=== PATIENT | female | born 1960 | race Hispanic/Latino ===

== ENCOUNTER 2016-11-28 17:52 | Emergency (ER) | payer OTHER ==
[2016-11-28 18:06] VITALS: BMI 25.2
[2016-11-28 18:33] VITALS: TEMP 98.2
[2016-11-28 18:34] LABS: ALB/GLOB RATIO 1.3 (1.1-1.8); ALKALINE PHOSPHATASE 85 U/L (38-126); ALT/SGPT 63 U/L (7-56); AST/SGOT 50 U/L (14-36); BILIRUBIN,TOTAL 0.7 mg/dL (0.2-1.3); BLOOD UREA NITROGEN 20 mg/dL (7-21); CALCIUM 9.5 mg/dL (8.4-10.5); CARBON DIOXIDE 29 mmol/L (21-33); CHLORIDE 105 mmol/L (98-107); GFR AFRICAN-AMERICAN > 60; GLUCOSE,RANDOM 121 mg/dL (70-110); POTASSIUM 3.7 mmol/L (3.6-5.0); SODIUM 146 mmol/L (132-148); TOTAL PROTEIN 8.3 g/dL (5.8-8.3)
[2016-11-28 18:46] LABS: BASO # 0.01 K/mm3 (0.0-2.0); BASO % 0.2 % (0.0-3.0); EOS # 0.1 (0.0-0.7); EOS % 1.4 % (1.5-5.0); GRAN # 3.53 (1.4-6.5); GRAN % 61.8 % (50.0-68.0); HEMATOCRIT 40.1 % (36.0-48.0); LYMPH # 1.6 (1.2-3.4); LYMPH % 27.5 % (22.0-35.0); MEAN CELL VOLUME 93.9 fl (80.0-105.0); MEAN CORPUSCULAR HEMOGLOBIN 32.8 pg (25.0-35.0); MEAN CORPUSCULAR HGB CONC 34.9 g/dl (31.0-37.0); MEAN PLATELET VOLUME 10.6 fl (7.0-11.0); MONO # 0.5 (0.1-0.6); MONO % 9.1 % (1.0-6.0); WHITE BLOOD COUNT 5.7 10^3/ul (4.5-11.0)
[2016-11-28 18:47] LABS: PH,URINE 5.5 (4.7-8.0); URINE APPEARANCE CLEAR (CLEAR); URINE BILIRUBIN SMALL (NEGATIVE); URINE BLOOD NEGATIVE (NEGATIVE); URINE COLOR YELLOW (YELLOW); URINE GLUCOSE (UA) NEGATIVE (NEGATIVE); URINE KETONE TRACE mg/dL (NEGATIVE); URINE LEUKOCYTE ESTERASE NEGATIVE Leu/uL (NEGATIVE); URINE PROTEIN TRACE mg/dL (<30 mg/dL); URINE UROBILINOGEN 0.2 E.U./dL (<1 E.U./dL)
[2016-11-28 18:54] LABS: URINE RBC NEGATIVE /hpf (0-2); URINE WBC 0 - 2 /hpf (0-6)
--- NOTE | 2016-11-28 19:12 | ED PDOC ---
Arrival/HPI - General Historian: Patient - General Chief Complaint: Psychiatric Evaluation Time Seen by Provider: 11/28/16 17:55 - History of Present Illness Narrative History of Present Illness (Text): 11/28/16 19:09 56yo female with PMHx of HIV biba for psychiatric evaluation. PEr the EMS, patient was knocking on her neighbors doors. Patient however, denies knocking on her neighbor's door. She admits to seeing a psychiatrist once in the past. She denies hallucination, SI/HI ideation, drug use, any somatic complaint. (Esthela ,Luis A) Past Medical History - Provider Review Nursing Documentation Reviewed: Yes - Infectious Disease Hx of Infectious Diseases: None - Tetanus Immunization Tetanus Immunization: Unknown - Past Medical History Past Medical History: Unable to Obtain - Pulmonary Hx Chronic Obstructive Pulmonary Disease (COPD): Yes - Musculoskeletal/Rheumatological Other/Comment: left shoulder burcitis - Gastrointestinal Hx Gastrointestinal Disorders: No - Genitourinary/Gynecological Other/Comment: left breast ca - Psychiatric Hx Anxiety: Yes Hx Substance Use: No - Past Surgical History Past Surgical History: Unable to Obtain - Surgical History Hx Cholecystectomy: Yes Other/Comment: left breast lumpectomy - Anesthesia Hx Anesthesia: Yes Hx Anesthesia Reactions: No Hx Malignant Hyperthermia: No - Suicidal Assessment Suicide Risk Precautions: None Family/Social History - Physician Review Nursing Documentation Reviewed: Yes Family/Social History: Unknown Family HX Smoking Status: Former Smoker Hx Alcohol Use: No Hx Substance Use: No Hx Substance Use Treatment: No Allergies/Home Meds Allergies/Adverse Reactions: Allergies No Known Allergies Allergy (Verified 11/28/16 18:06) Home Medications: Home Meds Medication Instructions Recorded Confirmed Albuterol HFA [Ventolin HFA 90 0.09 mg IH PRN PRN 11/04/15 11/28/16 mcg/actuation (8 g)] Alprazolam [Xanax] 0.5 mg PO PRN PRN 11/04/15 11/28/16 Budesonide/Formoterol Fumarate 1 aer IH BID 11/04/15 11/28/16 [Symbicort] Elviteg/Belinda/Emtric/Tenofo Dis 1 tab PO DAILY 11/04/15 11/28/16 [Stribild] Review of Systems - Physician Review All systems were reviewed & negative as marked: Yes - Review of Systems Constitutional: Normal Eyes: Normal ENT: Normal Respiratory: Normal Cardiovascular: Normal Gastrointestinal: Normal Genitourinary Female: Normal Musculoskeletal: Normal Skin: Normal Neurological: Normal Endocrine: Normal Hemo/Lymphatic: Normal Psychiatric: Other (Evaluation) Physical Exam Vital Signs Reviewed: Yes Temperature: Afebrile Blood Pressure: Normal Pulse: Regular Respiratory Rate: Normal Appearance: Positive for: Well-Appearing, Non-Toxic, Comfortable Pain Distress: None Mental Status: Positive for: Alert and Oriented X 3 - Systems Exam Head: Present: Atraumatic, Normocephalic Pupils: Present: PERRL Extroacular Muscles: Present: EOMI Conjunctiva: Present: Normal Mouth: Present: Moist Mucous Membranes Neck: Present: Normal Range of Motion Respiratory/Chest: Present: Clear to Auscultation, Good Air Exchange. No: Respiratory Distress, Accessory Muscle Use Cardiovascular: Present: Regular Rate and Rhythm, Normal S1, S2. No: Murmurs Abdomen: Present: Normal Bowel Sounds. No: Tenderness, Distention, Peritoneal Signs Back: Present: Normal Inspection Upper Extremity: Present: Normal Inspection. No: Cyanosis, Edema Lower Extremity: Present: Normal Inspection. No: Edema Neurological: Present: GCS=15, CN II-XII Intact, Speech Normal Skin: Present: Warm, Dry, Normal Color. No: Rashes Psychiatric: Present: Alert, Oriented x 3, Normal Insight, Normal Concentration Vital Signs Temp Pulse Resp BP Pulse Ox 11/29/16 06:00 83 18 126/83 98 11/29/16 04:00 77 18 120/80 97 11/29/16 02:00 82 18 125/77 99 11/29/16 00:00 78 18 126/78 98 11/28/16 22:00 89 18 129/81 97 11/28/16 20:00 87 18 125/80 98 11/28/16 18:32 98.2 F 90 22 118/79 97 Medical Decision Making ED Course and Treatment: 11/29/16 02:00 Case signed out to me, pending PES evaluation. 11/29/16 03:13 Patient is cleared for discharge. (Bi Vilchis) - Lab Interpretations Lab Results: 11/28/16 18:12 11/28/16 18:12 Lab Results 11/28/16 18:25: Urine Opiates Screen Positive H, Urine Methadone Screen Negative , Ur Barbiturates Screen Negative, Ur Phencyclidine Scrn Negative, Ur Amphetamines Screen Negative, U Benzodiazepines Scrn Negative, U Oth Cocaine Metabols Negative, U Cannabinoids Screen Positive H 11/28/16 18:25: Urine Color Yellow, Urine Appearance Clear, Urine pH 5.5, Ur Specific [place] >= 1.030, Urine Protein Trace H, Urine Glucose (UA) Negative, Urine Ketones Trace H, Urine Blood Negative, Urine Nitrate Negative, Urine Bilirubin Small H, Urine Urobilinogen 0.2, Ur Leukocyte Esterase Negative, Urine RBC Negative, Urine WBC 0 - 2, Ur Epithelial Cells 1 - 3, Urine Other Mucus 11/28/16 18:12: Alcohol, Quantitative < 10 11/28/16 18:12: Salicylates < 1 L, Acetaminophen < 10.0 L 11/28/16 18:12: Sodium 146, Potassium 3.7, Chloride 105, Carbon Dioxide 29, Anion Gap 16, BUN 20, Creatinine 0.8, Est GFR ( Amer) > 60, Est GFR (Non- Af Amer) > 60, Random Glucose 121 H, Calcium 9.5, Total Bilirubin 0.7, AST 50 H , ALT 63 H, Alkaline Phosphatase 85, Total Protein 8.3, Albumin 4.7, Globulin 3.5, Albumin/Globulin Ratio 1.3 11/28/16 18:12: WBC 5.7, RBC 4.27, Hgb 14.0, Hct 40.1, MCV 93.9, MCH 32.8, MCHC 34.9, RDW 15.0 H, Plt Count 208, MPV 10.6, Gran % 61.8, Lymph % (Auto) 27.5, [place] % (Auto) 9.1 H, Eos % (Auto) 1.4 L, Baso % (Auto) 0.2, Gran # 3.53, Lymph # 1.6, [place] # 0.5, Eos # 0.1, Baso # 0.01 Disposition/Present on Arrival - Present on Arrival Any Indicators Present on Arrival: No History of DVT/PE: No History of Uncontrolled Diabetes: No Urinary Catheter: No History of Decub. Ulcer: No History Surgical Site Infection Following: None - Disposition Have Diagnosis and Disposition been Completed?: Yes Disposition Time: 05:00 Patient Plan: Discharge - Disposition Diagnosis: Psychiatric care Disposition: HOME/ ROUTINE Condition: STABLE Discharge Instructions (ExitCare): Schizophrenia (ED) Additional Instructions: please followup as directed by PES worker and [facility]. return to er with worsening symtoms or concerns. Referrals: [facility] [Outside] - Follow up with primary [facility] [Outside] - Follow up with primary Chris Lucas MD [Primary Care Provider] - Follow up with primary Forms: [employer] ([place]ayan)
[2016-11-28 22:22] VITALS: RESP 18
[2016-11-29 06:19] VITALS: BP 126/83; PULSE 83; O2SAT 98
--- NOTE | 2016-11-29 21:07 | CARD ---
APPROVED REPORT EKG Measurement Heart [id number] <Conclusion> Normal sinus rhythm Possible Left atrial enlargement T wave abnormality, consider anterior ischemia Abnormal ECG
== END 2016-11-29 06:19 | disposition home or self-care (01) ==
LOC: ED 17:52
DX: Z00.8 Encounter for other general examination (principal)

== ENCOUNTER 2017-05-15 21:31 | Emergency (ER) | payer OTHER ==
[2017-05-15 21:56] VITALS: BMI 22.1
--- NOTE | 2017-05-15 22:02 | ED PDOC ---
Arrival/HPI - General Chief Complaint: Lower Extremity Problem/Injury Time Seen by Provider: 05/15/17 21:35 Historian: Patient - History of Present Illness Narrative History of Present Illness (Text): 05/15/17 22:02 Rina Mathews is a 56 year old female, whose past medical history includes HIV, who presents to the Emergency department complaining of intermittent bilateral lower extremity swelling for the past month. Patient also reports she developed a rash to bilateral lower extremities since yesterday. Patient denies any shortness of breath or chest patient. Patient states she was advised by her PMD to go to the Emergency room. Patient mid-history now refusing further evaluation, states she is at the wrong hospital and wants to leave. 05/15/17 23:59 Symptom Onset: Gradual Symptom Course: Unchanged Activities at Onset: Light Context: Home Past Medical History - Provider Review Nursing Documentation Reviewed: Yes - Infectious Disease Hx of Infectious Diseases: None - Tetanus Immunization Tetanus Immunization: Unknown - Reproductive Menopause: Yes - Past Medical History Past Medical History: Unable to Obtain - Cardiac Hx Cardiac Disorders: No - Pulmonary Hx Respiratory Disorders: Yes Hx Chronic Obstructive Pulmonary Disease (COPD): Yes - Neurological Hx Neurological Disorder: No - HEENT Hx HEENT Disorder: No - Renal Hx Renal Disorder: No - Endocrine/Metabolic Hx Endocrine Disorders: No - Hematological/Oncological Hx Blood Disorders: Yes - Integumentary Hx Dermatological Disorder: No - Musculoskeletal/Rheumatological Hx Musculoskeletal Disorders: Yes Other/Comment: left shoulder burcitis - Gastrointestinal Hx Gastrointestinal Disorders: No - Genitourinary/Gynecological Hx Genitourinary Disorders: Yes Other/Comment: left breast ca - Psychiatric Hx Psychophysiologic Disorder: Yes Hx Anxiety: Yes Hx Substance Use: No - Past Surgical History Past Surgical History: Unable to Obtain - Surgical History Hx Cholecystectomy: Yes Other/Comment: left breast lumpectomy - Anesthesia Hx Anesthesia: Yes Hx Anesthesia Reactions: No Hx Malignant Hyperthermia: No - Suicidal Assessment Feels Threatened In Home Enviroment: No Family/Social History - Physician Review Nursing Documentation Reviewed: Yes Family/Social History: Unknown Family HX Smoking Status: Former Smoker Hx Alcohol Use: No Hx Substance Use: No Hx Substance Use Treatment: No Allergies/Home Meds Allergies/Adverse Reactions: Allergies No Known Allergies Allergy (Verified 05/15/17 21:53) Home Medications: Home Meds Medication Instructions Recorded Confirmed Albuterol HFA [Ventolin HFA 90 0.09 mg IH PRN PRN 11/04/15 05/15/17 mcg/actuation (8 g)] Alprazolam [Xanax] 0.5 mg PO PRN PRN 11/04/15 05/15/17 Budesonide/Formoterol Fumarate 1 aer IH BID 11/04/15 05/15/17 [Symbicort] Elviteg/Belinda/Emtric/Tenofo Dis 1 tab PO DAILY 11/04/15 05/15/17 [Stribild] Review of Systems - Physician Review All systems were reviewed & negative as marked: Yes - Review of Systems Constitutional: Normal. absent: Fevers Eyes: Normal ENT: Normal Respiratory: Normal. absent: SOB, Cough Cardiovascular: Normal. absent: Chest Pain Gastrointestinal: Normal. absent: Abdominal Pain, Diarrhea, Nausea, Vomiting Genitourinary Female: Normal. absent: Dysuria, Frequency, Hematuria, Urine Output Changes Musculoskeletal: Other (+bilateral lower extremity swelling) Skin: Rash Neurological: Normal Endocrine: Normal Hemo/Lymphatic: Normal Psychiatric: Normal Physical Exam - Physical Exam Physical Exam Limitations: Other (Pt refused further evaluation) Medical Decision Making ED Course and Treatment: 05/15/17 22:02 Impression: 56 year old female complaining of bilateral lower extremity swelling with rash. Plan: -- Reassess and disposition Prior Visits: Notes and results from previous visits were reviewed. On 11/28/2016, pt was seen in the Emergency department for psychiatric evaluation. Pt was d/c home. Progress Notes: Patient mid-history during history now refusing further evaluation, states she is at the wrong hospital and wants to leave. Pt refusing any further evaluation/ examination. Pt will sign out against medical advice. i advsied we cannot call ambulance to tranfer to another institution. pt states she will ama, and seen ambulating out of er in nad. refuses exam, signs ama. The patient is choosing to leave against medical advice. I have personally explained to the patient that choosing to do so may result in permanent bodily harm or . I have discussed at great length that without further evaluation and monitoring there may be unforeseen circumstances and/or deterioration causing permanent bodily harm or as a result of their choice. The patient is alert, oriented, and shows the mental capacity to make clear decisions regarding the patients health care at this time. The patient continues to wish to leave against medical advice. In light of the patients decision to leave against medical advice,patient is aware of the importance to following up as instructed. The patient has been advised that they should return to the emergency room immediately if they change their mind at any time, or if their condition begins to change or worsen in any way.. 05/16/17 00:00 Disposition/Present on Arrival - Present on Arrival Any Indicators Present on Arrival: No History of DVT/PE: No History of Uncontrolled Diabetes: No Urinary Catheter: No History of Decub. Ulcer: No History Surgical Site Infection Following: None - Disposition Have Diagnosis and Disposition been Completed?: Yes Diagnosis: Leg pain, Rash, Left against medical advice Disposition: AGAINST MEDICAL ADVICE Disposition Time: 11:00 Condition: UNKNOWN Discharge Instructions (ExitCare): Skin Rash Referrals: Chris Lucas MD [Primary Care Provider] - Follow up with primary Forms: [employer] ([place] Citizen)
== END 2017-05-15 22:20 | disposition left against medical advice (07) ==
LOC: ED 21:31
DX: R21 Rash and other nonspecific skin eruption (principal); M79.605 Pain in left leg; M79.604 Pain in right leg; Z87.891 Personal history of nicotine dependence

== ENCOUNTER 2017-05-22 | Emergency (ER) | payer OTHER ==
[2017-05-22 00:15] VITALS: BMI 17.2
[2017-05-22 00:19] VITALS: TEMP 97.7; O2SAT 95
--- NOTE | 2017-05-22 00:41 | ED PDOC ---
Arrival/HPI - General Chief Complaint: Shortness Of Breath Time Seen by Provider: 05/22/17 00:04 Historian: Patient - History of Present Illness Narrative History of Present Illness (Text): 05/22/17 00:40 Rina Mathews is a 56 year old female, whose past medical history includes HIV, who presents to the Emergency department complaining of shortness of breath. Patient states allegedly her apartment has had a noxious odor for the past few months and she developed some shortness of breath tonight. Patient also notes red "spots" on her arms and leg. Patient states she has been evaluated by her ENT and autotransfusionist for similar complaints previously. Patient also complaining of a mild burning sensation to bilateral feet. Patient denies any fever, chills, chest pain, nausea, vomiting, diarrhea, urinary symptoms, back pain, neck pain, headache, dizziness, or any other complaints. Symptom Onset: Gradual Symptom Course: Unchanged Activities at Onset: Light Context: Home Past Medical History - Provider Review Nursing Documentation Reviewed: Yes - Infectious Disease Hx of Infectious Diseases: None - Tetanus Immunization Tetanus Immunization: Unknown - Reproductive Menopause: Yes - Past Medical History Past Medical History: Unable to Obtain - Cardiac Hx Cardiac Disorders: No - Pulmonary Hx Respiratory Disorders: Yes Hx Chronic Obstructive Pulmonary Disease (COPD): Yes - Neurological Hx Neurological Disorder: No - HEENT Hx HEENT Disorder: No - Renal Hx Renal Disorder: No - Endocrine/Metabolic Hx Endocrine Disorders: No - Hematological/Oncological Hx Blood Disorders: Yes - Integumentary Hx Dermatological Disorder: No - Musculoskeletal/Rheumatological Hx Musculoskeletal Disorders: Yes Other/Comment: left shoulder burcitis - Gastrointestinal Hx Gastrointestinal Disorders: No - Genitourinary/Gynecological Hx Genitourinary Disorders: Yes Other/Comment: left breast ca - Psychiatric Hx Psychophysiologic Disorder: Yes Hx Anxiety: Yes Hx Substance Use: No - Past Surgical History Past Surgical History: Unable to Obtain - Surgical History Hx Cholecystectomy: Yes Other/Comment: left breast lumpectomy - Anesthesia Hx Anesthesia: Yes Hx Anesthesia Reactions: No Hx Malignant Hyperthermia: No - Suicidal Assessment Feels Threatened In Home Enviroment: No Family/Social History - Physician Review Nursing Documentation Reviewed: Yes Family/Social History: Unknown Family HX Smoking Status: Former Smoker Hx Alcohol Use: No Hx Substance Use: No Hx Substance Use Treatment: No Allergies/Home Meds Allergies/Adverse Reactions: Allergies No Known Allergies Allergy (Verified 04/11/18 00:22) Home Medications: Home Meds Medication Instructions Recorded Confirmed Albuterol HFA [Ventolin HFA 90 0.09 mg IH PRN PRN 11/04/15 05/22/17 mcg/actuation (8 g)] Alprazolam [Xanax] 0.5 mg PO PRN PRN 11/04/15 05/22/17 Budesonide/Formoterol Fumarate 1 aer IH BID 11/04/15 05/15/17 [Symbicort] Elviteg/Belinda/Emtric/Tenofo Dis 1 tab PO DAILY 11/04/15 05/15/17 [Stribild] Abacavir/Dolutegravir/Lamivudi 1 tab PO DAILY 05/22/17 05/22/17 [Triumeq 600 mg-50 mg-300 mg] Review of Systems - Physician Review All systems were reviewed & negative as marked: Yes - Review of Systems Constitutional: Normal. absent: Fevers Eyes: Normal ENT: Normal Respiratory: SOB. absent: Cough Cardiovascular: Normal. absent: Chest Pain Gastrointestinal: Normal. absent: Abdominal Pain Genitourinary Female: Normal. absent: Dysuria, Frequency, Hematuria, Urine Output Changes Musculoskeletal: Normal. absent: Back Pain, Neck Pain Skin: Rash Neurological: Normal. absent: Headache, Dizziness Endocrine: Normal Hemo/Lymphatic: Normal Psychiatric: Normal Physical Exam Vital Signs Reviewed: Yes Vital Signs Temp Pulse Resp BP Pulse Ox 05/22/17 00:18 97.7 F 70 18 111/61 95 05/22/17 00:15 67 18 111/61 93 L Temperature: Afebrile Blood Pressure: Normal Pulse: Regular Respiratory Rate: Normal Appearance: Positive for: Well-Appearing, Non-Toxic, Comfortable Pain Distress: None Mental Status: Positive for: Alert and Oriented X 3 - Systems Exam Head: Present: Atraumatic, Normocephalic Pupils: Present: PERRL Extroacular Muscles: Present: EOMI Conjunctiva: Present: Normal Mouth: Present: Moist Mucous Membranes Neck: Present: Normal Range of Motion Respiratory/Chest: Present: Clear to Auscultation, Good Air Exchange. No: Respiratory Distress, Accessory Muscle Use Cardiovascular: Present: Regular Rate and Rhythm, Normal S1, S2. No: Murmurs Abdomen: No: Tenderness, Distention, Peritoneal Signs Back: Present: Normal Inspection Upper Extremity: Present: Normal Inspection. No: Cyanosis, Edema Lower Extremity: Present: Normal Inspection. No: Edema Neurological: Present: GCS=15, CN II-XII Intact, Speech Normal Skin: Present: Warm, Dry, Normal Color. No: Rashes Psychiatric: Present: Alert, Oriented x 3, Normal Insight, Normal Concentration Medical Decision Making ED Course and Treatment: 05/22/17 00:40 Impression: 56 year old female complaining of shortness of breath and red "spots" on her arms and legs. Plan: -- EKG -- Chest X-ray -- Labs, ABG -- Urinalysis -- Reassess and disposition Prior Visits: Notes and results from previous visits were reviewed. On 05/15/2017, pt was seen in the Emergency department for bilateral lower leg swelling and rash. Pt refused further evaluation and AMA. Progress Notes: Reviewed EKG, NSR at [address]-segment elevations or depressions, no T-wave inversions, normal intervals 05/22/17 02:03 Chest X-ray reviewed, shows no acute processes. 05/22/17 02:10 On re-evaluation, patient feels better and is in no acute distress. I have discussed the results and plan with the patient, who expresses understanding. Patient in agreement with plan to be discharged home. Patient is stable for discharge. Patient was instructed to follow up with physician or return if symptoms worsen or new concerning symptoms arise. - Lab Interpretations Lab Results: 05/22/17 01:08 05/22/17 01:08 Lab Results 05/22/17 01:08: Sodium 141, Potassium 4.5, Chloride 103, Carbon Dioxide 28, Anion Gap 15, BUN 21, Creatinine 0.9, Est GFR ( Amer) > 60, Est GFR (Non- Af Amer) > 60, Random Glucose 100, Calcium 9.8, Total Bilirubin 0.3, AST 26, ALT 28, Alkaline Phosphatase 84, Total Protein 7.6, Albumin 4.2, Globulin 3.4, Albumin/Globulin Ratio 1.3 05/22/17 01:08: PT 11.1, INR 0.97, APTT 30.9 05/22/17 01:08: WBC 6.2, RBC 4.09, Hgb 13.1, Hct 38.2, MCV 93.4, MCH 32.0, MCHC 34.3, RDW 13.0, Plt Count 161, MPV 10.7, Gran % 48.0 L, Lymph % (Auto) 35.0, [place] % (Auto) 10.9 H, Eos % (Auto) 5.6 H, Baso % (Auto) 0.5, Gran # 2.99, Lymph # (Auto) 2.2, [place] # (Auto) 0.7 H, Eos # (Auto) 0.4, Baso # (Auto) 0.03 I have reviewed the lab results: Yes - RAD Interpretation Radiology Orders: 05/22/17 00:45 CHEST PORTABLE [RAD] Stat Buoy Tender: ED Physician - EKG Interpretation Interpreted by ED Physician: Yes Type: 12 lead EKG - Scribe Statement The provider has reviewed the documentation as recorded by the Scribe Sade Singletary Provider Scribe Attestation: All medical record entries made by the Scribe were at my direction and personally dictated by me. I have reviewed the chart and agree that the record accurately reflects my personal performance of the history, physical exam, medical decision making, and the department course for this patient. I have also personally directed, reviewed, and agree with the discharge instructions and disposition. Disposition/Present on Arrival - Present on Arrival History of DVT/PE: No History of Uncontrolled Diabetes: No Urinary Catheter: No History of Decub. Ulcer: No History Surgical Site Infection Following: None - Disposition Diagnosis: Inhalation of noxious fumes, Dermatitis Disposition: HOME/ ROUTINE Patient Problems: Current Active Problems Problem Status Onset Dermatitis Acute Inhalation of noxious fumes Acute Condition: GOOD Discharge Instructions (ExitCare): Eczema (Atopic Dermatitis) Referrals: Ryan Harmon MD [Staff Provider] - Follow up with primary Chris Lucas MD [Primary Care Provider] - Follow up with primary Forms: [employer] (Arabic)
[2017-05-22 01:39] LABS: ALB/GLOB RATIO 1.3 (1.1-1.8); ALBUMIN 4.2 g/dL (3.0-4.8); ALT/SGPT 28 U/L (7-56); AST/SGOT 26 U/L (14-36); BLOOD UREA NITROGEN 21 mg/dL (7-21); CALCIUM 9.8 mg/dL (8.4-10.5); GFR AFRICAN-AMERICAN > 60; GFR NON-AFRICAN AMERICAN > 60
[2017-05-22 01:44] LABS: INR 0.97 (0.93-1.08); PROTHROMBIN TIME 11.1 SECONDS (9.4-12.5)
[2017-05-22 01:45] LABS: PARTIAL THROMBOPLASTIN TIME 30.9 Seconds (25.1-36.5)
[2017-05-22 01:50] LABS: BASO # 0.03 K/mm3 (0.0-2.0); BASO % 0.5 % (0.0-3.0); EOS # 0.4 (0.0-0.7); EOS % 5.6 % (1.5-5.0); GRAN # 2.99 (1.4-6.5); HEMOGLOBIN 13.1 g/dL (12.0-16.0); LYMPH # 2.2 (1.2-3.4); MEAN CELL VOLUME 93.4 fl (80.0-105.0); MEAN CORPUSCULAR HGB CONC 34.3 g/dl (31.0-37.0); MEAN PLATELET VOLUME 10.7 fl (7.0-11.0); MONO # 0.7 (0.1-0.6); MONO % 10.9 % (1.0-6.0); RBC 4.09 10^6/uL (3.5-6.1); WHITE BLOOD COUNT 6.2 10^3/ul (4.5-11.0)
[2017-05-22 02:53] VITALS: BP 137/81; PULSE 97; RESP 20
--- NOTE | 2017-05-22 09:29 | RAD ---
HISTORY: Shortness of breath. COMPARISON: No prior. FINDINGS: LUNGS: No active pulmonary disease. PLEURA: No significant pleural effusion identified, no pneumothorax apparent. CARDIOVASCULAR: Normal. OSSEOUS STRUCTURES: No significant abnormalities. VISUALIZED UPPER ABDOMEN: Normal. OTHER FINDINGS: None. IMPRESSION: No active disease.
--- NOTE | 2017-05-22 11:19 | CARD ---
APPROVED REPORT EKG Measurement Heart [id number] <Conclusion> Normal sinus rhythm Normal ECG
== END 2017-05-22 05:35 | disposition home or self-care (01) ==
LOC: ED
DX: L30.9 Dermatitis, unspecified (principal); T59.891A Toxic effect of other specified gases, fumes and vapors, accidental (unintentional), initial encounter; Y92.009 Unspecified place in unspecified non-institutional (private) residence as the place of occurrence of the external cause

== ENCOUNTER 2017-06-20 11:38 | Emergency (ER) | payer OTHER ==
[2017-06-20 11:51] VITALS: BMI 17.7
--- NOTE | 2017-06-20 13:06 | ED PDOC ---
Arrival/HPI - General Chief Complaint: Abnormal Skin Integrity Time Seen by Provider: 06/20/17 11:55 Historian: Patient - History of Present Illness Narrative History of Present Illness (Text): 06/20/17 56 year old female, whose PMH includes left breast cancer and COPD, who presents to the emergency department complaining of burning on bilateral hands s /p getting out the shower. Patient also reports having chronic problems and issues with her apartment, requesting us to call the police. Patient denies SI, HI, hallucination, or other complaints. Symptom Onset: Sudden Symptom Course: Unchanged Context: Home Past Medical History - Provider Review Nursing Documentation Reviewed: Yes - Infectious Disease Hx of Infectious Diseases: None - Tetanus Immunization Tetanus Immunization: Unknown - Reproductive Menopause: No - Past Medical History Past Medical History: Unable to Obtain - Cardiac Hx Cardiac Disorders: No - Pulmonary Hx Respiratory Disorders: Yes Hx Chronic Obstructive Pulmonary Disease (COPD): Yes - Neurological Hx Neurological Disorder: No - HEENT Hx HEENT Disorder: No - Renal Hx Renal Disorder: No - Endocrine/Metabolic Hx Endocrine Disorders: No - Hematological/Oncological Hx Blood Disorders: Yes - Integumentary Hx Dermatological Disorder: No - Musculoskeletal/Rheumatological Hx Musculoskeletal Disorders: Yes Other/Comment: left shoulder burcitis - Gastrointestinal Hx Gastrointestinal Disorders: No - Genitourinary/Gynecological Hx Genitourinary Disorders: Yes Other/Comment: left breast ca - Psychiatric Hx Psychophysiologic Disorder: Yes Hx Anxiety: Yes Hx Substance Use: No - Past Surgical History Past Surgical History: Unable to Obtain - Surgical History Hx Cholecystectomy: Yes Other/Comment: left breast lumpectomy - Anesthesia Hx Anesthesia: Yes Hx Anesthesia Reactions: No Hx Malignant Hyperthermia: No - Suicidal Assessment Feels Threatened In Home Enviroment: No Family/Social History - Physician Review Nursing Documentation Reviewed: Yes Family/Social History: Unknown Family HX Smoking Status: Former Smoker Hx Alcohol Use: No Hx Substance Use: No Hx Substance Use Treatment: No Allergies/Home Meds Allergies/Adverse Reactions: Allergies No Known Allergies Allergy (Verified 05/22/17 00:22) Home Medications: Home Meds Medication Instructions Recorded Confirmed Albuterol HFA [Ventolin HFA 90 0.09 mg IH PRN PRN 11/04/15 05/22/17 mcg/actuation (8 g)] Alprazolam [Xanax] 0.5 mg PO PRN PRN 11/04/15 05/22/17 Budesonide/Formoterol Fumarate 1 aer IH BID 11/04/15 05/15/17 [Symbicort] Elviteg/Belinda/Emtric/Tenofo Dis 1 tab PO DAILY 11/04/15 05/15/17 [Stribild] Abacavir/Dolutegravir/Lamivudi 1 tab PO DAILY 05/22/17 05/22/17 [Triumeq 600 mg-50 mg-300 mg] Physical Exam Vital Signs Reviewed: Yes Vital Signs Temp Pulse Resp BP Pulse Ox 06/20/17 14:14 98.5 F 92 H 18 140/69 100 06/20/17 11:56 97.7 F 79 22 105/69 97 Temperature: Afebrile Blood Pressure: Normal Pulse: Regular Respiratory Rate: Normal Appearance: Positive for: Well-Appearing, Non-Toxic, Comfortable Pain Distress: None Mental Status: Positive for: Alert and Oriented X 3 - Systems Exam Head: Present: Atraumatic, Normocephalic Pupils: Present: PERRL Extroacular Muscles: Present: EOMI Conjunctiva: Present: Normal Neurological: Present: GCS=15, CN II-XII Intact, Speech Normal Skin: Present: Warm, Dry, Normal Color. No: Rashes Psychiatric: Present: Alert, Oriented x 3, Normal Insight, Normal Concentration Medical Decision Making ED Course and Treatment: 06/20/17 Plan: -- day care worker -- Reassess and disposition Progress Notes: 06/20/17 14:31 day care worker was requested. I explained to the patient that a vp digital marketing social media and crm would be better in assisting her in issues with her apartment. Patient stated she has an appointment and requested to be d/c. She did not want to wait to speak with the vp digital marketing social media and crm. - Scribe Statement The provider has reviewed the documentation as recorded by the Scribe Christelle Whipple Provider Scribe Attestation: All medical record entries made by the Scribe were at my direction and personally dictated by me. I have reviewed the chart and agree that the record accurately reflects my personal performance of the history, physical exam, medical decision making, and the department course for this patient. I have also personally directed, reviewed, and agree with the discharge instructions and disposition. Disposition/Present on Arrival - Present on Arrival Any Indicators Present on Arrival: No History of DVT/PE: No History of Uncontrolled Diabetes: No Urinary Catheter: No History of Decub. Ulcer: No History Surgical Site Infection Following: None - Disposition Have Diagnosis and Disposition been Completed?: Yes Diagnosis: Well adult health check Disposition Time: 13:40 Condition: GOOD Additional Instructions: Thank you for letting us take care of you today. The emergency medical care you received today was directed at your acute symptoms. If you were prescribed any medication, please fill it and take as directed. It may take several days for your symptoms to resolve. Return to the Emergency Department if your symptoms worsen, do not improve, or if you have any other problems. Please contact your doctor or call one of the physicians/clinics you have been referred to that are listed on the Patient Visit Information form that is included in your discharge packet. Bring any paperwork you were given at discharge with you along with any medications you are taking to your follow up visit. Our treatment cannot replace ongoing medical care by a primary care provider (PCP) outside of the emergency department. Thank you for allowing the [facility] team to be part of your care today. Follow up with your primary care doctor for re-evaluation and further management. Forms: [employer] (Yoruba)
[2017-06-20 14:16] VITALS: BP 140/69; PULSE 92; RESP 18; TEMP 98.5; O2SAT 100
== END 2017-06-20 13:30 | disposition home or self-care (01) ==
LOC: ED 11:38
DX: Z00.00 Encounter for general adult medical examination without abnormal findings (principal); J44.9 Chronic obstructive pulmonary disease, unspecified; Z85.3 Personal history of malignant neoplasm of breast; Z87.891 Personal history of nicotine dependence

== ENCOUNTER 2017-07-02 22:52 | Emergency (ER) | payer OTHER ==
[2017-07-02 22:58] VITALS: BMI 18.3
[2017-07-02 23:17] VITALS: RESP 18; TEMP 97.7
--- NOTE | 2017-07-03 00:28 | ED PDOC ---
Arrival/HPI - General Chief Complaint: Headache Time Seen by Provider: 07/02/17 23:21 - History of Present Illness Narrative History of Present Illness (Text): 07/03/17 00:16 Patient is a 56 year old female with a past medical history of HIV, COPD, left breast cancer, and hepatitis C (treated), who presents to the ED complaining of headache for 2 months duration, abnormal spots on her arm, white hands, and burning and erythema on the bottom of her feet. Patient describes the headache as generalized and intermittent. Patient says she thinks this is all from a noxious substance coming from her apartment. Patient says she has called the fire department twice about this smell but by the time they arrive the smell is gone but once they leave the smell comes back. Patient believes that there is someone upstairs spreading "formaldehyde" and "molecules" into her home. She says that when she walked into her apartment and smelled the noxious odor, a blister immediately popped up on her arm. She saw a tire technician for this and they told her it was sun damage and asked her not to come back to their office. She also believes she is being watched by her ex boyfriend and his girlfriend. Patient denies suicidal and homicidal ideation. Patient says that in the past her neighbors and family forced her to come here to be evaluated for a blister on her arm but when she got here she says "they put me in the PES room and made me stay until a psychiatrist evaluated me at 2:00 in the morning". Patient says they told her at that time that she had schizophrenia and since then she has been afraid to see a psychiatrist in fear that they will involuntarily admit her to a psychiatric unit. I explained to her that it may be of benefit to her to see a psychiatrist or therapist and emphasized that they would not involuntarily admit her unless they believed she was at risk of harming herself or others. Patient understood this and was agreeable. (Lis Hamlin) Past Medical History - Infectious Disease Hx of Infectious Diseases: None - Tetanus Immunization Tetanus Immunization: Unknown - Past Medical History Past Medical History: Unable to Obtain - Cardiac Hx Cardiac Disorders: No - Pulmonary Hx Respiratory Disorders: Yes Hx Chronic Obstructive Pulmonary Disease (COPD): Yes - Neurological Hx Neurological Disorder: No - HEENT Hx HEENT Disorder: No - Renal Hx Renal Disorder: No - Endocrine/Metabolic Hx Endocrine Disorders: No - Hematological/Oncological Hx Blood Disorders: Yes - Integumentary Hx Dermatological Disorder: No - Musculoskeletal/Rheumatological Hx Musculoskeletal Disorders: Yes Other/Comment: left shoulder burcitis - Gastrointestinal Hx Gastrointestinal Disorders: No - Genitourinary/Gynecological Hx Genitourinary Disorders: Yes Other/Comment: left breast ca - Psychiatric Hx Psychophysiologic Disorder: Yes Hx Anxiety: Yes Hx Substance Use: No - Past Surgical History Past Surgical History: Unable to Obtain - Surgical History Hx Cholecystectomy: Yes Other/Comment: left breast lumpectomy - Anesthesia Hx Anesthesia: Yes Hx Anesthesia Reactions: No Hx Malignant Hyperthermia: No - Suicidal Assessment Feels Threatened In Home Enviroment: No Family/Social History Family/Social History: Unknown Family HX Smoking Status: Former Smoker Hx Alcohol Use: No Hx Substance Use: No Hx Substance Use Treatment: No Allergies/Home Meds Allergies/Adverse Reactions: Allergies No Known Allergies Allergy (Verified 07/02/17 22:58) Home Medications: Home Meds Medication Instructions Recorded Confirmed Albuterol HFA [Ventolin HFA 90 0.09 mg IH PRN PRN 11/04/15 07/03/17 mcg/actuation (8 g)] Budesonide/Formoterol Fumarate 1 aer IH BID 11/04/15 07/03/17 [Symbicort] Elviteg/Belinda/Emtric/Tenofo Dis 1 tab PO DAILY 11/04/15 07/03/17 [Stribild] Abacavir/Dolutegravir/Lamivudi 1 tab PO DAILY 05/22/17 07/03/17 [Triumeq 600 mg-50 mg-300 mg] Review of Systems - Physician Review All systems were reviewed & negative as marked: Yes - Review of Systems Constitutional: Weight Change (loss) Eyes: Normal ENT: Normal Respiratory: SOB, Cough. absent: Sputum, Wheezing Cardiovascular: Chest Pain. absent: Palpitations, Edema, Calf Pain Gastrointestinal: Abdominal Pain, Nausea. absent: Constipation, Diarrhea, Vomiting Genitourinary Female: Normal Skin: Skin Lesions (right arm) Neurological: Headache, Dizziness Psychiatric: Anxiety, Other (paranoia ). absent: Suicidal Ideation Physical Exam Temperature: Afebrile Blood Pressure: Normal Pulse: Regular Respiratory Rate: Normal Appearance: Positive for: Well-Appearing, Non-Toxic, Comfortable Pain Distress: None Mental Status: Positive for: Alert and Oriented X 3 - Systems Exam Head: Present: Atraumatic, Normocephalic Pupils: Present: PERRL Extroacular Muscles: Present: EOMI Conjunctiva: Present: Normal Mouth: Present: Moist Mucous Membranes Neck: Present: Normal Range of Motion Respiratory/Chest: Present: Clear to Auscultation, Good Air Exchange. No: Respiratory Distress, Accessory Muscle Use Cardiovascular: Present: Regular Rate and Rhythm, Normal S1, S2. No: Murmurs Abdomen: Present: Normal Bowel Sounds. No: Tenderness, Distention, Peritoneal Signs Back: Present: Normal Inspection Upper Extremity: Present: Normal Inspection, Other (small brown macule of right forearm resembling a sunspot). No: Cyanosis, Edema, Swelling, Erythema Lower Extremity: Present: Normal Inspection, Other (angiomata seen on bilateral lower extremities). No: Edema, CALF TENDERNESS Neurological: Present: GCS=15, Speech Normal Skin: Present: Warm, Dry. No: Rashes Psychiatric: Present: Alert, Oriented x 3, Anxious, Delusional. No: Suicidal Ideation, Homicidal Ideation, Hallucinations Vital Signs Temp Pulse Resp BP Pulse Ox 07/03/17 05:00 85 18 115/72 100 07/03/17 01:23 97.7 F 83 18 110/60 100 07/02/17 23:14 97.7 F 91 H 18 102/64 96 Medical Decision Making ED Course and Treatment: 07/03/17 00:37 Will give tylenol for headache and lotion for dry skin. Discussed plan with patient to follow up in the [facility] which she is agreeable to. (Lis Hamiln) Seen and examined with resident. 56 year old F p/w request to sleep and headache due to noxious smell in apartment. On exam, no focal deficit neurologically. (Romain Alvarado) - Medication Orders Current Medication Orders: Discontinued Medications Acetaminophen (Tylenol 325mg Tab) 650 mg PO STAT STA Stop: 07/03/17 00:16 Last Admin: 07/03/17 00:45 Dose: 650 mg MAR Pain/Vitals Document 07/03/17 00:45 LA (Rec: 07/03/17 00:45 SHERLYN PRYOR-PC) Pain Reassessment Is This A Pain ReAssessment? No Sleep Is patient sleeping during reassessment? No Presence of Pain Presence of Pain Yes Pain Scale Used Pain Scale Used Numeric Location Pain Location Body Manager Custom Intensity 5 Scale Used Numeric Re-Assess: GREG Pain/Vitals Document 07/03/17 01:45 LA (Rec: 07/03/17 01:45 SHERLYN [id number]) Pain Reassessment Is This A Pain ReAssessment? Yes Sleep Is patient sleeping during reassessment? Yes Calamine (Calamine Lotion) 2 ml TOP DAILY PRN PRN Reason: Dry skin - PA / ITALIAN TUTOR / Resident Statement MD/DO has reviewed & agrees with the documentation as recorded. MD/DO has examined the patient and agrees with the treatment plan. Disposition/Present on Arrival - Present on Arrival Any Indicators Present on Arrival: No History of DVT/PE: No History of Uncontrolled Diabetes: No Urinary Catheter: No History of Decub. Ulcer: No History Surgical Site Infection Following: None - Disposition Have Diagnosis and Disposition been Completed?: Yes Disposition Time: 00:47 - Disposition Diagnosis: Schizophrenia, Headache, Inhalation of noxious substance Disposition: HOME/ ROUTINE Condition: STABLE Discharge Instructions (ExitCare): Headache, Adult Additional Instructions: Please follow up in the [facility] for further coordination of your care. Ref[place] [facility] [place] [facility] [place] - Follow up with primary Forms: [employer] (Tajik)
[2017-07-03] MEDS ORDERED: Calamine-Zinc Oxide Lotion (120 ml) TOP PRN (00:29)
[2017-07-03 01:24] VITALS: O2SAT 100
[2017-07-03 05:26] VITALS: BP 115/72; PULSE 85
== END 2017-07-03 05:00 | disposition home or self-care (01) ==
LOC: ED 22:52
DX: T59.891A Toxic effect of other specified gases, fumes and vapors, accidental (unintentional), initial encounter (principal); Y92.039 Unspecified place in apartment as the place of occurrence of the external cause; R51 Headache; F20.9 Schizophrenia, unspecified

== ENCOUNTER 2017-08-25 06:18 | Observation (INO) | payer OTHER ==
[2017-08-25 06:20] VITALS: BMI 18.3
--- NOTE | 2017-08-25 07:50 | ED PDOC ---
Arrival/HPI - History of Present Illness Time/Duration: < week Symptom Course: Intermittent Activities at Onset: Light Context: Home <Celina Toledo - Last Filed: 08/25/17 10:58> <Mikayla aHrtmann - Last Filed: 08/26/17 07:41> - General Chief Complaint: ENT Problem Time Seen by Provider: 08/25/17 07:07 - History of Present Illness Narrative History of Present Illness (Text): 08/25/17 07:43 This is a 57 year old female with PMH of left breast cancer, COPD not on oxygen , HIV and Hep C presents to the ER for coughing up blood and mucous as well as burning in her throat. Symptoms have been occurring for 3 days intermittently and patient denies previous history of similar episodes. She admits to associated symptoms of SOB and nausea, and denies CP, fevers, chills, vomiting, diarrhea, hematemesis, hematochezia, abdominal pain, sick contacts at home and recent travel. She went to the [facility] on [address] yesterday and received 50mg prednisone and 3 breathing treatments with some improvement in symptoms. She has a 40 year smoking history and quit about 15 years ago. PMD: Dr. Templeton (Celina Toledo) Past Medical History - Provider Review Nursing Documentation Reviewed: Yes - Infectious Disease Hx of Infectious Diseases: None - Tetanus Immunization Tetanus Immunization: Unknown - Reproductive Menopause: Yes - Past Medical History Past Medical History: Unable to Obtain - Cardiac Hx Cardiac Disorders: No - Pulmonary Hx Respiratory Disorders: Yes Hx Chronic Obstructive Pulmonary Disease (COPD): Yes - Neurological Hx Neurological Disorder: No - HEENT Hx HEENT Disorder: No - Renal Hx Renal Disorder: No - Endocrine/Metabolic Hx Endocrine Disorders: No - Hematological/Oncological Hx Blood Disorders: Yes - Integumentary Hx Dermatological Disorder: No - Musculoskeletal/Rheumatological Hx Musculoskeletal Disorders: Yes Other/Comment: left shoulder burcitis - Gastrointestinal Hx Gastrointestinal Disorders: No - Genitourinary/Gynecological Hx Genitourinary Disorders: Yes Other/Comment: left breast ca - Psychiatric Hx Psychophysiologic Disorder: Yes Hx Anxiety: Yes Hx Substance Use: No - Past Surgical History Past Surgical History: Unable to Obtain - Surgical History Hx Cholecystectomy: Yes Other/Comment: left breast lumpectomy - Anesthesia Hx Anesthesia: Yes Hx Anesthesia Reactions: No Hx Malignant Hyperthermia: No - Suicidal Assessment Feels Threatened In Home Enviroment: No <Celina Toledo - Last Filed: 08/25/17 10:58> Family/Social History - Physician Review Nursing Documentation Reviewed: Yes Family/Social History: Unknown Family HX Smoking Status: Former Smoker Hx Alcohol Use: No Hx Substance Use: No Hx Substance Use Treatment: No <Celina Toledo - Last Filed: 08/25/17 10:58> Allergies/Home Meds <Celina Toledo - Last Filed: 08/25/17 10:58> <Mikayla Hartmann - Last Filed: 08/26/17 07:41> Allergies/Adverse Reactions: Allergies No Known Allergies Allergy (Verified 08/25/17 06:34) Home Medications: Home Meds Medication Instructions Recorded Confirmed Albuterol HFA [Ventolin HFA 90 0.09 mg IH PRN PRN 11/04/15 08/25/17 mcg/actuation (8 g)] Abacavir/Dolutegravir/Lamivudi 1 tab PO DAILY 05/22/17 08/25/17 [Triumeq 600 mg-50 mg-300 mg] Review of Systems - Physician Review All systems were reviewed & negative as marked: Yes - Review of Systems Constitutional: Normal. absent: Fevers Eyes: Normal. absent: Vision Changes ENT: Normal. absent: Hearing Changes Respiratory: SOB, Cough, Sputum. absent: Wheezing Cardiovascular: Normal. absent: Chest Pain, Palpitations Gastrointestinal: Nausea. absent: Abdominal Pain, Stool Changes, Vomiting, Hematochezia, Hematemesis Genitourinary Female: Normal Musculoskeletal: Normal Neurological: Normal Endocrine: Normal Hemo/Lymphatic: Normal <Celina Toledo - Last Filed: 08/25/17 10:58> Physical Exam Vital Signs Reviewed: Yes Temperature: Afebrile Blood Pressure: Normal Pulse: Regular Respiratory Rate: Normal Appearance: Positive for: Well-Appearing, Non-Toxic, Comfortable Pain Distress: None Mental Status: Positive for: Alert and Oriented X 3 - Systems Exam Head: Present: Atraumatic, Normocephalic Pupils: Present: PERRL Extroacular Muscles: Present: EOMI Conjunctiva: Present: Normal Mouth: Present: Moist Mucous Membranes Neck: Present: Normal Range of Motion Respiratory/Chest: No: Respiratory Distress, Accessory Muscle Use, Wheezes, Tachypneic Cardiovascular: Present: Regular Rate and Rhythm, Normal S1, S2. No: Murmurs Abdomen: No: Tenderness, Distention, Peritoneal Signs Back: Present: Normal Inspection Upper Extremity: Present: Normal Inspection. No: Cyanosis, Edema Lower Extremity: Present: Normal Inspection. No: Edema Neurological: Present: Speech Normal, Motor Func Grossly Intact, Normal Sensory Function Skin: Present: Warm, Dry Psychiatric: Present: Alert, Normal Insight, Normal Concentration <Celina Toledo - Last Filed: 08/25/17 10:58> Vital Signs Temp Pulse Resp BP Pulse Ox 08/25/17 12:45 79 19 131/79 96 08/25/17 09:56 65 19 93/64 L 94 L 08/25/17 08:21 95 H 19 111/61 96 08/25/17 06:29 97.6 F 80 17 103/60 93 L Medical Decision Making <Celina Toledo - Last Filed: 08/25/17 10:58> <Mikayla Hartmann - Last Filed: 08/26/17 07:41> ED Course and Treatment: 08/25/17 07:52 Impression: This is a 57 year old female with PMH of left breast cancer, COPD not on oxygen, HIV and Hep C presents to the ER for coughing up blood and mucous as well as burning in her throat. Differential not limited to: COPD exacerbation vs PE vs Lung cancer vs bronchitis Plan: -CBC, CMP -D-dimer, PT, PTT -EKG, CXray -Progress: 08/25/17 09:23 Vitals stable, pulse ox is 92%, afebrile, patient resting comfortably. EKG: Rate of 63, FL of 148ms, QRS of 82ms. Normal sinus rhythm. 08/25/17 10:22 CXRAY = no active disease 08/25/17 10:[address]: Lungs have hyperaerated appearance consistent with COPD. There is no evidence of a lung mass or nodule. There is some minimal scarring in the lingula segment of the left lobe. (Celina Toledo) Patient seen and evaluated with medical microbiologist. Patient complains of throat irritation for several days and has noticed that when she cough she sees "specks " of blood. Denies hematemesis. Denies leg pain or swelling. Denies fevers. No vmiting. ON exam, she has diffuse wheezing. IV steroids given after patient informed with RN witness of treatment plan and what medication is being given and patient expressed understanding of given medication, indications, as well as risks/benefits. Nebulizers ordered, patient initially refused. I clearly discussed blood tests, differential diagnosis, treatment plan and cxr and ct results with patient and have given her opportunity to ask questions. She is alert and oriented with no focal neuro deficits. She expresses concern that for the past several months she "has been exposed to something in my apartment". She states she has contacted police about this and her PMD has done testing. At this time patient does not exhibit signs of ACUTE toxicity, although will admit for serial exams, pulmonary evaluation and treatment. Risks of past smoking history reviewed. Limitations of cxr reviewed with patient. (Mikayla Hartmann) - Lab Interpretations Lab Results: 08/25/17 08:20 08/25/17 08:20 Lab Results 08/25/17 08:20: Sodium 145, Potassium 4.1, Chloride 106, Carbon Dioxide 25, Anion Gap 18, BUN 25 H, Creatinine 0.7, Est GFR ( Amer) > 60, Est GFR ( Non-Af Amer) > 60, Random Glucose 123 H, Calcium 9.5, Total Bilirubin 0.5, AST 26, ALT 13, Alkaline Phosphatase 67, Lactate Dehydrogenase 211 L, Total Creatine Kinase 100, Troponin I < 0.01, Total Protein 8.0, Albumin 4.6, Globulin 3.4, Albumin/Globulin Ratio 1.4 08/25/17 08:20: PT 11.8, INR 1.03, APTT 30.9, D-Dimer, Quantitative < 200 08/25/17 08:20: WBC 4.5 D, RBC 4.36, Hgb 14.1, Hct 39.4, MCV 90.4 D, MCH 32.3 , MCHC 35.8, RDW 13.6, Plt Count 173, MPV 10.7, Gran % 80.5 H, Lymph % (Auto) 16.6 L, Chambers % (Auto) 2.7, Eos % (Auto) 0.2 L, Baso % (Auto) 0.0, Gran # 3.64, Lymph # (Auto) 0.8 L, Chambers # (Auto) 0.1, Eos # (Auto) 0.0, Baso # (Auto) 0.00 - RAD Interpretation Radiology Orders: 08/25/17 07:37 CHEST TWO VIEWS (PA/LAT) [RAD] Stat 08/25/17 10:10 CHEST W/O CONTRAST [CT] Stat - Medication Orders Current Medication Orders: Acetaminophen (Tylenol 325mg Tab) 650 mg PO Q6H PRN PRN Reason: Headache Albuterol/Ipratropium (Duoneb 3 Mg/0.5 Mg (3 Ml) Ud) 3 ml IH [id number] [facility] Last Admin: 08/26/17 01:41 Dose: Not Given Non-Admin Reason: Patient Refused Azithromycin (Zithromax) 250 mg PO DAILY [facility] PRN Reason: Protocol Last Admin: 08/25/17 14:08 Dose: Not Given Non-Admin Reason: Patient Refused Dronabinol (Marinol) 2.5 mg PO BID [facility] Last Admin: 08/25/17 19:36 Dose: 2.5 mg Enoxaparin Sodium (Lovenox) 40 mg SC DAILY [facility] PRN Reason: Protocol Non-Formulary Medication (Abacavir/Dolutegravir/Lamivudi [Triumeq Tablet]) 1 tab PO DAILY [facility] Prednisone (Prednisone Tab) 40 mg PO DAILY [facility] Discontinued Medications Albuterol/Ipratropium (Duoneb 3 Mg/0.5 Mg (3 Ml) Ud) 3 ml IH Q15M MILENA Stop: 08/25/17 11:01 Last Admin: 08/25/17 11:07 Dose: Not Given Non-Admin Reason: Patient Refused Dronabinol (Marinol) 2.5 mg PO BID [facility] Methylprednisolone (Solu-Medrol) 125 mg IVP STAT STA Stop: 08/25/17 10:20 Last Admin: 08/25/17 11:07 Dose: 125 mg IVP Administration Document 08/25/17 11:07 MR (Rec: 08/25/17 11:07 MR [id number]) Charges for Administration # of IVP Administrations 1 - PA / CUSTOMER ENGAGEMENT MANAGER / Resident Statement / has reviewed & agrees with the documentation as recorded. / has examined the patient and agrees with the treatment plan. <Celina Toledo - Last Filed: 08/25/17 10:58> Disposition/Present on Arrival - Present on Arrival History of DVT/PE: No History of Uncontrolled Diabetes: No Urinary Catheter: No History of Decub. Ulcer: No History Surgical Site Infection Following: None <Celina Toledo - Last Filed: 08/25/17 10:58> - Present on Arrival Any Indicators Present on Arrival: No - Disposition Have Diagnosis and Disposition been Completed?: Yes Disposition Time: 10:30 Patient Plan: Admission <Mikayla Hartmann - Last Filed: 08/26/17 07:41> - Disposition Diagnosis: COPD exacerbation Disposition: HOSPITALIZED Condition: FAIR
[2017-08-25 08:34] LABS: ALB/GLOB RATIO 1.4 (1.1-1.8); ALBUMIN 4.6 g/dL (3.0-4.8); ALT/SGPT 13 U/L (7-56); AST/SGOT 26 U/L (14-36); BLOOD UREA NITROGEN 25 mg/dL (7-21); CALCIUM 9.5 mg/dL (8.4-10.5); GFR AFRICAN-AMERICAN > 60; GFR NON-AFRICAN AMERICAN > 60
[2017-08-25 08:45] LABS: TROPONIN I < 0.01 ng/mL
[2017-08-25 08:50] LABS: EOS % 0.2 % (1.5-5.0); GRAN # 3.64 (1.4-6.5); GRAN % 80.5 % (50.0-68.0); HEMOGLOBIN 14.1 g/dL (12.0-16.0); LYMPH # 0.8 (1.2-3.4); LYMPH % 16.6 % (22.0-35.0); MEAN CELL VOLUME 90.4 fl (80.0-105.0); MEAN CORPUSCULAR HEMOGLOBIN 32.3 pg (25.0-35.0); MEAN CORPUSCULAR HGB CONC 35.8 g/dl (31.0-37.0); MEAN PLATELET VOLUME 10.7 fl (7.0-11.0); MONO # 0.1 (0.1-0.6); MONO % 2.7 % (1.0-6.0); RBC 4.36 10^6/uL (3.5-6.1); RED CELL DISTRIBUTION WIDTH 13.6 % (11.5-14.5); WHITE BLOOD COUNT 4.5 10^3/ul (4.5-11.0)
[2017-08-25 09:02] LABS: INR 1.03 (0.93-1.08); PARTIAL THROMBOPLASTIN TIME 30.9 Seconds (25.1-36.5); PROTHROMBIN TIME 11.8 SECONDS (9.4-12.5)
--- NOTE | 2017-08-25 09:07 | RAD ---
Date of service: 08/25/2017 HISTORY: SOB COMPARISON: 05/22/2017 TECHNIQUE: Chest PA and lateral FINDINGS: LUNGS: No active pulmonary disease. PLEURA: No significant pleural effusion identified. No pneumothorax apparent. CARDIOVASCULAR: Normal. OSSEOUS STRUCTURES: No significant abnormalities. VISUALIZED UPPER ABDOMEN: Normal. OTHER FINDINGS: None. IMPRESSION: No active disease.
[2017-08-25 09:54] LABS: D DIMER < 200 ng/mL (0-243)
--- NOTE | 2017-08-25 10:44 | CT ---
Date of service: 08/25/2017 PROCEDURE: CT Chest without contrast HISTORY: hemoptysis, evaluate for mass COMPARISON: None. TECHNIQUE: Contiguous axial images were obtained through the chest without intravenous contrast enhancement. Sagittal and coronal reconstructions were performed. Radiation dose (DLP): 150 mGy-cm. This CT exam was performed using one or more of the following dose reduction techniques: Automated exposure control, adjustment of the mA and/or kV according to patient size, and/or use of iterative reconstruction technique. FINDINGS: LUNGS: The lungs have a hyperaerated appearance consistent with COPD. There is no evidence of a lung mass or nodule. There is some minimal peripheral scarring in the lingular segment of the left lobe. MEDIASTINUM: Unremarkable thoracic aorta. No aneurysm. Normal sized heart. Main pulmonary artery unremarkable. No vascular congestion. No lymphadenopathy. PLEURA: No pleural fluid. No pneumothorax. BONES: No fracture. No destructive lesion. UPPER ABDOMEN: Grossly unremarkable. OTHER FINDINGS: None. IMPRESSION: The lungs have a hyperaerated appearance consistent with COPD. There is no evidence of a lung mass or nodule. There is some minimal peripheral scarring in the lingular segment of the left lobe.
[2017-08-25] MEDS: Albuterol-Ipratrop 3 mg / 0.5 (3 ml) UD IH SCH ×3 (11:07→19:57)
--- NOTE | 2017-08-25 13:23 | CP.PCM.HP ---
<Dane Enriquez - Last Filed: 08/25/17 13:57> History of Present Illness - History of Present Illness History of Present Illness: PGY-2 H&P medicine note for Dr Giles Mrs Mathews is a 57 year old female with a PMHx of HIV (on antiretroviral therapy), Hep C, Left breast cancer (s/p chemo/radiation and left breast lumpectomy) and COPD who presents to our ED today for 3 days of what she described as "specks" of blood in her mucous. She stated she's had increased bouts of coughing and noticed "very minor" blood in her otherwise white mucous. There were a total of 5 episodes, the last instance of this hemoptysis was this morning. She attributes the hemoptysis to an odor emanating from her neighbor's apartment which she believes is formaldehyde. She also attributes shortness of breath and skin changes (dryness and red plaques) in the past 6 months due to this inhalation. She's exacerbated by the fact that nobody believes her that her symptoms are due to this odor - she's written to the [employer] board and plans to contact the [facility]. She admits to shortness of breath on ambulation which she says is a chronic issue for her. She denies fevers, chest pain, bowel habit changes, abdominal pain, yellow mucous production, palpitations. 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 absent: Dyspnea - Gastrointestinal Gastrointestinal: absent: Abdominal Pain, Constipation, Diarrhea, Vomiting - Genitourinary Genitourinary: absent: Dysuria - Musculoskeletal Musculoskeletal: Back Pain - Integumentary Integumentary: Change in Pigmentation. absent: Bleeding Lesions - Neurological Neurological: absent: Confusion - Psychiatric Psychiatric: Paranoia Past Patient History - Infectious Disease Hx of Infectious Diseases: None - Tetanus Immunizations Tetanus Immunization: Unknown - Past Social History Smoking Status: Former Smoker - CARDIAC Hx Cardiac Disorders: No - PULMONARY Hx Respiratory Disorders: Yes Hx Chronic Obstructive Pulmonary Disease (COPD): Yes - NEUROLOGICAL Hx Neurological Disorder: No - HEENT Hx HEENT Problems: No - RENAL Hx Chronic Kidney Disease: No - ENDOCRINE/METABOLIC Hx Endocrine Disorders: No - HEMATOLOGICAL/ONCOLOGICAL Hx Blood Disorders: Yes - INTEGUMENTARY Hx Dermatological Problems: No - MUSCULOSKELETAL/RHEUMATOLOGICAL Hx Musculoskeletal Disorders: Yes Other/Comment: left shoulder burcitis - GASTROINTESTINAL Hx Gastrointestinal Disorders: No - GENITOURINARY/GYNECOLOGICAL Hx Genitourinary Disorders: Yes Other/Comment: left breast ca - PSYCHIATRIC Hx Psychophysiologic Disorder: Yes Hx Anxiety: Yes Hx Substance Use: No - SURGICAL HISTORY Hx Cholecystectomy: Yes Other/Comment: left breast lumpectomy - ANESTHESIA Hx Anesthesia: Yes Hx Anesthesia Reactions: No Hx Malignant Hyperthermia: No Meds Allergies/Adverse Reactions: Allergies Allergy/AdvReac Type Severity Reaction Status Date / Time No Known Allergies Allergy Verified 08/25/17 06:34 Physical Exam - Constitutional Appears: Well, No Acute Distress, Older Than Stated Age - Head Exam Head Exam: ATRAUMATIC, NORMAL INSPECTION - Eye Exam Eye Exam: EOMI Pupil Exam: PERRL - ENT Exam ENT Exam: Mucous Membranes Moist, Normal Exam, Normal Oropharynx - Neck Exam Neck exam: Positive for: Full Rom, Normal Inspection. Negative for: Lymphadenopathy, Tenderness - Respiratory Exam Respiratory Exam: Wheezes. absent: Rales, Rhonchi, Respiratory Distress - Cardiovascular Exam Cardiovascular Exam: REGULAR RHYTHM, +S1, +S2. absent: Bradycardia, Tachycardia , JVD, Systolic Murmur - GI/Abdominal Exam GI & Abdominal Exam: Normal Bowel Sounds, Soft. absent: Distended, Firm, Guarding, Tenderness - Extremities Exam Extremities exam: Positive for: normal capillary refill, normal inspection, pedal pulses present. Negative for: calf tenderness - Neurological Exam Neurological exam: Alert, CN II-XII Intact, Oriented x3 - Psychiatric Exam Psychiatric exam: Normal Affect, Normal Mood - Skin Skin Exam: Dry, Intact, Normal Color, Warm Results - Vital Signs Recent Vital Signs: Last Vital Signs Temp 97.6 F 08/25/17 06:29 Pulse 79 08/25/17 12:58 Resp 19 08/25/17 12:58 BP 131/79 08/25/17 12:58 Pulse Ox 96 08/25/17 12:58 - Labs Result Diagrams: 08/25/17 08:20 08/25/17 08:20 Assessment & Plan - Assessment and Plan (Free Text) Assessment: Mrs Mathews is a 57 year old female with a PMHx of HIV (on antiretroviral therapy), Hep C, Left breast cancer diagnosed in 2006 (s/p chemo/radiation and left breast lumpectomy) and COPD who presented to our ED today for 3 days questionable hemoptysis and shortness of breath: COPD EXACERBATION 40 pack year smoking hx, has never seen a instructor 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 CT Chest w/o contrast 08/25/17: * The lungs have a hyperaerated appearance consistent with COPD. There is no evidence of a lung mass or nodule. There is some minimal peripheral scarring in the lingular segment of the left lobe. Meds: Received solumedrol 125mg IVP in ED Start prednisone 40mg PO QD tomorrow 08/26 - give for 5 days Duoneb 3ml IH Q6H Azithromycin 250mg po qd to treat empirically HEMOPTYSIS Resolved, likely not true hemoptysis, d-dimer negative H/H stable (as compared to her outpatient bloodwork she had with her from earlier this month) Monitor PARANOID PERSONALITY DISORDER -Believes are various symptoms (skin dryness/nevi, dyspnea) due to foul odor ( which she believes is formaldehyde) emanating from neighbor's apartment - has contacted housing board and plans to write the mayor; believes she tested positive for morphine on a recent blood test due to a metabolite found in formaldehyde; during interview in ED patient believed the patient in the room next to her's was eavesdropping on our conversation; stated people in her apartment building had told her the medical staffing coordinator were looking for her because she had made a bomb threat, which she denied -Psych consult, Dr Mittal HIV Absolute CD4 count from earlier this month was 535 Follow-up with infectious disease Dr Lucas HX OF HEP C Follows-up with ID Dr Lucas outpatient HX OF BREAST CANCER Diagnosed in 2006, s/p chemo/radiation and left breast lumpectomy Was supposed to take a 5 year course of tamoxifen but she refused D-dimer negative PROPHYLAXIS Lovenox 40mg sc qd scd's heart healthy diet GI prophylaxis not indicated Tylenol 650mg po q6h prn for headache Decision To Admit - Pt Status Changed To: Hospital Disposition Of: Observation - . Bed Request Type: Med/Surg <Tomi Giles - Last Filed: 08/26/17 14:45> Results - Vital Signs Recent Vital Signs: Last Vital Signs Temp 97.5 F L 08/26/17 08:35 Pulse 75 08/26/17 08:35 Resp 17 08/26/17 08:35 BP 94/63 L 08/26/17 08:35 Pulse Ox 95 08/26/17 08:35 - Labs Result Diagrams: 08/26/17 06:00 08/26/17 06:00 Labs: Laboratory Results - last 24 hr 08/26/17 08/26/17 06:00 06:00 WBC 9.3 D RBC 3.83 Hgb 12.2 Hct 34.7 L MCV 90.6 MCH 31.9 MCHC 35.2 RDW 13.8 Plt Count 158 MPV 10.4 Gran % 73.7 H Lymph % (Auto) 19.5 L Lipscomb % (Auto) 6.5 H Eos % (Auto) 0.2 L Baso % (Auto) 0.1 Gran # 6.85 H Lymph # (Auto) 1.8 Lipscomb # (Auto) 0.6 Eos # (Auto) 0.0 Baso # (Auto) 0.01 Sodium 144 Potassium 3.9 Chloride 106 Carbon Dioxide 26 Anion Gap 16 BUN 23 H Creatinine 0.8 Est GFR ( Amer) > 60 Est GFR (Non-Af Amer) > 60 Random Glucose 94 Calcium 9.3 Attending/Attestation - Attestation I have personally seen and examined this patient.: Yes I have fully participated in the care of the patient.: Yes I have reviewed all pertinent clinical information: Yes Notes (Text): 08/26/17 14:41 Medical record note made by the resident after discussion with my direction and input after the patient was personally seen and examined by me. I have reviewed the chart and agree that the record accurately reflects by personal performance of the history, physical exam, data review, and medical decision-making, in the course for the patient. I have also personally directed the plan of care. 57 year old female with a PMHx of HIV (on antiretroviral therapy), Hep C, Left breast cancer (s/p chemo/radiation and left breast lumpectomy) and COPD who presents to our ED today for 3 days of what she described as "specks" of blood in her mucous, CT scan of chest is negative for any consolidation or lung mass.Patient was wheezing at the time of arrival in ER, but currently feeling better, on room air.She will need 5 days course of oral prednisone and antibiotics for COPD exacerbation, will continue Neb. Patient is thinking that her apartment is infested, she is not suicidal or homicidal.She is refusing Psychiatry and psychiatric social worker consult, was discussed in detail with her.We will request Psychiatry consult, in case she changed her decision. Management plan was discussed in detail with patient. Education was provided
--- NOTE | 2017-08-25 17:02 | CARD ---
APPROVED REPORT Date of service: 08/25/2017 EKG Measurement Heart [id number] <Conclusion> Normal sinus rhythm Normal ECG
[2017-08-26] MEDS: Albuterol-Ipratrop 3 mg / 0.5 (3 ml) UD IH SCH ×3 (01:41→08:37)
[2017-08-26 06:40] LABS: BASO # 0.01 K/mm3 (0.0-2.0); BASO % 0.1 % (0.0-3.0); EOS % 0.2 % (1.5-5.0); GRAN # 6.85 (1.4-6.5); GRAN % 73.7 % (50.0-68.0); HEMOGLOBIN 12.2 g/dL (12.0-16.0); LYMPH # 1.8 (1.2-3.4); LYMPH % 19.5 % (22.0-35.0); MEAN CELL VOLUME 90.6 fl (80.0-105.0); MEAN CORPUSCULAR HEMOGLOBIN 31.9 pg (25.0-35.0); MEAN CORPUSCULAR HGB CONC 35.2 g/dl (31.0-37.0); MEAN PLATELET VOLUME 10.4 fl (7.0-11.0); MONO # 0.6 (0.1-0.6); MONO % 6.5 % (1.0-6.0); RBC 3.83 10^6/uL (3.5-6.1); RED CELL DISTRIBUTION WIDTH 13.8 % (11.5-14.5); WHITE BLOOD COUNT 9.3 10^3/ul (4.5-11.0)
[2017-08-26 07:03] LABS: BLOOD UREA NITROGEN 23 mg/dL (7-21); CALCIUM 9.3 mg/dL (8.4-10.5); GFR AFRICAN-AMERICAN > 60; GFR NON-AFRICAN AMERICAN > 60
[2017-08-26 08:35] VITALS: BP 94/63; PULSE 75; RESP 17; TEMP 97.5; O2SAT 95
[2017-08-26] MEDS ORDERED: Abacavir/Dolutegravir/Lamivudi [Triumeq Tablet] PO SCH (10:00)
[2017-08-26] MEDS ORDERED: Enoxaparin 40 mg Syringe SC SCH (10:00)
--- NOTE | 2017-08-26 13:23 | CP.PCM.DIS ---
<Cliff Carpio - Last Filed: 08/26/17 14:06> Provider - Provider Date of Admission: 08/25/17 11:37 Attending physician: Margot Funes MD Primary care physician: Chris Lucas MD Time Spent in preparation of Discharge (in minutes): 35 Diagnosis - Discharge Diagnosis (1) COPD exacerbation Status: Resolved Hospital Course - Lab Results Lab Results: Most Recent Lab Values WBC 9.3 10^3/ul (4.5-11.0) D 08/26/17 06:00 RBC 3.83 10^6/uL (3.5-6.1) 08/26/17 06:00 Hgb 12.2 g/dL (12.0-16.0) 08/26/17 06:00 Hct 34.7 % (36.0-48.0) L 08/26/17 06:00 MCV 90.6 fl (80.0-105.0) 08/26/17 06:00 MCH 31.9 pg (25.0-35.0) 08/26/17 06:00 MCHC 35.2 g/dl (31.0-37.0) 08/26/17 06:00 RDW 13.8 % (11.5-14.5) 08/26/17 06:00 Plt Count 158 10^3/uL (120.0-450.0) 08/26/17 06:00 MPV 10.4 fl (7.0-11.0) 08/26/17 06:00 Gran % 73.7 % (50.0-68.0) H 08/26/17 06:00 Lymph % (Auto) 19.5 % (22.0-35.0) L 08/26/17 06:00 Humphreys % (Auto) 6.5 % (1.0-6.0) H 08/26/17 06:00 Eos % (Auto) 0.2 % (1.5-5.0) L 08/26/17 06:00 Baso % (Auto) 0.1 % (0.0-3.0) 08/26/17 06:00 Gran # 6.85 (1.4-6.5) H 08/26/17 06:00 Lymph # (Auto) 1.8 (1.2-3.4) 08/26/17 06:00 Humphreys # (Auto) 0.6 (0.1-0.6) 08/26/17 06:00 Eos # (Auto) 0.0 (0.0-0.7) 08/26/17 06:00 Baso # (Auto) 0.01 K/mm3 (0.0-2.0) 08/26/17 06:00 PT 11.8 SECONDS (9.4-12.5) 08/25/17 08:20 INR 1.03 (0.93-1.08) 08/25/17 08:20 APTT 30.9 Seconds (25.1-36.5) 08/25/17 08:20 D-Dimer, Quantitative < 200 ng/mL (0-243) 08/25/17 08:20 Sodium 144 mmol/L (132-148) 08/26/17 06:00 Potassium 3.9 mmol/L (3.6-5.0) 08/26/17 06:00 Chloride 106 mmol/L (98-107) 08/26/17 06:00 Carbon Dioxide 26 mmol/L (21-33) 08/26/17 06:00 Anion Gap 16 (10-20) 08/26/17 06:00 BUN 23 mg/dL (7-21) H 08/26/17 06:00 Creatinine 0.8 mg/dl (0.7-1.2) 08/26/17 06:00 Est GFR ( Amer) > 60 08/26/17 06:00 Est GFR (Non-Af Amer) > 60 08/26/17 06:00 Random Glucose 94 mg/dL (70-110) 08/26/17 06:00 Calcium 9.3 mg/dL (8.4-10.5) 08/26/17 06:00 Total Bilirubin 0.5 mg/dL (0.2-1.3) 08/25/17 08:20 AST 26 U/L (14-36) 08/25/17 08:20 ALT 13 U/L (7-56) 08/25/17 08:20 Alkaline Phosphatase 67 U/L (38-126) 08/25/17 08:20 Lactate Dehydrogenase 211 U/L (333-699) L 08/25/17 08:20 Total Creatine Kinase 100 U/L (35-230) 08/25/17 08:20 Troponin I < 0.01 ng/mL 08/25/17 08:20 Total Protein 8.0 g/dL (5.8-8.3) 08/25/17 08:20 Albumin 4.6 g/dL (3.0-4.8) 08/25/17 08:20 Globulin 3.4 gm/dL 08/25/17 08:20 Albumin/Globulin Ratio 1.4 (1.1-1.8) 08/25/17 08:20 - Hospital Course Hospital Course: Cliff Carpio, PGY-1 Discharge Summary Note for Hospitalist Service 57 year old female with a PMHx of HIV (on antiretroviral therapy), Hep. C, Left breast cancer diagnosed in 2006 (s/p chemo/radiation and left breast lumpectomy ) and COPD who presented to our ED today for 3 days of questionable hemoptysis and shortness of breath. EKG was NSR, CXR was negative for active disease, and chest CT showed hyperaerated lungs consistent with COPD without evidence of a lung mass or nodule. Patient has extensive psychiatric history but denied speaking to case briefer, social work, and a psychiatrist regarding her continuity of care. Patient eloped against medical advice early this afternoon before signing any documentation. Case discussed with Dr. Chan Carpio, PGY-1 - Date & Time of H&P Date of H&P: 08/26/17 Time of H&P: 14:00 Discharge Exam - Head Exam Head Exam: ATRAUMATIC, NORMAL INSPECTION - Eye Exam Eye Exam: EOMI, Normal appearance, PERRL Pupil Exam: NORMAL ACCOMODATION - ENT Exam ENT Exam: Mucous Membranes Moist - Neck Exam Neck exam: Full Rom - Respiratory Exam Respiratory Exam: NORMAL BREATHING PATTERN. absent: Chest Wall Tenderness, Decreased Breath Sounds, Rales, Stridor - Cardiovascular Exam Cardiovascular Exam: RRR, +S1, +S2. absent: Clicks, JVD - GI/Abdominal Exam GI & Abdominal Exam: Normal Bowel Sounds, Unremarkable. absent: Rebound - Neurological Exam Neurological exam: Alert, Oriented x3 - Psychiatric Exam Psychiatric exam: Anxious Discharge Plan - Follow Up Plan Condition: FAIR Disposition: AGAINST MEDICAL ADVICE Referrals: Chris Lucas MD [Primary Care Provider] - Follow up with primary <Tomi Giles - Last Filed: 08/26/17 14:45> Provider - Provider Date of Admission: 08/25/17 11:37 Attending physician: Margot Funes MD Primary care physician: Chris Lucas MD Hospital Course - Lab Results Lab Results: Most Recent Lab Values WBC 9.3 10^3/ul (4.5-11.0) D 08/26/17 06:00 RBC 3.83 10^6/uL (3.5-6.1) 08/26/17 06:00 Hgb 12.2 g/dL (12.0-16.0) 08/26/17 06:00 Hct 34.7 % (36.0-48.0) L 08/26/17 06:00 MCV 90.6 fl (80.0-105.0) 08/26/17 06:00 MCH 31.9 pg (25.0-35.0) 08/26/17 06:00 MCHC 35.2 g/dl (31.0-37.0) 08/26/17 06:00 RDW 13.8 % (11.5-14.5) 08/26/17 06:00 Plt Count 158 10^3/uL (120.0-450.0) 08/26/17 06:00 MPV 10.4 fl (7.0-11.0) 08/26/17 06:00 Gran % 73.7 % (50.0-68.0) H 08/26/17 06:00 Lymph % (Auto) 19.5 % (22.0-35.0) L 08/26/17 06:00 Humphreys % (Auto) 6.5 % (1.0-6.0) H 08/26/17 06:00 Eos % (Auto) 0.2 % (1.5-5.0) L 08/26/17 06:00 Baso % (Auto) 0.1 % (0.0-3.0) 08/26/17 06:00 Gran # 6.85 (1.4-6.5) H 08/26/17 06:00 Lymph # (Auto) 1.8 (1.2-3.4) 08/26/17 06:00 Humphreys # (Auto) 0.6 (0.1-0.6) 08/26/17 06:00 Eos # (Auto) 0.0 (0.0-0.7) 08/26/17 06:00 Baso # (Auto) 0.01 K/mm3 (0.0-2.0) 08/26/17 06:00 PT 11.8 SECONDS (9.4-12.5) 08/25/17 08:20 INR 1.03 (0.93-1.08) 08/25/17 08:20 APTT 30.9 Seconds (25.1-36.5) 08/25/17 08:20 D-Dimer, Quantitative < 200 ng/mL (0-243) 08/25/17 08:20 Sodium 144 mmol/L (132-148) 08/26/17 06:00 Potassium 3.9 mmol/L (3.6-5.0) 08/26/17 06:00 Chloride 106 mmol/L (98-107) 08/26/17 06:00 Carbon Dioxide 26 mmol/L (21-33) 08/26/17 06:00 Anion Gap 16 (10-20) 08/26/17 06:00 BUN 23 mg/dL (7-21) H 08/26/17 06:00 Creatinine 0.8 mg/dl (0.7-1.2) 08/26/17 06:00 Est GFR ( Amer) > 60 08/26/17 06:00 Est GFR (Non-Af Amer) > 60 08/26/17 06:00 Random Glucose 94 mg/dL (70-110) 08/26/17 06:00 Calcium 9.3 mg/dL (8.4-10.5) 08/26/17 06:00 Total Bilirubin 0.5 mg/dL (0.2-1.3) 08/25/17 08:20 AST 26 U/L (14-36) 08/25/17 08:20 ALT 13 U/L (7-56) 08/25/17 08:20 Alkaline Phosphatase 67 U/L (38-126) 08/25/17 08:20 Lactate Dehydrogenase 211 U/L (333-699) L 08/25/17 08:20 Total Creatine Kinase 100 U/L (35-230) 08/25/17 08:20 Troponin I < 0.01 ng/mL 08/25/17 08:20 Total Protein 8.0 g/dL (5.8-8.3) 08/25/17 08:20 Albumin 4.6 g/dL (3.0-4.8) 08/25/17 08:20 Globulin 3.4 gm/dL 08/25/17 08:20 Albumin/Globulin Ratio 1.4 (1.1-1.8) 08/25/17 08:20 Attending/Attestation - Attestation I have personally seen and examined this patient.: Yes I have fully participated in the care of the patient.: Yes I have reviewed all pertinent clinical information, including history, physical exam and plan: Yes
--- NOTE | 2017-08-27 11:51 | CP.PCM.PCO ---
Physician Communication Note - Physician Communication Note Physician Communication Note: pt was d/c yesterday
== END 2017-08-26 12:44 | disposition left against medical advice (07) ==
LOC: ED 06:18 → INTOOBSV 11:37 → ERH 11:37 → 3RSO 13:04
PROVIDERS: ADMIT Internal Medicine; ATTEND Internal Medicine
DX: J44.1 Chronic obstructive pulmonary disease with (acute) exacerbation (principal); Z85.3 Personal history of malignant neoplasm of breast; Z92.21 Personal history of antineoplastic chemotherapy; Z92.3 Personal history of irradiation; Z87.891 Personal history of nicotine dependence; Z90.49 Acquired absence of other specified parts of digestive tract
CPT/HCPCS: 36415; 71046; 71250; 80048; 80053; 82550; 83615; 84484; 85025; 85378; 85610; 85730; 93005; 94640; 94760; 96374; 99285; G0378; J1650; J2930; Q0167

== ENCOUNTER 2017-09-13 23:26 | Emergency (ER) | payer OTHER ==
[2017-09-13 23:33] VITALS: BMI 16.9
[2017-09-13 23:46] VITALS: TEMP 97.9
--- NOTE | 2017-09-13 23:56 | ED PDOC ---
Arrival/HPI - General Chief Complaint: Lower Extremity Problem/Injury Time Seen by Provider: 09/13/17 23:38 Historian: Patient - History of Present Illness Narrative History of Present Illness (Text): 09/14/17 23:50 A 57 year old female, whose past medical history includes HIV, COPD, eft breast cancer, hepatitis C (treated) and schizophrenia, presents to the emergency department complaining of bilateral leg pain since last year. Patient reports current pain and mosquito bites in both legs. Patient denies any fever, chills, chest pain, shortness of breath, nausea, vomiting, back pain, neck pain, headache, dizziness, or any other complaints No PMD Time/Duration: Other (one year) Symptom Onset: Gradual Symptom Course: Unchanged Context: Home Past Medical History - Provider Review Nursing Documentation Reviewed: Yes - Infectious Disease Hx of Infectious Diseases: None - Tetanus Immunization Tetanus Immunization: Unknown - Past Medical History Past Medical History: Unable to Obtain - Cardiac Hx Cardiac Disorders: No - Pulmonary Hx Respiratory Disorders: Yes Hx Chronic Obstructive Pulmonary Disease (COPD): Yes Hx Emphysema: Yes - Neurological Hx Neurological Disorder: No - HEENT Hx HEENT Disorder: No - Renal Hx Renal Disorder: No - Endocrine/Metabolic Hx Endocrine Disorders: No - Hematological/Oncological Hx Blood Disorders: Yes Hx Cancer: Yes Hx Hepatitis C: Yes - Integumentary Hx Dermatological Disorder: No - Musculoskeletal/Rheumatological Hx Musculoskeletal Disorders: No Hx Falls: No - Gastrointestinal Hx Gastrointestinal Disorders: No - Genitourinary/Gynecological Hx Genitourinary Disorders: No - Psychiatric Hx Psychophysiologic Disorder: Yes Hx Anxiety: Yes Hx Schizophrenia: Yes Hx Substance Use: Yes - Past Surgical History Past Surgical History: Unable to Obtain - Surgical History Other/Comment: lumpectomy lt - Anesthesia Hx Anesthesia: Yes Hx Anesthesia Reactions: No Hx Malignant Hyperthermia: No - Suicidal Assessment Feels Threatened In Home Enviroment: No Family/Social History - Physician Review Nursing Documentation Reviewed: Yes Family/Social History: Unknown Family HX Smoking Status: Heavy Smoker > 10 Cigarettes Daily Hx Alcohol Use: No Hx Substance Use: Yes Hx Substance Use Treatment: No Allergies/Home Meds Allergies/Adverse Reactions: Allergies No Known Allergies Allergy (Verified 09/13/17 23:33) Home Medications: Home Meds Medication Instructions Recorded Confirmed Albuterol HFA [Ventolin HFA 90 0.09 mg IH PRN PRN 11/04/15 09/13/17 mcg/actuation (8 g)] Abacavir/Dolutegravir/Lamivudi 1 tab PO DAILY 05/22/17 09/13/17 [Triumeq 600 mg-50 mg-300 mg] Review of Systems - Physician Review All systems were reviewed & negative as marked: Yes - Review of Systems Constitutional: absent: Fevers, Night Sweats Respiratory: absent: SOB Gastrointestinal: absent: Nausea, Vomiting Musculoskeletal: Other (pain on both legs). absent: Back Pain, Neck Pain Neurological: absent: Headache, Dizziness Physical Exam Vital Signs Reviewed: Yes Vital Signs Temp Pulse Resp BP Pulse Ox 09/13/17 23:43 97.9 F 83 16 89/60 L 96 Temperature: Afebrile Blood Pressure: Hypotensive Pulse: Regular Respiratory Rate: Normal Appearance: Positive for: Well-Appearing, Non-Toxic, Comfortable Pain Distress: None Mental Status: Positive for: Alert and Oriented X 3 - Systems Exam Head: Present: Atraumatic, Normocephalic Pupils: Present: PERRL Extroacular Muscles: Present: EOMI Conjunctiva: Present: Normal Mouth: Present: Moist Mucous Membranes Neck: Present: Normal Range of Motion Respiratory/Chest: Present: Clear to Auscultation, Good Air Exchange. No: Respiratory Distress, Accessory Muscle Use Cardiovascular: Present: Regular Rate and Rhythm, Normal S1, S2. No: Murmurs Abdomen: No: Tenderness, Distention, Peritoneal Signs Back: Present: Normal Inspection Upper Extremity: Present: Normal Inspection. No: Cyanosis, Edema Lower Extremity: Present: Edema (Mild Lower leg bilateral edema ), NORMAL PULSES , Swelling (mild swelling on both legs). No: Normal Inspection, CALF TENDERNESS Neurological: Present: GCS=15, CN II-XII Intact, Speech Normal Skin: Present: Warm, Dry, Normal Color. No: Rashes Psychiatric: Present: Alert, Oriented x 3, Normal Insight, Normal Concentration Medical Decision Making ED Course and Treatment: chronic leg swelling - r/o dvt. noted recent normal kidney functions. lungs cta. sleeping innad. 09/14/17 00:03 Impression: A 57 year old female presenting to the Emergency department with bilateral lower leg edema. Plan: -- Benadryl -- Ultrasound of lower extremity -- Reassess and disposition Prior Visits: Notes and results from previous visits were reviewed. Patient was last seen in the emergency department on 07/03/17 complaining of a headache and was discharged when her condition stabled. Progress Notes: 09/14/17 02:06 dvt study neg. advise outpt fu. - RAD Interpretation Radiology Orders: 09/13/17 23:50 DUPLEX LOWER EXTRM VEIN BILAT [US] Stat - Medication Orders Current Medication Orders: Discontinued Medications Diphenhydramine HCl (Benadryl) 50 mg PO STAT STA Stop: 09/13/17 23:52 Last Admin: 09/14/17 00:03 Dose: 50 mg - Scribe Statement The provider has reviewed the documentation as recorded by the Lucina Lofton All medical record entries made by the Sundaribe were at my direction and personally dictated by me. I have reviewed the chart and agree that the record accurately reflects my personal performance of the history, physical exam, medical decision making, and the department course for this patient. I have also personally directed, reviewed, and agree with the discharge instructions and disposition. Disposition/Present on Arrival - Present on Arrival Any Indicators Present on Arrival: No History of DVT/PE: No History of Uncontrolled Diabetes: No Urinary Catheter: No History of Decub. Ulcer: No History Surgical Site Infection Following: None - Disposition Have Diagnosis and Disposition been Completed?: Yes Diagnosis: Leg pain, Insect bite Disposition: HOME/ ROUTINE Disposition Time: 23:00 Patient Problems: Current Active Problems Problem Status Onset Insect bite Acute Leg pain Acute Condition: STABLE Discharge Instructions (ExitCare): Cortés Splints, Insect Bites and Stings, Dependent Edema (DC) Additional Instructions: follow up with your doctor/clinic. return to er with worsening symptoms or concern. Prescriptions: DiphenhydrAMINE [Benadryl] 25 mg PO Q4 PRN #20 cap PRN Reason: Itching / Pruritus Referrals: Clinical Engineer Service [Outside] - Follow up with primary [facility] [Outside] - Follow up with primary Forms: [employer] (Polish)
[2017-09-14 02:27] VITALS: BP 95/62; PULSE 75; RESP 18; O2SAT 100
--- NOTE | 2017-09-16 10:05 | US ---
HISTORY: Leg pain and swelling. Evaluate for DVT PHYSICIAN(S): Bernard Burrows MD. TECHNIQUE: Duplex sonography and color-flow Doppler with graded compression were used to evaluate the deep venous systems of both lower extremities. FINDINGS: The visualized deep venous systems of both lower extremities are sonographically normal and compressible. Normal wave forms and augmentation are seen. There is no sonographic evidence for deep venous thrombosis in the visualized segments of both lower extremities. IMPRESSION: No sonographic evidence for deep venous thrombosis in the visualized segments of both lower extremities.
== END 2017-09-14 01:15 | disposition home or self-care (01) ==
LOC: ED 23:26
DX: M79.605 Pain in left leg (principal); M79.604 Pain in right leg; S80.862A Insect bite (nonvenomous), left lower leg, initial encounter; S80.861A Insect bite (nonvenomous), right lower leg, initial encounter; W57.XXXA Bitten or stung by nonvenomous insect and other nonvenomous arthropods, initial encounter; F20.9 Schizophrenia, unspecified; F17.210 Nicotine dependence, cigarettes, uncomplicated; J44.9 Chronic obstructive pulmonary disease, unspecified; Z21 Asymptomatic human immunodeficiency virus [HIV] infection status

== ENCOUNTER 2017-09-15 02:50 | Emergency (ER) | payer OTHER ==
[2017-09-15 02:51] VITALS: BMI 16.9
[2017-09-15] MEDS ORDERED: Albuterol-Ipratrop 3 mg / 0.5 (3 ml) UD IH STA (03:08)
--- NOTE | 2017-09-15 03:23 | ED PDOC ---
Arrival/HPI - General Chief Complaint: Lower Extremity Problem/Injury Time Seen by Provider: 09/15/17 02:54 Historian: Patient - History of Present Illness Narrative History of Present Illness (Text): 09/15/17 03:10 57 year old female, whose past medical history includes HIV, COPD, left breast cancer, hepatitis C (treated) and schizophrenia, presents to the emergency department requesting breathing treatment. Patient reports chronic foot pain which she seen numerous technical testing engineer for, but presents only for the breathing treatment. Patient does not want any steroids or labs done. Patient denies any fever, chills, chest pain, nausea, vomiting, diarrhea, urinary symptoms, back pain, neck pain, headache, dizziness, or any other complaints. Symptom Onset: Gradual Symptom Course: Unchanged Activities at Onset: Light Context: Home Past Medical History - Provider Review Nursing Documentation Reviewed: Yes - Infectious Disease Hx of Infectious Diseases: None - Tetanus Immunization Tetanus Immunization: Unknown - Past Medical History Past Medical History: Unable to Obtain - Cardiac Hx Cardiac Disorders: No - Pulmonary Hx Respiratory Disorders: Yes Hx Chronic Obstructive Pulmonary Disease (COPD): Yes Hx Emphysema: Yes - Neurological Hx Neurological Disorder: No - HEENT Hx HEENT Disorder: No - Renal Hx Renal Disorder: No - Endocrine/Metabolic Hx Endocrine Disorders: No - Hematological/Oncological Hx Blood Disorders: Yes Hx Cancer: Yes Hx Hepatitis C: Yes - Integumentary Hx Dermatological Disorder: No - Musculoskeletal/Rheumatological Hx Musculoskeletal Disorders: No Hx Falls: No - Gastrointestinal Hx Gastrointestinal Disorders: No - Genitourinary/Gynecological Hx Genitourinary Disorders: No - Psychiatric Hx Psychophysiologic Disorder: Yes Hx Anxiety: Yes Hx Schizophrenia: Yes Hx Substance Use: Yes - Past Surgical History Past Surgical History: Unable to Obtain - Surgical History Other/Comment: lumpectomy lt - Anesthesia Hx Anesthesia: Yes Hx Anesthesia Reactions: No Hx Malignant Hyperthermia: No - Suicidal Assessment Feels Threatened In Home Enviroment: No Family/Social History - Physician Review Nursing Documentation Reviewed: Yes Family/Social History: No Known Family HX Smoking Status: Heavy Smoker > 10 Cigarettes Daily Hx Alcohol Use: No Hx Substance Use: Yes Hx Substance Use Treatment: No Allergies/Home Meds Allergies/Adverse Reactions: Allergies No Known Allergies Allergy (Verified 09/13/17 23:33) Home Medications: Home Meds Medication Instructions Recorded Confirmed Albuterol HFA [Ventolin HFA 90 0.09 mg IH PRN PRN 11/04/15 09/13/17 mcg/actuation (8 g)] Abacavir/Dolutegravir/Lamivudi 1 tab PO DAILY 05/22/17 09/13/17 [Triumeq 600 mg-50 mg-300 mg] Review of Systems - Physician Review All systems were reviewed & negative as marked: Yes - Review of Systems Constitutional: absent: Fevers, Other (Chills) Respiratory: SOB Cardiovascular: absent: Chest Pain Gastrointestinal: absent: Diarrhea, Nausea, Vomiting Genitourinary Female: absent: Dysuria, Frequency, Hematuria Musculoskeletal: absent: Back Pain, Neck Pain Neurological: absent: Headache, Dizziness Physical Exam Vital Signs Reviewed: Yes Vital Signs Temp Pulse Resp BP Pulse Ox 09/15/17 02:51 98.5 F 77 18 125/87 97 Appearance: Positive for: Well-Appearing, Non-Toxic, Comfortable Pain Distress: None Mental Status: Positive for: Alert and Oriented X 3 - Systems Exam Head: Present: Atraumatic, Normocephalic Pupils: Present: PERRL Extroacular Muscles: Present: EOMI Conjunctiva: Present: Normal Mouth: Present: Moist Mucous Membranes Neck: Present: Normal Range of Motion Respiratory/Chest: Present: Decreased Breath Sounds (minimal diminished breath sounds bilaterally ). No: Respiratory Distress, Accessory Muscle Use Cardiovascular: Present: Regular Rate and Rhythm, Normal S1, S2. No: Murmurs Abdomen: No: Tenderness, Distention, Peritoneal Signs Back: Present: Normal Inspection Upper Extremity: Present: Normal Inspection. No: Cyanosis, Edema Lower Extremity: Present: Normal Inspection. No: Edema Neurological: Present: GCS=15, CN II-XII Intact, Speech Normal Skin: Present: Warm, Dry, Normal Color. No: Rashes Psychiatric: Present: Alert, Oriented x 3, Normal Insight, Normal Concentration Medical Decision Making ED Course and Treatment: 09/15/17 03:10 Impression: 57 year old female presents requesting breathing treatments and does not want any steroids or lab work done. Plan: -- Douneb -- Reassess and disposition Prior Visits: Notes and results from previous visits were reviewed. Patient was last seen in the emergency department on 09/14/17 presents complaining of bilateral leg pain since last year. Patient was discharged. Progress Notes: 09/15/17 03:26 On re-evaluation, patient feels better and is in no acute distress. I have discussed the results and plan with the patient, who expresses understanding. Patient in agreement with plan to be discharged home. Patient is stable for discharge. Patient was instructed to follow up with physician or return if symptoms worsen or new concerning symptoms arise. 09/15/17 06:16 observed sleeping in nad, later awake speakign in full sentences in nad. - Medication Orders Current Medication Orders: Discontinued Medications Albuterol/Ipratropium (Duoneb 3 Mg/0.5 Mg (3 Ml) Ud) 3 ml IH STAT STA Stop: 09/15/17 03:09 - Scribe Statement The provider has reviewed the documentation as recorded by the Sundaribbreanne Phillips Provider Scribe Attestation: All medical record entries made by the Scribe were at my direction and personally dictated by me. I have reviewed the chart and agree that the record accurately reflects my personal performance of the history, physical exam, medical decision making, and the department course for this patient. I have also personally directed, reviewed, and agree with the discharge instructions and disposition. Disposition/Present on Arrival - Present on Arrival Any Indicators Present on Arrival: No History of DVT/PE: No History of Uncontrolled Diabetes: No Urinary Catheter: No History of Decub. Ulcer: No History Surgical Site Infection Following: None - Disposition Have Diagnosis and Disposition been Completed?: Yes Diagnosis: Encounter for medical assessment Disposition: HOME/ ROUTINE Disposition Time: 02:00 Condition: STABLE Discharge Instructions (ExitCare): Exacerbation of COPD Additional Instructions: you are declining steriods/futher assessment/imaging. return to er with worsening symptoms or concerns. Referrals: Social Media Campaign Manager Service [Outside] - Follow up with primary [facility] [Outside] - Follow up with primary Forms: [employer] (Azeri)
[2017-09-15 04:55] VITALS: RESP 18; TEMP 98.5
[2017-09-15 06:16] VITALS: BP 128/78; PULSE 72; O2SAT 99
== END 2017-09-15 05:44 | disposition home or self-care (01) ==
LOC: ED 02:50
DX: Z00.00 Encounter for general adult medical examination without abnormal findings (principal); F17.210 Nicotine dependence, cigarettes, uncomplicated; Z85.3 Personal history of malignant neoplasm of breast; F20.9 Schizophrenia, unspecified; Z21 Asymptomatic human immunodeficiency virus [HIV] infection status

== ENCOUNTER 2017-09-20 01:05 | Emergency (ER) | payer OTHER ==
[2017-09-20 01:24] VITALS: RESP 16; TEMP 97.7; BMI 17.2
--- NOTE | 2017-09-20 01:58 | ED PDOC ---
Arrival/HPI - General Chief Complaint: Weakness/Neurological Deficit Time Seen by Provider: 09/20/17 01:31 Historian: Patient - History of Present Illness Narrative History of Present Illness (Text): 09/20/17 02:03 57 year old female, with a past medical history that includes HIV, COPD, left breast cancer, hepatitis C (treated) and schizophrenia, presents to the emergency department with generalized weakness. Patient states she has been having issues with her neighbors for the past year, and has felt a foul odor filling her apartment at times. Patient states that her nebulizer and inhaler use for her COPD has increased much more than her usual use. Patient states she was out of her apartment until 23:00, and came home to an even stronger odor. Patient states she then began to feel weak and came to the emergency department for evaluation. Patient states she has had blood-work done recently that showed her last T-cell count is 590, and her viral load is undetectable. Patient denies any fevers, chills, headache, dizziness, chest pain, shortness of breath, cough, abdominal pain, nausea, vomiting, diarrhea, back pain, neck pain, or any other complaint. Time/Duration: 1-3 hours Symptom Onset: Gradual Symptom Course: Unchanged Context: Home Past Medical History - Provider Review Nursing Documentation Reviewed: Yes - Infectious Disease Hx of Infectious Diseases: None - Tetanus Immunization Tetanus Immunization: Unknown - Reproductive Menopause: Yes - Past Medical History Past Medical History: Unable to Obtain - Cardiac Hx Cardiac Disorders: No - Pulmonary Hx Respiratory Disorders: Yes Hx Chronic Obstructive Pulmonary Disease (COPD): Yes Hx Emphysema: Yes - Neurological Hx Neurological Disorder: No - HEENT Hx HEENT Disorder: No - Renal Hx Renal Disorder: No - Endocrine/Metabolic Hx Endocrine Disorders: No - Hematological/Oncological Hx Blood Disorders: Yes Hx Cancer: Yes Hx Hepatitis C: Yes - Integumentary Hx Dermatological Disorder: No - Musculoskeletal/Rheumatological Hx Musculoskeletal Disorders: No Hx Falls: No - Gastrointestinal Hx Gastrointestinal Disorders: No - Genitourinary/Gynecological Hx Genitourinary Disorders: No - Psychiatric Hx Psychophysiologic Disorder: Yes Hx Anxiety: Yes Hx Schizophrenia: Yes Hx Substance Use: Yes - Past Surgical History Past Surgical History: Unable to Obtain - Surgical History Other/Comment: lumpectomy lt - Anesthesia Hx Anesthesia: Yes Hx Anesthesia Reactions: No Hx Malignant Hyperthermia: No - Suicidal Assessment Feels Threatened In Home Enviroment: No Family/Social History - Physician Review Nursing Documentation Reviewed: Yes Family/Social History: No Known Family HX Smoking Status: Heavy Smoker > 10 Cigarettes Daily Hx Alcohol Use: No Hx Substance Use: Yes Hx Substance Use Treatment: No Allergies/Home Meds Allergies/Adverse Reactions: Allergies No Known Allergies Allergy (Verified 09/13/17 23:33) Home Medications: Home Meds Medication Instructions Recorded Confirmed Albuterol HFA [Ventolin HFA 90 0.09 mg IH PRN PRN 11/04/15 09/13/17 mcg/actuation (8 g)] Abacavir/Dolutegravir/Lamivudi 1 tab PO DAILY 05/22/17 09/13/17 [Triumeq 600 mg-50 mg-300 mg] Review of Systems - Physician Review All systems were reviewed & negative as marked: Yes - Review of Systems Constitutional: Fatigue (generalized weakness). absent: Fevers, Night Sweats Eyes: Normal ENT: Normal Respiratory: Normal. absent: SOB, Cough Cardiovascular: Normal. absent: Chest Pain Gastrointestinal: Normal. absent: Abdominal Pain, Diarrhea, Nausea, Vomiting Genitourinary Female: Normal Musculoskeletal: Normal. absent: Back Pain, Neck Pain Skin: Normal Neurological: Normal. absent: Headache, Dizziness Endocrine: Normal Hemo/Lymphatic: Normal Psychiatric: Normal Physical Exam Vital Signs Reviewed: Yes Vital Signs Temp Pulse Resp BP Pulse Ox 09/20/17 01:20 97.7 F 70 16 115/75 98 Temperature: Afebrile Blood Pressure: Normal Pulse: Regular Respiratory Rate: Normal Appearance: Positive for: Well-Appearing, Non-Toxic, Comfortable Pain Distress: None Mental Status: Positive for: Alert and Oriented X 3 - Systems Exam Head: Present: Atraumatic, Normocephalic Pupils: Present: PERRL Extroacular Muscles: Present: EOMI Conjunctiva: Present: Normal Mouth: Present: Moist Mucous Membranes Neck: Present: Normal Range of Motion Respiratory/Chest: Present: Clear to Auscultation, Good Air Exchange. No: Respiratory Distress, Accessory Muscle Use Cardiovascular: Present: Regular Rate and Rhythm, Normal S1, S2. No: Murmurs Abdomen: No: Tenderness, Distention, Peritoneal Signs Back: Present: Normal Inspection Upper Extremity: Present: Normal Inspection. No: Cyanosis, Edema Lower Extremity: Present: Normal Inspection. No: Edema Neurological: Present: GCS=15, CN II-XII Intact, Speech Normal Skin: Present: Warm, Dry, Normal Color. No: Rashes Psychiatric: Present: Alert, Oriented x 3, Normal Insight, Normal Concentration Medical Decision Making ED Course and Treatment: 09/20/17 01:55 Impression: 57 year old female presents to the emergency department with generalized weakness s/p smelling foul odor in her apartment. Plan: -- Labs -- EKG -- Chest X-ray -- Urinalysis -- Reassess and disposition Prior Visits: Notes and results from previous visits were reviewed. Progress Notes: 09/20/17 02:22 Chest X-ray reviewed, shows: Scaring and atelectasis in the right base - Lab Interpretations Lab Results: 09/20/17 02:06 09/20/17 02:06 Lab Results 09/20/17 03:40: Urine Opiates Screen Negative, Urine Methadone Screen Negative, Ur Barbiturates Screen Negative, Ur Phencyclidine Scrn Negative, Ur Amphetamines Screen Negative, U Benzodiazepines Scrn Negative, U Oth Cocaine Metabols Negative, U Cannabinoids Screen Negative 09/20/17 03:28: Urine Color Yellow, Urine Appearance Clear, Urine pH 6.0, Ur Specific [place] 1.025, Urine Protein Negative, Urine Glucose (UA) Negative, Urine Ketones Negative, Urine Blood Negative, Urine Nitrate Negative, Urine Bilirubin Negative, Urine Urobilinogen 0.2, Ur Leukocyte Esterase Negative 09/20/17 02:06: Alcohol, Quantitative < 10 09/20/17 02:06: Sodium 143, Potassium 4.0, Chloride 104, Carbon Dioxide 29, Anion Gap 14, BUN 21, Creatinine 0.9, Est GFR ( Amer) > 60, Est GFR (Non- Af Amer) > 60, Random Glucose 119 H, Calcium 9.4, Phosphorus 3.5, Magnesium 2.4 H, Total Bilirubin 0.5, Direct Bilirubin 0.3, AST 29, ALT 18, Alkaline Phosphatase 72, Lactate Dehydrogenase 255 L, Total Creatine Kinase 87, Troponin I < 0.01, Total Protein 7.8, Albumin 4.4, Globulin 3.4, Albumin/Globulin Ratio 1.3 09/20/17 02:06: PT 11.2, INR 0.98 09/20/17 02:06: WBC 5.0 D, RBC 4.00, Hgb 13.0, Hct 37.1, MCV 92.8, MCH 32.5, MCHC 35.0, RDW 14.0, Plt Count 156, MPV 10.1, Gran % 47.1 L, Lymph % (Auto) 39.5 H, [place] % (Auto) 7.4 H, Eos % (Auto) 5.6 H, Baso % (Auto) 0.4, Gran # 2.36 , Lymph # (Auto) 2.0, [place] # (Auto) 0.4, Eos # (Auto) 0.3, Baso # (Auto) 0.02 09/20/17 02:06: pO2 32, ABG Carboxyhemoglobin 2.5 H, POC ABG HHb (Measured) 33.9 H, ABG Methemoglobin 1.0, VBG pH 7.33, VBG pCO2 57.0, VBG HCO3 30.1 H, VBG O2 Sat (Calc) 64.9, VBG Base Excess 2.8 H, VBG Hgb O2 Saturation 62.6 L, Hemoglobin 13.5 - RAD Interpretation Radiology Orders: 09/20/17 01:33 CHEST PORTABLE [RAD] Stat - Scribe Statement The provider has reviewed the documentation as recorded by the Scribe Bernard Talavera All medical record entries made by the Scribe were at my direction and personally dictated by me. I have reviewed the chart and agree that the record accurately reflects my personal performance of the history, physical exam, medical decision making, and the department course for this patient. I have also personally directed, reviewed, and agree with the discharge instructions and disposition. Disposition/Present on Arrival - Present on Arrival Any Indicators Present on Arrival: No History of DVT/PE: No History of Uncontrolled Diabetes: No Urinary Catheter: No History of Decub. Ulcer: No History Surgical Site Infection Following: None - Disposition Have Diagnosis and Disposition been Completed?: Yes Diagnosis: Malaise and fatigue Disposition: HOME/ ROUTINE Disposition Time: 04:28 Patient Plan: Discharge Condition: GOOD Discharge Instructions (ExitCare): Fatigue (DC) Additional Instructions: Rina- Good luck with getting another apartment. All of your testing here does not reveal the cause of your symptoms. Please follow up with your doctors and return to us if you get worse or have any new symptoms. Gómez- Dr. Faizan Botello Forms: [employer] (Citizen Of [place])
[2017-09-20 02:19] LABS: VENOUS BLOOD GAS BASE EXCESS 2.8 mmol/L (0.0-2.0); VENOUS BLOOD GAS PO2 32 mm/Hg (30-55); VENOUS BLOOD PH 7.33 (7.32-7.43)
[2017-09-20 02:21] LABS: BASO # 0.02 K/mm3 (0.0-2.0); BASO % 0.4 % (0.0-3.0); EOS # 0.3 (0.0-0.7); EOS % 5.6 % (1.5-5.0); GRAN # 2.36 (1.4-6.5); GRAN % 47.1 % (50.0-68.0); LYMPH % 39.5 % (22.0-35.0); MEAN CELL VOLUME 92.8 fl (80.0-105.0); MEAN CORPUSCULAR HEMOGLOBIN 32.5 pg (25.0-35.0); MEAN PLATELET VOLUME 10.1 fl (7.0-11.0); MONO # 0.4 (0.1-0.6); MONO % 7.4 % (1.0-6.0)
[2017-09-20 02:22] LABS: INR 0.98; PROTHROMBIN TIME 11.2 SECONDS (9.4-12.5)
[2017-09-20 02:32] LABS: ALB/GLOB RATIO 1.3 (1.1-1.8); ALBUMIN 4.4 g/dL (3.0-4.8); ALT/SGPT 18 U/L (7-56); AST/SGOT 29 U/L (14-36); BILIRUBIN,DIRECT 0.3 mg/dL (0.0-0.4); BLOOD UREA NITROGEN 21 mg/dL (7-21); CALCIUM 9.4 mg/dL (8.4-10.5); GFR AFRICAN-AMERICAN > 60; GFR NON-AFRICAN AMERICAN > 60
[2017-09-20 02:44] LABS: TROPONIN I < 0.01 ng/mL
[2017-09-20 04:02] LABS: URINE BILIRUBIN NEGATIVE (NEGATIVE); URINE BLOOD NEGATIVE (NEGATIVE); URINE GLUCOSE (UA) NEGATIVE (NEGATIVE); URINE LEUKOCYTE ESTERASE NEGATIVE Leu/uL (NEGATIVE); URINE PROTEIN NEGATIVE mg/dL (<30 mg/dL); URINE UROBILINOGEN 0.2 E.U./dL (<1 E.U./dL)
[2017-09-20 04:03] LABS: URINE APPEARANCE CLEAR (CLEAR); URINE COLOR YELLOW (YELLOW)
[2017-09-20 04:20] LABS: BARBITURATES, UR NEGATIVE (NEGATIVE); BENZODIAZEPINES, UR NEGATIVE (NEGATIVE); OPIATES, UR NEGATIVE (NEGATIVE); PHENCYCLIDINE, UR NEGATIVE (NEGATIVE)
[2017-09-20 06:14] VITALS: BP 110/71; PULSE 83; O2SAT 95
[2017-09-20] MEDS ORDERED: Phenylephrine 10 mg/ml Inj ONE (06:30)
[2017-09-20] MEDS ORDERED: Lidocaine PF 2% (5 ml) Inj (For Cardiac Arrhy) ONE ×2 (06:30→08:32)
[2017-09-20] MEDS ORDERED: Nitroglycerin 50mg in D5W 50 MG/250 ML BOTTLE IV ONE (06:31)
[2017-09-20] MEDS ORDERED: Iodixanol 320 MG/ML 200 ML BOTTLE IV ONE (06:31)
[2017-09-20] MEDS ORDERED: Iohexol 350mgl/ml 50 ML ONE (06:31)
[2017-09-20] MEDS ORDERED: Iodixanol 320 MG/ML 100 ML BOTTLE IV ONE (06:31)
[2017-09-20] MEDS ORDERED: Eptifibatide 20 mg/10mL Inj IVP ONE (08:34)
--- NOTE | 2017-09-20 09:15 | RAD ---
Date of service: 09/20/2017 HISTORY: Generalized Weakness COMPARISON: 08/25/2017 FINDINGS: LUNGS: No active pulmonary disease. PLEURA: No significant pleural effusion identified, no pneumothorax apparent. CARDIOVASCULAR: Normal. OSSEOUS STRUCTURES: No significant abnormalities. VISUALIZED UPPER ABDOMEN: Normal. OTHER FINDINGS: None. IMPRESSION: No active disease.
== END 2017-09-20 06:10 | disposition home or self-care (01) ==
LOC: ED 01:05
DX: R53.83 Other fatigue (principal); J44.9 Chronic obstructive pulmonary disease, unspecified; B19.20 Unspecified viral hepatitis C without hepatic coma; Z85.3 Personal history of malignant neoplasm of breast; F17.210 Nicotine dependence, cigarettes, uncomplicated
CPT/HCPCS: 71045; 80053; 80320; 80324; 80345; 80346; 80349; 80353; 80358; 80361; 81003; 82248; 82550; 82803; 83615; 83735; 83992; 84100; 84484; 85025; 85610; 99285; J1644; Q9966; Q9967

== ENCOUNTER 2017-10-06 01:53 | Emergency (ER) | payer OTHER ==
[2017-10-06 01:53] VITALS: BMI 17.2
--- NOTE | 2017-10-06 02:53 | ED PDOC ---
Arrival/HPI - General Chief Complaint: Lower Extremity Problem/Injury Time Seen by Provider: 10/06/17 01:57 Historian: Patient - History of Present Illness Narrative History of Present Illness (Text): 10/06/17 02:52 Rina Mathews is a 57 year female, whose past medical history includes HIV, COPD, left breast cancer, hepatitis C, and schizophrenia, who presents to the ED complaining of chronic discomfort to plantar aspect of feet tonight. Patient also with a history of dried skin to her feet for which she has been evaluated for by her technical system analyst. Patient denies any fever, chills, decreased range of motion, weakness/numbness/tingling in the extremities, trauma/injury, or any other complaints. Symptom Onset: Gradual Symptom Course: Unchanged Activities at Onset: Light Context: Home Past Medical History - Provider Review Nursing Documentation Reviewed: Yes - Infectious Disease Hx of Infectious Diseases: None - Tetanus Immunization Tetanus Immunization: Unknown - Reproductive Menopause: Yes - Past Medical History Past Medical History: Unable to Obtain - Cardiac Hx Cardiac Disorders: No - Pulmonary Hx Respiratory Disorders: Yes Hx Chronic Obstructive Pulmonary Disease (COPD): Yes Hx Emphysema: Yes - Neurological Hx Neurological Disorder: No - HEENT Hx HEENT Disorder: No - Renal Hx Renal Disorder: No - Endocrine/Metabolic Hx Endocrine Disorders: No - Hematological/Oncological Hx Blood Disorders: Yes Hx Cancer: Yes Hx Hepatitis C: Yes - Integumentary Hx Dermatological Disorder: No - Musculoskeletal/Rheumatological Hx Musculoskeletal Disorders: No Hx Falls: No - Gastrointestinal Hx Gastrointestinal Disorders: No - Genitourinary/Gynecological Hx Genitourinary Disorders: No - Psychiatric Hx Psychophysiologic Disorder: Yes Hx Anxiety: Yes Hx Schizophrenia: Yes Hx Substance Use: Yes - Past Surgical History Past Surgical History: Unable to Obtain - Surgical History Other/Comment: lumpectomy lt - Anesthesia Hx Anesthesia: Yes Hx Anesthesia Reactions: No Hx Malignant Hyperthermia: No - Suicidal Assessment Feels Threatened In Home Enviroment: No Family/Social History - Physician Review Nursing Documentation Reviewed: Yes Family/Social History: Unknown Family HX Smoking Status: Heavy Smoker > 10 Cigarettes Daily Hx Alcohol Use: No Hx Substance Use: Yes Hx Substance Use Treatment: No Allergies/Home Meds Allergies/Adverse Reactions: Allergies No Known Allergies Allergy (Verified 09/13/17 23:33) Home Medications: Home Meds Medication Instructions Recorded Confirmed Albuterol HFA [Ventolin HFA 90 0.09 mg IH PRN PRN 11/04/15 10/06/17 mcg/actuation (8 g)] Abacavir/Dolutegravir/Lamivudi 1 tab PO DAILY 05/22/17 10/06/17 [Triumeq 600 mg-50 mg-300 mg] Review of Systems - Physician Review All systems were reviewed & negative as marked: Yes - Review of Systems Constitutional: Normal. absent: Fevers Eyes: Normal ENT: Normal Respiratory: Normal. absent: SOB, Cough Cardiovascular: Normal. absent: Chest Pain Gastrointestinal: Normal. absent: Abdominal Pain, Diarrhea, Nausea, Vomiting Genitourinary Female: Normal. absent: Dysuria, Frequency, Hematuria, Urine Output Changes Musculoskeletal: Other (+chronic foot pain). absent: Back Pain, Neck Pain Skin: Other (+dry skin to feet) Neurological: Normal. absent: Headache, Dizziness Endocrine: Normal Hemo/Lymphatic: Normal Psychiatric: Normal Physical Exam Vital Signs Reviewed: Yes Vital Signs Pulse Resp BP Pulse Ox 10/06/17 02:10 86 18 104/86 97 Temperature: Afebrile Blood Pressure: Normal Pulse: Regular Respiratory Rate: Normal Appearance: Positive for: Well-Appearing, Non-Toxic, Comfortable Pain Distress: None Mental Status: Positive for: Alert and Oriented X 3 - Systems Exam Head: Present: Atraumatic, Normocephalic Pupils: Present: PERRL Extroacular Muscles: Present: EOMI Conjunctiva: Present: Normal Mouth: Present: Moist Mucous Membranes Neck: Present: Normal Range of Motion Respiratory/Chest: Present: Clear to Auscultation, Good Air Exchange. No: Respiratory Distress, Accessory Muscle Use Cardiovascular: Present: Regular Rate and Rhythm, Normal S1, S2. No: Murmurs Abdomen: No: Tenderness, Distention, Peritoneal Signs Back: Present: Normal Inspection Upper Extremity: Present: Normal Inspection. No: Cyanosis, Edema Lower Extremity: Present: Normal Inspection, NORMAL PULSES, Normal ROM, Neurovascularly Intact, Capillary Refill < 2 s, Other (Dried skin to plantar aspect of bilateral feet). No: Edema, Cyanosis, Tenderness, Swelling, Erythema , Deformity, Temperature Abnormalties Neurological: Present: GCS=15, CN II-XII Intact, Speech Normal Skin: Present: Warm, Dry, Normal Color. No: Rashes Psychiatric: Present: Alert, Oriented x 3, Normal Insight, Normal Concentration Medical Decision Making ED Course and Treatment: 10/06/17 02:53 Impression: 57 year old female c/o discomfort to plantar aspect of feet. Differential Diagnosis included but are not limited to: plantar fasciitis Plan: -- Naproxen -- Reassess and disposition Prior Visits: Notes and results from previous visits were reviewed. Patient has been seen in the ED on multiple occasions for similar complaint and discharged home. US Duplex Lower Extremities negative for DVT on 09/13/2017. Progress Notes: - Medication Orders Current Medication Orders: Discontinued Medications Naproxen (Anaprox Ds) 550 mg PO ONCE ONE Stop: 10/06/17 03:00 Last Admin: 10/06/17 03:12 Dose: 550 mg - Scribe Statement The provider has reviewed the documentation as recorded by the Scribbreanne Singletary All medical record entries made by the Scribe were at my direction and personally dictated by me. I have reviewed the chart and agree that the record accurately reflects my personal performance of the history, physical exam, medical decision making, and the department course for this patient. I have also personally directed, reviewed, and agree with the discharge instructions and disposition. Disposition/Present on Arrival - Present on Arrival Any Indicators Present on Arrival: No History of DVT/PE: No History of Uncontrolled Diabetes: No Urinary Catheter: No History of Decub. Ulcer: No History Surgical Site Infection Following: None - Disposition Have Diagnosis and Disposition been Completed?: Yes Diagnosis: Plantar fasciitis, Xerosis of skin Disposition: HOME/ ROUTINE Disposition Time: 03:14 Patient Plan: Discharge Condition: GOOD Discharge Instructions (ExitCare): Heel Pain (Caused by Plantar Fasciitis) (DC) Additional Instructions: Continue skin lotions prescribed by your technical system analyst/new meds as prescribed/ wear shoes with proper arch support/follow up with your doctor/tire fabric inspector this week Prescriptions: Naproxen [Naprosyn Tab] 375 mg PO BID PRN #16 tab PRN Reason: Pain, Moderate (4-7) Referrals: Chris Lucas MD [Primary Care Provider] - Follow up with primary Kadeem Frazier DPM [Staff Provider] - Follow up with primary Forms: [employer] ([place]rian)
[2017-10-06] MEDS ORDERED: Naproxen 550 mg Tab PO ONE (02:59)
[2017-10-06 03:34] VITALS: BP 116/72; PULSE 70; RESP 19; O2SAT 100
== END 2017-10-06 03:31 | disposition home or self-care (01) ==
LOC: ED 01:53
DX: M72.2 Plantar fascial fibromatosis (principal); L85.3 Xerosis cutis; F20.9 Schizophrenia, unspecified; F17.210 Nicotine dependence, cigarettes, uncomplicated; Z85.3 Personal history of malignant neoplasm of breast

== ENCOUNTER 2017-10-06 06:33 | Emergency (ER) | payer OTHER ==
[2017-10-06 06:33] VITALS: BMI 17.2
[2017-10-06 06:46] VITALS: BP 106/78; PULSE 78; RESP 17; TEMP 98.4; O2SAT 96
== END 2017-10-06 06:35 | disposition left against medical advice (07) ==
LOC: ED 06:33
DX: Z02.89 Encounter for other administrative examinations (principal); N39.0 Urinary tract infection, site not specified

== ENCOUNTER 2017-11-03 02:13 | Emergency (ER) | payer OTHER ==
[2017-11-03 02:14] VITALS: BMI 16.9
[2017-11-03 03:00] VITALS: BP 111/64; PULSE 75; RESP 18; TEMP 98; O2SAT 96
--- NOTE | 2017-11-03 03:00 | ED PDOC ---
Arrival/HPI - General Chief Complaint: Medical Clearance Time Seen by Provider: 11/03/17 02:15 Historian: Patient - History of Present Illness Narrative History of Present Illness (Text): 11/03/17 03:00 57 year old female, whose past medical history includes schizophrenia, left breast cancer, HIV, Hepatitis C, and COPD, presents to the emergency department complaining of dryness to her nose. Patient states that there was a funny smell in the [address] of her apartment complex. Patient states she has been dealing with different odors for a while now. Patient states she complained to the housing board which her house was investigated by the police and fire department. Patient has been seen in the ER on different occasions in the past for this. She also states she was told that she may be possibly evicted. Patient denies any fever, chills, chest pain, shortness of breath, nausea, vomiting, diarrhea, urinary symptoms, back pain, neck pain, headache, dizziness , or any other complaints. Symptom Onset: Gradual Symptom Course: Unchanged Activities at Onset: Light Context: Home Past Medical History - Provider Review Nursing Documentation Reviewed: Yes - Infectious Disease Hx of Infectious Diseases: None - Tetanus Immunization Tetanus Immunization: Unknown - Reproductive Menopause: Yes - Past Medical History Past Medical History: Unable to Obtain - Cardiac Hx Cardiac Disorders: No - Pulmonary Hx Respiratory Disorders: Yes Hx Chronic Obstructive Pulmonary Disease (COPD): Yes Hx Emphysema: Yes - Neurological Hx Neurological Disorder: No - HEENT Hx HEENT Disorder: No - Renal Hx Renal Disorder: No - Endocrine/Metabolic Hx Endocrine Disorders: No - Hematological/Oncological Hx Blood Disorders: Yes Hx Cancer: Yes Hx Hepatitis C: Yes Other/Comment: HIV - Integumentary Hx Dermatological Disorder: No - Musculoskeletal/Rheumatological Hx Musculoskeletal Disorders: No Hx Falls: No - Gastrointestinal Hx Gastrointestinal Disorders: No - Genitourinary/Gynecological Hx Genitourinary Disorders: No - Psychiatric Hx Psychophysiologic Disorder: Yes Hx Anxiety: Yes Hx Schizophrenia: Yes Hx Substance Use: Yes - Past Surgical History Past Surgical History: Unable to Obtain - Surgical History Other/Comment: lumpectomy lt - Anesthesia Hx Anesthesia: Yes Hx Anesthesia Reactions: No Hx Malignant Hyperthermia: No - Suicidal Assessment Feels Threatened In Home Enviroment: No Family/Social History - Physician Review Nursing Documentation Reviewed: Yes Family/Social History: No Known Family HX Smoking Status: Heavy Smoker > 10 Cigarettes Daily Hx Alcohol Use: No Hx Substance Use: Yes Substance used: marijuana Hx Substance Use Treatment: No Allergies/Home Meds Allergies/Adverse Reactions: Allergies No Known Allergies Allergy (Verified 11/03/17 02:50) Home Medications: Home Meds Medication Instructions Recorded Confirmed predniSONE [predniSONE Tab] 3 tab PO DAILY 10/18/17 11/03/17 Review of Systems - Physician Review All systems were reviewed & negative as marked: Yes - Review of Systems Constitutional: absent: Fevers, Other (Chills) ENT: Other (nose dryness) Respiratory: absent: SOB Cardiovascular: absent: Chest Pain Gastrointestinal: absent: Diarrhea, Nausea, Vomiting Genitourinary Female: absent: Dysuria, Frequency, Hematuria Musculoskeletal: absent: Back Pain, Neck Pain Neurological: absent: Headache, Dizziness Physical Exam Vital Signs Reviewed: Yes Vital Signs Temp Pulse Resp BP Pulse Ox 11/03/17 02:30 98 F 75 18 111/64 96 Temperature: Afebrile Blood Pressure: Normal Pulse: Regular Respiratory Rate: Normal Appearance: Positive for: Well-Appearing, Non-Toxic, Comfortable Pain Distress: None Mental Status: Positive for: Alert and Oriented X 3 - Systems Exam Head: Present: Atraumatic, Normocephalic Pupils: Present: PERRL Extroacular Muscles: Present: EOMI Conjunctiva: Present: Normal Mouth: Present: Moist Mucous Membranes Nose (Internal): Present: Normal Inspection Neck: Present: Normal Range of Motion Respiratory/Chest: Present: Clear to Auscultation, Good Air Exchange. No: Respiratory Distress, Accessory Muscle Use Cardiovascular: Present: Regular Rate and Rhythm, Normal S1, S2. No: Murmurs Abdomen: No: Tenderness, Distention, Peritoneal Signs Back: Present: Normal Inspection Upper Extremity: Present: Normal Inspection. No: Cyanosis, Edema Lower Extremity: Present: Normal Inspection. No: Edema Neurological: Present: GCS=15, CN II-XII Intact, Speech Normal Skin: Present: Warm, Dry, Normal Color. No: Rashes Psychiatric: Present: Alert, Oriented x 3, Normal Insight, Normal Concentration Medical Decision Making ED Course and Treatment: 11/03/17 03:00 Impression: 57 year old female presents complaining of dryness to her nose. Plan: -- Reassess and disposition Prior Visits: Notes and results from previous visits were reviewed. Patient was last seen in the emergency department on 10/18/17 presents complaining of burning on bilateral feet and shortness of breath. Patient was discharged. Progress Notes: 11/03/17 04:22 On re-evaluation, patient feels better and is in no acute distress. I have discussed the results and plan with the patient, who expresses understanding. Patient in agreement with plan to be discharged home. Patient is stable for discharge. Patient was instructed to follow up with physician or return if symptoms worsen or new concerning symptoms arise. - Scribe Statement The provider has reviewed the documentation as recorded by the Lucina Phillips Provider Scribe Attestation: All medical record entries made by the Lucina were at my direction and personally dictated by me. I have reviewed the chart and agree that the record accurately reflects my personal performance of the history, physical exam, medical decision making, and the department course for this patient. I have also personally directed, reviewed, and agree with the discharge instructions and disposition.\ Disposition/Present on Arrival - Present on Arrival Any Indicators Present on Arrival: No History of DVT/PE: No History of Uncontrolled Diabetes: No Urinary Catheter: No History of Decub. Ulcer: No History Surgical Site Infection Following: None - Disposition Have Diagnosis and Disposition been Completed?: Yes Diagnosis: COPD (chronic obstructive pulmonary disease), Dry nose Disposition: HOME/ ROUTINE Disposition Time: 03:22 Patient Plan: Discharge Condition: GOOD Additional Instructions: Use room humidifier/follow up with your doctor this week Prescriptions: Sodium Chloride [Saline Nasal [place]] 3 sprays NS TID PRN #1 bottle PRN Reason: nasal dryness Forms: [employer] (Citizen Of [place])
== END 2017-11-03 04:30 | disposition home or self-care (01) ==
LOC: ED 02:13
DX: J44.9 Chronic obstructive pulmonary disease, unspecified (principal); J34.89 Other specified disorders of nose and nasal sinuses; F20.9 Schizophrenia, unspecified; F17.210 Nicotine dependence, cigarettes, uncomplicated; Z85.3 Personal history of malignant neoplasm of breast

== ENCOUNTER 2017-12-03 23:29 | Emergency (ER) | payer OTHER ==
[2017-12-03 23:29] VITALS: BMI 16.9
[2017-12-04 00:23] LABS: BASO # 0.01 K/mm3 (0.0-2.0); BASO % 0.2 % (0.0-3.0); EOS # 0.3 (0.0-0.7); EOS % 6.8 % (1.5-5.0); GRAN # 2.41 (1.4-6.5); GRAN % 48.5 % (50.0-68.0); LYMPH # 1.8 (1.2-3.4); LYMPH % 35.1 % (22.0-35.0); MEAN CELL VOLUME 92.7 fl (80.0-105.0); MEAN CORPUSCULAR HEMOGLOBIN 31.7 pg (25.0-35.0); MEAN CORPUSCULAR HGB CONC 34.2 g/dl (31.0-37.0); MEAN PLATELET VOLUME 10.3 fl (7.0-11.0); MONO # 0.5 (0.1-0.6); MONO % 9.4 % (1.0-6.0); RBC 4.1 10^6/uL (3.5-6.1); RED CELL DISTRIBUTION WIDTH 13.2 % (11.5-14.5)
[2017-12-04 00:37] LABS: ACETAMINOPHEN < 10.0 ug/ml (10.0-20.0); SALICYLATE < 1 mg/dL (2.0-20.0)
[2017-12-04 00:39] LABS: ALB/GLOB RATIO 1.2 (1.1-1.8); ALBUMIN 4.1 g/dL (3.0-4.8); ALT/SGPT 12 U/L (7-56); AST/SGOT 24 U/L (14-36); BLOOD UREA NITROGEN 24 mg/dL (7-21); CALCIUM 8.9 mg/dL (8.4-10.5); GFR NON-AFRICAN AMERICAN > 60
--- NOTE | 2017-12-04 01:15 | ED PDOC ---
Arrival/HPI - General Historian: Patient - History of Present Illness Narrative History of Present Illness (Text): 12/04/17 01:10 57 year old female, whose past medical history includes left breast cancer, HIV, Hep C, and COPD, presents to the emergency department for evaluation, status post smelling formaldehyde in her apartment. Patient states she has been having issues with her landlord who wants her to move out of the apartment. Patient informs landlord has filed for eviction and it was granted, giving her until December 11 to move. Patient states the smell was so bad that she couldn't sleep in the apartment, and slept outside in the [place]. Patient informs she then got up to take the bus to the emergency department for evaluation, when she flagged down a [employer] officer called an ambulance. Patient states she is not crazy. Patient denies any fevers, chills, headache, dizziness, chest pain, shortness of breath, cough, abdominal pain, nausea, vomiting, diarrhea, back pain, neck pain, urinary/bowel changes, suicidal/ homicidal ideation, or any other complaint. Time/Duration: Prior to Arrival <Polina Bliss - Last Filed: 12/04/17 01:28> <Hernandez Kwon - Last Filed: 12/04/17 03:00> - General Chief Complaint: Psychiatric Evaluation Time Seen by Provider: 12/03/17 23:31 Past Medical History - Provider Review Nursing Documentation Reviewed: Yes - Travel History Have you recently traveled outside [place] w/in the past 3 mons?: No - Infectious Disease Hx of Infectious Diseases: None - Tetanus Immunization Tetanus Immunization: Unknown - Reproductive Menopause: Yes - Past Medical History Past Medical History: Unable to Obtain - Cardiac Hx Cardiac Disorders: No - Pulmonary Hx Respiratory Disorders: Yes Hx Chronic Obstructive Pulmonary Disease (COPD): Yes Hx Emphysema: Yes - Neurological Hx Neurological Disorder: No - HEENT Hx HEENT Disorder: No - Renal Hx Renal Disorder: No - Endocrine/Metabolic Hx Endocrine Disorders: No - Hematological/Oncological Hx Blood Disorders: Yes Hx Bruising: Yes (right forearm) Hx Cancer: Yes Hx Hepatitis C: Yes Other/Comment: HIV - Integumentary Hx Dermatological Disorder: No - Musculoskeletal/Rheumatological Hx Musculoskeletal Disorders: No Hx Falls: No - Gastrointestinal Hx Gastrointestinal Disorders: No - Genitourinary/Gynecological Hx Genitourinary Disorders: No - Psychiatric Hx Psychophysiologic Disorder: Yes Hx Anxiety: Yes Hx Schizophrenia: Yes Hx Substance Use: Yes - Past Surgical History Past Surgical History: Unable to Obtain - Surgical History Other/Comment: lumpectomy lt - Anesthesia Hx Anesthesia: Yes Hx Anesthesia Reactions: No Hx Malignant Hyperthermia: No - Suicidal Assessment Feels Threatened In Home Enviroment: No <Polina Bliss - Last Filed: 12/04/17 01:28> Family/Social History - Physician Review Nursing Documentation Reviewed: Yes Family/Social History: No Known Family HX Smoking Status: Heavy Smoker > 10 Cigarettes Daily Hx Alcohol Use: No Hx Substance Use: Yes Substance used: marijuana Hx Substance Use Treatment: No <Polina Bliss - Last Filed: 12/04/17 01:28> Allergies/Home Meds <Polina Bliss - Last Filed: 12/04/17 01:28> <Hernandez Kwon - Last Filed: 12/04/17 03:00> Allergies/Adverse Reactions: Allergies No Known Allergies Allergy (Verified 12/03/17 23:51) Review of Systems - Physician Review All systems were reviewed & negative as marked: Yes - Review of Systems Constitutional: absent: Fatigue, Fevers, Night Sweats ENT: absent: Sore Throat, Sinus Congestion Respiratory: absent: SOB, Cough Cardiovascular: absent: Chest Pain Gastrointestinal: absent: Abdominal Pain, Diarrhea, Nausea, Vomiting Genitourinary Female: absent: Urine Output Changes Musculoskeletal: absent: Back Pain, Neck Pain Skin: absent: Pruritis Neurological: absent: Headache, Dizziness Psychiatric: absent: Anxiety, Depression, Suicidal Ideation, Other (no homicidal ideation) <Polina Bliss - Last Filed: 12/04/17 01:28> Physical Exam Vital Signs Reviewed: Yes Vital Signs Temp Pulse Resp BP Pulse Ox 12/03/17 23:46 98.3 F 87 17 130/81 97 Temperature: Afebrile Blood Pressure: Normal Pulse: Regular Respiratory Rate: Normal Appearance: Positive for: Well-Appearing, Non-Toxic, Comfortable Pain Distress: None Mental Status: Positive for: Alert and Oriented X 3 - Systems Exam Head: Present: Atraumatic, Normocephalic Extroacular Muscles: Present: EOMI Conjunctiva: Present: Normal Mouth: Present: Moist Mucous Membranes Neck: Present: Normal Range of Motion Respiratory/Chest: Present: Clear to Auscultation, Good Air Exchange. No: Respiratory Distress, Accessory Muscle Use Cardiovascular: Present: Regular Rate and Rhythm, Normal S1, S2. No: Murmurs Upper Extremity: Present: Normal ROM Lower Extremity: Present: Normal ROM Neurological: Present: GCS=15, Speech Normal, Gait Normal Skin: Present: Warm, Dry, Normal Color Psychiatric: Present: Alert, Oriented x 3. No: Suicidal Ideation, Homicidal Ideation <Polina Bliss - Last Filed: 12/04/17 01:28> Vital Signs Temp Pulse Resp BP Pulse Ox 12/03/17 23:46 98.3 F 87 17 130/81 97 <Hernandez Kwon - Last Filed: 12/04/17 03:00> Medical Decision Making ED Course and Treatment: 12/04/17 01:17 Impression: 57 year old female presents for evaluation status post smelling formaldehyde. Plan: -- EKG -- Labs -- Urinalysis -- Reassess and disposition Prior Visits: Notes and results from previous visits were reviewed. Progress Notes: pt has refused head ct and chest xray pt states she is not crazy and doesnt need to be here for psych evaluation. pt has agreed to urine and blood tests. labs wnl ua; UDS; 12/04/17 01:30 pt is non toxic well appearing; no distress. stable vitals. denies SI or HI, denies anxiety or depression. case signed out to dr. kwon pending PES evaluation and disposition. - Lab Interpretations Lab Results: 12/04/17 00:12 12/04/17 00:12 Lab Results 12/04/17 00:12: Alcohol, Quantitative < 10 12/04/17 00:12: Salicylates < 1 L, Acetaminophen < 10.0 L 12/04/17 00:12: Sodium 142, Potassium 3.6, Chloride 108 H, Carbon Dioxide 27, Anion Gap 12, BUN 24 H, Creatinine 0.8, Est GFR ( Amer) > 60, Est GFR (Non-Af Amer) > 60, Random Glucose 116 H, Calcium 8.9, Total Bilirubin 0.4, AST 24, ALT 12, Alkaline Phosphatase 67, Total Protein 7.5, Albumin 4.1, Globulin 3.5, Albumin/Globulin Ratio 1.2 12/04/17 00:12: WBC 5.0, RBC 4.10, Hgb 13.0, Hct 38.0, MCV 92.7, MCH 31.7, MCHC 34.2, RDW 13.2, Plt Count 144, MPV 10.3, Gran % 48.5 L, Lymph % (Auto) 35.1 H, Garvin % (Auto) 9.4 H, Eos % (Auto) 6.8 H, Baso % (Auto) 0.2, Gran # 2.41, Lymph # (Auto) 1.8, Garvin # (Auto) 0.5, Eos # (Auto) 0.3, Baso # (Auto) 0.01 <Polina Bliss - Last Filed: 12/04/17 01:28> ED Course and Treatment: 12/04/17 02:53 Patient does not want to be interviewed by PES worker. PES social services designee spoke with the psychiatrist, who said patient can be discharged. - Lab Interpretations Lab Results: 12/04/17 00:12 12/04/17 00:12 Lab Results 12/04/17 01:30: Urine Opiates Screen Negative, Urine Methadone Screen Negative, Ur Barbiturates Screen Negative, Ur Phencyclidine Scrn Negative, Ur Amphetamines Screen Negative, U Benzodiazepines Scrn Negative, U Oth Cocaine Metabols Ne gative, U Cannabinoids Screen Negative 12/04/17 01:30: Urine Color Yellow, Urine Appearance Clear, Urine pH 6.0, Ur Specific [place] >= 1.030, Urine Protein Trace H, Urine Glucose (UA) Negative, Urine Ketones Negative, Urine Blood Negative, Urine Nitrate Negative, Urine Bilirubin Negative, Urine Urobilinogen 0.2, Ur Leukocyte Esterase Negative, Uri ne RBC 0 - 2, Urine WBC 1 - 3, Ur Epithelial Cells 4 - 5, Urine Bacteria Few 12/04/17 00:12: Alcohol, Quantitative < 10 12/04/17 00:12: Salicylates < 1 L, Acetaminophen < 10.0 L 12/04/17 00:12: Sodium 142, Potassium 3.6, Chloride 108 H, Carbon Dioxide 27, Anion Gap 12, BUN 24 H, Creatinine 0.8, Est GFR ( Amer) > 60, Est GFR (Non-Af Amer) > 60, Random Glucose 116 H, Calcium 8.9, Total Bilirubin 0.4, AST 24, ALT 12, Alkaline Phosphatase 67, Total Protein 7.5, Albumin 4.1, Globulin 3.5, Albumin/Globulin Ratio 1.2 12/04/17 00:12: WBC 5.0, RBC 4.10, Hgb 13.0, Hct 38.0, MCV 92.7, MCH 31.7, MCHC 34.2, RDW 13.2, Plt Count 144, MPV 10.3, Gran % 48.5 L, Lymph % (Auto) 35.1 H, Garvin % (Auto) 9.4 H, Eos % (Auto) 6.8 H, Baso % (Auto) 0.2, Gran # 2.41, Lymph # (Auto) 1.8, Garvin # (Auto) 0.5, Eos # (Auto) 0.3, Baso # (Auto) 0.01 <Hernandez Kwon - Last Filed: 12/04/17 03:00> - Scribe Statement The provider has reviewed the documentation as recorded by the Lucina Talavera Provider Scribe Attestation: All medical record entries made by the Sundaribbreanne were at my direction and personally dictated by me. I have reviewed the chart and agree that the record accurately reflects my personal performance of the history, physical exam, medical decision making, and the department course for this patient. I have also personally directed, reviewed, and agree with the discharge instructions and disposition. <Polina Bliss - Last Filed: 12/04/17 01:28> - PA / METAL FABRICATOR / Resident Statement MD/DO has reviewed & agrees with the documentation as recorded. <Hernandez Kwon - Last Filed: 12/04/17 03:00> Disposition/Present on Arrival - Present on Arrival History of DVT/PE: No History of Uncontrolled Diabetes: No Urinary Catheter: No History of Decub. Ulcer: No History Surgical Site Infection Following: None <Polina Bliss - Last Filed: 12/04/17 01:28> - Present on Arrival Any Indicators Present on Arrival: No - Disposition Have Diagnosis and Disposition been Completed?: Yes Disposition Time: 03:00 <Hernandez Kwon - Last Filed: 12/04/17 03:00> - Disposition Diagnosis: Inhalation of noxious fumes Disposition: HOME/ ROUTINE Condition: GOOD Referrals: Chris Lucas MD [Primary Care Provider] - Follow up with primary Forms: [employer] ([employer])
[2017-12-04 01:54] LABS: URINE BILIRUBIN NEGATIVE (NEGATIVE); URINE BLOOD NEGATIVE (NEGATIVE); URINE GLUCOSE (UA) NEGATIVE (NEGATIVE); URINE LEUKOCYTE ESTERASE NEGATIVE Leu/uL (NEGATIVE); URINE PROTEIN TRACE mg/dL (<30 mg/dL); URINE UROBILINOGEN 0.2 E.U./dL (<1 E.U./dL)
[2017-12-04 01:56] LABS: URINE APPEARANCE CLEAR (CLEAR); URINE COLOR YELLOW (YELLOW)
[2017-12-04 01:59] LABS: URINE BACTERIA FEW (NEG); URINE RBC 0 - 2 /hpf (0-2)
[2017-12-04 02:22] LABS: BARBITURATES, UR NEGATIVE (NEGATIVE); BENZODIAZEPINES, UR NEGATIVE (NEGATIVE); OPIATES, UR NEGATIVE (NEGATIVE); PHENCYCLIDINE, UR NEGATIVE (NEGATIVE)
[2017-12-04 10:33] VITALS: BP 127/74; PULSE 84; RESP 18; TEMP 98.3; O2SAT 99
== END 2017-12-04 02:55 | disposition home or self-care (01) ==
LOC: ED 23:29
DX: T59.91XA Toxic effect of unspecified gases, fumes and vapors, accidental (unintentional), initial encounter (principal); Y92.039 Unspecified place in apartment as the place of occurrence of the external cause; F17.210 Nicotine dependence, cigarettes, uncomplicated; F20.9 Schizophrenia, unspecified

== ENCOUNTER 2017-12-12 22:54 | Emergency (ER) | payer OTHER ==
[2017-12-12 23:10] VITALS: BMI 17.6
[2017-12-12 23:13] VITALS: BP 106/63; RESP 18; TEMP 98
--- NOTE | 2017-12-13 00:36 | ED PDOC ---
Arrival/HPI - General Chief Complaint: Lower Extremity Problem/Injury Time Seen by Provider: 12/12/17 23:54 Historian: Patient - History of Present Illness Narrative History of Present Illness (Text): 12/13/17 00:32 57 year female, whose past medical history includes HIV, COPD, left breast cancer, hepatitis C, and schizophrenia, presents to the emergency department complaining of chronic discomfort to plantar aspect of feet. Patient states it feels like burning spasm pain along with a burning sensation to the ankles. Patient informs of red discoloration to both shins, which she has had for many years. Patient states she cold her doctor today who told her to go to the hospital for observation and vascular study. Patient denies any trauma, injury, numbness, swelling, decreased ROM, fever, chest pain, shortness of breath, or any other complaints. HANY Lucas [phone] Time/Duration: Prior to Arrival Symptom Course: Unchanged Past Medical History - Provider Review Nursing Documentation Reviewed: Yes - Infectious Disease Hx of Infectious Diseases: None - Tetanus Immunization Tetanus Immunization: Unknown - Past Medical History Past Medical History: Unable to Obtain - Cardiac Hx Hypertension: No - Pulmonary Hx Chronic Obstructive Pulmonary Disease (COPD): Yes Hx Emphysema: Yes - Neurological Hx Seizures: No - HEENT Hx HEENT Disorder: No - Renal Hx Renal Disorder: No - Endocrine/Metabolic Hx Endocrine Disorders: No - Hematological/Oncological Hx Cancer: Yes - Integumentary Hx Dermatological Disorder: No - Musculoskeletal/Rheumatological Hx Musculoskeletal Disorders: No Hx Falls: No - Gastrointestinal Hx Gastrointestinal Disorders: No - Genitourinary/Gynecological Hx Sexually Transmitted Diseases: No - Psychiatric Hx Anxiety: Yes Hx Bipolar Disorder: No Hx Depression: No Hx Post Traumatic Stress Disorder: No Hx Schizophrenia: Yes Hx Substance Use: Yes - Past Surgical History Past Surgical History: Unable to Obtain - Surgical History Hx Cholecystectomy: Yes - Anesthesia Hx Anesthesia: Yes Hx Anesthesia Reactions: No Hx Malignant Hyperthermia: No - Suicidal Assessment Feels Threatened In Home Enviroment: No Family/Social History - Physician Review Nursing Documentation Reviewed: Yes Family/Social History: No Known Family HX Smoking Status: Heavy Smoker > 10 Cigarettes Daily Hx Alcohol Use: No Hx Substance Use: Yes Substance used: marijuana Hx Substance Use Treatment: No Allergies/Home Meds Allergies/Adverse Reactions: Allergies No Known Allergies Allergy (Verified 12/12/17 23:47) Review of Systems - Physician Review All systems were reviewed & negative as marked: Yes - Review of Systems Constitutional: absent: Fevers Respiratory: absent: SOB Cardiovascular: absent: Chest Pain Skin: Other (burning sensation; no swelling; no trauma; no injury; no numbness; no decreased ROM.) Physical Exam Vital Signs Reviewed: Yes Vital Signs Temp Pulse Resp BP Pulse Ox 12/12/17 23:13 98.0 F 88 18 106/63 98 Temperature: Afebrile Blood Pressure: Normal Pulse: Regular Respiratory Rate: Normal Appearance: Positive for: Well-Appearing, Non-Toxic, Comfortable Pain Distress: None Mental Status: Positive for: Alert and Oriented X 3 - Systems Exam Head: Present: Atraumatic, Normocephalic Pupils: Present: PERRL Extroacular Muscles: Present: EOMI Conjunctiva: Present: Normal Mouth: Present: Moist Mucous Membranes Neck: Present: Normal Range of Motion Respiratory/Chest: Present: Clear to Auscultation, Good Air Exchange. No: Respiratory Distress, Accessory Muscle Use Cardiovascular: Present: Regular Rate and Rhythm, Normal S1, S2. No: Murmurs Abdomen: No: Tenderness, Distention, Peritoneal Signs Back: Present: Normal Inspection Upper Extremity: Present: Normal Inspection. No: Cyanosis, Edema Lower Extremity: Present: NORMAL PULSES (1+ dorsal pedal pulse and posterior tibial pulse), Normal ROM, Neurovascularly Intact, Capillary Refill < 2 s, Other (+venous stasis dermatitis to both shins; dry cracked skin to both heels.). No: CALF TENDERNESS, Tenderness, Swelling, Deformity, Temperature Abnormalties Neurological: Present: GCS=15, CN II-XII Intact, Speech Normal, Motor Func Grossly Intact, Normal Sensory Function Skin: Present: Warm, Dry, Normal Color. No: Rashes Psychiatric: Present: Alert, Oriented x 3, Normal Insight, Normal Concentration Medical Decision Making ED Course and Treatment: 12/13/17 00:41 Impression: 57 year old female presents with burning sensation to legs. Plan: -- Reassess and disposition -- Naprosyn -- US doppler b/l LE Prior Visits: Notes and results from previous visits were reviewed. Patient was last seen in the emergency department on Progress Notes: Case d/w Dr. Lucas, who states that the patient had a h/o breast cancer and he was concerned of a DVT. US doppler b/l LE ordered. US doppler b/l LE : (-) DVT as per US tech. Advised to follow up with primary care physician in 1-2 days without fail. Advised to take medication as prescribed. Return to the emergency room at any time for any new or worsening symptoms. Patient states she fully agrees with and understands discharge instructions. States that she agrees with the plan and disposition. Verbalized and repeated discharge instructions and plan. I have given the patient opportunity to ask any additional questions. - PA / MANAGED CARE ANALYST / Resident Statement MD/DO has reviewed & agrees with the documentation as recorded. - Scribe Statement The provider has reviewed the documentation as recorded by the Lucina Talavera Provider Scribe Attestation: All medical record entries made by the Lucina were at my direction and personally dictated by me. I have reviewed the chart and agree that the record accurately reflects my personal performance of the history, physical exam, medical decision making, and the department course for this patient. I have also personally directed, reviewed, and agree with the discharge instructions and disposition. Disposition/Present on Arrival - Present on Arrival Any Indicators Present on Arrival: No History of DVT/PE: No History of Uncontrolled Diabetes: No Urinary Catheter: No History of Decub. Ulcer: No History Surgical Site Infection Following: None - Disposition Have Diagnosis and Disposition been Completed?: Yes Diagnosis: Bilateral ankle pain Disposition: HOME/ ROUTINE Disposition Time: 00:50 Patient Plan: Discharge Patient Problems: Current Active Problems Problem Status Onset Bilateral ankle pain Acute Condition: STABLE Discharge Instructions (ExitCare): Peripheral Neuropathy (DC) Additional Instructions: Thank you for letting us take care of you today. You were treated for b/l ankle pain, likely neuropathy. The emergency medical care you received today was directed at your acute symptoms. If you were prescribed any medication, please fill it and take as directed. It may take several days for your symptoms to resolve. Return to the Emergency Department if your symptoms worsen, do not improve, or if you have any other problems. Please contact your doctor in 2 days for re-evaluation and follow up / or call one of the physicians/clinics you have been referred to that are listed on the Patient Visit Information form that is included in your discharge packet. Bring any paperwork you were given at discharge with you along with any medications you are taking to your follow up visit. Our treatment cannot replace ongoing medical care by a primary care provider (PCP) outside of the emergency department. Thank you for allowing the [facility] team to be part of your care today. Prescriptions: Naproxen 500 mg PO BID PRN #20 tablet PRN Reason: Pain, Moderate (4-7) Referrals: Chris Lucas MD [Primary Care Provider] - Follow up with primary Jaxon Marie DPM [Staff Provider] - Follow up with primary Forms: [employer] (Swedish), WORK NOTE
[2017-12-13] MEDS ORDERED: Naproxen 550 mg Tab PO STA (00:54)
[2017-12-13 02:26] VITALS: PULSE 90; O2SAT 99
== END 2017-12-13 02:26 | disposition home or self-care (01) ==
LOC: ED 22:54
DX: M25.571 Pain in right ankle and joints of right foot (principal); M25.572 Pain in left ankle and joints of left foot; F17.210 Nicotine dependence, cigarettes, uncomplicated; F20.9 Schizophrenia, unspecified; Z85.3 Personal history of malignant neoplasm of breast; J44.9 Chronic obstructive pulmonary disease, unspecified; Z21 Asymptomatic human immunodeficiency virus [HIV] infection status

== ENCOUNTER 2017-12-26 15:46 | Inpatient (IN) | payer OTHER ==
[2017-12-26 15:57] VITALS: BMI 17.8
--- NOTE | 2017-12-26 16:06 | ED PDOC ---
Arrival/HPI - General Time Seen by Provider: 12/26/17 15:48 Historian: Patient - History of Present Illness Narrative History of Present Illness (Text): 12/26/17 15:58 57 year old female, with past medical history of HIV (on antiretroviral therapy), Hep C, Left breast cancer (s/p chemo/radiation and left breast lumpectomy), pulmonary nodules and COPD, presents to the ED complaining of worsening SOB since prior to arrival. Patient states [facility] when the symptoms emerged and were unimproved after albuterol use, prompting her to present to the Ed for medical evaluation. Patient informs similar symptoms 4 days ago and was treated with steroids and albuterol at [facility] for COPD exacerbation. Patient reports not refilling her prescriptions for steroids since the discharge and now worries similar symptoms may have been triggered from the cold. Patient currently informs associated productive cough with yellow sputum but denies any other somatic complaints. Patient denies fever, chills, nausea, vomiting, abdominal pain, chest pain, or any other complaints. Patient denies any history of intubation. Time/Duration: Prior to Arrival Symptom Onset: Gradual Symptom Course: Unchanged Activities at Onset: Light Past Medical History - Provider Review Nursing Documentation Reviewed: Yes - Infectious Disease Hx of Infectious Diseases: None - Tetanus Immunization Tetanus Immunization: Unknown - Past Medical History Past Medical History: Unable to Obtain - Cardiac Hx Hypertension: No - Pulmonary Hx Chronic Obstructive Pulmonary Disease (COPD): Yes Hx Emphysema: Yes - Neurological Hx Seizures: No - HEENT Hx HEENT Disorder: No - Renal Hx Renal Disorder: No - Endocrine/Metabolic Hx Endocrine Disorders: No - Hematological/Oncological Hx Cancer: Yes - Integumentary Hx Dermatological Disorder: No - Musculoskeletal/Rheumatological Hx Musculoskeletal Disorders: No Hx Falls: No - Gastrointestinal Hx Gastrointestinal Disorders: No - Genitourinary/Gynecological Hx Sexually Transmitted Diseases: No - Psychiatric Hx Anxiety: Yes Hx Bipolar Disorder: No Hx Depression: No Hx Paranoia: Yes Hx Post Traumatic Stress Disorder: No Hx Schizophrenia: Yes Hx Substance Use: Yes - Past Surgical History Past Surgical History: Unable to Obtain - Surgical History Hx Cholecystectomy: Yes - Anesthesia Hx Anesthesia: Yes Hx Anesthesia Reactions: No Hx Malignant Hyperthermia: No - Suicidal Assessment Feels Threatened In Home Enviroment: No Family/Social History - Physician Review Nursing Documentation Reviewed: Yes Family/Social History: Unknown Family HX Smoking Status: Heavy Smoker > 10 Cigarettes Daily Hx Alcohol Use: No Hx Substance Use: Yes Substance used: marijuana Hx Substance Use Treatment: No Allergies/Home Meds Allergies/Adverse Reactions: Allergies No Known Allergies Allergy (Verified 12/12/17 23:47) Review of Systems - Review of Systems Constitutional: absent: Fevers Respiratory: SOB, Cough, Sputum Cardiovascular: absent: Chest Pain, ENRIQUEZ Gastrointestinal: absent: Abdominal Pain, Diarrhea, Nausea, Vomiting Genitourinary Female: absent: Dysuria, Urine Output Changes Musculoskeletal: absent: Back Pain, Neck Pain Skin: absent: Rash Neurological: absent: Headache, Dizziness Endocrine: absent: Diaphoresis Psychiatric: absent: Anxiety Physical Exam Vital Signs Reviewed: Yes Blood Pressure: Normal Pulse: Regular Respiratory Rate: Normal Appearance: Positive for: Well-Appearing, Non-Toxic, Comfortable Pain Distress: None Mental Status: Positive for: Alert and Oriented X 3 - Systems Exam Head: Present: Atraumatic, Normocephalic Pupils: Present: PERRL Extroacular Muscles: Present: EOMI Conjunctiva: Present: Normal Mouth: Present: Moist Mucous Membranes Neck: Present: Normal Range of Motion Respiratory/Chest: Present: Good Air Exchange, Wheezes. No: Respiratory Distress, Accessory Muscle Use Cardiovascular: Present: Regular Rate and Rhythm, Normal S1, S2. No: Murmurs Abdomen: No: Tenderness, Distention, Peritoneal Signs Back: Present: Normal Inspection Upper Extremity: Present: Normal Inspection. No: Cyanosis, Edema Lower Extremity: Present: Normal Inspection. No: Edema Neurological: Present: GCS=15, CN II-XII Intact, Speech Normal Skin: Present: Warm, Dry, Normal Color. No: Rashes Psychiatric: Present: Alert, Oriented x 3, Normal Insight, Normal Concentration Medical Decision Making ED Course and Treatment: 12/26/17 15:57 Impression: 57 year old female presents to the ED complaining of SOB and productive cough. Plan: -- CXR -- Albuterol -- Solumedrol -- Peak Flow Progress Notes: Patient's initial peak flow was recorded at 100. 12/26/17 17:09 Cxray chest: No active disease. No significant interval change compared to the prior examination(s). 12/26/17 17:52 PF 100 to 150 after 3 duonebs. Still wheezing with O2 sat:94% RA. Patient reports no improvement of symptoms. Will place in observation under hospitalist. - RAD Interpretation Radiology Orders: 12/26/17 15:57 CHEST PORTABLE [RAD] Stat - Medication Orders Current Medication Orders: Albuterol/Ipratropium (Duoneb 3 Mg/0.5 Mg (3 Ml) Ud) 3 ml IH Q15M MILENA Stop: 12/26/17 16:31 Discontinued Medications Prednisone (Prednisone Tab) 60 mg PO STAT ONE Stop: 12/26/17 15:59 - Scribe Statement The provider has reviewed the documentation as recorded by the Scribe Shadi Ojeda. All medical record entries made by the Sundaribe were at my direction and personally dictated by me. I have reviewed the chart and agree that the record accurately reflects my personal performance of the history, physical exam, medical decision making, and the department course for this patient. I have also personally directed, reviewed, and agree with the discharge instructions and disposition. Disposition/Present on Arrival - Present on Arrival Any Indicators Present on Arrival: No History of DVT/PE: No History of Uncontrolled Diabetes: No Urinary Catheter: No History Surgical Site Infection Following: None - Disposition Have Diagnosis and Disposition been Completed?: Yes Diagnosis: COPD (chronic obstructive pulmonary disease) Disposition: HOSPITALIZED Disposition Time: 17:53 Patient Plan: Observation Patient Problems: Current Active Problems Problem Status Onset COPD (chronic obstructive pulmonary disease) Acute Condition: FAIR
[2017-12-26] MEDS: Albuterol-Ipratrop 3 mg / 0.5 (3 ml) UD IH SCH ×3 (16:12→16:42)
--- NOTE | 2017-12-26 17:08 | RAD ---
Date of service: 12/26/2017 HISTORY: cough COMPARISON: 10/18/2017 FINDINGS: LUNGS: No active pulmonary disease. PLEURA: No significant pleural effusion identified, no pneumothorax apparent. CARDIOVASCULAR: No atherosclerotic calcification present Normal. OSSEOUS STRUCTURES: No significant abnormalities. VISUALIZED UPPER ABDOMEN: Normal. OTHER FINDINGS: None. IMPRESSION: No active disease. No significant interval change compared to the prior examination(s).
[2017-12-26 18:27] LABS: BASO # 0.01 K/mm3 (0.0-2.0); BASO % 0.1 % (0.0-3.0); EOS # 0.2 (0.0-0.7); EOS % 2.5 % (1.5-5.0); GRAN # 6.23 (1.4-6.5); GRAN % 82.7 % (50.0-68.0); HEMOGLOBIN 13.7 g/dL (12.0-16.0); LYMPH # 0.8 (1.2-3.4); MEAN CELL VOLUME 92.3 fl (80.0-105.0); MEAN CORPUSCULAR HGB CONC 34.7 g/dl (31.0-37.0); MONO # 0.3 (0.1-0.6); MONO % 3.7 % (1.0-6.0); RBC 4.28 10^6/uL (3.5-6.1); RED CELL DISTRIBUTION WIDTH 13.4 % (11.5-14.5); WHITE BLOOD COUNT 7.5 10^3/uL (4.5-11.0)
[2017-12-26 18:37] LABS: BLOOD UREA NITROGEN 25 mg/dL (7-21); CALCIUM 8.8 mg/dL (8.4-10.5); GFR NON-AFRICAN AMERICAN > 60
[2017-12-26] MEDS ORDERED: Albuterol-Ipratrop 3 mg / 0.5 (3 ml) UD IH STA (18:42)
--- NOTE | 2017-12-26 19:47 | CP.PCM.HP ---
<Tj Aguirre - Last Filed: 12/27/17 06:33> History of Present Illness - History of Present Illness History of Present Illness: H&P for Hospitalist Dr. Vish Aguirre PGY2 Patient is a 57 F with a history of HIV on antiretroviral therapy, hepatitis C, left breast cancer diagnosed in 2006 s/p chemo/radiation and left breast lumpectomy, and COPD who presented with shortness of breath which patient states has been going on for the past few months. Patient states that these past few days however she has had more noticeable difficulty breathing. Patient states she woke up this morning feeling short of breath then went to [employer] to eat however when she finished eating she was unable to breath upon leaving so she called her PMD Dr. Lucas who advised her to go to the emergency department.Patient admits to right sided chest pain, neck pain, headache. Patient denies fevers, chills, abdominal pain, dysuria, dizziness, cough. 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 absent: Chest Pain, Palpitations - Respiratory Respiratory: Dyspnea. absent: Cough - Gastrointestinal Gastrointestinal: absent: Abdominal Pain, Diarrhea - Genitourinary Genitourinary: absent: Dysuria - Musculoskeletal Musculoskeletal: Neck Pain - Neurological Neurological: absent: Dizziness - Psychiatric Psychiatric: Anxiety Past Patient History - Infectious Disease Hx of Infectious Diseases: None - Tetanus Immunizations Tetanus Immunization: Unknown - Past Social History Smoking Status: Heavy Smoker > 10 Cigarettes Daily - CARDIAC Hx Hypertension: No - PULMONARY Hx Chronic Obstructive Pulmonary Disease (COPD): Yes Hx Emphysema: Yes - NEUROLOGICAL Hx Seizures: No - HEENT Hx HEENT Problems: No - RENAL Hx Chronic Kidney Disease: No - ENDOCRINE/METABOLIC Hx Endocrine Disorders: No - HEMATOLOGICAL/ONCOLOGICAL Hx Cancer: Yes - INTEGUMENTARY Hx Dermatological Problems: No - MUSCULOSKELETAL/RHEUMATOLOGICAL Hx Musculoskeletal Disorders: No Hx Falls: No - GASTROINTESTINAL Hx Gastrointestinal Disorders: No - GENITOURINARY/GYNECOLOGICAL Hx Sexually Transmitted Disorders: No - PSYCHIATRIC Hx Anxiety: Yes Hx Bipolar Disorder: No Hx Depression: No Hx Paranoia: Yes Hx Post Traumatic Stress Disorder: No Hx Schizophrenia: Yes Hx Substance Use: Yes - SURGICAL HISTORY Hx Cholecystectomy: Yes - ANESTHESIA Hx Anesthesia: Yes Hx Anesthesia Reactions: No Hx Malignant Hyperthermia: No Meds Allergies/Adverse Reactions: Allergies Allergy/AdvReac Type Severity Reaction Status Date / Time No Known Allergies Allergy Verified 12/26/17 21:25 Physical Exam - Constitutional Appears: Non-toxic - Head Exam Head Exam: ATRAUMATIC, NORMAL INSPECTION, NORMOCEPHALIC - Eye Exam Eye Exam: Normal appearance - ENT Exam ENT Exam: Mucous Membranes Dry - Neck Exam Neck exam: Positive for: Normal Inspection - Respiratory Exam Respiratory Exam: Decreased Breath Sounds (right sided), Clear to Auscultation Bilateral, NORMAL BREATHING PATTERN. absent: Rales, Rhonchi, Wheezes - Cardiovascular Exam Cardiovascular Exam: REGULAR RHYTHM, +S1, +S2 - GI/Abdominal Exam GI & Abdominal Exam: Normal Bowel Sounds. absent: Tenderness - Back Exam Back exam: NORMAL INSPECTION - Skin Skin Exam: Intact, Normal Color, Rash Results - Vital Signs Recent Vital Signs: Last Vital Signs Temp 98.2 F 12/26/17 16:12 Pulse 76 12/26/17 17:46 Resp 20 12/26/17 17:46 BP 104/65 12/26/17 17:46 Pulse Ox 98 12/26/17 17:46 - Labs Result Diagrams: 12/27/17 06:00 12/26/17 18:21 Labs: Laboratory Results - last 24 hr 12/26/17 12/26/17 18:21 18:21 WBC 7.5 RBC 4.28 Hgb 13.7 Hct 39.5 MCV 92.3 MCH 32.0 MCHC 34.7 RDW 13.4 Plt Count 169 MPV 11.0 Gran % 82.7 H Lymph % (Auto) 11.0 L Whitfield % (Auto) 3.7 Eos % (Auto) 2.5 Baso % (Auto) 0.1 Gran # 6.23 Lymph # (Auto) 0.8 L Whitfield # (Auto) 0.3 Eos # (Auto) 0.2 Baso # (Auto) 0.01 Sodium 141 Potassium 3.8 Chloride 106 Carbon Dioxide 26 Anion Gap 13 BUN 25 H Creatinine 0.7 Est GFR ( Amer) > 60 Est GFR (Non-Af Amer) > 60 Random Glucose 112 H Calcium 8.8 Assessment & Plan - Assessment and Plan (Free Text) Assessment: Patient is a 57 F with a history of HIV on antiretroviral therapy, hepatitis C, left breast ca diagnosed in 2006 s/p chemo/radiation and left breast lumpectomy, COPD who presented with shortness of breath which patient states has been going on for the past few months found to be in COPD exacerbation. Plan: Dyspnea secondary to COPD exacerbation -Duonebs ivan and PRN -Breo-ellipta -Incruse ellipta -Solumedrol 40 mg q12h -Azithromycin -Procal HIV -Continue with Triumeq 600mg/50mg/300mg 1 tab daily -Follows up regularly with Infectious disease GI/DVT prophylaxis: Protonix/Heparin <Miri Wahl R - Last Filed: 12/27/17 06:53> Results - Vital Signs Recent Vital Signs: Last Vital Signs Temp 98.6 F 12/26/17 20:57 Pulse 90 12/27/17 01:00 Resp 18 12/27/17 00:10 BP 96/61 L 12/27/17 01:00 Pulse Ox 96 12/27/17 01:00 - Labs Result Diagrams: 12/27/17 06:00 12/27/17 06:00 Labs: Laboratory Results - last 24 hr 12/26/17 12/26/17 12/26/17 18:21 18:21 18:21 WBC 7.5 RBC 4.28 Hgb 13.7 Hct 39.5 MCV 92.3 MCH 32.0 MCHC 34.7 RDW 13.4 Plt Count 169 MPV 11.0 Gran % 82.7 H Lymph % (Auto) 11.0 L Whitfield % (Auto) 3.7 Eos % (Auto) 2.5 Baso % (Auto) 0.1 Gran # 6.23 Lymph # (Auto) 0.8 L Whitfield # (Auto) 0.3 Eos # (Auto) 0.2 Baso # (Auto) 0.01 Sodium 141 Potassium 3.8 Chloride 106 Carbon Dioxide 26 Anion Gap 13 BUN 25 H Creatinine 0.7 Est GFR ( Amer) > 60 Est GFR (Non-Af Amer) > 60 Random Glucose 112 H Calcium 8.8 Magnesium 2.2 12/27/17 12/27/17 06:00 06:00 WBC 4.7 D RBC 3.79 Hgb 11.7 L D Hct 34.9 L MCV 92.1 MCH 30.9 MCHC 33.5 RDW 13.2 Plt Count 148 MPV 10.3 Gran % 89.8 H Lymph % (Auto) 9.8 L Whitfield % (Auto) 0.4 L Eos % (Auto) 0.0 L Baso % (Auto) 0.0 Gran # 4.22 Lymph # (Auto) 0.5 L Whitfield # (Auto) 0.0 L Eos # (Auto) 0.0 Baso # (Auto) 0.00 Sodium Potassium 4.2 Chloride Carbon Dioxide Anion Gap BUN Creatinine Est GFR ( Amer) Est GFR (Non-Af Amer) Random Glucose Calcium Magnesium Attending/Attestation - Attestation I have personally seen and examined this patient.: Yes I have fully participated in the care of the patient.: Yes I have reviewed all pertinent clinical information: Yes Notes (Text): Patient seen and examined by me with resident at 7PM on 12/26/17. Case including HPI, physical exam, and assessment and plan discussed with resident. Agree with above with following additions/corrections. Patient is a 57-year-old female past medical history significant for HIV on antiretroviral therapy, left breast cancer status post lumpectomy, history of tobacco use, and COPD presented to the emergency room with shortness of breath. Patient states that this is been going on for some time however it was worsened today. Patient states that she went to [employer] and felt like she was short of breath. Then she walked to the library and stopped and stopped at a usp. She states at that time she called her doctor Dr. Lucas and told them she felt short of breath. She states he advised her to come to the emergency room. Patient states that the shortness of breath is worsened with exertion and ambulation. She states that she is also having a productive cough with "all kinds of colored sputum." She states he tried her Ventolin inhaler without any relief. She states that she had some right-sided chest pain under her right arm that lasted a few seconds. She states that she also gets intermittent headaches but no headache currently. No fevers or chills. No dizziness or lightheadedness. No change in vision. No nausea, vomiting, or abdominal pain. No dysuria. Patient does have a history of loose bowel movements. Patient also complains of chronic rash on her bilateral lower extremities for which she sees a doctor outpatient. 12 point review of systems reviewed by me. Please see above HPI, all other systems negative. Family history: Mother of lung cancer. Father is alive and in the custodial with unknown medical condition. Physical exam: General: Awake and alert lying in bed in no acute distress HEENT: Normocephalic, atraumatic. Extraocular muscles intact, pupils equal and reactive, no scleral icterus. Oropharynx is pink and moist. Neck is supple. Hearing grossly intact. Ears and nose externally unremarkable. Cardiovascular: Normal rhythm. Normal S1, S2. No murmurs, rubs, or gallops appreciated Pulmonary: Normal respiratory effort. Decreased breath sounds. No rhonchi, rales, or wheezing appreciated (patient examined after receiving nebulized treatments). Gastrointestinal: Soft, nondistended. Nontender. Positive bowel sounds all 4 quadrants. No guarding. Musculoskeletal: Moves all extremities. No edema appreciated. No calf tenderness. No CVA tenderness. Central nervous system: AAO x3, CN 2-12 grossly intact. 5 out of 5 muscle strength all extremities. Dermatologic: Skin warm and dry. Positive mildly erythematous rash anterior shins of bilateral lower extremities Assessment and plan: Patient is a 57-year-old female past medical history significant for HIV on antiretroviral therapy, left breast cancer status post lumpectomy, history of tobacco use, and COPD presented to the emergency room with shortness of breath. 1. COPD exacerbation. Chest x-ray as read by me shows no active disease, no infiltrate seen. Start nebulizer treatments. Placed on Brovana and Pulmicort. Started on Solu-Medrol. Patient placed on Zithromax. 2. HIV. Continue home Triumeq. 3. Elevated BUN. Placed on IV fluids. Follow up repeat labs in a.m. 4. Hypotension. May be secondary to dehydration. Placed on IV fluids with improvement. Continue to monitor. No leukocytosis. Patient afebrile. 5. GI/DVT prophylaxis. Protonix/Heparin Case was discussed in detail with the patient regarding current diagnosis and treatment plan. All questions answered.
[2017-12-26] MEDS ORDERED: Arformoterol 15 mcg/2 ml Inh Sol IH SCH (20:00)
[2017-12-26] MEDS ORDERED: Albuterol-Ipratrop 3 mg / 0.5 (3 ml) UD IH PRN (20:23)
[2017-12-26] MEDS ORDERED: Sodium Chloride 0.9% 1,000 ML IV STA (20:53)
[2017-12-26] MEDS ORDERED: Influenza Vaccine 60 mcg/0.5 mL SYR (4YR UP) IM ONE (22:29)
[2017-12-26] MEDS ORDERED: Pneumococcal 23-Valent Vaccine IM ONE (22:29)
[2017-12-26] MEDS: MethylPREDNISolone 40 mg Vial IVP SCH (22:37)
[2017-12-27] MEDS: Sodium Chloride 0.9% 1,000 ML IV SCH ×4 (00:31→23:01)
[2017-12-27] MEDS ORDERED: Albuterol-Ipratrop 3 mg / 0.5 (3 ml) UD IH SCH (02:00)
[2017-12-27 06:19] LABS: GRAN # 4.22 (1.4-6.5); GRAN % 89.8 % (50.0-68.0); HEMOGLOBIN 11.7 g/dL (12.0-16.0); LYMPH # 0.5 (1.2-3.4); LYMPH % 9.8 % (22.0-35.0); MEAN CELL VOLUME 92.1 fl (80.0-105.0); MEAN CORPUSCULAR HEMOGLOBIN 30.9 pg (25.0-35.0); MEAN CORPUSCULAR HGB CONC 33.5 g/dl (31.0-37.0); MEAN PLATELET VOLUME 10.3 fl (7.0-11.0); MONO % 0.4 % (1.0-6.0); RBC 3.79 10^6/uL (3.5-6.1); RED CELL DISTRIBUTION WIDTH 13.2 % (11.5-14.5); WHITE BLOOD COUNT 4.7 10^3/uL (4.5-11.0)
[2017-12-27 07:43] LABS: ALB/GLOB RATIO 1.1 (1.1-1.8); ALT/SGPT 24 U/L (7-56); AST/SGOT 19 U/L (14-36); BLOOD UREA NITROGEN 17 mg/dL (7-21); CALCIUM 8.1 mg/dL (8.4-10.5); GFR NON-AFRICAN AMERICAN > 60
[2017-12-27] MEDS: Albuterol-Ipratrop 3 mg / 0.5 (3 ml) UD IH SCH ×3 (08:51→20:13)
[2017-12-27] MEDS: ABACAVIR PO SCH ×2 (09:41→09:47)
[2017-12-27] MEDS: DOLUTEGRAVIR PO SCH ×2 (09:41→09:47)
[2017-12-27] MEDS: LAMIVUDINE PO SCH ×2 (09:41→09:47)
[2017-12-27] MEDS: [UNRECOGNIZED DRUG - OTHER] PO SCH ×2 (09:41→09:47)
[2017-12-27] MEDS: MethylPREDNISolone 40 mg Vial IVP SCH ×2 (09:45→22:57)
[2017-12-27] MEDS ORDERED: Non Formulary Medication (Umeclidinium Bromide [Incruse Ellipta] 62.5 MCG) IH SCH (10:00)
[2017-12-27] MEDS ORDERED: Azithromycin 500MG/NS 250ml 500 MG/250 ML BAG IVPB SCH (10:00)
[2017-12-27] MEDS ORDERED: BREO ELLIPTA INH SCH (10:00)
[2017-12-27] MEDS ORDERED: Non Formulary Medication (Fluticasone/Vilanterol [Breo Ellipta 200-25 Mcg Inh] 1 EACH) IH SCH (10:00)
[2017-12-27] MEDS ORDERED: INCRUSE ELLIPTA 62.5 MCG INH SCH (10:00)
[2017-12-27] MEDS ORDERED: Carboxymethylcellulose 1% Ophth Soln OU PRN (17:26)
[2017-12-27] MEDS ORDERED: DiphenhydrAMINE 1% 1 EA TUBE TOP PRN (17:39)
[2017-12-27] MEDS ORDERED: Benzocaine/Menthol (Cepacol) Lozenge MT PRN (17:39)
--- NOTE | 2017-12-27 17:55 | CP.PCM.PN ---
<Snadra Santa - Last Filed: 12/27/17 17:41> Subjective - Date & Time of Evaluation Date of Evaluation: 12/27/17 Time of Evaluation: 10:30 - Subjective Subjective: Sandra Santa, PGY2, Medicine Progress Note for Dr Mancia: Patient seen and examined at bedside. Patient refused subq heparin overnight. This AM, patient states that her breathing has improved. However, patient details about her experiences at [facility], assisted housing in [facility]. She believes that she "is being framed," and may have been getting "f ormaldehyde poisoning." She reports itchiness on right lower extremity rash over past 2-3 years. States that she wanted to go see a vocational rehabilitation specialist, but is waiting on a new insurance to kick by. Patient also reports mild sore throat, denies cough, fevers, chills, nausea, vomiting, chest pain, abdominal pain, urinary symptoms, leg swelling. Upon asking, patient denies suicidal or homicidal ideations. Objective - Vital Signs/Intake and Output Vital Signs (last 24 hours): Temp Pulse Resp BP Pulse Ox 98.1 F 88 20 133/72 95 12/27/17 17:18 12/27/17 17:18 12/27/17 17:18 12/27/17 17:18 12/27/17 17:18 Intake and Output: 12/27/17 12/27/17 06:59 18:59 Intake Total 625 Balance 625 - Medications Medications: Current Medications Albuterol/Ipratropium (Duoneb 3 Mg/0.5 Mg (3 Ml) Ud) 3 ml IH [id number] PRN PRN Reason: Shortness of Breath Albuterol/Ipratropium (Duoneb 3 Mg/0.5 Mg (3 Ml) Ud) 3 ml IH [id number] IVAN Last Admin: 12/27/17 13:55 Dose: Not Given Arformoterol Tartrate (Brovana) 15 mcg IH [id number] IVAN Artificial Tears (Artificial Tears Refresh Celluvisc) 0.4 ml OU BID PRN PRN Reason: Dry eyes Benzocaine/Menthol (Cepacol Sore Throat) 1 abbie MT Q2H PRN PRN Reason: Sore Throat Budesonide (Pulmicort Respules) 0.5 mg IH [id number] IVAN Diphenhydramine HCl (Benadryl Maximum Strength 1%) 1 ea TOP Q6H PRN PRN Reason: Itching / Pruritus Heparin Sodium (Porcine) (Heparin) 5,000 units SC Q8 [facility]; Protocol Last Admin: 12/27/17 13:48 Dose: Not Given Home Med (Home Med) 1 unit PO DAILY@1800 IVAN Azithromycin (Zithromax 500mg In Ns) 500 mg in 250 mls @ 167 mls/hr IVPB DAILY [facility]; Protocol Last Admin: 12/27/17 09:44 Dose: 167 mls/hr Sodium Chloride (Sodium Chloride 0.9%) 1,000 mls @ 125 mls/hr IV .Q8H [facility] Last Admin: 12/27/17 16:23 Dose: Not Given Methylprednisolone (Solu-Medrol) 40 mg IVP Q12 [facility] Last Admin: 12/27/17 09:45 Dose: 40 mg Pantoprazole Sodium (Protonix Ec Tab) 40 mg PO ACB [facility] - Labs Labs: 12/27/17 06:00 12/27/17 06:00 - Constitutional Appears: Non-toxic, No Acute Distress - Head Exam Head Exam: ATRAUMATIC, NORMOCEPHALIC - Eye Exam Eye Exam: EOMI, PERRL. absent: Conjunctival injection, Nystagmus, Scleral icterus Pupil Exam: NORMAL ACCOMODATION, PERRL. absent: Irregular, Miosis, Unequal - ENT Exam ENT Exam: Mucous Membranes Dry - Neck Exam Neck Exam: Full ROM - Respiratory Exam Respiratory Exam: Wheezes (Bilateral). absent: Accessory Muscle Use, Chest Wall Tenderness, Decreased Breath Sounds, Rales, Rhonchi, Respiratory Distress, Stridor - Cardiovascular Exam Cardiovascular Exam: RRR, +S1, +S2. absent: Murmur - GI/Abdominal Exam GI & Abdominal Exam: Soft, Normal Bowel Sounds. absent: Distended, Firm, Guarding, Rigid, Tenderness, Hypoactive Bowel Sounds, Mass, Organomegaly, Rebound - Extremities Exam Extremities Exam: absent: Calf Tenderness, Pedal Edema Additional comments: + macular rash on right lower, excoriation noted. - Back Exam Back Exam: NORMAL INSPECTION. absent: CVA tenderness (L), CVA tenderness (R) - Neurological Exam Neurological Exam: Alert, Awake, Oriented x3 Neuro motor strength exam: Left Upper Extremity: 5, Right Upper Extremity: 5, Left Lower Extremity: 5, Right Lower Extremity: 5 - Psychiatric Exam Psychiatric exam: Agitated. absent: Homicidal Ideation, Suicidal Ideation - Skin Skin Exam: Dry, Normal Color, Warm Assessment and Plan - Assessment and Plan (Free Text) Assessment: 57 F with a history of HIV on antiretroviral therapy (last CD4 535 on 08/2017), hepatitis C, left breast cancer diagnosed in 2006 s/p chemo/radiation and left breast lumpectomy, COPD, presents for COPD exacerbation, paranoia, difficult housing situation: COPD exacerbation - continue with solumedrol 40 IV q 12. will taper steroids tomorrow - continue with Duonebs ivan and PRN - started brovana and pulmicort - continue with azithromycin - f/u procal - cxr negative - monitor Lower extremity rash: - benadryl cream prn Paranoia: - psychiatry consulted. F/u recs. Hx of HIV: - c/w home tiumeq - patient follows up regularly with Infectious disease Dr Lucas PPX: protonix, heparin sq Patient seen, reviewed and discussed with attending, Dr Mancia. <Colton Mancia - Last Filed: 12/28/17 19:06> Objective - Vital Signs/Intake and Output Vital Signs (last 24 hours): Temp Pulse Resp BP Pulse Ox 98.0 F 90 19 91/62 L 95 12/28/17 17:16 12/28/17 17:16 12/28/17 17:16 12/28/17 17:16 12/28/17 17:16 - Medications Medications: Current Medications Albuterol/Ipratropium (Duoneb 3 Mg/0.5 Mg (3 Ml) Ud) 3 ml IH [id number] PRN PRN Reason: Shortness of Breath Last Admin: 12/28/17 13:27 Dose: 3 ml Albuterol/Ipratropium (Duoneb 3 Mg/0.5 Mg (3 Ml) Ud) 3 ml IH [id number] IVAN Last Admin: 12/28/17 15:36 Dose: Not Given Arformoterol Tartrate (Brovana) 15 mcg IH [id number] IVAN Last Admin: 12/28/17 07:52 Dose: 15 mcg Artificial Tears (Refresh Opth Soln) 0.3 ml OU BID PRN PRN Reason: Dry eyes Last Admin: 12/28/17 10:08 Dose: 1 drop Azithromycin (Zithromax) 250 mg PO DAILY [facility]; Protocol Last Admin: 12/28/17 10:09 Dose: 250 mg Benzocaine/Menthol (Cepacol Sore Throat) 1 abbie MT Q2H PRN PRN Reason: Sore Throat Budesonide (Pulmicort Respules) 0.5 mg IH [id number] [facility] Last Admin: 12/28/17 07:53 Dose: 0.5 mg Diphenhydramine HCl (Benadryl Maximum Strength 1%) 1 ea TOP Q6H PRN PRN Reason: Itching / Pruritus Haloperidol (Haldol) 2 mg PO Q6 PRN; Protocol PRN Reason: Agitation Heparin Sodium (Porcine) (Heparin) 5,000 units SC Q8 [facility]; Protocol Last Admin: 12/28/17 14:30 Dose: Not Given Home Med (Home Med) 1 unit PO DAILY@1800 [facility] Last Admin: 12/27/17 18:02 Dose: 1 unit Lorazepam (Ativan) 1 mg PO Q6 PRN; Protocol PRN Reason: Agitation Pantoprazole Sodium (Protonix Ec Tab) 40 mg PO ACB [facility] Last Admin: 12/28/17 10:09 Dose: 40 mg Prednisone (Prednisone Tab) 30 mg PO BID [facility] Last Admin: 12/28/17 10:09 Dose: 30 mg Sodium Chloride ([place] Nasal [place]) 0 ml NS Q1H PRN PRN Reason: Nasal congestion Last Admin: 12/28/17 03:02 Dose: 1 spr - Labs Labs: 12/28/17 06:00 12/28/17 06:00 Attending/Attestation - Attestation I have personally seen and examined this patient.: Yes I have fully participated in the care of the patient.: Yes I have reviewed all pertinent clinical information, including history, physical exam and plan: Yes
[2017-12-27] MEDS: Lubricant Eye Drops UD OU PRN (18:02)
[2017-12-27] MEDS: TRIUMEQ PO SCH (18:02)
[2017-12-27] MEDS ORDERED: Arformoterol 15 mcg/2 ml Inh Sol IH SCH (20:00)
[2017-12-27] MEDS: Arformoterol 15 mcg/2 ml Inh Sol IH SCH (20:13)
[2017-12-27] MEDS: Budesonide 0.5 mg/2 ml Inhal Susp UD IH SCH (20:14)
[2017-12-28] MEDS: Albuterol-Ipratrop 3 mg / 0.5 (3 ml) UD IH SCH ×4 (01:52→20:40)
[2017-12-28 06:32] LABS: BASO # 0.01 K/mm3 (0.0-2.0); BASO % 0.1 % (0.0-3.0); EOS # 0.1 (0.0-0.7); EOS % 0.9 % (1.5-5.0); GRAN # 5.24 (1.4-6.5); GRAN % 68.3 % (50.0-68.0); HEMOGLOBIN 11.6 g/dL (12.0-16.0); LYMPH # 1.8 (1.2-3.4); LYMPH % 23.7 % (22.0-35.0); MEAN CELL VOLUME 93.7 fl (80.0-105.0); MEAN CORPUSCULAR HEMOGLOBIN 31.9 pg (25.0-35.0); MEAN PLATELET VOLUME 10.9 fl (7.0-11.0); MONO # 0.5 (0.1-0.6); RBC 3.64 10^6/uL (3.5-6.1); RED CELL DISTRIBUTION WIDTH 13.4 % (11.5-14.5); WHITE BLOOD COUNT 7.7 10^3/uL (4.5-11.0)
[2017-12-28 06:52] LABS: ALB/GLOB RATIO 1.1 (1.1-1.8); ALBUMIN 3.3 g/dL (3.0-4.8); ALT/SGPT 27 U/L (7-56); AST/SGOT 19 U/L (14-36); BLOOD UREA NITROGEN 21 mg/dL (7-21); CALCIUM 8.6 mg/dL (8.4-10.5); GFR NON-AFRICAN AMERICAN > 60
[2017-12-28] MEDS: Arformoterol 15 mcg/2 ml Inh Sol IH SCH ×2 (07:52→20:40)
[2017-12-28] MEDS: Budesonide 0.5 mg/2 ml Inhal Susp UD IH SCH ×2 (07:53→20:40)
[2017-12-28] MEDS: Sodium Chloride 0.9% 1,000 ML IV SCH (08:32)
[2017-12-28] MEDS: Lubricant Eye Drops UD OU PRN (10:08)
[2017-12-28] MEDS: Pantoprazole 40 mg EC Tab PO SCH (10:09)
[2017-12-28 14:59] LABS: BARBITURATES, UR NEGATIVE (NEGATIVE); BENZODIAZEPINES, UR NEGATIVE (NEGATIVE); PHENCYCLIDINE, UR NEGATIVE (NEGATIVE)
[2017-12-28 15:05] LABS: OPIATES, UR NEGATIVE (NEGATIVE)
--- NOTE | 2017-12-28 15:49 | CP.PCM.DIS ---
<Phillip Vazquez - Last Filed: 12/28/17 15:54> Provider - Provider Date of Admission: 12/27/17 07:08 Attending physician: Miri Wahl DO Time Spent in preparation of Discharge (in minutes): 45 Diagnosis - Discharge Diagnosis (1) COPD exacerbation Status: Resolved Hospital Course - Lab Results Lab Results: Most Recent Lab Values WBC 7.7 10^3/uL (4.5-11.0) D 12/28/17 06:00 RBC 3.64 10^6/uL (3.5-6.1) 12/28/17 06:00 Hgb 11.6 g/dL (12.0-16.0) L 12/28/17 06:00 Hct 34.1 % (36.0-48.0) L 12/28/17 06:00 MCV 93.7 fl (80.0-105.0) 12/28/17 06:00 MCH 31.9 pg (25.0-35.0) 12/28/17 06:00 MCHC 34.0 g/dl (31.0-37.0) 12/28/17 06:00 RDW 13.4 % (11.5-14.5) 12/28/17 06:00 Plt Count 130 10^3/uL (120.0-450.0) 12/28/17 06:00 MPV 10.9 fl (7.0-11.0) 12/28/17 06:00 Gran % 68.3 % (50.0-68.0) H 12/28/17 06:00 Lymph % (Auto) 23.7 % (22.0-35.0) 12/28/17 06:00 [place] % (Auto) 7.0 % (1.0-6.0) H 12/28/17 06:00 Eos % (Auto) 0.9 % (1.5-5.0) L 12/28/17 06:00 Baso % (Auto) 0.1 % (0.0-3.0) 12/28/17 06:00 Gran # 5.24 (1.4-6.5) 12/28/17 06:00 Lymph # (Auto) 1.8 (1.2-3.4) 12/28/17 06:00 [place] # (Auto) 0.5 (0.1-0.6) 12/28/17 06:00 Eos # (Auto) 0.1 (0.0-0.7) 12/28/17 06:00 Baso # (Auto) 0.01 K/mm3 (0.0-2.0) 12/28/17 06:00 Sodium 142 mmol/L (132-148) 12/28/17 06:00 Potassium 3.6 mmol/L (3.6-5.0) 12/28/17 06:00 Chloride 111 mmol/L (98-107) H 12/28/17 06:00 Carbon Dioxide 27 mmol/L (21-33) 12/28/17 06:00 Anion Gap 8 (10-20) L 12/28/17 06:00 BUN 21 mg/dL (7-21) 12/28/17 06:00 Creatinine 0.9 mg/dl (0.7-1.2) 12/28/17 06:00 Est GFR ( Amer) > 60 12/28/17 06:00 Est GFR (Non-Af Amer) > 60 12/28/17 06:00 Random Glucose 90 mg/dL (70-110) 12/28/17 06:00 Calcium 8.6 mg/dL (8.4-10.5) 12/28/17 06:00 Phosphorus 2.3 mg/dL (2.5-4.5) L 12/28/17 06:00 Magnesium 2.2 mg/dL (1.7-2.2) 12/28/17 06:00 Total Bilirubin 0.4 mg/dL (0.2-1.3) 12/28/17 06:00 AST 19 U/L (14-36) 12/28/17 06:00 ALT 27 U/L (7-56) 12/28/17 06:00 Alkaline Phosphatase 56 U/L (38-126) 12/28/17 06:00 Total Protein 6.2 g/dL (5.8-8.3) 12/28/17 06:00 Albumin 3.3 g/dL (3.0-4.8) 12/28/17 06:00 Globulin 2.9 gm/dL 12/28/17 06:00 Albumin/Globulin Ratio 1.1 (1.1-1.8) 12/28/17 06:00 Procalcitonin < 0.05 NG/ML (0.19-0.49) L 12/28/17 06:00 Urine HCG, Qual Negative (NEGATIVE) 12/28/17 14:00 Urine Opiates Screen Negative (NEGATIVE) 12/28/17 14:00 Urine Methadone Screen Negative (NEGATIVE) 12/28/17 14:00 Ur Barbiturates Screen Negative (NEGATIVE) 12/28/17 14:00 Ur Phencyclidine Scrn Negative (NEGATIVE) 12/28/17 14:00 Ur Amphetamines Screen Negative (NEGATIVE) 12/28/17 14:00 U Benzodiazepines Scrn Negative (NEGATIVE) 12/28/17 14:00 U Oth Cocaine Metabols Negative (NEGATIVE) 12/28/17 14:00 U Cannabinoids Screen Negative (NEGATIVE) 12/28/17 14:00 Alcohol, Quantitative < 10 mg/dL (0-10) 12/28/17 13:20 - Hospital Course Hospital Course: Upon Admission: Patient is a 57 F with a history of HIV on antiretroviral therapy, hepatitis C, left breast cancer diagnosed in 2006 s/p chemo/radiation and left breast lumpectomy, and COPD who presented with shortness of breath which patient states has been going on for the past few months. Patient states that these past few days however she has had more noticeable difficulty breathing. Patient states she woke up this morning feeling short of breath then went to [employer] to eat however when she finished eating she was unable to breath upon leaving so she called her PMD Dr. Lucas who advised her to go to the emergency department.Patient admits to right sided chest pain, neck pain, headache. Patient denies fevers, chills, abdominal pain, dysuria, dizziness, cough. Hospital Course: Pt was being treated for COPD exacerbation with steroids, duonebs, and abx. CXR taken in ED showed no active pulm disease. Steroids were tapered and pt was placed on PO steroids and reassessed. Pts lung sounds were a lot more clear and pt states that her breathing is improving. She no longer has any complaints about her respiratory issues. Pts vitals and WBC have remained stable while being on the floors. Pt is being assessed by psych as well. Per psych pt will needed to be assessed for involuntary inpt psych. Pt is medically cleared for d/c. Pt was explained the medical plan for either d/c or eval with inpt psych and pt expressed understanding of medical plan. All questions and concerns of pt were addressed prior to D/C. Discharge Exam - Head Exam Head Exam: ATRAUMATIC, NORMAL INSPECTION, NORMOCEPHALIC - Eye Exam Eye Exam: EOMI, Normal appearance, PERRL - Respiratory Exam Respiratory Exam: NORMAL BREATHING PATTERN, UNREMARKABLE. absent: Accessory Muscle Use, Decreased Breath Sounds, Rales, Rhonchi, Wheezes, Respiratory Distress, Stridor - Cardiovascular Exam Cardiovascular Exam: RRR, +S1, +S2. absent: Gallop, Rubs - GI/Abdominal Exam GI & Abdominal Exam: Normal Bowel Sounds, Unremarkable. absent: Firm, Guarding, Rigid, Soft, Tenderness - Back Exam Back exam: NORMAL INSPECTION. absent: CVA tenderness (L), CVA tenderness (R) - Neurological Exam Neurological exam: Alert, Oriented x3 - Psychiatric Exam Psychiatric exam: Normal Affect, Normal Mood - Skin Skin Exam: Dry, Intact, Normal Color, Warm Discharge Plan - Discharge Medications Prescriptions: RX: Azithromycin [Z-Trace] 250 mg PO DAILY 4 Days #4 tab RX: Benzocaine/Menthol [Cepacol Sore Throat] 1 abbie MT Q2H PRN #30 abbie PRN Reason: Sore Throat Methylprednisolone [Medrol Dose Pack (21 tabs)] 4 mg PO DAILY #21 mg - Follow Up Plan Condition: FAIR Disposition: HOME/ ROUTINE Instructions: COPD Including Emphysema (DC), Exacerbation of COPD (DC) Additional Instructions: Please discharge patient to home with the following discharge instructions: Please follow up with your primary care doctor Dr Lucas after your discharge within 3-5 days. You will also follow up with him regarding HIV management. You were prescribed a Medrol dose pack and Azithromycin for your COPD exacerbation. Please take and complete these medications as prescribed. Please follow-up with your psychiatrist outpatient for continuing your treatment, within 3-5 days. If you are having any new or worsening symptoms please return to the Emergency Department. <Tomi Giles - Last Filed: 12/30/17 14:34> Provider - Provider Date of Admission: 12/27/17 07:08 Attending physician: Tomi Giles MD Hospital Course - Lab Results Lab Results: Most Recent Lab Values WBC 9.8 10^3/uL (4.5-11.0) 12/30/17 05:30 RBC 4.15 10^6/uL (3.5-6.1) 12/30/17 05:30 Hgb 13.0 g/dL (12.0-16.0) 12/30/17 05:30 Hct 38.6 % (36.0-48.0) 12/30/17 05:30 MCV 93.0 fl (80.0-105.0) 12/30/17 05:30 MCH 31.3 pg (25.0-35.0) 12/30/17 05:30 MCHC 33.7 g/dl (31.0-37.0) 12/30/17 05:30 RDW 13.6 % (11.5-14.5) 12/30/17 05:30 Plt Count 162 10^3/uL (120.0-450.0) 12/30/17 05:30 MPV 10.7 fl (7.0-11.0) 12/30/17 05:30 Gran % 81.9 % (50.0-68.0) H 12/30/17 05:30 Lymph % (Auto) 10.8 % (22.0-35.0) L 12/30/17 05:30 [place] % (Auto) 7.3 % (1.0-6.0) H 12/30/17 05:30 Eos % (Auto) 0.0 % (1.5-5.0) L 12/30/17 05:30 Baso % (Auto) 0.0 % (0.0-3.0) 12/30/17 05:30 Gran # 8.01 (1.4-6.5) H 12/30/17 05:30 Lymph # (Auto) 1.1 (1.2-3.4) L 12/30/17 05:30 [place] # (Auto) 0.7 (0.1-0.6) H 12/30/17 05:30 Eos # (Auto) 0.0 (0.0-0.7) 12/30/17 05:30 Baso # (Auto) 0.00 K/mm3 (0.0-2.0) 12/30/17 05:30 Sodium 141 mmol/L (132-148) 12/30/17 05:30 Potassium 4.2 mmol/L (3.6-5.0) 12/30/17 05:30 Chloride 106 mmol/L (98-107) 12/30/17 05:30 Carbon Dioxide 29 mmol/L (21-33) 12/30/17 05:30 Anion Gap 10 (10-20) 12/30/17 05:30 BUN 23 mg/dL (7-21) H 12/30/17 05:30 Creatinine 0.8 mg/dl (0.7-1.2) 12/30/17 05:30 Est GFR ( Amer) > 60 12/30/17 05:30 Est GFR (Non-Af Amer) > 60 12/30/17 05:30 Random Glucose 118 mg/dL (70-110) H 12/30/17 05:30 Calcium 9.6 mg/dL (8.4-10.5) 12/30/17 05:30 Phosphorus 3.6 mg/dL (2.5-4.5) 12/30/17 05:30 Magnesium 2.4 mg/dL (1.7-2.2) H 12/30/17 05:30 Total Bilirubin 0.5 mg/dL (0.2-1.3) 12/30/17 05:30 AST 19 U/L (14-36) 12/30/17 05:30 ALT 22 U/L (7-56) 12/30/17 05:30 Alkaline Phosphatase 62 U/L (38-126) 12/30/17 05:30 Total Protein 7.4 g/dL (5.8-8.3) 12/30/17 05:30 Albumin 4.1 g/dL (3.0-4.8) 12/30/17 05:30 Globulin 3.3 gm/dL 12/30/17 05:30 Albumin/Globulin Ratio 1.3 (1.1-1.8) 12/30/17 05:30 Procalcitonin < 0.05 NG/ML (0.19-0.49) L 12/28/17 06:00 Urine Color Light yellow (YELLOW) 12/28/17 18:24 Urine Appearance Clear (CLEAR) 12/28/17 18:24 Urine pH 6.0 (4.7-8.0) 12/28/17 18:24 Ur Specific [place] 1.020 (1.005-1.035) 12/28/17 18:24 Urine Protein Negative mg/dL (<30 mg/dL) 12/28/17 18:24 Urine Glucose (UA) Negative mg/dL (NEGATIVE) 12/28/17 18:24 Urine Ketones Negative mg/dL (NEGATIVE) 12/28/17 18:24 Urine Blood Negative (NEGATIVE) 12/28/17 18:24 Urine Nitrate Negative (NEGATIVE) 12/28/17 18:24 Urine Bilirubin Negative (NEGATIVE) 12/28/17 18:24 Urine Urobilinogen 0.2 E.U./dL (<1 E.U./dL) 12/28/17 18:24 Ur Leukocyte Esterase Negative [place]/uL (NEGATIVE) 12/28/17 18:24 Urine HCG, Qual Negative (NEGATIVE) 12/28/17 14:00 Urine Opiates Screen Negative (NEGATIVE) 12/28/17 14:00 Urine Methadone Screen Negative (NEGATIVE) 12/28/17 14:00 Ur Barbiturates Screen Negative (NEGATIVE) 12/28/17 14:00 Ur Phencyclidine Scrn Negative (NEGATIVE) 12/28/17 14:00 Ur Amphetamines Screen Negative (NEGATIVE) 12/28/17 14:00 U Benzodiazepines Scrn Negative (NEGATIVE) 12/28/17 14:00 U Oth Cocaine Metabols Negative (NEGATIVE) 12/28/17 14:00 U Cannabinoids Screen Negative (NEGATIVE) 12/28/17 14:00 Alcohol, Quantitative < 10 mg/dL (0-10) 12/28/17 13:20 RPR Nonreactive (NONREACTIVE) 12/29/17 07:30 Ur L.pneumophila Ag Negative (NEGATIVE) 12/28/17 18:15 Attending/Attestation - Attestation I have personally seen and examined this patient.: Yes I have fully participated in the care of the patient.: Yes I have reviewed all pertinent clinical information, including history, physical exam and plan: Yes Notes (Text): 12/30/17 14:33 Medical record note made by the resident after discussion with my direction and input after the patient was personally seen and examined by me. I have reviewed the chart and agree that the record accurately reflects by personal performance of the history, physical exam, data review, and medical decision-making, in the course for the patient. I have also personally directed the plan of care. COPD is improved, will need 5 days of oral Prednisone 40 mg po daily.Patient is on room air and is ambulatory. She is awaiting Psychiatry evaluation. Patient was discharged on 12/30/17 as she was waiting for [facility] [place].
--- NOTE | 2017-12-28 16:37 | CON ---
DATE OF CONSULTATION: 12/28/2017 HISTORY OF PRESENT ILLNESS: The patient is a 57-year-old single female, who denies having any prior psychiatric history, who is being currently treated on the medical floor after she presented with shortness of breath. Psychiatric consult is because of the patient's paranoia and disorganization on the unit. I met with the patient at the bedside and she appears a little unkempt, however superficially friendly and oriented to month, year, location. The patient is fairly calm during most of my visit; however, she becomes notably more and more paranoid as questioning goes on regarding her history and her domestic situation and current symptoms. The patient indicates that she does not have a history of depression; however, she is currently depressed because she is being harassed by multiple people and she does not know who they are, but they are currently poisoning the water in her housing where she used to live and where she is currently living and also leaving stuff and particles in the hospital on the bed. The patient indicates that someone has something against her since 2016 and she is quite adamant in this believe. It appears to be a fixed delusion and it is pointless to reason with her regarding this believe. Nonetheless, she denies any suicidal or homicidal thought. The patient indicates that she wants her life back and however she does not think she needs psychiatric care and she just did not discuss on any psychiatric intervention including hospitalization or psychiatric medications. The patient does report that she has seen a psychiatrist later this week, however cannot provide me the name of the psychiatrist. Of note, the patient appears to be impaired in multiple ways of her life because of this delusion. She states evicted in 11/2017 and has [facility] [place] with "fifty other men with very few females." She indicates that she was evicted because she threatened she will make a bomb and blow up her building because she felt persecuted and harassed at that point. The patient also has not been eating as much with fears that her water and food are poisoned with particles, although she cannot elaborate. The patient also feels that there are particles on her dressing gown in an attempt to throw her and my interview has to be redirected. Her insight and judgement are poor and she is acutely delusional. LABORATORY DATA: Reviewed. MEDICATIONS: The patient is not on any relevant psychiatric medication. PSYCHIATRIC HISTORY: The patient denies any prior psychiatric history. SOCIAL HISTORY: The patient was born and raised in [place]. She is single. She is SSI. Currently lives in a rooming house in [place]. She denies any drugs or alcohol use at this time. Regarding the patient's medical history, please refer to medical notes for medical history. IMPRESSION: Psychosis, NOS, rule out delusional disorder, rule out paranoid schizophrenia, rule out psychosis secondary to general medical condition and/or substance abuse psychosis. RECOMMENDATIONS: At this time, I can recommend p.r.n. medications for the patient's delusion and behavior and these include Haldol 2 mg every 6 p.r.n. with Ativan 1 mg every 6 p.r.n. The patient absolutely refuses to take psychiatric medications at this time as she does not like psychiatric hospitalization, which she would clearly benefit from. Once the patient is medically cleared, she should be screened by [facility] as she appears to be functionally impaired on the aspects of housing, p.o. intake, as well as attempting to disrobe herself during the interview with this provider this morning. I will follow up with the patient on 12/29/2017. Portillo Mittal MD
[2017-12-28 18:33] LABS: URINE APPEARANCE CLEAR (CLEAR); URINE BILIRUBIN NEGATIVE (NEGATIVE); URINE BLOOD NEGATIVE (NEGATIVE); URINE COLOR LIGHT YELLOW (YELLOW); URINE GLUCOSE (UA) NEGATIVE (NEGATIVE); URINE LEUKOCYTE ESTERASE NEGATIVE Leu/uL (NEGATIVE); URINE PROTEIN NEGATIVE mg/dL (<30 mg/dL); URINE UROBILINOGEN 0.2 E.U./dL (<1 E.U./dL)
[2017-12-28] MEDS: TRIUMEQ PO SCH (19:17)
--- NOTE | 2017-12-28 22:40 | CARD ---
APPROVED REPORT Date of service: 12/28/2017 EKG Measurement Heart [id number] <Conclusion> Normal sinus rhythm Normal ECG
[2017-12-29] MEDS: Albuterol-Ipratrop 3 mg / 0.5 (3 ml) UD IH SCH ×6 (00:40→20:58)
[2017-12-29 06:31] LABS: GRAN # 8.04 (1.4-6.5); GRAN % 87.3 % (50.0-68.0); HEMOGLOBIN 12.8 g/dL (12.0-16.0); LYMPH # 0.7 (1.2-3.4); LYMPH % 7.9 % (22.0-35.0); MEAN CELL VOLUME 92.9 fl (80.0-105.0); MEAN CORPUSCULAR HEMOGLOBIN 31.4 pg (25.0-35.0); MEAN CORPUSCULAR HGB CONC 33.9 g/dl (31.0-37.0); MEAN PLATELET VOLUME 10.9 fl (7.0-11.0); MONO # 0.4 (0.1-0.6); MONO % 4.8 % (1.0-6.0); RBC 4.07 10^6/uL (3.5-6.1); RED CELL DISTRIBUTION WIDTH 13.6 % (11.5-14.5); WHITE BLOOD COUNT 9.2 10^3/uL (4.5-11.0)
[2017-12-29 06:45] LABS: ALB/GLOB RATIO 1.2 (1.1-1.8); ALT/SGPT 23 U/L (7-56); AST/SGOT 21 U/L (14-36); BLOOD UREA NITROGEN 16 mg/dL (7-21); CALCIUM 9.2 mg/dL (8.4-10.5); GFR NON-AFRICAN AMERICAN > 60
[2017-12-29] MEDS: Arformoterol 15 mcg/2 ml Inh Sol IH SCH ×2 (08:06→20:57)
[2017-12-29] MEDS: Budesonide 0.5 mg/2 ml Inhal Susp UD IH SCH ×2 (08:06→20:58)
[2017-12-29] MEDS: Pantoprazole 40 mg EC Tab PO SCH (09:53)
--- NOTE | 2017-12-29 11:11 | CP.PCM.CON ---
History of Present Illness - History of Present Illness History of Present Illness: 57 year old female with PMH of chronic HIV infection on antiretroviral therapy, well-controlled with last CD4 count in August 2017 535, HIV virus load <20 and undetectable also at the same time, currently on Triumeq, left breast cancer S/P chemotherapy, radiation therapy and left breast lumpectomy, COPD, history of hepatitis C infection, significant smoking history came in to [facility] because of difficulty breathing associated with worsening cough for the past several days. She has chronic cough and seems her sputum is a little more this time. She denies rhinorrhea, no sore throat, no fever or chills, no chest pain or palpitations, no nausea or vomiting, no headache or dizziness, no abdominal pain, no diarrhea, no dysuria. She is complaining that she has been exposed to a lot of chemicals in her apartment and even here in the hospital. Infectious Diseases consult is requested to further evaluate and manage. Review of Systems - Review of Systems All systems: reviewed and no additional remarkable complaints except (as per HPI) Past Patient History - Infectious Disease Hx of Infectious Diseases: None - Tetanus Immunizations Tetanus Immunization: Unknown - Past Social History Smoking Status: Heavy Smoker > 10 Cigarettes Daily - CARDIAC Hx Hypertension: No - PULMONARY Hx Chronic Obstructive Pulmonary Disease (COPD): Yes Hx Emphysema: Yes - NEUROLOGICAL Hx Seizures: No - HEENT Hx HEENT Problems: No - RENAL Hx Chronic Kidney Disease: No - ENDOCRINE/METABOLIC Hx Endocrine Disorders: No - HEMATOLOGICAL/ONCOLOGICAL Hx Cancer: Yes - INTEGUMENTARY Hx Dermatological Problems: No - MUSCULOSKELETAL/RHEUMATOLOGICAL Hx Musculoskeletal Disorders: No Hx Falls: No - GASTROINTESTINAL Hx Gastrointestinal Disorders: No - GENITOURINARY/GYNECOLOGICAL Hx Sexually Transmitted Disorders: No - PSYCHIATRIC Hx Anxiety: Yes Hx Bipolar Disorder: No Hx Depression: No Hx Paranoia: Yes Hx Post Traumatic Stress Disorder: No Hx Schizophrenia: Yes Hx Substance Use: Yes - SURGICAL HISTORY Hx Cholecystectomy: Yes - ANESTHESIA Hx Anesthesia: Yes Hx Anesthesia Reactions: No Hx Malignant Hyperthermia: No Meds Home Medications: Home Medication List Medication Instructions Recorded Confirmed Type Azithromycin [Z-Trace] 250 mg PO DAILY 4 Days #4 tab 12/28/17 Rx Benzocaine/Menthol [Cepacol Sore 1 abbie MT Q2H PRN #30 abbie 12/28/17 Rx Throat] Haloperidol [Haldol] 2 mg PO Q6 PRN tab 12/28/17 Rx LORazepam [Ativan] 1 mg PO Q6 PRN tab 12/28/17 Rx Methylprednisolone [Medrol Dose 4 mg PO DAILY #21 mg 12/28/17 Rx Pack (21 tabs)] Polyvinyl Alcohol/Povidone 0.3 ml OU BID PRN drpette 12/28/17 Rx [Refresh Opth Soln] Sodium Chloride Nasal [place] [[place] 0 ml NS Q1H PRN bottle 12/28/17 Rx Nasal [place]] Allergies/Adverse Reactions: Allergies Allergy/AdvReac Type Severity Reaction Status Date / Time No Known Allergies Allergy Verified 12/26/17 21:25 - Medications Medications: Current Medications Albuterol/Ipratropium (Duoneb 3 Mg/0.5 Mg (3 Ml) Ud) 3 ml IH [id number] PRN PRN Reason: Shortness of Breath Last Admin: 12/28/17 13:27 Dose: 3 ml Albuterol/Ipratropium (Duoneb 3 Mg/0.5 Mg (3 Ml) Ud) 3 ml IH [id number] [facility] Last Admin: 12/29/17 04:45 Dose: Not Given Arformoterol Tartrate (Brovana) 15 mcg IH [id number] [facility] Last Admin: 12/28/17 20:40 Dose: Not Given Artificial Tears (Refresh Opth Soln) 0.3 ml OU BID PRN PRN Reason: Dry eyes Last Admin: 12/28/17 10:08 Dose: 1 drop Azithromycin (Zithromax) 250 mg PO DAILY [facility]; Protocol Last Admin: 12/28/17 10:09 Dose: 250 mg Benzocaine/Menthol (Cepacol Sore Throat) 1 abbie MT Q2H PRN PRN Reason: Sore Throat Budesonide (Pulmicort Respules) 0.5 mg IH [id number] [facility] Last Admin: 12/28/17 20:40 Dose: Not Given Diphenhydramine HCl (Benadryl Maximum Strength 1%) 1 ea TOP Q6H PRN PRN Reason: Itching / Pruritus Haloperidol (Haldol) 2 mg PO Q6 PRN; Protocol PRN Reason: Agitation Last Admin: 12/28/17 19:59 Dose: 2 mg Heparin Sodium (Porcine) (Heparin) 5,000 units SC Q8 [facility]; Protocol Last Admin: 12/29/17 05:55 Dose: Not Given Home Med (Home Med) 1 unit PO DAILY@1800 MILENA Last Admin: 12/28/17 19:17 Dose: 1 unit Lorazepam (Ativan) 1 mg PO Q6 PRN; Protocol PRN Reason: Agitation Pantoprazole Sodium (Protonix Ec Tab) 40 mg PO ACB [facility] Last Admin: 12/28/17 10:09 Dose: 40 mg Prednisone (Prednisone Tab) 30 mg PO BID [facility] Last Admin: 12/28/17 19:17 Dose: 30 mg Sodium Chloride ([place] Nasal [place]) 0 ml NS Q1H PRN PRN Reason: Nasal congestion Last Admin: 12/28/17 03:02 Dose: 1 spr Physical Exam - Constitutional Appears: Cachectic, Chronically Ill - Head Exam Head Exam: NORMAL INSPECTION - Neck Exam Neck exam: Negative for: Meningismus - Respiratory Exam Respiratory Exam: Decreased Breath Sounds - Cardiovascular Exam Cardiovascular Exam: +S1, +S2 - GI/Abdominal Exam GI & Abdominal Exam: Soft. absent: Tenderness Results - Vital Signs Recent Vital Signs: Last Vital Signs Temp 98.0 F 12/28/17 17:16 Pulse 90 12/28/17 17:16 Resp 19 12/28/17 17:16 BP 91/62 L 12/28/17 17:16 Pulse Ox 95 12/28/17 17:16 - Labs Result Diagrams: 12/29/17 06:00 12/29/17 06:00 Labs: Laboratory Results - last 24 hr 12/28/17 12/28/17 12/28/17 06:00 13:20 14:00 WBC RBC Hgb Hct MCV MCH MCHC RDW Plt Count MPV Gran % Lymph % (Auto) [place] % (Auto) Eos % (Auto) Baso % (Auto) Gran # Lymph # (Auto) [place] # (Auto) Eos # (Auto) Baso # (Auto) Sodium Potassium Chloride Carbon Dioxide Anion Gap BUN Creatinine Est GFR ( Amer) Est GFR (Non-Af Amer) Random Glucose Calcium Phosphorus Magnesium Total Bilirubin AST ALT Alkaline Phosphatase Total Protein Albumin Globulin Albumin/Globulin Ratio Procalcitonin < 0.05 L Urine Color Urine Appearance Urine pH Ur Specific [place] Urine Protein Urine Glucose (UA) Urine Ketones Urine Blood Urine Nitrate Urine Bilirubin Urine Urobilinogen Ur Leukocyte Esterase Urine HCG, Qual Urine Opiates Screen Negative Urine Methadone Screen Negative Ur Barbiturates Screen Negative Ur Phencyclidine Scrn Negative Ur Amphetamines Screen Negative U Benzodiazepines Scrn Negative U Oth Cocaine Metabols Negative U Cannabinoids Screen Negative Alcohol, Quantitative < 10 12/28/17 12/28/17 12/29/17 14:00 18:24 06:00 WBC 9.2 RBC 4.07 Hgb 12.8 Hct 37.8 MCV 92.9 MCH 31.4 MCHC 33.9 RDW 13.6 Plt Count 162 MPV 10.9 Gran % 87.3 H Lymph % (Auto) 7.9 L [place] % (Auto) 4.8 Eos % (Auto) 0.0 L Baso % (Auto) 0.0 Gran # 8.04 H Lymph # (Auto) 0.7 L [place] # (Auto) 0.4 Eos # (Auto) 0.0 Baso # (Auto) 0.00 Sodium Potassium Chloride Carbon Dioxide Anion Gap BUN Creatinine Est GFR ( Amer) Est GFR (Non-Af Amer) Random Glucose Calcium Phosphorus Magnesium Total Bilirubin AST ALT Alkaline Phosphatase Total Protein Albumin Globulin Albumin/Globulin Ratio Procalcitonin Urine Color Light yellow Urine Appearance Clear Urine pH 6.0 Ur Specific [place] 1.020 Urine Protein Negative Urine Glucose (UA) Negative Urine Ketones Negative Urine Blood Negative Urine Nitrate Negative Urine Bilirubin Negative Urine Urobilinogen 0.2 Ur Leukocyte Esterase Negative Urine HCG, Qual Negative Urine Opiates Screen Urine Methadone Screen Ur Barbiturates Screen Ur Phencyclidine Scrn Ur Amphetamines Screen U Benzodiazepines Scrn U Oth Cocaine Metabols U Cannabinoids Screen Alcohol, Quantitative 12/29/17 06:00 WBC RBC Hgb Hct MCV MCH MCHC RDW Plt Count MPV Gran % Lymph % (Auto) [place] % (Auto) Eos % (Auto) Baso % (Auto) Gran # Lymph # (Auto) [place] # (Auto) Eos # (Auto) Baso # (Auto) Sodium 142 Potassium 4.1 Chloride 106 Carbon Dioxide 28 Anion Gap 12 BUN 16 Creatinine 0.7 Est GFR ( Amer) > 60 Est GFR (Non-Af Amer) > 60 Random Glucose 127 H Calcium 9.2 Phosphorus 3.5 Magnesium 2.2 Total Bilirubin 0.5 AST 21 ALT 23 Alkaline Phosphatase 62 Total Protein 7.3 Albumin 4.0 Globulin 3.3 Albumin/Globulin Ratio 1.2 Procalcitonin Urine Color Urine Appearance Urine pH Ur Specific [place] Urine Protein Urine Glucose (UA) Urine Ketones Urine Blood Urine Nitrate Urine Bilirubin Urine Urobilinogen Ur Leukocyte Esterase Urine HCG, Qual Urine Opiates Screen Urine Methadone Screen Ur Barbiturates Screen Ur Phencyclidine Scrn Ur Amphetamines Screen U Benzodiazepines Scrn U Oth Cocaine Metabols U Cannabinoids Screen Alcohol, Quantitative Assessment & Plan - Assessment and Plan (Free Text) Plan: Assessment chronic HIV infection on antiretroviral therapy, well-controlled with last CD4 count in August 2017 535, HIV virus load <20 and undetectable also at the same time, currently on Triumeq acute exacerbation of COPD, slowly improving left breast cancer S/P chemotherapy, radiation therapy and left breast lumpectomy history of hepatitis C infection significant smoking history Plan continue Triumeq for her HIV - reviewed her blood work from Dr. Lucas's office and she has had undetectable HIV virus load since 2012 and looks to be compliant with her HIV meds Hepatitis C infection should be addressed as an outpatient by her PMD
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
[2017-12-29] MEDS: TRIUMEQ PO SCH (17:33)
[2017-12-30 07:11] LABS: GRAN # 8.01 (1.4-6.5); GRAN % 81.9 % (50.0-68.0); LYMPH # 1.1 (1.2-3.4); LYMPH % 10.8 % (22.0-35.0); MEAN CORPUSCULAR HEMOGLOBIN 31.3 pg (25.0-35.0); MEAN CORPUSCULAR HGB CONC 33.7 g/dl (31.0-37.0); MEAN PLATELET VOLUME 10.7 fl (7.0-11.0); MONO # 0.7 (0.1-0.6); MONO % 7.3 % (1.0-6.0); RBC 4.15 10^6/uL (3.5-6.1); RED CELL DISTRIBUTION WIDTH 13.6 % (11.5-14.5); WHITE BLOOD COUNT 9.8 10^3/uL (4.5-11.0)
[2017-12-30 07:21] LABS: ALB/GLOB RATIO 1.3 (1.1-1.8); ALBUMIN 4.1 g/dL (3.0-4.8); ALT/SGPT 22 U/L (7-56); AST/SGOT 19 U/L (14-36); BLOOD UREA NITROGEN 23 mg/dL (7-21); CALCIUM 9.6 mg/dL (8.4-10.5); GFR NON-AFRICAN AMERICAN > 60
[2017-12-30] MEDS: Arformoterol 15 mcg/2 ml Inh Sol IH SCH (07:39)
[2017-12-30] MEDS: Budesonide 0.5 mg/2 ml Inhal Susp UD IH SCH (07:39)
[2017-12-30] MEDS: Albuterol-Ipratrop 3 mg / 0.5 (3 ml) UD IH SCH (07:39)
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
[2017-12-30 08:41] VITALS: BP 133/70; PULSE 69; RESP 16; TEMP 98.6; O2SAT 99
--- NOTE | 2017-12-30 09:45 | PN ---
DATE: 12/30/2017 SUBJECTIVE: In short, the patient is 57-year-old female with multiple medical history including HIV on antiretroviral therapy, hepatitis C, left breast cancer, pulmonary nodules and COPD. The patient was admitted on the medical site for evaluation of worsening of breathing. Psych consult was involved because the patient presented to be paranoid and delusional. The patient was seen by Dr. Mitatl over the weekend. The patient has no insight into her mental illness. The patient was offered admission to the Psychiatric Inpatient Unit, but the patient refused to sign herself in. The patient was screened by [facility] yesterday and was found to be not committable. This bid writer is following up on this patient as per Dr. Mittal request. Dr. Mittal, the psychiatrist reinforced concrete inspector, who have seen the patient over the weekend. The patient was seen today and examined the patient presented with good personal hygiene, very thin built female. Overall, the patient presented relatively well. The patient seems to be intelligent, but she has no insight into her paranoia. The patient reported that she came to the hospital because she was not able to breathe. Right now, she feels "better." The patient reported that she is upset over her living situation. The patient said that she was living in rooming housing and that rooming housing had majority of the male and female who were under parole and who has legal history. The patient reported that at present moment, she is looking for the new housing. As per patient, Field Seismologist and Case Management provided her information about local shelters as well as information about housing opportunities for HIV positive people. Going back to the patient's presentation, the patient presented to be alert. The patient has good personal hygiene, intermittent eye contact. Mood is described better. Affect is constricted and irritable. Thought process seems to be over inclusive. Thought content, the patient obviously is paranoid and delusional, but denied any thoughts of harming herself or others. The patient denied hearing voices. On this question, the patient replied "they asked me yesterday and the day before yesterday. I don't hear any voices." The patient adamantly denied thoughts of harming herself or others. Denied intent or plan. Insight and judgment seems to be very limited. Impulses are fairly controlled. This bid writer reviewed vital signs, seems to be stable. Temperature 98.6, pulse 69, blood pressure 133/70, respirations 16, oxygen saturation is 99. Medications reviewed. DuoNeb, Brovana, artificial tears, Zithromax, Cepacol, Pulmicort, Benadryl, Haldol 2 mg every 6 hours as needed. Most recent was on 12/28/2017, probably that is why, the patient presented little bit better. The patient is on Abacavir-Triumeq. The patient also is on Ativan as needed, Protonix, prednisone, sodium chloride. Labs reviewed. Most recent was from today. Hemoglobin and hematocrit 4.15 and 13 respectively. Urinalysis negative for any infection. Urine drug screen is negative. IMPRESSION: Psychosis, not otherwise specified, rule out delusional disorder. The patient denied history of mental illness and denied history of being admitted to the Psychiatric Inpatient Unit. This bid writer also would like to rule out psychosis due to general medical condition. The patient has history of human immunodeficiency virus. As per [facility] history, the patient never been admitted to Psychiatric Inpatient Unit. PLAN: The patient might benefit from the psychiatric admission, but patient refused to sign in. The patient was screened by [facility], was found to be not committable. This bid writer spoke to the patient at the morning time. The patient presented to be paranoid, but the patient is not aggressive or agitated. Agree with Dr. Mittal that the patient's paranoia is affecting her functionality. The patient already lost her apartment, but there is no other option than to let the patient go. The patient was found to be not committable. The patient does not want to sign herself into the Psychiatric Inpatient Unit. Considering the fact that the patient came to the hospital looking for help, this bid writer hoped that next time, the patient will be doing the same thing. In regards of impulsivity, the patient was not aggressive on the medical site. In regards of her psychosis, the psychosis seems to be very chronic and this bid writer cannot exclude that the patient has delusions and paranoia for a while. Discussed with the hospital social worker, was advised to provide information about housing opportunities for HIV people. This bid writer had prolonged conversation with the nursing staff as well as Dr. Mittal. Should you have any questions,give me a call back. There is no other option, just to let the patient go. Thank you very much for letting me participate in the care of your patient. Es Boston MD
[2017-12-30] MEDS: Pantoprazole 40 mg EC Tab PO SCH ×2 (09:50→09:54)
--- NOTE | 2017-12-30 12:36 | CP.PCM.PN ---
Subjective - Date & Time of Evaluation Date of Evaluation: 12/30/17 Time of Evaluation: 09:15 - Subjective Subjective: No new complaints, no fevers. Objective - Vital Signs/Intake and Output Vital Signs (last 24 hours): Temp Pulse Resp BP Pulse Ox 97.8 F 75 20 109/71 94 L 12/29/17 07:56 12/29/17 07:56 12/29/17 07:56 12/29/17 07:56 12/29/17 07:56 Intake and Output: 12/29/17 12/29/17 06:59 18:59 Intake Total 360 Balance 360 - Medications Medications: Current Medications Albuterol/Ipratropium (Duoneb 3 Mg/0.5 Mg (3 Ml) Ud) 3 ml IH [id number] PRN PRN Reason: Shortness of Breath Last Admin: 12/28/17 13:27 Dose: 3 ml Albuterol/Ipratropium (Duoneb 3 Mg/0.5 Mg (3 Ml) Ud) 3 ml IH [id number] [facility] Last Admin: 12/29/17 08:06 Dose: 3 ml Arformoterol Tartrate (Brovana) 15 mcg IH [id number] [facility] Last Admin: 12/29/17 08:06 Dose: 15 mcg Artificial Tears (Refresh Opth Soln) 0.3 ml OU BID PRN PRN Reason: Dry eyes Last Admin: 12/28/17 10:08 Dose: 1 drop Azithromycin (Zithromax) 250 mg PO DAILY [facility]; Protocol Last Admin: 12/29/17 09:53 Dose: 250 mg Benzocaine/Menthol (Cepacol Sore Throat) 1 abbie MT Q2H PRN PRN Reason: Sore Throat Budesonide (Pulmicort Respules) 0.5 mg IH [id number] [facility] Last Admin: 12/29/17 08:06 Dose: 0.5 mg Diphenhydramine HCl (Benadryl Maximum Strength 1%) 1 ea TOP Q6H PRN PRN Reason: Itching / Pruritus Haloperidol (Haldol) 2 mg PO Q6 PRN; Protocol PRN Reason: Agitation Last Admin: 12/28/17 19:59 Dose: 2 mg Heparin Sodium (Porcine) (Heparin) 5,000 units SC Q8 [facility]; Protocol Last Admin: 12/29/17 05:55 Dose: Not Given Home Med (Home Med) 1 unit PO DAILY@1800 [facility] Last Admin: 12/28/17 19:17 Dose: 1 unit Lorazepam (Ativan) 1 mg PO Q6 PRN; Protocol PRN Reason: Agitation Pantoprazole Sodium (Protonix Ec Tab) 40 mg PO ACB [facility] Last Admin: 12/29/17 09:53 Dose: 40 mg Prednisone (Prednisone Tab) 30 mg PO BID [facility] Last Admin: 12/29/17 09:52 Dose: 30 mg Sodium Chloride (L[place]ain Nasal [place]) 0 ml NS Q1H PRN PRN Reason: Nasal congestion Last Admin: 12/28/17 03:02 Dose: 1 spr - Labs Labs: 12/29/17 06:00 12/29/17 06:00 - Constitutional Appears: Chronically Ill - Head Exam Head Exam: NORMAL INSPECTION Assessment and Plan - Assessment and Plan (Free Text) Plan: Assessment chronic HIV infection on antiretroviral therapy, well-controlled with last CD4 count in August 2017 535, HIV virus load <20 and undetectable also at the same time, currently on Triumeq acute exacerbation of COPD, slowly improving left breast cancer S/P chemotherapy, radiation therapy and left breast lumpectomy history of hepatitis C infection significant smoking history Plan continue Triumeq for her HIV - reviewed her blood work from Dr. Lucas's office and she has had undetectable HIV virus load since 2012 and looks to be compliant with her HIV meds Hepatitis C infection should be addressed as an outpatient by her PMD discussed with Dr. Giles
--- NOTE | 2017-12-30 13:08 | CP.PCM.DIS ---
<Lea Daniel - Last Filed: 12/30/17 18:27> Provider - Provider Date of Admission: 12/27/17 07:08 Attending physician: Tomi Giles MD Primary care physician: NO PCP Consults: Infectious Disease: Dr. Garcia Psychiatry: Dr. Suggs Time Spent in preparation of Discharge (in minutes): 45 Hospital Course - Lab Results Lab Results: Most Recent Lab Values WBC 9.8 10^3/uL (4.5-11.0) 12/30/17 05:30 RBC 4.15 10^6/uL (3.5-6.1) 12/30/17 05:30 Hgb 13.0 g/dL (12.0-16.0) 12/30/17 05:30 Hct 38.6 % (36.0-48.0) 12/30/17 05:30 MCV 93.0 fl (80.0-105.0) 12/30/17 05:30 MCH 31.3 pg (25.0-35.0) 12/30/17 05:30 MCHC 33.7 g/dl (31.0-37.0) 12/30/17 05:30 RDW 13.6 % (11.5-14.5) 12/30/17 05:30 Plt Count 162 10^3/uL (120.0-450.0) 12/30/17 05:30 MPV 10.7 fl (7.0-11.0) 12/30/17 05:30 Gran % 81.9 % (50.0-68.0) H 12/30/17 05:30 Lymph % (Auto) 10.8 % (22.0-35.0) L 12/30/17 05:30 Tate % (Auto) 7.3 % (1.0-6.0) H 12/30/17 05:30 Eos % (Auto) 0.0 % (1.5-5.0) L 12/30/17 05:30 Baso % (Auto) 0.0 % (0.0-3.0) 12/30/17 05:30 Gran # 8.01 (1.4-6.5) H 12/30/17 05:30 Lymph # (Auto) 1.1 (1.2-3.4) L 12/30/17 05:30 Tate # (Auto) 0.7 (0.1-0.6) H 12/30/17 05:30 Eos # (Auto) 0.0 (0.0-0.7) 12/30/17 05:30 Baso # (Auto) 0.00 K/mm3 (0.0-2.0) 12/30/17 05:30 Sodium 141 mmol/L (132-148) 12/30/17 05:30 Potassium 4.2 mmol/L (3.6-5.0) 12/30/17 05:30 Chloride 106 mmol/L (98-107) 12/30/17 05:30 Carbon Dioxide 29 mmol/L (21-33) 12/30/17 05:30 Anion Gap 10 (10-20) 12/30/17 05:30 BUN 23 mg/dL (7-21) H 12/30/17 05:30 Creatinine 0.8 mg/dl (0.7-1.2) 12/30/17 05:30 Est GFR ( Amer) > 60 12/30/17 05:30 Est GFR (Non-Af Amer) > 60 12/30/17 05:30 Random Glucose 118 mg/dL (70-110) H 12/30/17 05:30 Calcium 9.6 mg/dL (8.4-10.5) 12/30/17 05:30 Phosphorus 3.6 mg/dL (2.5-4.5) 12/30/17 05:30 Magnesium 2.4 mg/dL (1.7-2.2) H 12/30/17 05:30 Total Bilirubin 0.5 mg/dL (0.2-1.3) 12/30/17 05:30 AST 19 U/L (14-36) 12/30/17 05:30 ALT 22 U/L (7-56) 12/30/17 05:30 Alkaline Phosphatase 62 U/L (38-126) 12/30/17 05:30 Total Protein 7.4 g/dL (5.8-8.3) 12/30/17 05:30 Albumin 4.1 g/dL (3.0-4.8) 12/30/17 05:30 Globulin 3.3 gm/dL 12/30/17 05:30 Albumin/Globulin Ratio 1.3 (1.1-1.8) 12/30/17 05:30 Procalcitonin < 0.05 NG/ML (0.19-0.49) L 12/28/17 06:00 Urine Color Light yellow (YELLOW) 12/28/17 18:24 Urine Appearance Clear (CLEAR) 12/28/17 18:24 Urine pH 6.0 (4.7-8.0) 12/28/17 18:24 Ur Specific [place] 1.020 (1.005-1.035) 12/28/17 18:24 Urine Protein Negative mg/dL (<30 mg/dL) 12/28/17 18:24 Urine Glucose (UA) Negative mg/dL (NEGATIVE) 12/28/17 18:24 Urine Ketones Negative mg/dL (NEGATIVE) 12/28/17 18:24 Urine Blood Negative (NEGATIVE) 12/28/17 18:24 Urine Nitrate Negative (NEGATIVE) 12/28/17 18:24 Urine Bilirubin Negative (NEGATIVE) 12/28/17 18:24 Urine Urobilinogen 0.2 E.U./dL (<1 E.U./dL) 12/28/17 18:24 Ur Leukocyte Esterase Negative Van/uL (NEGATIVE) 12/28/17 18:24 Urine HCG, Qual Negative (NEGATIVE) 12/28/17 14:00 Urine Opiates Screen Negative (NEGATIVE) 12/28/17 14:00 Urine Methadone Screen Negative (NEGATIVE) 12/28/17 14:00 Ur Barbiturates Screen Negative (NEGATIVE) 12/28/17 14:00 Ur Phencyclidine Scrn Negative (NEGATIVE) 12/28/17 14:00 Ur Amphetamines Screen Negative (NEGATIVE) 12/28/17 14:00 U Benzodiazepines Scrn Negative (NEGATIVE) 12/28/17 14:00 U Oth Cocaine Metabols Negative (NEGATIVE) 12/28/17 14:00 U Cannabinoids Screen Negative (NEGATIVE) 12/28/17 14:00 Alcohol, Quantitative < 10 mg/dL (0-10) 12/28/17 13:20 RPR Nonreactive (NONREACTIVE) 12/29/17 07:30 Ur L.pneumophila Ag Negative (NEGATIVE) 12/28/17 18:15 - Hospital Course Hospital Course: PGY1 Discharge Summary and Hospital Course for Dr. Giles Upon Admission: Patient is a 57 year old female with a history of HIV on antiretroviral therapy, hepatitis C, left breast cancer diagnosed in 2006 s/p chemo/radiation and left breast lumpectomy, and COPD who presented with shortness of breath which patient states has been going on for the past few months. Patient stated that these past few days however she has had more noticeable difficulty breathing. Patient states she woke up this morning feeling short of breath then went to [employer] to eat however when she finished eating she was unable to breath upon leaving so she called her PMD Dr. Lucas who advised her to go to the emergency department. Please see chart for complete summary of details. Hospital Course: Patient was treated for COPD exacerbation with steroids, duonebs, and antibiotics. Chest X-Ray was taken in the ED, which showed no active pulmonary disease. Steroids were tapered and patient was placed on oral steroids and reassessed. Patient's lung sounds were a lot more clear and patient stated that her breathing has been improving. On day of discharge, Patient denied any complaints about her respiratory issues. Patient's vitals were hemodynamically stable, and WBC have remained stable throughout admission. Patient was being assessed by psych as well. Per psych patient needed to be assessed for involuntary in-patient psychiatry. [facility] [place], and patient was cleared for discharge by [facility] Suggs was consulted to evaluate, and cleared patient for discharge to home. Patient is medically cleared for discharge. Patient was explained the medical plan for discharge. Patient expressed understanding of medical plan. All questions and concerns of patient were addressed prior to discharge. Please see chart for more detail. Discharge Medications: Abacavir/Dolutegravir/Lamivudi 1 tab PO daily Ventolin Hfa 1 puff IH Q4 PRN Breo Ellipta IH daily Z-pack 250mg PO daily #4 - Rx Cepacol Sore Throat 1 abbie MT Q2H PRN #30 - Rx Haloperidol 2mg PO Q6 PRN tab - Rx Ativan 1mg PO Q6PRN - Rx Medrol Dose Pack 4mg PO daily #21 - Rx Protonix 40mg PO ACB #10 take while on prednisone Refresh Opth Soln 0.3ml OU BID PRN Sodium Chloride Nasal [place] - Rx Please see patient's chart for complete detail. Patient was seen and case discussed in detail with Dr. Chan Daniel PGY1 Discharge Exam - Additional Findings Additional findings: - Constitutional Appears: Non-toxic, No Acute Distress - Head Exam Head Exam: ATRAUMATIC, NORMAL INSPECTION, NORMOCEPHALIC - Eye Exam Eye Exam: EOMI, Normal appearance, PERRL - Neck Exam Neck Exam: Full ROM. absent: Meningismus, Tenderness - Respiratory Exam Respiratory Exam: Clear to Ausculation Bilateral, NORMAL BREATHING PATTERN. absent: Accessory Muscle Use, Decreased Breath Sounds, Rales, Rhonchi, Wheezes, Respiratory Distress, Stridor - Cardiovascular Exam Cardiovascular Exam: RRR, +S1, +S2. absent: Gallop, Rubs, Murmur - GI/Abdominal Exam GI & Abdominal Exam: Soft, Normal Bowel Sounds. absent: Guarding, Rigid, T enderness - Extremities Exam Extremities Exam: Full ROM, Normal Capillary Refill. absent: Calf Tenderness, Pedal Edema - Back Exam Back Exam: NORMAL INSPECTION. absent: CVA tenderness (L), CVA tenderness (R) - Neurological Exam Neurological Exam: Alert, Awake, Oriented x3 Neuro motor strength exam: Left Upper Extremity: 5, Right Upper Extremity: 5, Left Lower Extremity: 5, Right Lower Extremity: 5 - Psychiatric Exam Psychiatric exam: Agitated Discharge Plan - Discharge Medications Prescriptions: RX: Azithromycin [Z-Trace] 250 mg PO DAILY 4 Days #4 tab RX: Benzocaine/Menthol [Cepacol Sore Throat] 1 abbie MT Q2H PRN #30 abbie PRN Reason: Sore Throat Methylprednisolone [Medrol Dose Pack (21 tabs)] 4 mg PO DAILY #21 mg - Follow Up Plan Condition: FAIR Disposition: HOME/ ROUTINE Instructions: COPD Including Emphysema (DC), Exacerbation of COPD (DC) Additional Instructions: Please discharge patient to home with the following discharge instructions: Please follow up with your primary care doctor Dr Lucas after your discharge within 3-5 days. You will also follow up with him regarding HIV management. You were prescribed a Medrol dose pack and Azithromycin for your COPD exacerbation. Please take and complete these medications as prescribed. Please follow-up with your psychiatrist outpatient for continuing your treatment, within 3-5 days. If you are having any new or worsening symptoms please return to the Emergency Department. <Tomi Giles - Last Filed: 12/31/17 15:13> Provider - Provider Date of Admission: 12/27/17 07:08 Attending physician: Tomi Giles MD Hospital Course - Lab Results Lab Results: Most Recent Lab Values WBC 9.8 10^3/uL (4.5-11.0) 12/30/17 05:30 RBC 4.15 10^6/uL (3.5-6.1) 12/30/17 05:30 Hgb 13.0 g/dL (12.0-16.0) 12/30/17 05:30 Hct 38.6 % (36.0-48.0) 12/30/17 05:30 MCV 93.0 fl (80.0-105.0) 12/30/17 05:30 MCH 31.3 pg (25.0-35.0) 12/30/17 05:30 MCHC 33.7 g/dl (31.0-37.0) 12/30/17 05:30 RDW 13.6 % (11.5-14.5) 12/30/17 05:30 Plt Count 162 10^3/uL (120.0-450.0) 12/30/17 05:30 MPV 10.7 fl (7.0-11.0) 12/30/17 05:30 Gran % 81.9 % (50.0-68.0) H 12/30/17 05:30 Lymph % (Auto) 10.8 % (22.0-35.0) L 12/30/17 05:30 Tate % (Auto) 7.3 % (1.0-6.0) H 12/30/17 05:30 Eos % (Auto) 0.0 % (1.5-5.0) L 12/30/17 05:30 Baso % (Auto) 0.0 % (0.0-3.0) 12/30/17 05:30 Gran # 8.01 (1.4-6.5) H 12/30/17 05:30 Lymph # (Auto) 1.1 (1.2-3.4) L 12/30/17 05:30 Tate # (Auto) 0.7 (0.1-0.6) H 12/30/17 05:30 Eos # (Auto) 0.0 (0.0-0.7) 12/30/17 05:30 Baso # (Auto) 0.00 K/mm3 (0.0-2.0) 12/30/17 05:30 Sodium 141 mmol/L (132-148) 12/30/17 05:30 Potassium 4.2 mmol/L (3.6-5.0) 12/30/17 05:30 Chloride 106 mmol/L (98-107) 12/30/17 05:30 Carbon Dioxide 29 mmol/L (21-33) 12/30/17 05:30 Anion Gap 10 (10-20) 12/30/17 05:30 BUN 23 mg/dL (7-21) H 12/30/17 05:30 Creatinine 0.8 mg/dl (0.7-1.2) 12/30/17 05:30 Est GFR ( Amer) > 60 12/30/17 05:30 Est GFR (Non-Af Amer) > 60 12/30/17 05:30 Random Glucose 118 mg/dL (70-110) H 12/30/17 05:30 Calcium 9.6 mg/dL (8.4-10.5) 12/30/17 05:30 Phosphorus 3.6 mg/dL (2.5-4.5) 12/30/17 05:30 Magnesium 2.4 mg/dL (1.7-2.2) H 12/30/17 05:30 Total Bilirubin 0.5 mg/dL (0.2-1.3) 12/30/17 05:30 AST 19 U/L (14-36) 12/30/17 05:30 ALT 22 U/L (7-56) 12/30/17 05:30 Alkaline Phosphatase 62 U/L (38-126) 12/30/17 05:30 Total Protein 7.4 g/dL (5.8-8.3) 12/30/17 05:30 Albumin 4.1 g/dL (3.0-4.8) 12/30/17 05:30 Globulin 3.3 gm/dL 12/30/17 05:30 Albumin/Globulin Ratio 1.3 (1.1-1.8) 12/30/17 05:30 Procalcitonin < 0.05 NG/ML (0.19-0.49) L 12/28/17 06:00 Urine Color Light yellow (YELLOW) 12/28/17 18:24 Urine Appearance Clear (CLEAR) 12/28/17 18:24 Urine pH 6.0 (4.7-8.0) 12/28/17 18:24 Ur Specific [place] 1.020 (1.005-1.035) 12/28/17 18:24 Urine Protein Negative mg/dL (<30 mg/dL) 12/28/17 18:24 Urine Glucose (UA) Negative mg/dL (NEGATIVE) 12/28/17 18:24 Urine Ketones Negative mg/dL (NEGATIVE) 12/28/17 18:24 Urine Blood Negative (NEGATIVE) 12/28/17 18:24 Urine Nitrate Negative (NEGATIVE) 12/28/17 18:24 Urine Bilirubin Negative (NEGATIVE) 12/28/17 18:24 Urine Urobilinogen 0.2 E.U./dL (<1 E.U./dL) 12/28/17 18:24 Ur Leukocyte Esterase Negative Van/uL (NEGATIVE) 12/28/17 18:24 Urine HCG, Qual Negative (NEGATIVE) 12/28/17 14:00 Urine Opiates Screen Negative (NEGATIVE) 12/28/17 14:00 Urine Methadone Screen Negative (NEGATIVE) 12/28/17 14:00 Ur Barbiturates Screen Negative (NEGATIVE) 12/28/17 14:00 Ur Phencyclidine Scrn Negative (NEGATIVE) 12/28/17 14:00 Ur Amphetamines Screen Negative (NEGATIVE) 12/28/17 14:00 U Benzodiazepines Scrn Negative (NEGATIVE) 12/28/17 14:00 U Oth Cocaine Metabols Negative (NEGATIVE) 12/28/17 14:00 U Cannabinoids Screen Negative (NEGATIVE) 12/28/17 14:00 Alcohol, Quantitative < 10 mg/dL (0-10) 12/28/17 13:20 RPR Nonreactive (NONREACTIVE) 12/29/17 07:30 HIV-1 RNA Qnt (RT-PCR) <1.30 not detected (Not Detected) 12/29/17 05:00 Ur L.pneumophila Ag Negative (NEGATIVE) 12/28/17 18:15 Attending/Attestation - Attestation I have personally seen and examined this patient.: Yes I have fully participated in the care of the patient.: Yes I have reviewed all pertinent clinical information, including history, physical exam and plan: Yes Notes (Text): 12/31/17 15:12 Medical record note made by the resident after discussion with my direction and input after the patient was personally seen and examined by me. I have reviewed the chart and agree that the record accurately reflects by personal performance of the history, physical exam, data review, and medical decision-making, in the course for the patient. I have also personally directed the plan of care. 57 F with a history of HIV on antiretroviral therapy (last CD4 535 on 08/2017), hepatitis C, left breast cancer diagnosed in 2006 s/p chemo/radiation and left breast lumpectomy, COPD, presents for COPD exacerbation, paranoia, difficult housing situation. Patient COPD is stable , on oral Prednsione 40 mg po daily for total 5 days.She is on room air. ID evaluation is appreciated. Patient is medically stable. Patient was evaluated by Psychiatry and was cleared for discharge. Patient will be discharged home and will follow up with PCP.
== END 2017-12-30 14:18 | disposition home or self-care (01) | DRG 140 ==
LOC: ED 15:46 → ERH 18:43 → 3RSO 12-27 00:53 → OBSVTOIN 12-27 07:08 → 3RSO 12-27 21:05
PROVIDERS: ADMIT Hospitalist; ATTEND Internal Medicine
DX: J44.1 Chronic obstructive pulmonary disease with (acute) exacerbation (principal); F20.0 Paranoid schizophrenia; Z21 Asymptomatic human immunodeficiency virus [HIV] infection status; Z80.1 Family history of malignant neoplasm of trachea, bronchus and lung; Z85.3 Personal history of malignant neoplasm of breast; Z87.891 Personal history of nicotine dependence; Z90.49 Acquired absence of other specified parts of digestive tract; Z92.21 Personal history of antineoplastic chemotherapy; Z92.3 Personal history of irradiation

== ENCOUNTER 2018-01-21 06:39 | Emergency (ER) | payer OTHER ==
[2018-01-21 06:51] VITALS: BMI 16.9
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
--- NOTE | 2018-01-21 08:37 | RAD ---
Date of service: 01/21/2018 HISTORY: chest pain COMPARISON: Portable chest 12/26/2017. FINDINGS: LUNGS: No active pulmonary disease. PLEURA: No significant pleural effusion identified, no pneumothorax apparent. CARDIOVASCULAR: No aortic atherosclerotic calcification present. Normal cardiac size. No pulmonary vascular congestion. OSSEOUS STRUCTURES: No significant abnormalities. VISUALIZED UPPER ABDOMEN: Normal. OTHER FINDINGS: None. IMPRESSION: No interval acute cardiopulmonary disease appreciated.
[2018-01-21 08:44] LABS: BASO # 0.01 K/mm3 (0.0-2.0); BASO % 0.2 % (0.0-3.0); EOS # 0.3 (0.0-0.7); EOS % 8.2 % (1.5-5.0); GRAN # 2.04 (1.4-6.5); GRAN % 50.8 % (50.0-68.0); HEMOGLOBIN 12.9 g/dL (12.0-16.0); LYMPH # 1.3 (1.2-3.4); LYMPH % 32.3 % (22.0-35.0); MEAN CELL VOLUME 94.6 fl (80.0-105.0); MEAN CORPUSCULAR HEMOGLOBIN 31.8 pg (25.0-35.0); MEAN CORPUSCULAR HGB CONC 33.6 g/dl (31.0-37.0); MONO # 0.3 (0.1-0.6); MONO % 8.5 % (1.0-6.0); RBC 4.06 10^6/uL (3.5-6.1); RED CELL DISTRIBUTION WIDTH 13.9 % (11.5-14.5)
[2018-01-21 09:03] LABS: B-TYPE NATRIURETIC PEPTIDE 72.2 pg/mL (0-450)
[2018-01-21 09:08] LABS: ALB/GLOB RATIO 1.2 (1.1-1.8); ALT/SGPT 24 U/L (7-56); AST/SGOT 23 U/L (14-36); BLOOD UREA NITROGEN 23 mg/dL (7-21); CALCIUM 9.2 mg/dL (8.4-10.5); GFR NON-AFRICAN AMERICAN > 60
[2018-01-21 09:50] VITALS: BP 104/78; PULSE 77; RESP 16; TEMP 98.8; O2SAT 99
--- NOTE | 2018-01-21 19:06 | CARD ---
APPROVED REPORT Date of service: 01/21/2018 EKG Measurement Heart [id number] <Conclusion> Sinus bradycardia Otherwise normal ECG
== END 2018-01-21 09:40 | disposition home or self-care (01) ==
LOC: ED 06:39
DX: R60.9 Edema, unspecified (principal); B19.20 Unspecified viral hepatitis C without hepatic coma; Z21 Asymptomatic human immunodeficiency virus [HIV] infection status; Z85.3 Personal history of malignant neoplasm of breast; Z92.21 Personal history of antineoplastic chemotherapy; Z92.3 Personal history of irradiation

== ENCOUNTER 2018-02-16 00:02 | Emergency (ER) | payer OTHER ==
[2018-02-16 00:02] VITALS: BMI 16.9
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
[2018-02-16 06:45] VITALS: BP 108/62; PULSE 68; RESP 18; TEMP 97.8; O2SAT 100
== END 2018-02-16 06:30 | disposition home or self-care (01) ==
LOC: ED 00:02
DX: R60.9 Edema, unspecified (principal)

== ENCOUNTER 2018-03-25 23:38 | Emergency (ER) | payer OTHER ==
[2018-03-26 00:07] VITALS: RESP 18; TEMP 98.1; BMI 17.9
[2018-03-26] MEDS ORDERED: Albuterol HFA 90 mcg/actuation (8 g) IH PRN (01:47)
[2018-03-26] MEDS ORDERED: Albuterol HFA 90 mcg/actuation (8 g) IH STA (01:53)
[2018-03-26 02:30] VITALS: BP 115/76; PULSE 85; O2SAT 100
--- NOTE | 2018-03-26 04:16 | ED PDOC ---
Arrival/HPI - General Chief Complaint: Lower Extremity Problem/Injury Time Seen by Provider: 03/25/18 23:46 Historian: Patient - History of Present Illness Narrative History of Present Illness (Text): 03/26/18 04:14 57y/o homeless female with PMH of chronic left leg pain, COPD, peripheral edema presents c/o cough x 1 day. Cough is productive of yellow sputum. Associated sinus congestion and sore throat. States it started this morning when she was sitting in the diner, where she spends most of her days. [facility] and prescribed a z-rhea that she says she never received a prescription for. Also c/o left thigh pain that began approximately 2 hours ago. Of note, pt was recently seen here at the end of january for peripheral edema and had a normal workup, to include bloodwork and venous duplex. Denies fever, chills, chest pain, SOB, abdominal pain, N/V, numbness, paresthesias, weakness, back pain, new trauma/injury, or any other associated symptoms. Past Medical History - Provider Review Nursing Documentation Reviewed: Yes - Infectious Disease Hx of Infectious Diseases: None - Tetanus Immunization Tetanus Immunization: Unknown - Past Medical History Past Medical History: Unable to Obtain - Cardiac Hx Hypertension: No - Pulmonary Hx Chronic Obstructive Pulmonary Disease (COPD): Yes Hx Emphysema: Yes - Neurological Hx Seizures: No - HEENT Hx HEENT Disorder: No - Renal Hx Renal Disorder: No - Endocrine/Metabolic Hx Endocrine Disorders: No - Hematological/Oncological Hx Blood Disorders: Yes Hx Cancer: Yes - Integumentary Hx Dermatological Disorder: No - Musculoskeletal/Rheumatological Hx Musculoskeletal Disorders: No Hx Falls: No - Gastrointestinal Hx Gastrointestinal Disorders: No - Genitourinary/Gynecological Hx Sexually Transmitted Diseases: No Hx Urinary Tract Infection: Yes - Psychiatric Hx Anxiety: Yes Hx Bipolar Disorder: No Hx Depression: No Hx Post Traumatic Stress Disorder: No Hx Schizophrenia: Yes Hx Substance Use: No (denies) - Past Surgical History Past Surgical History: Unable to Obtain - Surgical History Hx Cholecystectomy: Yes - Anesthesia Hx Anesthesia: Yes Hx Anesthesia Reactions: No Hx Malignant Hyperthermia: No - Suicidal Assessment Feels Threatened In Home Enviroment: No Family/Social History - Physician Review Nursing Documentation Reviewed: Yes Family/Social History: No Known Family HX Smoking Status: Former Smoker Hx Alcohol Use: No (denies) Hx Substance Use: No (denies) Substance used: marijuana Hx Substance Use Treatment: No Allergies/Home Meds Allergies/Adverse Reactions: Allergies No Known Allergies Allergy (Verified 02/16/18 00:57) Home Medications: Home Meds Medication Instructions Recorded Confirmed RX: Abacavir/Dolutegravir/Lamivudi 1 tab PO DAILY 12/27/17 02/16/18 [Triumeq 600-50-300 mg Tablet] Review of Systems - Review of Systems Constitutional: Normal. absent: Fevers Eyes: Normal. absent: Vision Changes ENT: Sore Throat, Sinus Congestion Respiratory: Cough, Sputum Cardiovascular: Normal. absent: Chest Pain, Palpitations Gastrointestinal: Normal. absent: Abdominal Pain, Stool Changes, Nausea, Vomiting, Appetite Changes Genitourinary Female: Normal. absent: Dysuria, Frequency Musculoskeletal: Arthralgias. absent: Back Pain, Neck Pain Skin: Normal, Rash Neurological: Normal. absent: Headache, Dizziness Endocrine: Normal Hemo/Lymphatic: Normal Psychiatric: Normal Physical Exam Vital Signs Reviewed: Yes Vital Signs Temp Pulse Resp BP Pulse Ox 03/26/18 02:10 85 18 115/76 100 03/25/18 23:55 98.1 F 84 18 116/78 98 Temperature: Afebrile Blood Pressure: Normal Pulse: Regular Respiratory Rate: Normal Appearance: Positive for: Well-Appearing, Non-Toxic, Comfortable Pain Distress: None Mental Status: Positive for: Alert and Oriented X 3 - Systems Exam Head: Present: Atraumatic, Normocephalic Pupils: Present: PERRL Extroacular Muscles: Present: EOMI Conjunctiva: Present: Normal Mouth: Present: Moist Mucous Membranes Nose (Internal): Present: Normal Inspection Neck: Present: Normal Range of Motion. No: Meningeal Signs Respiratory/Chest: Present: Clear to Auscultation, Decreased Breath Sounds (biltaerally). No: Respiratory Distress, Accessory Muscle Use Cardiovascular: Present: Regular Rate and Rhythm, Normal S1, S2, Peripheal Pulses Present Abdomen: Present: Normal Bowel Sounds. No: Tenderness, Distention, Peritoneal Signs Back: Present: Normal Inspection Upper Extremity: Present: Normal Inspection, Normal ROM, NORMAL PULSES, Neurovascularly Intact, Capillary Refill < 2s. No: Cyanosis, Edema, Temperature Abnormalties, Deformity Lower Extremity: Present: Edema (bilaterally), NORMAL PULSES, Normal ROM, Tenderness (left inner thigh), Swelling (bilateral below the knee, equal), Neurovascularly Intact, Capillary Refill < 2 s. No: CALF TENDERNESS, Deformity, Temperature Abnormalties Neurological: Present: GCS=15, CN II-XII Intact, Speech Normal, Motor Func Grossly Intact, Normal Sensory Function, Gait Normal Skin: Present: Warm, Dry, Normal Color. No: Rashes Psychiatric: Present: Alert, Oriented x 3, Normal Insight, Normal Concentration, Normal Affect, Normal Mood Medical Decision Making ED Course and Treatment: Initial Plan: * US Bilateral Lower Extremities * CXR * Rapid Strep * Rapid Flu * Toradol Ultrasound prelim read negative for DVT Labwork reviewed, negative flu and strep CXR significant for COPD changes Will treat bronchitis flare with azithromycin, first dose here. and ventolin inhaler Diagnostic testing results and plan of care discussed with patient. Strict instructions given regarding prescription use, importance of followup, and signs/symptoms to return to ER including worsening pain, SOB, chest pain, or any other new/worsening symptoms. Pt verbalized understanding of discussion. Patient is A&Ox3, ambluating with steady gait, with vital signs stable for discharge. - Lab Interpretations I have reviewed the lab results: Yes - RAD Interpretation Radiology Orders: 03/26/18 00:01 DUPLEX LOWER EXTRM VEIN BILAT [US] Stat 03/26/18 00:02 CHEST TWO VIEWS (PA/LAT) [RAD] Stat - Medication Orders Current Medication Orders: Discontinued Medications Albuterol (Ventolin Hfa 90 Mcg/Actuation (8 G)) 2 puff IH [id number] PRN PRN Reason: Wheezing Azithromycin (Zithromax) 500 mg PO STAT STA; Protocol Stop: 03/26/18 01:31 Last Admin: 03/26/18 01:58 Dose: 500 mg Ketorolac Tromethamine (Toradol) 60 mg IM STAT STA Stop: 03/26/18 01:49 Last Admin: 03/26/18 02:02 Dose: 60 mg GREG Pain Assessment Document 03/26/18 02:02 AD (Rec: 03/26/18 02:02 AD [id number]) Pain Reassessment Is this a pain reassessment? No Presence of Pain Presence of Pain Yes Pain Scale Used Protocol: PSCALES Pain Scale Used Numeric Location Left, Right or Bilateral Left Upper or Lower Upper Pain Location Body Site Leg IM Administration Charges Document 03/26/18 02:02 AD (Rec: 03/26/18 02:02 AD [id number]) Injection Site MAR Injection Site Right Gluteus Herberth Charges for Administration # of IM Administrations 1 Disposition/Present on Arrival - Present on Arrival Any Indicators Present on Arrival: No History of DVT/PE: No History of Uncontrolled Diabetes: No Urinary Catheter: No History of Decub. Ulcer: No History Surgical Site Infection Following: None - Disposition Have Diagnosis and Disposition been Completed?: Yes Diagnosis: Homeless, Chronic leg pain, Peripheral edema, Lower respiratory infection Disposition: HOME/ ROUTINE Disposition Time: :45 Patient Plan: Discharge Condition: IMPROVED Discharge Instructions (ExitCare): Acute Bronchitis, Chronic Pain Additional Instructions: Naproxen daily with food as needed for pain Azithromycin daily for 4 days, you got the first dose here Ventolin every 6 hours as needed for cough Followup with primary doctor within 2 days Followup with the foot doctor as scheduled Return to ER with any new/worsening symptoms Prescriptions: Albuterol Sulfate [Ventolin Hfa] 2 puff IH Q6 #1 pump RX: Azithromycin 250 mg PO DAILY #4 tablet RX: Naproxen [Naprosyn] 500 mg PO DAILY PRN #14 tablet PRN Reason: Pain, Moderate (4-7) Referrals: Chris Lucas MD [Primary Care Provider] - Follow up with primary Forms: [employer] (Maltese), WORK NOTE
--- NOTE | 2018-03-26 09:27 | US ---
HISTORY: Leg pain and swelling. Evaluate for DVT PHYSICIAN(S): Bernadr Burrows MD. TECHNIQUE: Duplex sonography and color-flow Doppler with graded compression were used to evaluate the deep venous systems of both lower extremities. FINDINGS: The visualized deep venous systems of both lower extremities are sonographically normal and compressible. Normal wave forms and augmentation are seen. There is no sonographic evidence for deep venous thrombosis in the visualized segments of both lower extremities. IMPRESSION: No sonographic evidence for deep venous thrombosis in the visualized segments of both lower extremities.
--- NOTE | 2018-03-26 10:41 | RAD ---
Date of service: 03/26/2018 HISTORY: cough COMPARISON: 01/21/2018 TECHNIQUE: Chest PA and lateral FINDINGS: LUNGS: No active pulmonary disease. The lungs are hyperaerated consistent with COPD PLEURA: No significant pleural effusion identified. No pneumothorax apparent. CARDIOVASCULAR: No aortic atherosclerotic calcification present. Normal cardiac size. No pulmonary vascular congestion. OSSEOUS STRUCTURES: No significant abnormalities. VISUALIZED UPPER ABDOMEN: Normal. OTHER FINDINGS: None. IMPRESSION: No active disease.
== END 2018-03-26 02:10 | disposition home or self-care (01) ==
LOC: ED 23:38
DX: J22 Unspecified acute lower respiratory infection (principal); Z59.0 Homelessness; R60.0 Localized edema; G89.29 Other chronic pain; M79.605 Pain in left leg; F20.9 Schizophrenia, unspecified; Z87.891 Personal history of nicotine dependence
CPT/HCPCS: 71046; 87070; 87430; 87804; 93970; 96372; 99283; J1885

== ENCOUNTER 2018-04-01 23:47 | Observation (INO) | payer OTHER ==
[2018-04-01 23:47] VITALS: BMI 17.9
[2018-04-02] MEDS: Albuterol-Ipratrop 3 mg / 0.5 (3 ml) UD IH SCH ×3 (03:00→03:30)
[2018-04-02 04:08] LABS: BASO # 0.02 K/mm3 (0.0-2.0); BASO % 0.4 % (0.0-3.0); EOS # 0.4 (0.0-0.7); EOS % 6.5 % (1.5-5.0); HEMOGLOBIN 11.7 g/dL (12.0-16.0); LYMPH # 1.5 (1.2-3.4); MEAN CELL VOLUME 93.5 fl (80.0-105.0); MEAN CORPUSCULAR HEMOGLOBIN 30.4 pg (25.0-35.0); MEAN CORPUSCULAR HGB CONC 32.5 g/dl (31.0-37.0); MEAN PLATELET VOLUME 10.8 fl (7.0-11.0); MONO # 0.5 (0.1-0.6); MONO % 9.7 % (1.0-6.0); RBC 3.85 10^6/uL (3.5-6.1); RED CELL DISTRIBUTION WIDTH 13.7 % (11.5-14.5); WHITE BLOOD COUNT 5.4 10^3/uL (4.5-11.0)
[2018-04-02 04:10] LABS: INR 1.05; PARTIAL THROMBOPLASTIN TIME 30.9 Seconds (26.9-38.3); PROTHROMBIN TIME 11.6 SECONDS (9.4-12.5)
[2018-04-02 04:20] LABS: TROPONIN I < 0.01 ng/mL
[2018-04-02 04:28] LABS: B-TYPE NATRIURETIC PEPTIDE 78.5 pg/mL (0-450); BLOOD UREA NITROGEN 25 mg/dL (7-21); CALCIUM 8.7 mg/dL (8.4-10.5); GFR NON-AFRICAN AMERICAN > 60
[2018-04-02 04:29] LABS: VENOUS BLOOD GAS BASE EXCESS 1.2 mmol/L (0.0-2.0); VENOUS BLOOD GAS PO2 45 mm/Hg (30-55); VENOUS BLOOD PH 7.28 (7.32-7.43)
--- NOTE | 2018-04-02 04:51 | ED PDOC ---
Arrival/HPI - General Chief Complaint: GI Problem Time Seen by Provider: 04/02/18 02:20 - History of Present Illness Narrative History of Present Illness (Text): 04/02/18 04:42 57 year old female, whose past medical history includes HIV on antiretroviral therapy, hepatitis C, left breast cancer diagnosed in 2006 s/p chemo/radiation and left breast lumpectomy, and COPD, presents to the ED complaining of shortness of breath. Patient states she has aches and her chronic leg swelling is bothering her. Patient states she also did notice bloody stool. Patient denies any fevers, headache, dizziness, chest pain, back pain, neck pain, or any other complaint. Time/Duration: Prior to Arrival Symptom Onset: Gradual Symptom Course: Unchanged Activities at Onset: Light Context: Home Past Medical History - Provider Review Nursing Documentation Reviewed: Yes - Infectious Disease Hx of Infectious Diseases: None - Tetanus Immunization Tetanus Immunization: Unknown - Past Medical History Past Medical History: Unable to Obtain - Cardiac Hx Hypertension: No - Pulmonary Hx Respiratory Disorders: Yes Hx Asthma: Yes Hx Chronic Obstructive Pulmonary Disease (COPD): Yes Hx Emphysema: Yes - Neurological Hx Seizures: No - HEENT Hx HEENT Disorder: No - Renal Hx Renal Disorder: No - Endocrine/Metabolic Hx Endocrine Disorders: No - Hematological/Oncological Hx Blood Disorders: Yes Hx Cancer: Yes (left breast) - Integumentary Hx Dermatological Disorder: No - Musculoskeletal/Rheumatological Hx Musculoskeletal Disorders: No Hx Falls: No - Gastrointestinal Hx Gastrointestinal Disorders: No - Genitourinary/Gynecological Hx Genitourinary Disorders: Yes Hx Sexually Transmitted Diseases: No Hx Urinary Tract Infection: Yes - Psychiatric Hx Psychophysiologic Disorder: Yes Hx Anxiety: Yes Hx Bipolar Disorder: No Hx Depression: No Hx Post Traumatic Stress Disorder: No Hx Schizophrenia: Yes Hx Substance Use: No (denies) - Past Surgical History Past Surgical History: Unable to Obtain - Surgical History Hx Breast Biopsy: Yes Hx Cholecystectomy: Yes Other/Comment: L breast lumpectomy. - Anesthesia Hx Anesthesia: Yes Hx Anesthesia Reactions: No Hx Malignant Hyperthermia: No - Suicidal Assessment Feels Threatened In Home Enviroment: No Family/Social History - Physician Review Nursing Documentation Reviewed: Yes Family/Social History: No Known Family HX Smoking Status: Former Smoker Hx Alcohol Use: No (denies) Hx Substance Use: No (denies) Substance used: marijuana Hx Substance Use Treatment: No Allergies/Home Meds Allergies/Adverse Reactions: Allergies No Known Allergies Allergy (Verified 04/01/18 23:57) Home Medications: Home Meds Medication Instructions Recorded Confirmed Abacavir/Dolutegravir/Lamivudi 1 tab PO DAILY 12/27/17 04/02/18 [Triumeq 600-50-300 mg Tablet] Review of Systems - Review of Systems Constitutional: absent: Fevers, Night Sweats Respiratory: SOB, Wheezing. absent: Cough Cardiovascular: absent: Chest Pain Gastrointestinal: absent: Abdominal Pain, Diarrhea, Nausea, Vomiting Musculoskeletal: Other (Edema). absent: Back Pain, Neck Pain Neurological: absent: Headache, Dizziness Physical Exam Vital Signs Reviewed: Yes Vital Signs Temp Pulse Resp BP Pulse Ox 04/02/18 00:02 97.6 F 84 18 111/78 95 Temperature: Afebrile Blood Pressure: Normal Pulse: Regular Respiratory Rate: Normal Appearance: Positive for: Well-Appearing, Non-Toxic, Comfortable Pain Distress: None Mental Status: Positive for: Alert and Oriented X 3 - Systems Exam Head: Present: Atraumatic, Normocephalic Pupils: Present: PERRL Extroacular Muscles: Present: EOMI Conjunctiva: Present: Normal Mouth: Present: Moist Mucous Membranes Neck: Present: Normal Range of Motion Respiratory/Chest: Present: Clear to Auscultation, Good Air Exchange. No: Respiratory Distress, Accessory Muscle Use Cardiovascular: Present: Regular Rate and Rhythm, Normal S1, S2. No: Murmurs Abdomen: No: Tenderness, Distention, Peritoneal Signs Rectal: No: Occult Blood (lot #[id number] [id number] exp 12/30) Back: Present: Normal Inspection Upper Extremity: Present: Normal Inspection. No: Cyanosis, Edema Lower Extremity: Present: Normal Inspection, Edema Neurological: Present: GCS=15, CN II-XII Intact, Speech Normal Skin: Present: Warm, Dry, Normal Color. No: Rashes Psychiatric: Present: Alert, Oriented x 3, Normal Insight, Normal Concentration Medical Decision Making ED Course and Treatment: 04/02/18 04:56 Impression: 57 year old female presents requesting a breathing treatment. Plan: -- EKG -- Chest X-ray -- Solumedrol -- Labs -- Reassess and disposition Prior Visits: Notes and results from previous visits were reviewed. Progress Notes: - Lab Interpretations Lab Results: pO2 45 mm/Hg (30-55) 04/02/18 03:38 VBG pH 7.28 (7.32-7.43) L 04/02/18 03:38 VBG pCO2 63.0 (40-60) H 04/02/18 03:38 VBG HCO3 29.6 mmol/l (21-28) H 04/02/18 03:38 VBG Total CO2 31.5 mmol.L (22-28) H 04/02/18 03:38 VBG O2 Sat (Calc) 80.9 % (40-65) H 04/02/18 03:38 VBG Base Excess 1.2 mmol/L (0.0-2.0) 04/02/18 03:38 VBG Potassium 4.8 mmol/L (3.6-5.2) 04/02/18 03:38 Sodium 141.0 mmol/L (132-148) 04/02/18 03:38 Chloride 109.0 mmol/L (98-107) H 04/02/18 03:38 Glucose 98 mg/dl (65-105) 04/02/18 03:38 Lactate 1.3 mmol/L (0.7-2.1) 04/02/18 03:38 FiO2 21.0 % 04/02/18 03:38 PT 11.6 SECONDS (9.4-12.5) 04/02/18 03:38 INR 1.05 04/02/18 03:38 APTT 30.9 Seconds (26.9-38.3) 04/02/18 03:38 Troponin I < 0.01 ng/mL 04/02/18 03:38 NT-Pro-B Natriuret Pep 78.5 pg/mL (0-450) 04/02/18 03:38 - RAD Interpretation Radiology Orders: 04/02/18 03:02 CHEST PORTABLE [RAD] Stat - Medication Orders Current Medication Orders: Discontinued Medications Albuterol/Ipratropium (Duoneb 3 Mg/0.5 Mg (3 Ml) Ud) 3 ml IH Q15M [id number] Stop: 04/02/18 03:46 Last Admin: 04/02/18 03:30 Dose: 3 ml Methylprednisolone (Solu-Medrol) 125 mg IVP STAT STA Stop: 04/02/18 03:03 Last Admin: 04/02/18 03:43 Dose: 125 mg IVP Administration Document 04/02/18 03:43 RD (Rec: 04/02/18 03:43 [place] [id number] Charges for Administration # of IVP Administrations 1 - Scribe Statement The provider has reviewed the documentation as recorded by the Scribe Bernard Talavera Provider Scribe Attestation: All medical record entries made by the Scribe were at my direction and personally dictated by me. I have reviewed the chart and agree that the record accurately reflects my personal performance of the history, physical exam, medical decision making, and the department course for this patient. I have also personally directed, reviewed, and agree with the discharge instructions and disposition. Disposition/Present on Arrival - Present on Arrival History of DVT/PE: No History of Uncontrolled Diabetes: No Urinary Catheter: No History of Decub. Ulcer: No History Surgical Site Infection Following: None - Disposition
--- NOTE | 2018-04-02 05:27 | CP.PCM.HP ---
<Pau Rodas - Last Filed: 04/02/18 07:03> History of Present Illness - History of Present Illness History of Present Illness: Resident History & Physical for Hospitalist Service Patient is a 57 year old female with past medical history of COPD, HIV, hepatitis C, breast cancer presenting with chief complaint of shortness of breath which began yesterday when she was resting. Patient states she used her breathing treatments with minimal relief. She admits to productive cough with occasional pink colored sputum. Patient also noted approximately four episodes of dark maroon spots in her stool. Patient denies any recent changes in diet or previous colonoscopies. Admits to nausea and chills. Denies fevers, chest pain, abdominal pain, diarrhea, dysuria. PMH: HIV (on antiretroviral therapy), hepatitis C, breast cancer 2006 (s/p chemo/radiation and left breast lumpectomy), COPD PSH: left breast lumpectomy 2007 SHx: 40 pack year smoking - has not smoked since 2007, denies alcohol use, previously smoked marijuana daily Allergies: NKDA PMD: Dr. Chris Lucas Present on Admission - Present on Admission Any Indicators Present on Admission: No Review of Systems - Review of Systems All systems: reviewed and no additional remarkable complaints except (as stated in HPI) Past Patient History - Infectious Disease Hx of Infectious Diseases: None - Tetanus Immunizations Tetanus Immunization: Unknown - Past Social History Smoking Status: Former Smoker - CARDIAC Hx Hypertension: No - PULMONARY Hx Respiratory Disorders: Yes Hx Asthma: Yes Hx Chronic Obstructive Pulmonary Disease (COPD): Yes Hx Emphysema: Yes - NEUROLOGICAL Hx Seizures: No - HEENT Hx HEENT Problems: No - RENAL Hx Chronic Kidney Disease: No - ENDOCRINE/METABOLIC Hx Endocrine Disorders: No - HEMATOLOGICAL/ONCOLOGICAL Hx Blood Disorders: Yes Hx Cancer: Yes (left breast) - INTEGUMENTARY Hx Dermatological Problems: No - MUSCULOSKELETAL/RHEUMATOLOGICAL Hx Musculoskeletal Disorders: No Hx Falls: No - GASTROINTESTINAL Hx Gastrointestinal Disorders: No - GENITOURINARY/GYNECOLOGICAL Hx Genitourinary Disorders: Yes Hx Sexually Transmitted Disorders: No Hx Urinary Tract Infection: Yes - PSYCHIATRIC Hx Psychophysiologic Disorder: Yes Hx Anxiety: Yes Hx Bipolar Disorder: No Hx Depression: No Hx Post Traumatic Stress Disorder: No Hx Schizophrenia: Yes Hx Substance Use: No (denies) - SURGICAL HISTORY Hx Breast Biopsy: Yes Hx Cholecystectomy: Yes Other/Comment: L breast lumpectomy. - ANESTHESIA Hx Anesthesia: Yes Hx Anesthesia Reactions: No Hx Malignant Hyperthermia: No Meds Allergies/Adverse Reactions: Allergies Allergy/AdvReac Type Severity Reaction Status Date / Time No Known Allergies Allergy Verified 04/01/18 23:57 Physical Exam - Constitutional Appears: Non-toxic, No Acute Distress - Head Exam Head Exam: ATRAUMATIC, NORMOCEPHALIC - Eye Exam Eye Exam: EOMI, Normal appearance, PERRL - ENT Exam ENT Exam: Mucous Membranes Moist - Neck Exam Neck exam: Positive for: Full Rom. Negative for: Lymphadenopathy - Respiratory Exam Respiratory Exam: Wheezes. absent: Accessory Muscle Use, Decreased Breath Sounds, Rhonchi, Respiratory Distress - Cardiovascular Exam Cardiovascular Exam: Tachycardia, REGULAR RHYTHM, +S1, +S2. absent: Systolic Murmur - GI/Abdominal Exam GI & Abdominal Exam: Normal Bowel Sounds, Soft. absent: Distended, Firm, Guard ing, Rebound, Rigid, Tenderness - Extremities Exam Extremities exam: Positive for: normal capillary refill, normal inspection. Negative for: pedal edema Additional comments: diminished pulses - Neurological Exam Neurological exam: Alert, CN II-XII Intact, Oriented x3 - Psychiatric Exam Psychiatric exam: Normal Affect, Normal Mood - Skin Skin Exam: Dry, Intact, Normal Color - Additional Findings Additional findings: Breast exam: no masses appreciated Results - Vital Signs Recent Vital Signs: Last Vital Signs Temp 97.6 F 04/02/18 00:02 Pulse 97 H 04/02/18 05:02 Resp 18 04/02/18 05:02 BP 102/65 04/02/18 05:02 Pulse Ox 94 L 04/02/18 05:02 - Labs Result Diagrams: 04/02/18 03:38 04/02/18 03:38 Labs: Laboratory Results - last 24 hr 04/02/18 04/02/18 04/02/18 03:38 03:38 03:38 WBC 5.4 D RBC 3.85 Hgb 11.7 L Hct 36.0 MCV 93.5 MCH 30.4 MCHC 32.5 RDW 13.7 Plt Count 170 MPV 10.8 Neut % (Auto) 55.4 Lymph % (Auto) 28.0 [place] % (Auto) 9.7 H Eos % (Auto) 6.5 H Baso % (Auto) 0.4 Lymph # (Auto) 1.5 [place] # (Auto) 0.5 Eos # (Auto) 0.4 Baso # (Auto) 0.02 Absolute Neuts (auto) 2.97 PT 11.6 INR 1.05 APTT 30.9 pO2 45 VBG pH 7.28 L VBG pCO2 63.0 H VBG HCO3 29.6 H VBG Total CO2 31.5 H VBG O2 Sat (Calc) 80.9 H VBG Base Excess 1.2 VBG Potassium 4.8 Sodium 141.0 Chloride 109.0 H Glucose 98 Lactate 1.3 FiO2 21.0 Potassium Carbon Dioxide Anion Gap BUN Creatinine Est GFR ( Amer) Est GFR (Non-Af Amer) Random Glucose Calcium Magnesium Lactate Dehydrogenase Total Creatine Kinase Troponin I NT-Pro-B Natriuret Pep Venous Blood Potassium 4.8 04/02/18 03:38 WBC RBC Hgb Hct MCV MCH MCHC RDW Plt Count MPV Neut % (Auto) Lymph % (Auto) [place] % (Auto) Eos % (Auto) Baso % (Auto) Lymph # (Auto) [place] # (Auto) Eos # (Auto) Baso # (Auto) Absolute Neuts (auto) PT INR APTT pO2 VBG pH VBG pCO2 VBG HCO3 VBG Total CO2 VBG O2 Sat (Calc) VBG Base Excess VBG Potassium Sodium 140 Chloride 107 Glucose Lactate FiO2 Potassium 4.5 Carbon Dioxide 29 Anion Gap 9 L BUN 25 H Creatinine 0.9 Est GFR ( Amer) > 60 Est GFR (Non-Af Amer) > 60 Random Glucose 97 Calcium 8.7 Magnesium 2.3 H Lactate Dehydrogenase 254 L Total Creatine Kinase 70 Troponin I < 0.01 NT-Pro-B Natriuret Pep 78.5 Venous Blood Potassium Assessment & Plan - Assessment and Plan (Free Text) Assessment: Patient is a 57 year old female with past medical history of COPD, HIV, hepatitis C, breast cancer admitted for workup and management of acute exacerbation of COPD and LGIB. Plan: Acute exacerbation of COPD - CXR unremarkable - VBG shows respiratory acidosis - Solu-medrol 125 mg given in ED - Duonebs Q6H MILENA/Q2H PRN - Solu-medrol 40 mg IV Q8 - Azithromycin 250 mg PO daily LGIB - hemodynamically stable - FOBT - GI consulted. Appreciate recs. HIV - CD4 count in August 2017 was 535 - continue home abacavir/dolutegravir/lamivduine PPX - SCDs, Protonix Case discussed with Dr. Javier Rodas PGY-1 - Date & Time Date: 04/02/18 Time: 05:27 <Glenis Herrera - Last Filed: 04/02/18 07:45> Results - Vital Signs Recent Vital Signs: Last Vital Signs Temp 97.6 F 04/02/18 00:02 Pulse 97 H 04/02/18 05:02 Resp 18 04/02/18 05:02 BP 102/65 04/02/18 05:02 Pulse Ox 94 L 04/02/18 05:02 - Labs Result Diagrams: 04/02/18 03:38 04/02/18 03:38 Labs: Laboratory Results - last 24 hr 04/02/18 04/02/18 04/02/18 03:38 03:38 03:38 WBC 5.4 D RBC 3.85 Hgb 11.7 L Hct 36.0 MCV 93.5 MCH 30.4 MCHC 32.5 RDW 13.7 Plt Count 170 MPV 10.8 Neut % (Auto) 55.4 Lymph % (Auto) 28.0 [place] % (Auto) 9.7 H Eos % (Auto) 6.5 H Baso % (Auto) 0.4 Lymph # (Auto) 1.5 [place] # (Auto) 0.5 Eos # (Auto) 0.4 Baso # (Auto) 0.02 Absolute Neuts (auto) 2.97 PT 11.6 INR 1.05 APTT 30.9 pO2 45 VBG pH 7.28 L VBG pCO2 63.0 H VBG HCO3 29.6 H VBG Total CO2 31.5 H VBG O2 Sat (Calc) 80.9 H VBG Base Excess 1.2 VBG Potassium 4.8 Sodium 141.0 Chloride 109.0 H Glucose 98 Lactate 1.3 FiO2 21.0 Potassium Carbon Dioxide Anion Gap BUN Creatinine Est GFR ( Amer) Est GFR (Non-Af Amer) Random Glucose Calcium Magnesium Lactate Dehydrogenase Total Creatine Kinase Troponin I NT-Pro-B Natriuret Pep Venous Blood Potassium 4.8 Influenza Typ A,B (EIA) 04/02/18 04/02/18 03:38 06:20 WBC RBC Hgb Hct MCV MCH MCHC RDW Plt Count MPV Neut % (Auto) Lymph % (Auto) [place] % (Auto) Eos % (Auto) Baso % (Auto) Lymph # (Auto) [place] # (Auto) Eos # (Auto) Baso # (Auto) Absolute Neuts (auto) PT INR APTT pO2 VBG pH VBG pCO2 VBG HCO3 VBG Total CO2 VBG O2 Sat (Calc) VBG Base Excess VBG Potassium Sodium 140 Chloride 107 Glucose Lactate FiO2 Potassium 4.5 Carbon Dioxide 29 Anion Gap 9 L BUN 25 H Creatinine 0.9 Est GFR ( Amer) > 60 Est GFR (Non-Af Amer) > 60 Random Glucose 97 Calcium 8.7 Magnesium 2.3 H Lactate Dehydrogenase 254 L Total Creatine Kinase 70 Troponin I < 0.01 NT-Pro-B Natriuret Pep 78.5 Venous Blood Potassium Influenza Typ A,B (EIA) Negative for flu a/b Attending/Attestation - Attestation I have personally seen and examined this patient.: Yes I have fully participated in the care of the patient.: Yes I have reviewed all pertinent clinical information: Yes Notes (Text): 04/02/18 07:42 Pt seen with the resident by the bedside. Case discussed in detail. Agree with documentation,assessment and orders placed. 04/02/18 07:45
[2018-04-02] MEDS ORDERED: Albuterol-Ipratrop 3 mg / 0.5 (3 ml) UD IH PRN (05:54)
[2018-04-02] MEDS ORDERED: guaiFENesin DM 100 mg-10 mg/5 ml UD PO PRN (05:54)
[2018-04-02] MEDS: Pantoprazole 40 mg EC Tab PO SCH (06:48)
[2018-04-02] MEDS: MethylPREDNISolone 40 mg Vial IVP SCH ×3 (07:04→22:08)
[2018-04-02] MEDS ORDERED: Albuterol-Ipratrop 3 mg / 0.5 (3 ml) UD IH SCH (08:00)
--- NOTE | 2018-04-02 09:40 | RAD ---
Date of service: 04/02/2018 HISTORY: cough COMPARISON: 03/26/2018 FINDINGS: LUNGS: No active pulmonary disease. PLEURA: No significant pleural effusion identified, no pneumothorax apparent. CARDIOVASCULAR: No aortic atherosclerotic calcification present. Normal cardiac size. There is vascular and interstitial congestion OSSEOUS STRUCTURES: No significant abnormalities. VISUALIZED UPPER ABDOMEN: Normal. OTHER FINDINGS: None. IMPRESSION: There is vascular and interstitial congestion
[2018-04-02] MEDS ORDERED: ABACAVIR PO SCH ×2 (10:00→11:05)
[2018-04-02] MEDS ORDERED: LAMIVUDI PO SCH ×2 (10:00→11:05)
[2018-04-02] MEDS ORDERED: DOLUTEGRAVIR PO SCH ×2 (10:00→11:05)
--- NOTE | 2018-04-02 10:35 | CP.PCM.CON ---
<Chetna Wahl - Last Filed: 04/02/18 10:36> History of Present Illness - History of Present Illness History of Present Illness: PGY5 Initial GI Consultation Note Rina Mathews is a 57F w/ hx of HIV, HCV, Breast Ca 2006 (s/p chemo/radiation), COPD who presents to ER with complaints of SOB and dark maroon spotting in BM. Pt states that for the last 1 week her SOB and coughing have worsened. She reports increased sputum production and nebulizer use. She denies any fever, chills or diaphoresis. She notes seeing a few drops of dark maroon stool and came to the ER for further evaluation. Pt denies any bright red blood per rectum. Denies any abd pain. She notes having a colonoscopy > 5 years ago and noted possible polyps, and she also noted an EGD at unknown location > 10 years prior. No further episodes of dark maroon stool since in the ER. PMH: HIV (on antiretroviral therapy), hepatitis C, breast cancer 2006 (s/p chemo/radiation and left breast lumpectomy), COPD PSH: left breast lumpectomy 2007 SHx: 40 pack year smoking - has not smoked since 2007, denies alcohol use, previously smoked marijuana daily Family hx: Brother hx of colon polyps, denies any colon ca hx or other GI mal ignancies Endo Hx: Colonoscopy > 5 years ago (she cannot recall location and exact findings, possible polyps), EGD > 10 years ago ROS: 12 point ROS conducted, neg other than above Past Patient History - Infectious Disease Hx of Infectious Diseases: None - Tetanus Immunizations Tetanus Immunization: Unknown - Past Social History Smoking Status: Former Smoker - CARDIAC Hx Hypertension: No - PULMONARY Hx Respiratory Disorders: Yes Hx Asthma: Yes Hx Chronic Obstructive Pulmonary Disease (COPD): Yes Hx Emphysema: Yes - NEUROLOGICAL Hx Seizures: No - HEENT Hx HEENT Problems: No - RENAL Hx Chronic Kidney Disease: No - ENDOCRINE/METABOLIC Hx Endocrine Disorders: No - HEMATOLOGICAL/ONCOLOGICAL Hx Blood Disorders: Yes Hx Cancer: Yes (left breast) - INTEGUMENTARY Hx Dermatological Problems: No - MUSCULOSKELETAL/RHEUMATOLOGICAL Hx Musculoskeletal Disorders: No Hx Falls: No - GASTROINTESTINAL Hx Gastrointestinal Disorders: No - GENITOURINARY/GYNECOLOGICAL Hx Genitourinary Disorders: Yes Hx Sexually Transmitted Disorders: No Hx Urinary Tract Infection: Yes - PSYCHIATRIC Hx Psychophysiologic Disorder: Yes Hx Anxiety: Yes Hx Bipolar Disorder: No Hx Depression: No Hx Post Traumatic Stress Disorder: No Hx Schizophrenia: Yes Hx Substance Use: No (denies) - SURGICAL HISTORY Hx Breast Biopsy: Yes Hx Cholecystectomy: Yes Other/Comment: L breast lumpectomy. - ANESTHESIA Hx Anesthesia: Yes Hx Anesthesia Reactions: No Hx Malignant Hyperthermia: No Meds Allergies/Adverse Reactions: Allergies Allergy/AdvReac Type Severity Reaction Status Date / Time No Known Allergies Allergy Verified 04/01/18 23:57 - Medications Medications: Current Medications Albuterol/Ipratropium (Duoneb 3 Mg/0.5 Mg (3 Ml) Ud) 3 ml IH Q2H PRN PRN Reason: Shortness of Breath Albuterol/Ipratropium (Duoneb 3 Mg/0.5 Mg (3 Ml) Ud) 3 ml IH [id number] [facility] Last Admin: 04/02/18 09:16 Dose: 3 ml Azithromycin (Zithromax) 250 mg PO DAILY [facility]; Protocol Stop: 04/06/18 10:01 Guaifenesin/Dextromethorphan (Robitussin Dm) 5 ml PO Q4H PRN PRN Reason: Cough Methylprednisolone (Solu-Medrol) 40 mg IVP Q8 [facility] Last Admin: 04/02/18 07:04 Dose: 40 mg Abacavir/Dolutegravir/Lamivudi [Triumeq 600-50-300 Mg Tablet ] (Home Med) 1 tab PO DAILY [facility] Pantoprazole Sodium (Protonix Ec Tab) 40 mg PO 0600 [facility] Last Admin: 04/02/18 06:48 Dose: 40 mg Physical Exam - Constitutional Appears: Well, No Acute Distress - Head Exam Head Exam: ATRAUMATIC, NORMOCEPHALIC - Eye Exam Eye Exam: Normal appearance - ENT Exam ENT Exam: Mucous Membranes Moist, Normal Exam - Neck Exam Neck exam: Positive for: Normal Inspection - Respiratory Exam Respiratory Exam: Clear to Auscultation Bilateral, NORMAL BREATHING PATTERN. absent: Rales, Rhonchi, Wheezes, Respiratory Distress - Cardiovascular Exam Cardiovascular Exam: REGULAR RHYTHM, +S1, +S2 - GI/Abdominal Exam GI & Abdominal Exam: Normal Bowel Sounds, Soft. absent: Diminished Bowel Sounds, Distended, Firm, Guarding, Organomegaly, Rebound, Rigid - Rectal Exam Rectal Exam: NORMAL INSPECTION. absent: Black Stool, Bloody Stool, Hemorrhoids, Fecal Impaction - Extremities Exam Extremities exam: Negative for: joint swelling, pedal edema - Neurological Exam Neurological exam: Alert, Oriented x3 - Psychiatric Exam Psychiatric exam: Normal Affect, Normal Mood - Skin Skin Exam: Dry, Intact, Normal Color, Warm Results - Vital Signs Recent Vital Signs: Last Vital Signs Temp 97.9 F 04/02/18 09:25 Pulse 78 04/02/18 09:25 Resp 17 04/02/18 09:25 BP 106/67 04/02/18 09:25 Pulse Ox 100 04/02/18 09:25 - Labs Result Diagrams: 04/02/18 03:38 04/02/18 03:38 Labs: Laboratory Results - last 24 hr 04/02/18 04/02/18 04/02/18 03:38 03:38 03:38 WBC 5.4 D RBC 3.85 Hgb 11.7 L Hct 36.0 MCV 93.5 MCH 30.4 MCHC 32.5 RDW 13.7 Plt Count 170 MPV 10.8 Neut % (Auto) 55.4 Lymph % (Auto) 28.0 [place] % (Auto) 9.7 H Eos % (Auto) 6.5 H Baso % (Auto) 0.4 Lymph # (Auto) 1.5 [place] # (Auto) 0.5 Eos # (Auto) 0.4 Baso # (Auto) 0.02 Absolute Neuts (auto) 2.97 PT 11.6 INR 1.05 APTT 30.9 pO2 45 VBG pH 7.28 L VBG pCO2 63.0 H VBG HCO3 29.6 H VBG Total CO2 31.5 H VBG O2 Sat (Calc) 80.9 H VBG Base Excess 1.2 VBG Potassium 4.8 Sodium 141.0 Chloride 109.0 H Glucose 98 Lactate 1.3 FiO2 21.0 Potassium Carbon Dioxide Anion Gap BUN Creatinine Est GFR ( Amer) Est GFR (Non-Af Amer) Random Glucose Calcium Magnesium Lactate Dehydrogenase Total Creatine Kinase Troponin I NT-Pro-B Natriuret Pep Venous Blood Potassium 4.8 Influenza Typ A,B (EIA) 04/02/18 04/02/18 03:38 06:20 WBC RBC Hgb Hct MCV MCH MCHC RDW Plt Count MPV Neut % (Auto) Lymph % (Auto) [place] % (Auto) Eos % (Auto) Baso % (Auto) Lymph # (Auto) [place] # (Auto) Eos # (Auto) Baso # (Auto) Absolute Neuts (auto) PT INR APTT pO2 VBG pH VBG pCO2 VBG HCO3 VBG Total CO2 VBG O2 Sat (Calc) VBG Base Excess VBG Potassium Sodium 140 Chloride 107 Glucose Lactate FiO2 Potassium 4.5 Carbon Dioxide 29 Anion Gap 9 L BUN 25 H Creatinine 0.9 Est GFR ( Amer) > 60 Est GFR (Non-Af Amer) > 60 Random Glucose 97 Calcium 8.7 Magnesium 2.3 H Lactate Dehydrogenase 254 L Total Creatine Kinase 70 Troponin I < 0.01 NT-Pro-B Natriuret Pep 78.5 Venous Blood Potassium Influenza Typ A,B (EIA) Negative for flu a/b Assessment & Plan - Assessment and Plan (Free Text) Assessment: Rina Mathews is a 57F w/ hx of HIV, HCV, Breast Ca 2006 (s/p chemo/radiation), COPD who presents to ER with complaints of SOB and dark maroon spotting in BM. Rectal bleeding?, rectal was neg and hgb at baseline COPD exacerbation Hx of polyps Family hx of polyps HIV Plan: -advance diet to clears for -protonix 40mg daily -will continue to monitor H/H -keep hgb > 7 -no indication of GI bleed, no indication for inpt endoscopic procedure -mainatin x2 IV assess Will D/W Dr. Sauceda <Kristofer Sauceda Y - Last Filed: 04/02/18 12:33> Meds - Medications Medications: Current Medications Albuterol/Ipratropium (Duoneb 3 Mg/0.5 Mg (3 Ml) Ud) 3 ml IH Q2H PRN PRN Reason: Shortness of Breath Albuterol/Ipratropium (Duoneb 3 Mg/0.5 Mg (3 Ml) Ud) 3 ml IH [id number] [facility] Last Admin: 04/02/18 09:16 Dose: 3 ml Azithromycin (Zithromax) 250 mg PO DAILY [facility]; Protocol Stop: 04/06/18 10:01 Guaifenesin/Dextromethorphan (Robitussin Dm) 5 ml PO Q4H PRN PRN Reason: Cough Methylprednisolone (Solu-Medrol) 40 mg IVP Q8 [facility] Last Admin: 04/02/18 07:04 Dose: 40 mg Abacavir/Dolutegravir/Lamivudi [Triumeq 600-50-300 Mg Tablet ] (Home Med) 1 tab PO DAILY [facility] Pantoprazole Sodium (Protonix Ec Tab) 40 mg PO 0600 [facility] Last Admin: 04/02/18 06:48 Dose: 40 mg Results - Vital Signs Recent Vital Signs: Last Vital Signs Temp 97.9 F 04/02/18 09:25 Pulse 78 04/02/18 09:25 Resp 18 04/02/18 10:27 BP 106/67 04/02/18 09:25 Pulse Ox 100 04/02/18 09:25 - Labs Result Diagrams: 04/02/18 03:38 04/02/18 03:38 Labs: Laboratory Results - last 24 hr 04/02/18 04/02/18 04/02/18 03:38 03:38 03:38 WBC 5.4 D RBC 3.85 Hgb 11.7 L Hct 36.0 MCV 93.5 MCH 30.4 MCHC 32.5 RDW 13.7 Plt Count 170 MPV 10.8 Neut % (Auto) 55.4 Lymph % (Auto) 28.0 [place] % (Auto) 9.7 H Eos % (Auto) 6.5 H Baso % (Auto) 0.4 Lymph # (Auto) 1.5 [place] # (Auto) 0.5 Eos # (Auto) 0.4 Baso # (Auto) 0.02 Absolute Neuts (auto) 2.97 PT 11.6 INR 1.05 APTT 30.9 pO2 45 VBG pH 7.28 L VBG pCO2 63.0 H VBG HCO3 29.6 H VBG Total CO2 31.5 H VBG O2 Sat (Calc) 80.9 H VBG Base Excess 1.2 VBG Potassium 4.8 Sodium 141.0 Chloride 109.0 H Glucose 98 Lactate 1.3 FiO2 21.0 Potassium Carbon Dioxide Anion Gap BUN Creatinine Est GFR ( Amer) Est GFR (Non-Af Amer) Random Glucose Calcium Magnesium Lactate Dehydrogenase Total Creatine Kinase Troponin I NT-Pro-B Natriuret Pep Venous Blood Potassium 4.8 Influenza Typ A,B (EIA) 04/02/18 04/02/18 03:38 06:20 WBC RBC Hgb Hct MCV MCH MCHC RDW Plt Count MPV Neut % (Auto) Lymph % (Auto) [place] % (Auto) Eos % (Auto) Baso % (Auto) Lymph # (Auto) [place] # (Auto) Eos # (Auto) Baso # (Auto) Absolute Neuts (auto) PT INR APTT pO2 VBG pH VBG pCO2 VBG HCO3 VBG Total CO2 VBG O2 Sat (Calc) VBG Base Excess VBG Potassium Sodium 140 Chloride 107 Glucose Lactate FiO2 Potassium 4.5 Carbon Dioxide 29 Anion Gap 9 L BUN 25 H Creatinine 0.9 Est GFR ( Amer) > 60 Est GFR (Non-Af Amer) > 60 Random Glucose 97 Calcium 8.7 Magnesium 2.3 H Lactate Dehydrogenase 254 L Total Creatine Kinase 70 Troponin I < 0.01 NT-Pro-B Natriuret Pep 78.5 Venous Blood Potassium Influenza Typ A,B (EIA) Negative for flu a/b Attending/Attestation - Attestation I have fully participated in the care of the patient.: Yes I have reviewed all pertinent clinical information: Yes Notes (Text): 04/02/18 12:30 HIV HCV COPD History of breast cancer Dyspnea Rectal bleeding - Advance diet as tolerated - H/H stable, continue to monitor - Rectal exam performed today did not show any blood in rectal vault, melena, or palpable lesions - COPD management (antibiotics, steroid therapy) as per medical team - Patient would benefit from additional endoscopic evaluation with colonoscopy given previous episode of rectal bleeding and prior personal history of colon polyps. This should be scheduled electively as outpatient following resolution of acute pulmonary issues. No further planned GI intervention, will sign off case. Please reconsult as necessary, thank you.
[2018-04-02 17:10] VITALS: O2SAT 94
[2018-04-02] MEDS ORDERED: Albuterol 0.083% Inhal Sol (2.5 mg/3 mL) UD INH PRN (18:00)
[2018-04-02] MEDS: Albuterol 0.083% Inhal Sol (2.5 mg/3 mL) UD INH SCH (21:16)
--- NOTE | 2018-04-02 23:22 | CARD ---
APPROVED REPORT Date of service: 04/02/2018 EKG Measurement Heart [id number] <Conclusion> Poor data quality, interpretation may be adversely affected Normal sinus rhythm Prolonged QT Abnormal ECG
[2018-04-03] MEDS: Albuterol 0.083% Inhal Sol (2.5 mg/3 mL) UD INH SCH ×3 (01:57→13:51)
[2018-04-03] MEDS: Pantoprazole 40 mg EC Tab PO SCH (05:57)
[2018-04-03 07:10] LABS: HEMOGLOBIN 12.1 g/dL (12.0-16.0); LYMPH # 0.8 (1.2-3.4); LYMPH % 7.4 % (22.0-35.0); MEAN CELL VOLUME 92.5 fl (80.0-105.0); MEAN CORPUSCULAR HEMOGLOBIN 30.2 pg (25.0-35.0); MEAN CORPUSCULAR HGB CONC 32.6 g/dl (31.0-37.0); MEAN PLATELET VOLUME 10.3 fl (7.0-11.0); MONO # 0.3 (0.1-0.6); RBC 4.01 10^6/uL (3.5-6.1); RED CELL DISTRIBUTION WIDTH 13.7 % (11.5-14.5); WHITE BLOOD COUNT 10.5 10^3/uL (4.5-11.0)
[2018-04-03 07:28] LABS: ALB/GLOB RATIO 1.1 (1.1-1.8); ALT/SGPT < 6 U/L (7-56); AST/SGOT 21 U/L (14-36); BLOOD UREA NITROGEN 21 mg/dL (7-21); CALCIUM 9.6 mg/dL (8.4-10.5); GFR NON-AFRICAN AMERICAN > 60
--- NOTE | 2018-04-03 09:01 | CT ---
Date of service: 04/02/2018 PROCEDURE: CT Chest without contrast HISTORY: copd, shortness of breath COMPARISON: 08/25/2017 TECHNIQUE: Contiguous axial images were obtained through the chest without intravenous contrast enhancement. Sagittal and coronal reconstructions were performed. Radiation dose: Total exam DLP = 156.23 mGy-cm. This CT exam was performed using one or more of the following dose reduction techniques: Automated exposure control, adjustment of the mA and/or kV according to patient size, and/or use of iterative reconstruction technique. FINDINGS: LUNGS: There is severe emphysema. There is some scarring in the lingular segment of the left upper lobe. There is no focal infiltrate or mass. MEDIASTINUM: Unremarkable thoracic aorta. No aneurysm. Normal sized heart. Main pulmonary artery unremarkable. No vascular congestion. No lymphadenopathy. No aortic atherosclerotic calcification. PLEURA: No pleural fluid. No pneumothorax. BONES: No fracture. No destructive lesion. UPPER ABDOMEN: Grossly unremarkable. OTHER FINDINGS: The report concurs with the preliminary [facility] report IMPRESSION: Severe emphysema. No acute pulmonary findings
[2018-04-03 09:06] VITALS: BP 91/62; PULSE 83; RESP 20; TEMP 98.5
[2018-04-03] MEDS ORDERED: Non Formulary Medication (Umeclidinium Bromide [Incruse Ellipta] 62.5 MCG) IH SCH ×2 (10:00)
[2018-04-03] MEDS ORDERED: Non Formulary Medication (Fluticasone/Vilanterol [Breo Ellipta 200-25 Mcg Inh] 1 EACH) IH SCH ×2 (10:00)
[2018-04-03] MEDS: MethylPREDNISolone 40 mg Vial IVP SCH (10:47)
--- NOTE | 2018-04-03 14:44 | CP.PCM.DIS ---
<Oc Gray - Last Filed: 04/03/18 16:03> Provider - Provider Date of Admission: 04/02/18 05:23 Attending physician: Margot Funes MD Primary care physician: Chris Lucas MD Consults: 04/02/18 14:18 Woodyard Operator [Case Management Referral] Routine Comment: Physician Instructions: Reason For Exam: Reason for Referral: Discharge Planning Time Spent in preparation of Discharge (in minutes): 40 Diagnosis - Discharge Diagnosis (1) COPD (chronic obstructive pulmonary disease) Status: Acute (2) Homeless Status: Chronic Hospital Course - Lab Results Lab Results: Micro Results 04/02/18 04:00 Blood-Venous Blood Culture - Preliminary NO GROWTH AFTER 24 HOURS 04/02/18 03:38 Blood-Venous Blood Culture - Preliminary NO GROWTH AFTER 24 HOURS Most Recent Lab Values WBC 10.5 10^3/uL (4.5-11.0) D 04/03/18 06:45 RBC 4.01 10^6/uL (3.5-6.1) 04/03/18 06:45 Hgb 12.1 g/dL (12.0-16.0) 04/03/18 06:45 Hct 37.1 % (36.0-48.0) 04/03/18 06:45 MCV 92.5 fl (80.0-105.0) 04/03/18 06:45 MCH 30.2 pg (25.0-35.0) 04/03/18 06:45 MCHC 32.6 g/dl (31.0-37.0) 04/03/18 06:45 RDW 13.7 % (11.5-14.5) 04/03/18 06:45 Plt Count 183 10^3/uL (120.0-450.0) 04/03/18 06:45 MPV 10.3 fl (7.0-11.0) 04/03/18 06:45 Neut % (Auto) 89.6 % (50.0-68.0) H 04/03/18 06:45 Lymph % (Auto) 7.4 % (22.0-35.0) L 04/03/18 06:45 [place] % (Auto) 3.0 % (1.0-6.0) 04/03/18 06:45 Eos % (Auto) 0.0 % (1.5-5.0) L 04/03/18 06:45 Baso % (Auto) 0.0 % (0.0-3.0) 04/03/18 06:45 Lymph # (Auto) 0.8 (1.2-3.4) L 04/03/18 06:45 [place] # (Auto) 0.3 (0.1-0.6) 04/03/18 06:45 Eos # (Auto) 0.0 (0.0-0.7) 04/03/18 06:45 Baso # (Auto) 0.00 K/mm3 (0.0-2.0) 04/03/18 06:45 Absolute Neuts (auto) 9.38 (1.4-6.5) H 04/03/18 06:45 PT 11.6 SECONDS (9.4-12.5) 04/02/18 03:38 INR 1.05 04/02/18 03:38 APTT 30.9 Seconds (26.9-38.3) 04/02/18 03:38 pO2 45 mm/Hg (30-55) 04/02/18 03:38 VBG pH 7.28 (7.32-7.43) L 04/02/18 03:38 VBG pCO2 63.0 (40-60) H 04/02/18 03:38 VBG HCO3 29.6 mmol/l (21-28) H 04/02/18 03:38 VBG Total CO2 31.5 mmol.L (22-28) H 04/02/18 03:38 VBG O2 Sat (Calc) 80.9 % (40-65) H 04/02/18 03:38 VBG Base Excess 1.2 mmol/L (0.0-2.0) 04/02/18 03:38 VBG Potassium 4.8 mmol/L (3.6-5.2) 04/02/18 03:38 Sodium 141.0 mmol/L (132-148) 04/02/18 03:38 Chloride 109.0 mmol/L (98-107) H 04/02/18 03:38 Glucose 98 mg/dl (65-105) 04/02/18 03:38 Lactate 1.3 mmol/L (0.7-2.1) 04/02/18 03:38 FiO2 21.0 % 04/02/18 03:38 Sodium 142 mmol/L (132-148) 04/03/18 06:45 Potassium 5.5 mmol/L (3.6-5.0) H 04/03/18 06:45 Chloride 107 mmol/L (98-107) 04/03/18 06:45 Carbon Dioxide 28 mmol/L (21-33) 04/03/18 06:45 Anion Gap 13 (10-20) 04/03/18 06:45 BUN 21 mg/dL (7-21) 04/03/18 06:45 Creatinine 0.8 mg/dl (0.7-1.2) 04/03/18 06:45 Est GFR ( Amer) > 60 04/03/18 06:45 Est GFR (Non-Af Amer) > 60 04/03/18 06:45 Random Glucose 133 mg/dL (70-110) H 04/03/18 06:45 Calcium 9.6 mg/dL (8.4-10.5) 04/03/18 06:45 Phosphorus 4.3 mg/dL (2.5-4.5) 04/03/18 06:45 Magnesium 2.4 mg/dL (1.7-2.2) H 04/03/18 06:45 Total Bilirubin 0.4 mg/dL (0.2-1.3) 04/03/18 06:45 AST 21 U/L (14-36) 04/03/18 06:45 ALT < 6 U/L (7-56) L 04/03/18 06:45 Alkaline Phosphatase 71 U/L (38-126) 04/03/18 06:45 Lactate Dehydrogenase 254 U/L (333-699) L 04/02/18 03:38 Total Creatine Kinase 70 U/L (35-230) 04/02/18 03:38 Troponin I < 0.01 ng/mL 04/02/18 03:38 NT-Pro-B Natriuret Pep 78.5 pg/mL (0-450) 04/02/18 03:38 Total Protein 7.6 g/dL (5.8-8.3) 04/03/18 06:45 Albumin 4.0 g/dL (3.0-4.8) 04/03/18 06:45 Globulin 3.5 gm/dL 04/03/18 06:45 Albumin/Globulin Ratio 1.1 (1.1-1.8) 04/03/18 06:45 Venous Blood Potassium 4.8 mmol/L (3.6-5.2) 04/02/18 03:38 Influenza Typ A,B (EIA) Negative for flu a/b (NEGATIVE) 04/02/18 06:20 - Hospital Course Hospital Course: Oc Gray DO, PGY-1 Hospitalist Discharge Summary for Dr. Funes Prior to admission: Rina is a 57 year old female with PMH of COPD, HIV, hepatitis C, and breast cancer presented to [facility] with a chief complaint of shortness of breath which began a day prior while she was resting. She tried using her breathing treatments with minimal relief. She admitted to productive cough with occasional pink colored sputum at the time. She also noted approximately four episodes of dark maroon spots in her stool. She was subsequently admitted for exacerbation of COPD and GI evaluation to rule out GIB. Hospitalization course: Patient was treated for COPD exacerbation with solumedrol 40 mg IVP q8h initially. However, she refused the initial dose of IV solumedrol and only got 2 total doses while admitted. Patient was informed after refusal that she likely did not need to stay if she refused IV medications. Patient was agreeable to additional dose of IV solumedrol. She was also treated with scheduled and PRN duo-neb treatments. Her breathing continued to improve throughout admission. Arrangements were made for her discharge this AM. Patient was examined this AM and was noted to have hyperkalemia. Patient was scheduled to receive repeat blood work after a dose of kayexalate. However, patient signed out against medical advice prior to this blood work. Patient seen, examined, and discharge plan discussed with my attending Dr. Marin Gray D.O. IM Resident PGY-1 Discharge Exam - Head Exam Head Exam: ATRAUMATIC, NORMOCEPHALIC - Eye Exam Eye Exam: EOMI, PERRL - ENT Exam ENT Exam: Mucous Membranes Moist - Neck Exam Neck exam: Full Rom, Normal Inspection - Respiratory Exam Respiratory Exam: Clear to PA & Lateral, UNREMARKABLE. absent: Accessory Muscle Use, Rales, Rhonchi, Wheezes, Respiratory Distress - Cardiovascular Exam Cardiovascular Exam: REGULAR RHYTHM, RRR, +S1, +S2. absent: Diastolic murmur, Gallop, Rubs, Systolic Murmur - GI/Abdominal Exam GI & Abdominal Exam: Normal Bowel Sounds, Soft, Unremarkable. absent: Tendern ess - Extremities Exam Extremities exam: full ROM, normal inspection - Back Exam Back exam: NORMAL INSPECTION - Neurological Exam Neurological exam: Alert, Oriented x3 - Psychiatric Exam Psychiatric exam: Normal Affect, Normal Mood - Skin Skin Exam: Dry, Intact, Warm Discharge Plan - Discharge Medications Prescriptions: Azithromycin [Zithromax] 250 mg PO DAILY 3 Days #3 tab - Follow Up Plan Condition: GOOD Disposition: AGAINST MEDICAL ADVICE Instructions: Exacerbation of COPD (DC) Additional Instructions: Follow up with primary care doctor within 3-5 days of discharge. Follow up with GI within 1 week for further evaluation to get upper endoscopy. We have given you Dr. Sauceda's contact information in your paperwork. However, you may call your insurance and see and GI doctor of your choosing. We have given you a prescription for the antibiotic you have been taking in the hospital, zithromax. Please take this daily for 3 more days after discharge. If any of symptoms return or worsen, please return to nearest ED. Referrals: Kristofer Sauceda MD [Staff Provider] - Chris Lucas MD [Primary Care Provider] - <Margot Funes - Last Filed: 04/05/18 18:22> Provider - Provider Date of Admission: 04/02/18 05:23 Attending physician: Margot Funes MD Primary care physician: Chris Lucas MD Consults: 04/02/18 14:18 Woodyard Operator [Case Management Referral] Routine Comment: Physician Instructions: Reason For Exam: Reason for Referral: Discharge Planning Hospital Course - Lab Results Lab Results: Micro Results 04/02/18 04:00 Blood-Venous Blood Culture - Preliminary NO GROWTH AFTER 3 DAYS 04/02/18 03:38 Blood-Venous Blood Culture - Preliminary NO GROWTH AFTER 3 DAYS Most Recent Lab Values WBC 10.5 10^3/uL (4.5-11.0) D 04/03/18 06:45 RBC 4.01 10^6/uL (3.5-6.1) 04/03/18 06:45 Hgb 12.1 g/dL (12.0-16.0) 04/03/18 06:45 Hct 37.1 % (36.0-48.0) 04/03/18 06:45 MCV 92.5 fl (80.0-105.0) 04/03/18 06:45 MCH 30.2 pg (25.0-35.0) 04/03/18 06:45 MCHC 32.6 g/dl (31.0-37.0) 04/03/18 06:45 RDW 13.7 % (11.5-14.5) 04/03/18 06:45 Plt Count 183 10^3/uL (120.0-450.0) 04/03/18 06:45 MPV 10.3 fl (7.0-11.0) 04/03/18 06:45 Neut % (Auto) 89.6 % (50.0-68.0) H 04/03/18 06:45 Lymph % (Auto) 7.4 % (22.0-35.0) L 04/03/18 06:45 [place] % (Auto) 3.0 % (1.0-6.0) 04/03/18 06:45 Eos % (Auto) 0.0 % (1.5-5.0) L 04/03/18 06:45 Baso % (Auto) 0.0 % (0.0-3.0) 04/03/18 06:45 Lymph # (Auto) 0.8 (1.2-3.4) L 04/03/18 06:45 [place] # (Auto) 0.3 (0.1-0.6) 04/03/18 06:45 Eos # (Auto) 0.0 (0.0-0.7) 04/03/18 06:45 Baso # (Auto) 0.00 K/mm3 (0.0-2.0) 04/03/18 06:45 Absolute Neuts (auto) 9.38 (1.4-6.5) H 04/03/18 06:45 PT 11.6 SECONDS (9.4-12.5) 04/02/18 03:38 INR 1.05 04/02/18 03:38 APTT 30.9 Seconds (26.9-38.3) 04/02/18 03:38 pO2 45 mm/Hg (30-55) 04/02/18 03:38 VBG pH 7.28 (7.32-7.43) L 04/02/18 03:38 VBG pCO2 63.0 (40-60) H 04/02/18 03:38 VBG HCO3 29.6 mmol/l (21-28) H 04/02/18 03:38 VBG Total CO2 31.5 mmol.L (22-28) H 04/02/18 03:38 VBG O2 Sat (Calc) 80.9 % (40-65) H 04/02/18 03:38 VBG Base Excess 1.2 mmol/L (0.0-2.0) 04/02/18 03:38 VBG Potassium 4.8 mmol/L (3.6-5.2) 04/02/18 03:38 Sodium 141.0 mmol/L (132-148) 04/02/18 03:38 Chloride 109.0 mmol/L (98-107) H 04/02/18 03:38 Glucose 98 mg/dl (65-105) 04/02/18 03:38 Lactate 1.3 mmol/L (0.7-2.1) 04/02/18 03:38 FiO2 21.0 % 04/02/18 03:38 Sodium 142 mmol/L (132-148) 04/03/18 06:45 Potassium 5.5 mmol/L (3.6-5.0) H 04/03/18 06:45 Chloride 107 mmol/L (98-107) 04/03/18 06:45 Carbon Dioxide 28 mmol/L (21-33) 04/03/18 06:45 Anion Gap 13 (10-20) 04/03/18 06:45 BUN 21 mg/dL (7-21) 04/03/18 06:45 Creatinine 0.8 mg/dl (0.7-1.2) 04/03/18 06:45 Est GFR ( Amer) > 60 04/03/18 06:45 Est GFR (Non-Af Amer) > 60 04/03/18 06:45 Random Glucose 133 mg/dL (70-110) H 04/03/18 06:45 Calcium 9.6 mg/dL (8.4-10.5) 04/03/18 06:45 Phosphorus 4.3 mg/dL (2.5-4.5) 04/03/18 06:45 Magnesium 2.4 mg/dL (1.7-2.2) H 04/03/18 06:45 Total Bilirubin 0.4 mg/dL (0.2-1.3) 04/03/18 06:45 AST 21 U/L (14-36) 04/03/18 06:45 ALT < 6 U/L (7-56) L 04/03/18 06:45 Alkaline Phosphatase 71 U/L (38-126) 04/03/18 06:45 Lactate Dehydrogenase 254 U/L (333-699) L 04/02/18 03:38 Total Creatine Kinase 70 U/L (35-230) 04/02/18 03:38 Troponin I < 0.01 ng/mL 04/02/18 03:38 NT-Pro-B Natriuret Pep 78.5 pg/mL (0-450) 04/02/18 03:38 Total Protein 7.6 g/dL (5.8-8.3) 04/03/18 06:45 Albumin 4.0 g/dL (3.0-4.8) 04/03/18 06:45 Globulin 3.5 gm/dL 04/03/18 06:45 Albumin/Globulin Ratio 1.1 (1.1-1.8) 04/03/18 06:45 Venous Blood Potassium 4.8 mmol/L (3.6-5.2) 04/02/18 03:38 Influenza Typ A,B (EIA) Negative for flu a/b (NEGATIVE) 04/02/18 06:20 Attending/Attestation - Attestation I have personally seen and examined this patient.: Yes I have fully participated in the care of the patient.: Yes I have reviewed all pertinent clinical information, including history, physical exam and plan: Yes Notes (Text): 04/05/18 18:17 Attending note; Patient seen and examined with resident. Patient is alert and awake. Not in any acute distress Denies any fevers, chills denies any nausea, vomiting. Denies any cough or sputum production. Patient was upset stating that her emphysema is due to fumes and chemical exposure are not secondary to smoking. Off oxygen. 1. acute COPD exacerbation; CAT scan showed significant emphysema of both upper lobes. Currently not needing oxygen. Continue DuoNeb Advised to follow-up with pulmonary as outpatient. Patient needs outpatient PFT. Treated with solumedrol 40 mg IVP q8h initially. reFused further treatment for COPD. 2. Hyperkalemia; patient refused Kayexalate. 3. Anxiety depression; patient advised psychiatric evaluation. refused. patient signed out against medical advice prior to this blood work. Signed out AGAINST MEDICAL ADVICE.
== END 2018-04-03 13:51 | disposition left against medical advice (07) ==
LOC: ED 23:47 → INTOOBSV 04-02 05:23 → ERH 04-02 05:23 → 3RSO 04-02 10:29
PROVIDERS: ADMIT Internal Medicine; ATTEND Internal Medicine
DX: J44.1 Chronic obstructive pulmonary disease with (acute) exacerbation (principal); E87.5 Hyperkalemia; F20.9 Schizophrenia, unspecified; Z59.0 Homelessness; Z85.3 Personal history of malignant neoplasm of breast; Z86.010 Personal history of colon polyps; Z87.440 Personal history of urinary (tract) infections; Z87.891 Personal history of nicotine dependence; Z90.49 Acquired absence of other specified parts of digestive tract; Z92.21 Personal history of antineoplastic chemotherapy; Z92.3 Personal history of irradiation; F12.11 Cannabis abuse, in remission; Z77.098 Contact with and (suspected) exposure to other hazardous, chiefly nonmedicinal, chemicals
CPT/HCPCS: 36415; 71045; 71250; 80048; 80053; 82550; 82803; 83615; 83735; 83880; 84100; 84484; 85025; 85610; 85730; 87040; 87804; 93005; 94150; 94640; 94760; 96374; 97116; 97161; 99285; G0378; G8978; G8979; G8980; J2920; J2930

== ENCOUNTER 2018-04-17 01:38 | Emergency (ER) | payer OTHER ==
[2018-04-17 01:38] VITALS: BMI 17.9
[2018-04-17 02:18] VITALS: O2SAT 96
[2018-04-17] MEDS ORDERED: Albuterol-Ipratrop 3 mg / 0.5 (3 ml) UD IH STA (02:23)
[2018-04-17] MEDS ORDERED: Albuterol-Ipratrop 3 mg / 0.5 (3 ml) UD ONE (02:29)
--- NOTE | 2018-04-17 02:31 | ED PDOC ---
Arrival/HPI - General Chief Complaint: Cough, Cold, Congestion Time Seen by Provider: 04/17/18 01:46 Historian: Patient - History of Present Illness Narrative History of Present Illness (Text): 04/17/18 02:25 57 year old female, whose past medical history includes COPD, HIV, hepatitis C, breast cancer, who presents to the Emergency department complaining of cough since last night. Patient reports that she has been experiencing symptoms "for a while", but believes it has been exacerbated with the cold weather. Patient also reports using her inhaler pump at home, with minimal relief. Patient denies any fever, chills, vomiting, nausea, headaches, dizziness, chest pain or any other complaints. Time/Duration: 24 hours Symptom Onset: Gradual Symptom Course: Unchanged Activities at Onset: Light Context: Home Past Medical History - Provider Review Nursing Documentation Reviewed: Yes - Infectious Disease Hx of Infectious Diseases: None - Tetanus Immunization Tetanus Immunization: Unknown - Past Medical History Past Medical History: Unable to Obtain - Cardiac Hx Hypertension: No - Pulmonary Hx Respiratory Disorders: Yes Hx Asthma: Yes Hx Chronic Obstructive Pulmonary Disease (COPD): Yes Hx Emphysema: Yes - Neurological Hx Seizures: No - HEENT Hx HEENT Disorder: No - Renal Hx Renal Disorder: No - Endocrine/Metabolic Hx Endocrine Disorders: No - Hematological/Oncological Hx Blood Disorders: Yes Hx Cancer: Yes (left breast) - Integumentary Hx Dermatological Disorder: No - Musculoskeletal/Rheumatological Hx Musculoskeletal Disorders: No Hx Falls: No - Gastrointestinal Hx Gastrointestinal Disorders: No - Genitourinary/Gynecological Hx Genitourinary Disorders: Yes Hx Sexually Transmitted Diseases: No Hx Urinary Tract Infection: Yes - Psychiatric Hx Psychophysiologic Disorder: Yes Hx Anxiety: Yes Hx Bipolar Disorder: No Hx Depression: No Hx Post Traumatic Stress Disorder: No Hx Schizophrenia: Yes Hx Substance Use: No (denies) - Past Surgical History Past Surgical History: Unable to Obtain - Surgical History Hx Breast Biopsy: Yes Hx Cholecystectomy: Yes Other/Comment: L breast lumpectomy. - Anesthesia Hx Anesthesia: Yes Hx Anesthesia Reactions: No Hx Malignant Hyperthermia: No - Suicidal Assessment Feels Threatened In Home Enviroment: No Family/Social History - Physician Review Nursing Documentation Reviewed: Yes Family/Social History: Unknown Family HX Smoking Status: Former Smoker Hx Alcohol Use: No (denies) Hx Substance Use: No (denies) Substance used: marijuana Hx Substance Use Treatment: No Allergies/Home Meds Allergies/Adverse Reactions: Allergies No Known Allergies Allergy (Verified 04/01/18 23:57) Home Medications: Home Meds Medication Instructions Recorded Confirmed Abacavir/Dolutegravir/Lamivudi 1 tab PO DAILY 12/27/17 04/02/18 [Triumeq 600-50-300 mg Tablet] Fluticasone/Vilanterol [Breo 1 each IH DAILY 04/02/18 04/02/18 Ellipta 200-25 Mcg INH] Montelukast Sodium [Singulair] 10 mg PO DAILY 04/02/18 04/02/18 Pantoprazole Sodium [Protonix] 20 mg PO DAILY 04/02/18 04/02/18 Umeclidinium Herman [Incruse 62.5 mcg IH DAILY 04/02/18 04/02/18 Ellipta] Review of Systems - Physician Review All systems were reviewed & negative as marked: Yes - Review of Systems Constitutional: absent: Fevers Respiratory: Cough. absent: SOB Cardiovascular: ENRIQUEZ. absent: Chest Pain Gastrointestinal: absent: Nausea, Vomiting Musculoskeletal: absent: Back Pain, Neck Pain Neurological: absent: Headache, Dizziness Physical Exam Vital Signs Reviewed: Yes Vital Signs Temp Pulse Resp BP Pulse Ox 04/17/18 02:16 97.5 F L 80 18 127/71 96 Temperature: Afebrile Blood Pressure: Normal Pulse: Regular Respiratory Rate: Normal Appearance: Positive for: Well-Appearing Pain Distress: None Mental Status: Positive for: Alert and Oriented X 3 - Systems Exam Head: Present: Atraumatic, Normocephalic Pupils: Present: PERRL Extroacular Muscles: Present: EOMI Conjunctiva: Present: Normal Mouth: Present: Moist Mucous Membranes Neck: Present: Normal Range of Motion Respiratory/Chest: Present: Decreased Breath Sounds (slightly decreased breath sounds bilaterally). No: Respiratory Distress, Accessory Muscle Use Cardiovascular: Present: Regular Rate and Rhythm, Normal S1, S2. No: Murmurs Abdomen: No: Tenderness, Distention, Peritoneal Signs Back: Present: Normal Inspection Upper Extremity: Present: Normal Inspection. No: Cyanosis, Edema Lower Extremity: Present: Normal Inspection. No: Edema Neurological: Present: GCS=15, CN II-XII Intact, Speech Normal Skin: Present: Warm, Dry, Normal Color. No: Rashes Psychiatric: Present: Alert, Oriented x 3, Normal Insight, Normal Concentration Medical Decision Making ED Course and Treatment: 04/17/18 02:32 Impression: 57 year old female presents to the Emergency department complaining of cough since last night. Plan: -- Chest X-ray -- Albuterol -- Reassess and disposition Prior Visits: Notes and results from previous visits were reviewed. Progress Notes: 04/17/18 03:34 Chest X-ray reviewed, shows hyper inflated lung pepper, no acute processes. - RAD Interpretation Radiology Orders: 04/17/18 02:23 CHEST PORTABLE [RAD] Stat Vacuum Kettle Cook: ED Physician - Medication Orders Current Medication Orders: Discontinued Medications Albuterol/Ipratropium (Duoneb 3 Mg/0.5 Mg (3 Ml) Ud) 3 ml IH ONCE STA Stop: 04/17/18 02:24 - Scribe Statement The provider has reviewed the documentation as recorded by the Scribe Александр Phipps, training with Sade Singletary. Provider Scribe Attestation: All medical record entries made by the Scribe were at my direction and personally dictated by me. I have reviewed the chart and agree that the record accurately reflects my personal performance of the history, physical exam, medical decision making, and the department course for this patient. I have also personally directed, reviewed, and agree with the discharge instructions and disposition. Disposition/Present on Arrival - Present on Arrival Any Indicators Present on Arrival: No History of DVT/PE: No History of Uncontrolled Diabetes: No Urinary Catheter: No History of Decub. Ulcer: No History Surgical Site Infection Following: None - Disposition Have Diagnosis and Disposition been Completed?: Yes Diagnosis: COPD (chronic obstructive pulmonary disease), Bronchitis Disposition: HOME/ ROUTINE Disposition Time: 04:22 Patient Plan: Discharge Condition: STABLE Discharge Instructions (ExitCare): Acute Bronchitis, Adult (DC), COPD Including Emphysema (DC) Additional Instructions: Take meds as prescribed/follow up with your doctor this week Prescriptions: Benzonatate [Tessalon Perles] 100 mg PO TID PRN #21 sgl PRN Reason: Cough Azithromycin [Zithromax] 250 mg PO DAILY #6 tab Referrals: Chris Lucas MD [Primary Care Provider] - Follow up with primary Forms: [employer] (Greek)
[2018-04-17 05:32] VITALS: BP 105/72; PULSE 75; RESP 17; TEMP 98.1
--- NOTE | 2018-04-17 07:44 | RAD ---
Date of service: 04/17/2018 HISTORY: cough COMPARISON: Portable chest 04/02/2018 3:53 a.m.. FINDINGS: LUNGS: No acute airspace disease bilaterally. Extensive COPD changes reiterated including biapical hyperlucency and diffuse interstitial pulmonary disease on a chronic basis. PLEURA: No significant pleural effusion identified, no pneumothorax apparent. CARDIOVASCULAR: No aortic atherosclerotic calcification present. Normal cardiac size. No pulmonary vascular congestion. OSSEOUS STRUCTURES: No significant abnormalities. VISUALIZED UPPER ABDOMEN: Normal. OTHER FINDINGS: None. IMPRESSION: Stable COPD. No acute infiltrates bilaterally. No pulmonary vascular congestion.
== END 2018-04-17 05:31 | disposition home or self-care (01) ==
LOC: ED 01:38
DX: J44.9 Chronic obstructive pulmonary disease, unspecified (principal); J40 Bronchitis, not specified as acute or chronic; F20.9 Schizophrenia, unspecified; Z85.3 Personal history of malignant neoplasm of breast; Z87.891 Personal history of nicotine dependence; Z21 Asymptomatic human immunodeficiency virus [HIV] infection status

== ENCOUNTER 2018-04-19 00:40 | Emergency (ER) | payer OTHER ==
[2018-04-19 00:41] VITALS: BMI 17.9
[2018-04-19] MEDS ORDERED: Albuterol-Ipratrop 3 mg / 0.5 (3 ml) UD IH STA (01:07)
--- NOTE | 2018-04-19 01:08 | ED PDOC ---
Arrival/HPI - General Chief Complaint: Back Pain Time Seen by Provider: 04/19/18 00:44 - History of Present Illness Narrative History of Present Illness (Text): 04/19/18 01:04 A 57 year old female, whose past medical history includes COPD, HIV, hepatitis C, breast cancer, presents to the emergency department complaining of shortness of breath for the past few days which is same as her previous COPD. Patient reports experiencing associated wheezing and states her symptoms are getting worse. Patient denies any chest pain, headache, or any other complaints. PMD: Dr. Lucas, Dr. Lagos Time/Duration: Other (a few days) Symptom Onset: Gradual Symptom Course: Unchanged Activities at Onset: Light Past Medical History - Provider Review Nursing Documentation Reviewed: Yes - Infectious Disease Hx of Infectious Diseases: None - Tetanus Immunization Tetanus Immunization: Unknown - Reproductive Menopause: Yes - Past Medical History Past Medical History: Unable to Obtain - Cardiac Hx Hypertension: No - Pulmonary Hx Respiratory Disorders: Yes Hx Asthma: Yes Hx Chronic Obstructive Pulmonary Disease (COPD): Yes Hx Emphysema: Yes - Neurological Hx Seizures: No - HEENT Hx HEENT Disorder: No - Renal Hx Renal Disorder: No - Endocrine/Metabolic Hx Endocrine Disorders: No - Hematological/Oncological Hx Blood Disorders: Yes Hx Cancer: Yes (left breast) - Integumentary Hx Dermatological Disorder: No - Musculoskeletal/Rheumatological Hx Musculoskeletal Disorders: No Hx Falls: No - Gastrointestinal Hx Gastrointestinal Disorders: No - Genitourinary/Gynecological Hx Genitourinary Disorders: Yes Hx Sexually Transmitted Diseases: No Hx Urinary Tract Infection: Yes - Psychiatric Hx Psychophysiologic Disorder: Yes Hx Anxiety: Yes Hx Bipolar Disorder: No Hx Depression: No Hx Post Traumatic Stress Disorder: No Hx Schizophrenia: Yes Hx Substance Use: No (denies) - Past Surgical History Past Surgical History: Unable to Obtain - Surgical History Hx Breast Biopsy: Yes Hx Cholecystectomy: Yes Other/Comment: L breast lumpectomy. - Anesthesia Hx Anesthesia: Yes Hx Anesthesia Reactions: No Hx Malignant Hyperthermia: No - Suicidal Assessment Feels Threatened In Home Enviroment: No Family/Social History - Physician Review Nursing Documentation Reviewed: Yes Family/Social History: No Known Family HX Smoking Status: Former Smoker Hx Alcohol Use: No (denies) Hx Substance Use: No (denies) Substance used: marijuana Hx Substance Use Treatment: No Allergies/Home Meds Allergies/Adverse Reactions: Allergies No Known Allergies Allergy (Verified 04/19/18 01:03) Home Medications: Home Meds Medication Instructions Recorded Confirmed Abacavir/Dolutegravir/Lamivudi 1 tab PO DAILY 12/27/17 04/02/18 [Triumeq 600-50-300 mg Tablet] Fluticasone/Vilanterol [Breo 1 each IH DAILY 04/02/18 04/02/18 Ellipta 200-25 Mcg INH] Montelukast Sodium [Singulair] 10 mg PO DAILY 04/02/18 04/02/18 Pantoprazole Sodium [Protonix] 20 mg PO DAILY 04/02/18 04/02/18 Umeclidinium [place] [Incruse 62.5 mcg IH DAILY 04/02/18 04/02/18 Ellipta] Review of Systems - Physician Review All systems were reviewed & negative as marked: Yes - Review of Systems Cardiovascular: absent: Chest Pain Neurological: absent: Headache Physical Exam - Physical Exam Narrative Physical Exam (Text): 04/19/18 01:05 Constitutional: No acute distress. Head: Normocephalic. Atraumatic. Eyes: PERRL. ENT: Moist mucous membranes. Neck: Supple. Cardiovascular: Regular rate. Chest: No tenderness. Respiratory: Bilateral wheezing, speaking in full sentences. GI: Soft. Nontender. Nondistended. Back: No CVA tenderness. Musculoskeletal: No tenderness or swelling of extremities. Skin: No rash. Neurologic: Alert, no focal deficit. Vital Signs Reviewed: Yes Blood Pressure: Normal Pulse: Regular Respiratory Rate: Normal Medical Decision Making ED Course and Treatment: 04/19/18 01:05 Impression: 57 year old male presenting to the ER complaining of shortness of breath. Plan: -- Chest X-ray -- Duoneb -- Prednisone -- Reassess and disposition Prior Visits: Notes and results from previous visits were reviewed. Progress Notes: Patient refused CXR. States she feels much better and wishes to be discharged. - Scribe Statement The provider has reviewed the documentation as recorded by the Lucina Lofton All medical record entries made by the Scribe were at my direction and personally dictated by me. I have reviewed the chart and agree that the record accurately reflects my personal performance of the history, physical exam, medical decision making, and the department course for this patient. I have also personally directed, reviewed, and agree with the discharge instructions and disposition. Disposition/Present on Arrival - Present on Arrival Any Indicators Present on Arrival: No History of DVT/PE: No History of Uncontrolled Diabetes: No Urinary Catheter: No History of Decub. Ulcer: No History Surgical Site Infection Following: None - Disposition Have Diagnosis and Disposition been Completed?: Yes Diagnosis: COPD (chronic obstructive pulmonary disease) Disposition: HOME/ ROUTINE Disposition Time: 01:08 Patient Plan: Discharge Patient Problems: Current Active Problems Problem Status Onset COPD (chronic obstructive pulmonary disease) Acute Condition: GOOD Discharge Instructions (ExitCare): Chronic Obstructive Pulmonary Disease (COPD), Including Emphysema Prescriptions: Albuterol HFA [Ventolin HFA 90 mcg/actuation (8 g)] 2 puff IH Q6 #1 inhaler Prednisone [Deltasone] 3 tab PO DAILY #12 tablet Referrals: Mary Kate Lagos MD [Staff Provider] - Follow up with primary Forms: [employer] (Panamanian)
[2018-04-19 02:39] VITALS: RESP 18; O2SAT 100
[2018-04-19 03:13] VITALS: BP 97/64; PULSE 86; TEMP 97.6
== END 2018-04-19 02:15 | disposition home or self-care (01) ==
LOC: ED 00:40
DX: J44.9 Chronic obstructive pulmonary disease, unspecified (principal); Z87.891 Personal history of nicotine dependence; Z85.3 Personal history of malignant neoplasm of breast; B19.20 Unspecified viral hepatitis C without hepatic coma

== ENCOUNTER 2018-05-22 07:51 | Emergency (ER) | payer OTHER ==
[2018-05-22 08:00] VITALS: BP 111/60; PULSE 91; TEMP 98.7; O2SAT 100
[2018-05-22 08:01] VITALS: BMI 16.6
--- NOTE | 2018-05-22 08:10 | ED PDOC ---
Arrival/HPI - General Chief Complaint: Shortness Of Breath Time Seen by Provider: 05/22/18 07:51 - History of Present Illness Narrative History of Present Illness (Text): 57 yr old F w/ hx of COPD not on home o2 p/w shortness of breath since last night. She notes shortness of breath with clear sputum, only mildly improved with albuterol treatments. She notes living with her friend and denies any recent exposure to aersolized solutions. She denies any chest pain. No throat swelling or throat pain. No abdominal pain. No dark or bloody stool. No headache, nausea or vomiting. No abdominal pain. No back pain or vaginal d/c. No leg swelling, Enriquez or orthopne. No fever, chills or night sweats. No other complaints. PMD: Clinic HIV: clinic Past Medical History - Infectious Disease Hx of Infectious Diseases: None - Tetanus Immunization Tetanus Immunization: Unknown - Reproductive Menopause: Yes - Past Medical History Past Medical History: Unable to Obtain - Cardiac Hx Hypertension: No - Pulmonary Hx Respiratory Disorders: Yes Hx Asthma: Yes Hx Chronic Obstructive Pulmonary Disease (COPD): Yes Hx Emphysema: Yes - Neurological Hx Seizures: No - HEENT Hx HEENT Disorder: No - Renal Hx Renal Disorder: No - Endocrine/Metabolic Hx Endocrine Disorders: No - Hematological/Oncological Hx Blood Disorders: Yes Hx Cancer: Yes (left breast) - Integumentary Hx Dermatological Disorder: No - Musculoskeletal/Rheumatological Hx Musculoskeletal Disorders: No Hx Falls: No - Gastrointestinal Hx Gastrointestinal Disorders: No - Genitourinary/Gynecological Hx Genitourinary Disorders: Yes Hx Sexually Transmitted Diseases: No Hx Urinary Tract Infection: Yes - Psychiatric Hx Psychophysiologic Disorder: Yes Hx Anxiety: Yes Hx Bipolar Disorder: No Hx Depression: No Hx Post Traumatic Stress Disorder: No Hx Schizophrenia: Yes Hx Substance Use: No (denies) - Past Surgical History Past Surgical History: Unable to Obtain - Surgical History Hx Breast Biopsy: Yes Hx Cholecystectomy: Yes Other/Comment: L breast lumpectomy. - Anesthesia Hx Anesthesia: Yes Hx Anesthesia Reactions: No Hx Malignant Hyperthermia: No - Suicidal Assessment Feels Threatened In Home Enviroment: No Family/Social History Family/Social History: Unknown Family HX Smoking Status: Former Smoker Hx Alcohol Use: No (denies) Hx Substance Use: No (denies) Substance used: marijuana Hx Substance Use Treatment: No Allergies/Home Meds Allergies/Adverse Reactions: Allergies No Known Allergies Allergy (Verified 04/19/18 01:03) Home Medications: Home Meds Medication Instructions Recorded Confirmed Abacavir/Dolutegravir/Lamivudi 1 tab PO DAILY 12/27/17 05/22/18 [Triumeq 600-50-300 mg Tablet] Fluticasone/Vilanterol [Breo 1 each IH DAILY 04/02/18 05/22/18 Ellipta 200-25 Mcg INH] Umeclidinium [place] [Incruse 62.5 mcg IH DAILY 04/02/18 05/22/18 Ellipta] Review of Systems - Review of Systems Constitutional: absent: Fatigue, Weight Change, Fevers, Night Sweats Eyes: absent: Vision Changes, Photophobia ENT: absent: Hearing Changes, Tinnitus, TMJ Pain Respiratory: SOB, Cough, Sputum, Wheezing Cardiovascular: absent: Chest Pain, Palpitations, Edema, Calf Pain, ENRIQUEZ Gastrointestinal: absent: Abdominal Pain, Stool Changes, Constipation, Diarrhea, Nausea, Vomiting, Hematochezia, Hematemesis, Anorexia, Food Intolerance Genitourinary Female: absent: Dysuria, Frequency, Hematuria, Vaginal Bleeding, Vaginal Discharge Musculoskeletal: absent: Arthralgias, Back Pain, Neck Pain Skin: absent: Rash Neurological: absent: Headache, Dizziness, Focal Weakness Psychiatric: absent: Anxiety, Depression Physical Exam Vital Signs Reviewed: Yes Vital Signs Temp Pulse Resp BP Pulse Ox 05/22/18 07:59 98.7 F 91 H 19 111/60 100 Temperature: Afebrile Blood Pressure: Normal Pulse: Regular Respiratory Rate: Normal Appearance: Positive for: Well-Appearing, Non-Toxic, Comfortable Pain Distress: None Mental Status: Positive for: Alert and Oriented X 3 - Systems Exam Head: Present: Atraumatic, Normocephalic. No: Tenderness Pupils: Present: PERRL Extroacular Muscles: Present: EOMI Conjunctiva: Present: Normal Ears: Present: Normal, NORMAL TM Mouth: Present: Moist Mucous Membranes Pharnyx: Present: Normal. No: ERYTHEMA, EXUDATE, TONSILS ENLARGED Nose (External): Present: Atraumatic Nose (Internal): Present: Normal Inspection, No Active Bleeding Neck: Present: Normal Range of Motion. No: Meningeal Signs, MIDLINE TENDERNESS, Paraspinal Tenderness, JVD Respiratory/Chest: Present: Good Air Exchange, Wheezes (mild wheezes b/l), Other (speaking in full sentences). No: Respiratory Distress Cardiovascular: Present: Regular Rate and Rhythm, Normal S1, S2. No: Murmurs Abdomen: Present: Normal Bowel Sounds. No: Tenderness, Distention, Peritoneal Signs Back: Present: Normal Inspection. No: CVA Tenderness, Midline Tenderness Upper Extremity: Present: Normal Inspection, Normal ROM, NORMAL PULSES. No: Cyanosis, Edema Lower Extremity: Present: Normal Inspection, NORMAL PULSES. No: Edema, CALF TENDERNESS Neurological: Present: GCS=15, CN II-XII Intact, Speech Normal, Motor Func Grossly Intact Skin: Present: Warm, Dry Psychiatric: Present: Alert, Oriented x 3, Normal Insight Medical Decision Making ED Course and Treatment: 57 yr old F w/ hx of COPD not on home o2, HIV on HAART, previous homelessness (not currently) presents with SOB that feels like COPD exacerbation since last night. Pt in NAD, speaking in full sentences. Mild wheezes b/l. No fall or trauma. No chest pain. No abdominal pain. No rash. Pt notes taking albuterol without much improvement. She notes that her CD4 count is normal and that her HIV count is undetectable. Likely mild COPD exacerbation EKG 94, NSR, no stemi pending imaging, labs Pt notes that she wanted to take oral steroids instead of solu-medrol IVP. Solu- medrol held, duonebs given 05/22/18 09:20 Patient was given steroids. Pt has albuterol inhaler from previous. AMA 05/22/18 09:21 The patient declines to have further medical evaluation and treatment and wishes to leave the Emergency Department. This action is against my medical advice to the patient, and with informed refusal. The patient was told that evaluation and treatment are necessary and a full explanation of the rationale was given. The risks of leaving were explained to the patient and include, but are not limited to, worsening of known or currently unknown conditions, permanent disability and from undiagnosed or untreated conditions The patient has the capacity to make this informed decision and understands the clinical situation and my explanation of the risks of leaving. The patient voluntarily accepts these risks, and a signed AMA form documenting our conversation was obtained. The patient was given the opportunity to ask questions and reconsider. The patient was encouraged to return to the Emergency Department at any time for further care. - Scribe Statement The provider has reviewed the documentation as recorded by the Scribe Freddie Packer All medical record entries made by the Scribe were at my direction and person ally dictated by me. I have reviewed the chart and agree that the record accurately reflects my personal performance of the history, physical exam, medical decision making, and the department course for this patient. I have also personally directed, reviewed, and agree with the discharge instructions and disposition. Disposition/Present on Arrival - Present on Arrival Any Indicators Present on Arrival: No History of DVT/PE: No History of Uncontrolled Diabetes: No Urinary Catheter: No History of Decub. Ulcer: No History Surgical Site Infection Following: None - Disposition Have Diagnosis and Disposition been Completed?: Yes Diagnosis: COPD (chronic obstructive pulmonary disease) Disposition: AGAINST MEDICAL ADVICE Disposition Time: 09:20 Condition: STABLE Discharge Instructions (ExitCare): COPD Including Emphysema (DC) Prescriptions: predniSONE [Prednisone] 40 mg PO DAILY 5 Days #10 tab Referrals: FAMILY PROVIDER,NO [Primary Care Provider] - Follow up with primary Forms: [employer] (Lithuanian)
[2018-05-22] MEDS: Albuterol-Ipratrop 3 mg / 0.5 (3 ml) UD IH SCH ×3 (08:24→09:17)
[2018-05-22 08:35] VITALS: RESP 20
[2018-05-22 08:51] LABS: BASO # 0.02 K/mm3 (0.0-2.0); BASO % 0.4 % (0.0-3.0); EOS # 0.3 (0.0-0.7); EOS % 7.1 % (1.5-5.0); HEMOGLOBIN 14.4 g/dL (12.0-16.0); LYMPH % 23.2 % (22.0-35.0); MEAN CELL VOLUME 90.7 fl (80.0-105.0); MEAN CORPUSCULAR HEMOGLOBIN 29.9 pg (25.0-35.0); MONO # 0.3 (0.1-0.6); MONO % 7.6 % (1.0-6.0); RBC 4.82 10^6/uL (3.5-6.1); WHITE BLOOD COUNT 4.5 10^3/uL (4.5-11.0)
[2018-05-22 08:59] LABS: ALB/GLOB RATIO 1.2 (1.1-1.8); ALBUMIN 4.3 g/dL (3.0-4.8); ALT/SGPT 18 U/L (7-56); AST/SGOT 28 U/L (14-36); BLOOD UREA NITROGEN 24 mg/dL (7-21); CALCIUM 8.9 mg/dL (8.4-10.5); GFR NON-AFRICAN AMERICAN > 60
[2018-05-22 09:10] LABS: TROPONIN I < 0.01 ng/mL
--- NOTE | 2018-05-22 09:39 | CARD ---
APPROVED REPORT Date of service: 05/22/2018 EKG Measurement Heart [id number] <Conclusion> Baseline artivact Normal sinus rhythm Normal ECG
--- NOTE | 2018-05-22 10:20 | RAD ---
Date of service: 05/22/2018 HISTORY: sob COMPARISON: 04/17/2018 TECHNIQUE: Chest PA and lateral views FINDINGS: LUNGS: No active pulmonary disease. PLEURA: No significant pleural effusion identified. No pneumothorax apparent. CARDIOVASCULAR: No aortic atherosclerotic calcification present. Normal cardiac size. No pulmonary vascular congestion. OSSEOUS STRUCTURES: No significant abnormalities. VISUALIZED UPPER ABDOMEN: Normal. OTHER FINDINGS: None. IMPRESSION: No active disease.
== END 2018-05-22 09:25 | disposition left against medical advice (07) ==
LOC: ED 07:51
DX: J44.9 Chronic obstructive pulmonary disease, unspecified (principal); Z87.891 Personal history of nicotine dependence

== ENCOUNTER 2018-06-01 03:24 | Emergency (ER) | payer OTHER ==
[2018-06-01 03:24] VITALS: BMI 16.6
[2018-06-01] MEDS ORDERED: Albuterol-Ipratrop 3 mg / 0.5 (3 ml) UD IH STA (03:40)
[2018-06-01 03:41] VITALS: BP 149/80; PULSE 91; RESP 21; TEMP 98.7; O2SAT 94
--- NOTE | 2018-06-01 03:44 | ED PDOC ---
Arrival/HPI - General Chief Complaint: Cough, Cold, Congestion Time Seen by Provider: 06/01/18 03:36 Historian: Patient - History of Present Illness Narrative History of Present Illness (Text): 06/01/18 03:43 57 year old female, whose past medical history includes COPD, HIV, hepatitis C, breast cancer, who presents to the Emergency department complaining of shortness of breath and cough since yesterday. Patient note she [place] her Proventil [place]er [place] the [place] and has been unable to get a new one. Patient denies any fever, chills, chest pain, nausea, vomiting, diarrhea, urinary symptoms, back pain, neck pain, headache, dizziness, or any other complaints. Symptom Onset: Gradual Symptom Course: Unchanged Activities at Onset: Light Context: Home Past Medical History - Provider Review Nursing Documentation Reviewed: Yes - Infectious Disease Hx of Infectious Diseases: None - Tetanus Immunization Tetanus Immunization: Unknown - Reproductive Menopause: Yes - Past Medical History Past Medical History: Unable to Obtain - Cardiac Hx Hypertension: No - Pulmonary Hx Respiratory Disorders: Yes Hx Asthma: Yes Hx Chronic Obstructive Pulmonary Disease (COPD): Yes Hx Emphysema: Yes - Neurological Hx Seizures: No - HEENT Hx HEENT Disorder: No - Renal Hx Renal Disorder: No - Endocrine/Metabolic Hx Endocrine Disorders: No - Hematological/Oncological Hx Blood Disorders: Yes Hx Cancer: Yes (left breast) - Integumentary Hx Dermatological Disorder: No - Musculoskeletal/Rheumatological Hx Musculoskeletal Disorders: No Hx Falls: No - Gastrointestinal Hx Gastrointestinal Disorders: No - Genitourinary/Gynecological Hx Genitourinary Disorders: Yes Hx Sexually Transmitted Diseases: No Hx Urinary Tract Infection: Yes - Psychiatric Hx Psychophysiologic Disorder: Yes Hx Anxiety: Yes Hx Bipolar Disorder: No Hx Depression: No Hx Post Traumatic Stress Disorder: No Hx Schizophrenia: Yes Hx Substance Use: No (denies) - Past Surgical History Past Surgical History: Unable to Obtain - Surgical History Hx Breast Biopsy: Yes Hx Cholecystectomy: Yes Other/Comment: L breast lumpectomy. - Anesthesia Hx Anesthesia: Yes Hx Anesthesia Reactions: No Hx Malignant Hyperthermia: No - Suicidal Assessment Feels Threatened In Home Enviroment: No Family/Social History - Physician Review Nursing Documentation Reviewed: Yes Family/Social History: Unknown Family HX Smoking Status: Former Smoker Hx Alcohol Use: No (denies) Hx Substance Use: No (denies) Substance used: marijuana Hx Substance Use Treatment: No Allergies/Home Meds Allergies/Adverse Reactions: Allergies No Known Allergies Allergy (Verified 06/01/18 03:41) Home Medications: Home Meds Medication Instructions Recorded Confirmed Abacavir/Dolutegravir/Lamivudi 1 tab PO DAILY 12/27/17 06/01/18 [Triumeq 600-50-300 mg Tablet] Fluticasone/Vilanterol [Breo 1 each IH DAILY 04/02/18 06/01/18 Ellipta 200-25 Mcg INH] Umeclidinium [place] [Incruse 62.5 mcg IH DAILY 04/02/18 06/01/18 Ellipta] Review of Systems - Physician Review All systems were reviewed & negative as marked: Yes - Review of Systems Constitutional: Normal. absent: Fevers Eyes: Normal ENT: Normal Respiratory: SOB, Cough Cardiovascular: Normal. absent: Chest Pain Gastrointestinal: Normal. absent: Abdominal Pain, Diarrhea, Nausea, Vomiting Genitourinary Female: Normal. absent: Dysuria, Frequency, Hematuria, Urine Output Changes Musculoskeletal: Normal. absent: Back Pain, Neck Pain Skin: Normal. absent: Rash Neurological: Normal. absent: Headache, Dizziness Endocrine: Normal Hemo/Lymphatic: Normal Psychiatric: Normal Physical Exam Vital Signs Reviewed: Yes Vital Signs Temp Pulse Resp BP Pulse Ox 06/01/18 03:38 98.7 F 91 H 21 149/80 94 L Temperature: Afebrile Blood Pressure: Normal Pulse: Regular Respiratory Rate: Normal Appearance: Positive for: Well-Appearing, Non-Toxic, Comfortable Pain Distress: None Mental Status: Positive for: Alert and Oriented X 3 - Systems Exam Head: Present: Atraumatic, Normocephalic Pupils: Present: PERRL Extroacular Muscles: Present: EOMI Conjunctiva: Present: Normal Mouth: Present: Moist Mucous Membranes Neck: Present: Normal Range of Motion Respiratory/Chest: Present: Good Air Exchange, Wheezes. No: Respiratory Distress, Accessory Muscle Use Cardiovascular: Present: Regular Rate and Rhythm, Normal S1, S2. No: Murmurs Abdomen: No: Tenderness, Distention, Peritoneal Signs Back: Present: Normal Inspection Upper Extremity: Present: Normal Inspection. No: Cyanosis, Edema Lower Extremity: Present: Normal Inspection. No: Edema Neurological: Present: GCS=15, CN II-XII Intact, Speech Normal Skin: Present: Warm, Dry, Normal Color. No: Rashes Psychiatric: Present: Alert, Oriented x 3, Normal Insight, Normal Concentration Medical Decision Making ED Course and Treatment: 06/01/18 03:44 Impression: 57 year old female complaining of shortness of breath and cough. Plan: -- Duoneb -- Reassess and disposition Prior Visits: Notes and results from previous visits were reviewed. Progress Notes: - Scribe Statement The provider has reviewed the documentation as recorded by the Lucina Singletary Provider Scribe Attestation: All medical record entries made by the Scribe were at my direction and personally dictated by me. I have reviewed the chart and agree that the record accurately reflects my personal performance of the history, physical exam, medical decision making, and the department course for this patient. I have also personally directed, reviewed, and agree with the discharge instructions and disposition. Disposition/Present on Arrival - Present on Arrival Any Indicators Present on Arrival: No History of DVT/PE: No History of Uncontrolled Diabetes: No Urinary Catheter: No History of Decub. Ulcer: No History Surgical Site Infection Following: None - Disposition Have Diagnosis and Disposition been Completed?: Yes Diagnosis: COPD (chronic obstructive pulmonary disease) Disposition: HOME/ ROUTINE Disposition Time: 05:23 Patient Plan: Discharge Condition: GOOD Discharge Instructions (ExitCare): COPD Including Emphysema (DC) Additional Instructions: Use your albuterol inhaler as directed/follow up with your doctor this week Referrals: Chris Lucas MD [Primary Care Provider] - Follow up with primary Forms: [employer] (Portuguese)
[2018-06-01] MEDS ORDERED: Albuterol HFA 90 mcg/actuation (8 g) IH PRN (04:52)
== END 2018-06-01 05:30 | disposition home or self-care (01) ==
LOC: ED 03:24
DX: J44.9 Chronic obstructive pulmonary disease, unspecified (principal); F20.9 Schizophrenia, unspecified; Z85.3 Personal history of malignant neoplasm of breast; Z87.440 Personal history of urinary (tract) infections; Z87.891 Personal history of nicotine dependence

== ENCOUNTER 2018-06-12 01:05 | Emergency (ER) | payer OTHER ==
[2018-06-12 01:45] VITALS: BMI 18.2
--- NOTE | 2018-06-12 01:56 | ED PDOC ---
Arrival/HPI - General Chief Complaint: Headache Time Seen by Provider: 06/12/18 01:19 Historian: Patient - History of Present Illness Narrative History of Present Illness (Text): 06/12/18 01:56 Rina Mathews is a 57 year old female, whose past medical history includes COPD, HIV on HAART, hepatitis C, breast cancer, who presents to the Emergency department complaining of headache. Patient states she has been experiencing a throbbing headache after drinking iced tea this evening. Patient denies any fever, chills, chest pain, shortness of breath, nausea, vomiting, diarrhea, urinary symptoms, back pain, neck pain, dizziness, or any other complaints. Symptom Onset: Gradual Symptom Course: Unchanged Activities at Onset: Light Context: Home Past Medical History - Provider Review Nursing Documentation Reviewed: Yes - Infectious Disease Hx of Infectious Diseases: None - Tetanus Immunization Tetanus Immunization: Unknown - Past Medical History Past Medical History: Unable to Obtain - Cardiac Hx Hypertension: No - Pulmonary Hx Respiratory Disorders: Yes Hx Asthma: Yes Hx Chronic Obstructive Pulmonary Disease (COPD): Yes Hx Emphysema: Yes - Neurological Hx Seizures: No - HEENT Hx HEENT Disorder: No - Renal Hx Renal Disorder: No - Endocrine/Metabolic Hx Endocrine Disorders: No - Hematological/Oncological Hx Blood Disorders: Yes Hx Cancer: Yes (left breast) - Integumentary Hx Dermatological Disorder: No - Musculoskeletal/Rheumatological Hx Musculoskeletal Disorders: No Hx Falls: No - Gastrointestinal Hx Gastrointestinal Disorders: No - Genitourinary/Gynecological Hx Genitourinary Disorders: Yes Hx Sexually Transmitted Diseases: No Hx Urinary Tract Infection: Yes - Psychiatric Hx Psychophysiologic Disorder: Yes Hx Anxiety: Yes Hx Bipolar Disorder: No Hx Depression: No Hx Post Traumatic Stress Disorder: No Hx Schizophrenia: Yes Hx Substance Use: No (denies) - Past Surgical History Past Surgical History: Unable to Obtain - Surgical History Hx Breast Biopsy: Yes Hx Cholecystectomy: Yes Other/Comment: L breast lumpectomy. - Anesthesia Hx Anesthesia: Yes Hx Anesthesia Reactions: No Hx Malignant Hyperthermia: No - Suicidal Assessment Feels Threatened In Home Enviroment: No Family/Social History - Physician Review Nursing Documentation Reviewed: Yes Family/Social History: Unknown Family HX Smoking Status: Former Smoker Hx Alcohol Use: No (denies) Hx Substance Use: No (denies) Substance used: marijuana Hx Substance Use Treatment: No Allergies/Home Meds Allergies/Adverse Reactions: Allergies No Known Allergies Allergy (Verified 06/01/18 03:41) Home Medications: Home Meds Medication Instructions Recorded Confirmed Abacavir/Dolutegravir/Lamivudi 1 tab PO DAILY 12/27/17 06/01/18 [Triumeq 600-50-300 mg Tablet] Fluticasone/Vilanterol [Breo 1 each IH DAILY 04/02/18 06/01/18 Ellipta 200-25 Mcg INH] Umeclidinium Leonardo [Incruse 62.5 mcg IH DAILY 04/02/18 06/01/18 Ellipta] Review of Systems - Physician Review All systems were reviewed & negative as marked: Yes - Review of Systems Constitutional: Normal. absent: Fevers Eyes: Normal ENT: Normal Respiratory: Normal. absent: SOB, Cough Cardiovascular: Normal. absent: Chest Pain Gastrointestinal: Normal. absent: Abdominal Pain, Diarrhea, Nausea, Vomiting Genitourinary Female: Normal. absent: Dysuria, Frequency, Hematuria, Urine Output Changes Musculoskeletal: Normal. absent: Back Pain, Neck Pain Skin: Normal. absent: Rash Neurological: Headache. absent: Dizziness Endocrine: Normal Hemo/Lymphatic: Normal Psychiatric: Normal Physical Exam Vital Signs Reviewed: Yes Vital Signs Temp Pulse Resp BP Pulse Ox 06/12/18 01:45 97.5 F L 79 18 122/81 98 Temperature: Afebrile Blood Pressure: Normal Pulse: Regular Respiratory Rate: Normal Appearance: Positive for: Well-Appearing, Non-Toxic, Comfortable Pain Distress: None Mental Status: Positive for: Alert and Oriented X 3 - Systems Exam Head: Present: Atraumatic, Normocephalic Pupils: Present: PERRL Extroacular Muscles: Present: EOMI Conjunctiva: Present: Normal Ears: Present: Normal, NORMAL TM, Normal Canal. No: Erythema, TM Bulging, Fluid, TM Perf Mouth: Present: Moist Mucous Membranes Pharnyx: Present: Normal. No: ERYTHEMA, EXUDATE, TONSILS ENLARGED, Peritonsilar Swelling, Uvular Deviation, Muffled/Hoarse Voice, Strider, Soft Palate/Uvular Edema Nose (External): Present: Atraumatic Nose (Internal): Present: Normal Inspection Neck: Present: Normal Range of Motion. No: Meningeal Signs, MIDLINE TENDERNESS, Paraspinal Tenderness Respiratory/Chest: Present: Clear to Auscultation, Good Air Exchange. No: Respiratory Distress, Accessory Muscle Use Cardiovascular: Present: Regular Rate and Rhythm, Normal S1, S2. No: Murmurs Abdomen: No: Tenderness, Distention, Peritoneal Signs Back: Present: Normal Inspection. No: CVA Tenderness, Midline Tenderness, Paraspinal Tenderness Upper Extremity: Present: Normal Inspection. No: Cyanosis, Edema Lower Extremity: Present: Normal Inspection. No: Edema Neurological: Present: GCS=15, CN II-XII Intact, Speech Normal, Motor Func Grossly Intact, Normal Sensory Function, Normal Cerebellar Funct, Gait Normal, Memory Normal Skin: Present: Warm, Dry, Normal Color. No: Rashes Psychiatric: Present: Alert, Oriented x 3, Normal Insight, Normal Concentration Medical Decision Making ED Course and Treatment: 06/12/18 01:56 Impression: 57 year old female complaining of throbbing headache. Plan: -- CT Head -- Labs -- Reassess and disposition Prior Visits: Notes and results from previous visits were reviewed. Progress Notes: 06/12/18 04:23 CT ead: Normal size of the ventricles and extra-axial spaces for the patient's age. Normal white matter tracts of the supratentorial brain. Normal basal ganglia and thalami. Normal brainstem. Normal cerebellum. There is no demonstrated extra-axial, intraparenchymal, or intraventricular hemorrhage. There are no findings of an acute ischemic infarction. Normal calvarium. There is no demonstrated fracture. Normal soft tissue structures. Normal visualized paranasal sinuses. IMPRESSION: Normal unenhanced CT scan of the brain. Electronically signed on June 12, 2018 4:14:56 AM EDT by: Jaylin Newberry M.D., Certified by ABR, MSK, Neuroradiology - RAD Interpretation Assistant News Director: Radiologist - Scribe Statement The provider has reviewed the documentation as recorded by the Lucina Singletary Provider Scribe Attestation: All medical record entries made by the Scribe were at my direction and personally dictated by me. I have reviewed the chart and agree that the record accurately reflects my personal performance of the history, physical exam, medical decision making, and the department course for this patient. I have also personally directed, reviewed, and agree with the discharge instructions and disposition. Disposition/Present on Arrival - Present on Arrival Any Indicators Present on Arrival: No History of DVT/PE: No History of Uncontrolled Diabetes: No Urinary Catheter: No History of Decub. Ulcer: No History Surgical Site Infection Following: None - Disposition Have Diagnosis and Disposition been Completed?: Yes Diagnosis: Tension headache Disposition: HOME/ ROUTINE Disposition Time: 05:08 Patient Plan: Discharge Patient Problems: Current Active Problems Problem Status Onset Tension headache Acute Condition: GOOD Discharge Instructions (ExitCare): Tension Headache (DC) Additional Instructions: Take meds as prescribed/follow up with your doctor this week Prescriptions: Acetaminophen/Butalbital/Caf [Fioricet] 1 tab PO Q6 PRN #16 tab PRN Reason: Headache Referrals: Chris Lucas MD [Primary Care Provider] - Follow up with primary Forms: [employer] (Yoruba)
[2018-06-12 02:01] VITALS: TEMP 97.6
[2018-06-12 02:43] LABS: HEMOGLOBIN 13.8 g/dL (12.0-16.0); MEAN CELL VOLUME 89.3 fl (80.0-105.0); MEAN CORPUSCULAR HEMOGLOBIN 30.7 pg (25.0-35.0); MEAN CORPUSCULAR HGB CONC 34.4 g/dl (31.0-37.0); MEAN PLATELET VOLUME 9.8 fl (7.0-11.0); RBC 4.49 10^6/uL (3.5-6.1); RED CELL DISTRIBUTION WIDTH 14.3 % (11.5-14.5)
[2018-06-12 03:02] LABS: ALB/GLOB RATIO 1.2 (1.1-1.8); ALBUMIN 4.1 g/dL (3.0-4.8); ALT/SGPT 8 U/L (7-56); AST/SGOT 20 U/L (14-36); BLOOD UREA NITROGEN 32 mg/dL (7-21); CALCIUM 8.9 mg/dL (8.4-10.5); GFR NON-AFRICAN AMERICAN > 60
[2018-06-12] MEDS ORDERED: Potassium Chloride 20 mEq ER Tab PO STA (04:21)
[2018-06-12 05:39] VITALS: BP 115/74; PULSE 72; RESP 17; O2SAT 98
--- NOTE | 2018-06-12 08:35 | CT ---
Date of service: 06/12/2018 PROCEDURE: CT HEAD WITHOUT CONTRAST. HISTORY: headache COMPARISON: 11/04/2015 TECHNIQUE: Axial computed tomography images were obtained through the head/brain without intravenous contrast. Radiation dose: Total exam DLP = 786.14 mGy-cm. This CT exam was performed using one or more of the following dose reduction techniques: Automated exposure control, adjustment of the mA and/or kV according to patient size, and/or use of iterative reconstruction technique. FINDINGS: HEMORRHAGE: No intracranial hemorrhage. BRAIN: No mass effect or edema. No atrophy or chronic microvascular ischemic changes. VENTRICLES: Unremarkable. No hydrocephalus. CALVARIUM: Unremarkable. PARANASAL SINUSES: Unremarkable as visualized. No significant inflammatory changes. MASTOID AIR CELLS: Unremarkable as visualized. No inflammatory changes. OTHER FINDINGS: The report concurs with the preliminary [facility] report IMPRESSION: Normal CT of the Head.
== END 2018-06-12 05:30 | disposition home or self-care (01) ==
LOC: ED 01:05
DX: G44.209 Tension-type headache, unspecified, not intractable (principal); F20.9 Schizophrenia, unspecified; J44.9 Chronic obstructive pulmonary disease, unspecified; Z85.3 Personal history of malignant neoplasm of breast; Z87.891 Personal history of nicotine dependence; Z21 Asymptomatic human immunodeficiency virus [HIV] infection status

== ENCOUNTER 2018-06-18 21:24 | Observation (INO) | payer OTHER ==
[2018-06-18 21:24] VITALS: BMI 18.2
[2018-06-19 00:42] LABS: BASO # 0.01 K/mm3 (0.0-2.0); BASO % 0.1 % (0.0-3.0); EOS # 0.3 (0.0-0.7); EOS % 4.2 % (1.5-5.0); HEMOGLOBIN 13.8 g/dL (12.0-16.0); LYMPH # 2.2 (1.2-3.4); LYMPH % 31.1 % (22.0-35.0); MEAN CELL VOLUME 90.6 fl (80.0-105.0); MEAN CORPUSCULAR HEMOGLOBIN 30.7 pg (25.0-35.0); MEAN CORPUSCULAR HGB CONC 33.9 g/dl (31.0-37.0); MONO # 0.7 (0.1-0.6); MONO % 9.9 % (1.0-6.0); RBC 4.49 10^6/uL (3.5-6.1); RED CELL DISTRIBUTION WIDTH 14.6 % (11.5-14.5); WHITE BLOOD COUNT 7.1 10^3/uL (4.5-11.0)
[2018-06-19 01:05] LABS: TROPONIN I < 0.01 ng/mL
[2018-06-19 01:22] LABS: ALB/GLOB RATIO 1.3 (1.1-1.8); ALBUMIN 4.2 g/dL (3.0-4.8); ALT/SGPT 13 U/L (7-56); AST/SGOT 26 U/L (14-36); BLOOD UREA NITROGEN 25 mg/dL (7-21); CALCIUM 9.1 mg/dL (8.4-10.5); GFR NON-AFRICAN AMERICAN 57
[2018-06-19 01:42] VITALS: TEMP 97.2
--- NOTE | 2018-06-19 02:12 | ED PDOC ---
Arrival/HPI - General Chief Complaint: Headache Time Seen by Provider: 06/18/18 22:01 Historian: Patient - History of Present Illness Narrative History of Present Illness (Text): 06/19/18 02:09 A 57 year old female, whose past medical history includes HIV and Hepatitis C, presents to the emergency department complaining of right-sided temporal headache starting a few hours ago. Patient reports she was seen in the hospital on 06/12/2018 with left-side temporal headache. Notes it eventually resolved and today developed headache to the right-side instead. She is also experiencing extreme dizziness, and mentions she is not seeing her infectious disease doctor anymore. Pt denies vision changes, no jaw pain. Patient denies any fever, chills, nausea, vomiting, diarrhea, constipation, or any other complaints at this time. Past Medical History - Provider Review Nursing Documentation Reviewed: Yes - Travel History Have you recently traveled outside [place] w/in the past 3 mons?: No - Infectious Disease Hx of Infectious Diseases: None - Tetanus Immunization Tetanus Immunization: Unknown - Past Medical History Past Medical History: Unable to Obtain - Cardiac Hx Hypertension: No - Pulmonary Hx Respiratory Disorders: Yes Hx Asthma: Yes Hx Chronic Obstructive Pulmonary Disease (COPD): Yes Hx Emphysema: Yes - Neurological Hx Seizures: No - HEENT Hx HEENT Disorder: No - Renal Hx Renal Disorder: No - Endocrine/Metabolic Hx Endocrine Disorders: No - Hematological/Oncological Hx Blood Disorders: Yes Hx Cancer: Yes (left breast) - Integumentary Hx Dermatological Disorder: No - Musculoskeletal/Rheumatological Hx Musculoskeletal Disorders: No Hx Falls: No - Gastrointestinal Hx Gastrointestinal Disorders: No - Genitourinary/Gynecological Hx Genitourinary Disorders: Yes Hx Sexually Transmitted Diseases: No Hx Urinary Tract Infection: Yes - Psychiatric Hx Psychophysiologic Disorder: Yes Hx Anxiety: Yes Hx Bipolar Disorder: No Hx Depression: No Hx Post Traumatic Stress Disorder: No Hx Schizophrenia: Yes Hx Substance Use: No (denies) - Past Surgical History Past Surgical History: Unable to Obtain - Surgical History Hx Breast Biopsy: Yes Hx Cholecystectomy: Yes Other/Comment: L breast lumpectomy. - Anesthesia Hx Anesthesia: Yes Hx Anesthesia Reactions: No Hx Malignant Hyperthermia: No - Suicidal Assessment Feels Threatened In Home Enviroment: No Family/Social History - Physician Review Nursing Documentation Reviewed: Yes Family/Social History: No Known Family HX Smoking Status: Former Smoker Hx Alcohol Use: No (denies) Hx Substance Use: No (denies) Substance used: marijuana Hx Substance Use Treatment: No Allergies/Home Meds Allergies/Adverse Reactions: Allergies No Known Allergies Allergy (Verified 06/01/18 03:41) Home Medications: Home Meds Medication Instructions Recorded Confirmed Abacavir/Dolutegravir/Lamivudi 1 tab PO DAILY 12/27/17 06/01/18 [Triumeq 600-50-300 mg Tablet] Fluticasone/Vilanterol [Breo 1 each IH DAILY 04/02/18 06/01/18 Ellipta 200-25 Mcg INH] Umeclidinium Egnar [Incruse 62.5 mcg IH DAILY 04/02/18 06/01/18 Ellipta] Review of Systems - Physician Review All systems were reviewed & negative as marked: Yes - Review of Systems Constitutional: Fatigue. absent: Fevers, Night Sweats ENT: Sore Throat. absent: Sinus Congestion Respiratory: absent: SOB, Cough Cardiovascular: absent: Chest Pain, Palpitations Gastrointestinal: absent: Constipation, Diarrhea, Nausea, Vomiting Genitourinary Female: absent: Dysuria, Frequency, Hematuria Musculoskeletal: absent: Back Pain, Neck Pain Skin: absent: Rash, Pruritis, Laceration Neurological: Headache (parietal region to the right side), Dizziness. absent: Speech Changes, Facial Droop Psychiatric: absent: Anxiety, Depression Physical Exam Vital Signs Reviewed: Yes Vital Signs Temp Pulse Resp BP Pulse Ox 06/18/18 21:24 97.2 F L 93 H 16 148/63 95 Temperature: Afebrile Blood Pressure: Normal Pulse: Regular Respiratory Rate: Normal Appearance: Positive for: Well-Appearing, Non-Toxic, Comfortable Pain Distress: None Mental Status: Positive for: Alert and Oriented X 3 - Systems Exam Head: Present: Atraumatic, Normocephalic, Tenderness (+ tenderness to right temporal and parietal scalp; no erythema; no edema, no ecchymosis; no swelling. ), Other Pupils: Present: PERRL Extroacular Muscles: Present: EOMI Conjunctiva: Present: Normal Mouth: Present: Moist Mucous Membranes. No: Drooling, Trismus Pharnyx: Present: Normal Nose (External): Present: Atraumatic Nose (Internal): Present: Normal Inspection Neck: Present: Normal Range of Motion Respiratory/Chest: Present: Clear to Auscultation, Good Air Exchange. No: Respiratory Distress, Accessory Muscle Use Cardiovascular: Present: Regular Rate and Rhythm, Normal S1, S2. No: Murmurs Abdomen: No: Tenderness, Distention, Peritoneal Signs Back: Present: Normal Inspection Upper Extremity: Present: Normal Inspection. No: Cyanosis, Edema Lower Extremity: Present: Normal Inspection. No: Edema Neurological: Present: GCS=15, Speech Normal Skin: Present: Warm, Dry, Normal Color. No: Rashes Psychiatric: Present: Alert, Oriented x 3 Medical Decision Making ED Course and Treatment: 06/19/18 02:12 Impression: 57 year old female with right-side parietal headache and dizziness. Plan: -- EKG -- Head CT -- Tylenol -- Prednisone -- Labs -- Reassess and disposition Progress Notes: 06/19/18 02:33 ct head; Normal size of the ventricles and extra-axial spaces for the patient's age. Normal white matter tracts of the supratentorial brain. Normal basal ganglia and thalami. Normal brainstem. Normal cerebellum. There is no demonstrated extra-axial, intraparenchymal, or intraventricular hemorrhage. There are no findings of an acute ischemic infarction. Normal calvarium. There is no demonstrated fracture. Normal soft tissue structures. Normal visualized paranasal sinuses. IMPRESSION: Normal unenhanced CT scan of the brain. Electronically signed on June 19, 2018 2:01:28 AM EDT by: Jaylin Newberry M.D., Certified by ABR, MSK, Neuroradiology EKG: Normal sinus rhythm with sinus arrhythmia at 67 bpm normal axis normal intervals no ST elevations QTC 431 CBC within normal limits CMP within normal limits ESR: 4 CRP pending Patient reassessment: Patient is resting comfortably still has slight pain to the right temporal region. Patient started on prednisone 60 mg p.o. Patient was found to be hypotensive given 1 L normal saline IV bolus. Blood pressure improved. All results discussed in depth with the patient. Case discussed with Dr. Griffith in depth. Accepts observational status admission for headache and dizziness All aspects of this case were discussed the attending of record. Impression: Headache Admit observational status [facility] 06/19/18 03:03 Reassessment Condition: Re-examined, Improved - Lab Interpretations Lab Results: Troponin I < 0.01 ng/mL 06/19/18 00:17 Total Bilirubin 0.4 mg/dL (0.2-1.3) 06/19/18 00:17 AST 26 U/L (14-36) 06/19/18 00:17 ALT 13 U/L (7-56) 06/19/18 00:17 Alkaline Phosphatase 67 U/L (38-126) 06/19/18 00:17 Total Protein 7.4 g/dL (5.8-8.3) 06/19/18 00:17 Albumin 4.2 g/dL (3.0-4.8) 06/19/18 00:17 Globulin 3.2 gm/dL 06/19/18 00:17 Albumin/Globulin Ratio 1.3 (1.1-1.8) 06/19/18 00:17 - RAD Interpretation Radiology Orders: 06/18/18 23:01 HEAD W/O CONTRAST [CT] Stat - Scribe Statement The provider has reviewed the documentation as recorded by the Sundaribbreanne Ortega Provider Scribe Attestation: All medical record entries made by the Sundaribbreanne were at my direction and personally dictated by me. I have reviewed the chart and agree that the record accurately reflects my personal performance of the history, physical exam, medical decision making, and the department course for this patient. I have also personally directed, reviewed, and agree with the discharge instructions and disposition. Disposition/Present on Arrival - Present on Arrival Any Indicators Present on Arrival: No History of DVT/PE: No History of Uncontrolled Diabetes: No Urinary Catheter: No History of Decub. Ulcer: No History Surgical Site Infection Following: None - Disposition Have Diagnosis and Disposition been Completed?: Yes Diagnosis: Headache Disposition: HOSPITALIZED Disposition Time: 02:00 Patient Plan: Observation Patient Problems: Current Active Problems Problem Status Onset Headache Acute Condition: FAIR
[2018-06-19] MEDS ORDERED: Sodium Chloride 0.9% 1,000 ML IV STA ×2 (02:42→04:53)
[2018-06-19] MEDS ORDERED: Iodixanol 320 MG/ML 100 ML BOTTLE IV ONE (02:55)
--- NOTE | 2018-06-19 03:42 | CP.PCM.HP ---
<Marky Funez - Last Filed: 06/19/18 08:42> History of Present Illness - History of Present Illness History of Present Illness: HISTORY & PHYSICAL NOTE FOR HOSPITALIST SERVICE MARKY FUNEZ PGY1 57 y/o F with PMHx HIV (on antiretroviral therapy), hepatitis C, breast cancer 2006 (s/p chemo/radiation and left breast lumpectomy), COPD presented to ED with complaints of bilateral, 3/10, non-radiating temporal headache with associated dizziness that started yesterday afternoon around 6pm and was initially a 10/10 severity however decreased to 3/10 while in the ED. She also reports dizziness when she walks that shes had for several days without ever losing consciousness, one-sided weakness or convulsions. She reports she had seen her PMD in may and was told her T-cell was down to 78. She stopped following up with ID specialist d/t insurance issues. She reports her PMD prescribed TMP-SMX and is compliant with it. Currently she reports nausea, denies fevers, chills, numbness, tingling, chest pain, palpitations, shortness of breath, nausea, vomiting, con stipation, diarrhea, dysuria. Of note: pt had positive orthostatic vital signs in ED, given 1L fluid bolus. PMH: HIV (on antiretroviral therapy), hepatitis C, breast cancer 2006 (s/p chemo/radiation and left breast lumpectomy), COPD PSH: left breast lumpectomy 2007, cholecystectomy SHx: 40 pack year smoking - has not smoked since 2007, denies alcohol use, previously smoked marijuana daily Allergies: NKDA FH: Mother: at 59 y/o: lung cancer. Father: Alive: healthy Meds: Triumeq 600/50/300, TMP/SMX, albuterol, prednisone, Incres (will confirm doses with pharmacy) PMD: Dr. Chris Lucas [facility]: [facility] Present on Admission - Present on Admission Any Indicators Present on Admission: No Review of Systems - Review of Systems Review of Systems: per HPI Past Patient History - Infectious Disease Hx of Infectious Diseases: None - Tetanus Immunizations Tetanus Immunization: Unknown - Past Social History Smoking Status: Former Smoker - CARDIAC Hx Hypertension: No - PULMONARY Hx Respiratory Disorders: Yes Hx Asthma: Yes Hx Chronic Obstructive Pulmonary Disease (COPD): Yes Hx Emphysema: Yes - NEUROLOGICAL Hx Seizures: No - HEENT Hx HEENT Problems: No - RENAL Hx Chronic Kidney Disease: No - ENDOCRINE/METABOLIC Hx Endocrine Disorders: No - HEMATOLOGICAL/ONCOLOGICAL Hx Blood Disorders: Yes Hx Cancer: Yes (left breast) - INTEGUMENTARY Hx Dermatological Problems: No - MUSCULOSKELETAL/RHEUMATOLOGICAL Hx Musculoskeletal Disorders: No Hx Falls: No - GASTROINTESTINAL Hx Gastrointestinal Disorders: No - GENITOURINARY/GYNECOLOGICAL Hx Genitourinary Disorders: Yes Hx Sexually Transmitted Disorders: No Hx Urinary Tract Infection: Yes - PSYCHIATRIC Hx Psychophysiologic Disorder: Yes Hx Anxiety: Yes Hx Bipolar Disorder: No Hx Depression: No Hx Post Traumatic Stress Disorder: No Hx Schizophrenia: Yes Hx Substance Use: No (denies) - SURGICAL HISTORY Hx Breast Biopsy: Yes Hx Cholecystectomy: Yes Other/Comment: L breast lumpectomy. - ANESTHESIA Hx Anesthesia: Yes Hx Anesthesia Reactions: No Hx Malignant Hyperthermia: No Meds Allergies/Adverse Reactions: Allergies Allergy/AdvReac Type Severity Reaction Status Date / Time No Known Allergies Allergy Verified 06/01/18 03:41 Physical Exam - Constitutional Appears: Well, Non-toxic, No Acute Distress - Head Exam Head Exam: NORMAL INSPECTION, NORMOCEPHALIC Additional comments: no scalp tenderness - Eye Exam Eye Exam: EOMI, Normal appearance Pupil Exam: PERRL Additional comments: negative eula-hallpike maneuver - ENT Exam ENT Exam: Mucous Membranes Moist - Neck Exam Neck exam: Positive for: Normal Inspection - Respiratory Exam Respiratory Exam: Clear to Auscultation Bilateral, NORMAL BREATHING PATTERN - Cardiovascular Exam Cardiovascular Exam: REGULAR RHYTHM, +S1, +S2 - GI/Abdominal Exam GI & Abdominal Exam: Soft. absent: Tenderness - Extremities Exam Extremities exam: Positive for: normal inspection. Negative for: calf tenderness - Back Exam Back exam: NORMAL INSPECTION - Neurological Exam Neurological exam: Alert, Oriented x3 - Psychiatric Exam Psychiatric exam: Normal Affect, Normal Mood - Skin Skin Exam: Dry, Intact, Warm Results - Vital Signs Recent Vital Signs: Last Vital Signs Temp 97.2 F L 06/18/18 21:24 Pulse 72 06/19/18 02:40 Resp 16 06/19/18 02:40 BP 101/63 06/19/18 02:49 Pulse Ox 100 06/19/18 02:40 - Labs Result Diagrams: 06/19/18 00:17 06/19/18 00:17 Labs: Laboratory Results - last 24 hr 06/19/18 06/19/18 06/19/18 00:17 00:17 00:17 WBC 7.1 RBC 4.49 Hgb 13.8 Hct 40.7 MCV 90.6 MCH 30.7 MCHC 33.9 RDW 14.6 H Plt Count 162 MPV 11.0 Neut % (Auto) 54.7 Lymph % (Auto) 31.1 [place] % (Auto) 9.9 H Eos % (Auto) 4.2 Baso % (Auto) 0.1 Lymph # (Auto) 2.2 [place] # (Auto) 0.7 H Eos # (Auto) 0.3 Baso # (Auto) 0.01 Absolute Neuts (auto) 3.87 ESR 4 Sodium 138 Potassium 3.9 Chloride 102 Carbon Dioxide 27 Anion Gap 13 BUN 25 H Creatinine 1.0 Est GFR ( Amer) > 60 Est GFR (Non-Af Amer) 57 Random Glucose 98 Calcium 9.1 Magnesium 2.2 Total Bilirubin 0.4 AST 26 ALT 13 Alkaline Phosphatase 67 Lactate Dehydrogenase 261 L Total Creatine Kinase 95 Troponin I < 0.01 Total Protein 7.4 Albumin 4.2 Globulin 3.2 Albumin/Globulin Ratio 1.3 Assessment & Plan - Assessment and Plan (Free Text) Assessment: 57 y/o F with PMHx HIV (on antiretroviral therapy), hepatitis C, breast cancer 2006 (s/p chemo/radiation and left breast lumpectomy), COPD Plan: Dizziness Likely in the setting of dehydration. Positive orthostatics in ED. Administered 1L fluid bolus in ED Will administer 2nd liter IVF and continue with maintenance fluids f/u CTA H/N f/u MRI head f/u ESR/CRP to r/o temporal arteritis Neuro consulted HIV on HAART Re-educated on HAART compliance Per pt, last CD4 78. Will check CD4, viral load Check toxoplasmosis Igg/IgM continue home TMP/SMX ID consulted COPD Not in acute exacerbation Will start albuterol nebs tid continue home prednisone Hx of Hep C f/u hepatitis panel DVT Ppx: SCD Case reviewed with attending physician, Dr. Gladis Funez PGY1 <Mariela Griffith - Last Filed: 06/19/18 20:55> Results - Vital Signs Recent Vital Signs: Last Vital Signs Temp 97.2 F L 06/18/18 21:24 Pulse 68 06/19/18 10:00 Resp 18 06/19/18 10:16 BP 110/67 06/19/18 06:04 Pulse Ox 100 06/19/18 06:04 - Labs Result Diagrams: 06/19/18 00:17 06/19/18 00:17 Labs: Laboratory Results - last 24 hr 06/19/18 06/19/18 06/19/18 00:17 00:17 00:17 WBC 7.1 RBC 4.49 Hgb 13.8 Hct 40.7 MCV 90.6 MCH 30.7 MCHC 33.9 RDW 14.6 H Plt Count 162 MPV 11.0 Neut % (Auto) 54.7 Lymph % (Auto) 31.1 [place] % (Auto) 9.9 H Eos % (Auto) 4.2 Baso % (Auto) 0.1 Lymph # (Auto) 2.2 [place] # (Auto) 0.7 H Eos # (Auto) 0.3 Baso # (Auto) 0.01 Absolute Neuts (auto) 3.87 ESR 4 Sodium 138 Potassium 3.9 Chloride 102 Carbon Dioxide 27 Anion Gap 13 BUN 25 H Creatinine 1.0 Est GFR ( Amer) > 60 Est GFR (Non-Af Amer) 57 Random Glucose 98 Calcium 9.1 Magnesium Total Bilirubin 0.4 AST 26 ALT 13 Alkaline Phosphatase 67 Lactate Dehydrogenase 261 L Total Creatine Kinase 95 Troponin I < 0.01 C-React Prot High Sens < 0.10 L Total Protein 7.4 Albumin 4.2 Globulin 3.2 Albumin/Globulin Ratio 1.3 Triglycerides Cholesterol LDL Cholesterol Direct HDL Cholesterol Procalcitonin Free T4 TSH 3rd Generation Hepatitis A IgM Ab Hep Bs Antigen Hep B Core IgM Ab Hepatitis C Antibody 06/19/18 06/19/18 06/19/18 00:17 05:15 05:15 WBC RBC Hgb Hct MCV MCH MCHC RDW Plt Count MPV Neut % (Auto) Lymph % (Auto) [place] % (Auto) Eos % (Auto) Baso % (Auto) Lymph # (Auto) [place] # (Auto) Eos # (Auto) Baso # (Auto) Absolute Neuts (auto) ESR Sodium Potassium Chloride Carbon Dioxide Anion Gap BUN Creatinine Est GFR ( Amer) Est GFR (Non-Af Amer) Random Glucose Calcium Magnesium 2.2 Total Bilirubin AST ALT Alkaline Phosphatase Lactate Dehydrogenase Total Creatine Kinase Troponin I C-React Prot High Sens Total Protein Albumin Globulin Albumin/Globulin Ratio Triglycerides Cholesterol LDL Cholesterol Direct HDL Cholesterol Procalcitonin < 0.05 L Free T4 1.23 TSH 3rd Generation 1.88 Hepatitis A IgM Ab Hep Bs Antigen Hep B Core IgM Ab Hepatitis C Antibody 06/19/18 06/19/18 05:15 05:15 WBC RBC Hgb Hct MCV MCH MCHC RDW Plt Count MPV Neut % (Auto) Lymph % (Auto) [place] % (Auto) Eos % (Auto) Baso % (Auto) Lymph # (Auto) [place] # (Auto) Eos # (Auto) Baso # (Auto) Absolute Neuts (auto) ESR Sodium Potassium Chloride Carbon Dioxide Anion Gap BUN Creatinine Est GFR ( Amer) Est GFR (Non-Af Amer) Random Glucose Calcium Magnesium Total Bilirubin AST ALT Alkaline Phosphatase Lactate Dehydrogenase Total Creatine Kinase Troponin I C-React Prot High Sens Total Protein Albumin Globulin Albumin/Globulin Ratio Triglycerides 24 L Cholesterol 99 L LDL Cholesterol Direct < 30 HDL Cholesterol 63 H Procalcitonin Free T4 TSH 3rd Generation Hepatitis A IgM Ab Negative Hep Bs Antigen Negative Hep B Core IgM Ab Negative Hepatitis C Antibody Reactive Attending/Attestation - Attestation I have personally seen and examined this patient.: Yes I have fully participated in the care of the patient.: Yes I have reviewed all pertinent clinical information: Yes
[2018-06-19] MEDS: Albuterol 0.042% Inhal Sol (1.25 mg/3 mL) UD IH SCH ×2 (05:04→08:00)
[2018-06-19 05:38] LABS: HDL CHOLESTEROL 63 mg/dL (29-60)
[2018-06-19 05:56] LABS: LDL CHOLESTEROL < 30 mg/dL (0-129)
[2018-06-19 06:01] LABS: FREE T4 1.23 ng/dL (0.78-2.19)
[2018-06-19 06:05] VITALS: BP 110/67; RESP 18; O2SAT 100
[2018-06-19] MEDS ORDERED: Sodium Chloride 0.9% 1,000 ML IV SCH (06:30)
--- NOTE | 2018-06-19 08:00 | CT ---
Date of service: 06/19/2018 PROCEDURE: CT HEAD WITHOUT CONTRAST. HISTORY: headache COMPARISON: 06/12/2018 TECHNIQUE: Axial computed tomography images were obtained through the head/brain without intravenous contrast. Radiation dose: Total exam DLP = 787.23 mGy-cm. This CT exam was performed using one or more of the following dose reduction techniques: Automated exposure control, adjustment of the mA and/or kV according to patient size, and/or use of iterative reconstruction technique. FINDINGS: HEMORRHAGE: No intracranial hemorrhage. BRAIN: No mass effect or edema. No atrophy or chronic microvascular ischemic changes. VENTRICLES: Unremarkable. No hydrocephalus. CALVARIUM: Unremarkable. PARANASAL SINUSES: Unremarkable as visualized. No significant inflammatory changes. MASTOID AIR CELLS: Unremarkable as visualized. No inflammatory changes. OTHER FINDINGS: The report concurs with the preliminary [facility] report IMPRESSION: Normal CT of the Head.
--- NOTE | 2018-06-19 08:05 | CT ---
Date of service: 06/19/2018 PROCEDURE: CT Angiography of the neck with contrast HISTORY: dizziness COMPARISON: None. TECHNIQUE: Contiguous axial images of the neck were obtained from the level of the skull-base to the superior mediastinum in the arteriographic phase of enhancement. Coronal and sagittal reformats or also generated. IV contrast dose: 100 cc of Visipaque Radiation dose: Total exam DLP = 243.48 mGy-cm. This CT exam was performed using one or more of the following dose reduction techniques: Automated exposure control, adjustment of the mA and/or kV according to patient size, and/or use of iterative reconstruction technique. FINDINGS: RIGHT CAROTID ARTERIES: Common Carotid Artery: Normal. Carotid Bifurcation: Normal. Internal Carotid Artery:Normal. External Carotid Artery (proximal branches): Normal. LEFT CAROTID ARTERIES: Common Carotid Artery: Normal. Carotid Bifurcation: Normal. Internal Carotid Artery:Normal. External Carotid Artery (proximal branches): Normal. VERTEBRAL ARTERIES: Right Vertebral Artery: Normal. Left Vertebral Artery: Normal. OTHER FINDINGS: no aortic atherosclerotic calcification or mural plaque present. IMPRESSION: Normal CT Angiography of the neck. PROCEDURE: CT Angiography of the Brain. HISTORY: dizziness COMPARISON: None available. TECHNIQUE: CT angiography of the intracranial arteries was performed. Coronal and sagittal maximum intensity projection reformated images were generated. Radiation dose: Total exam DLP = 243.48 mGy-cm. This CT exam was performed using one or more of the following dose reduction techniques: Automated exposure control, adjustment of the mA and/or kV according to patient size, and/or use of iterative reconstruction technique. FINDINGS: INTERNAL CEREBRAL ARTERIES: Unremarkable. The skull base, petrous, cavernous and supraclinoid segments are bilaterally widely patent. ANTERIOR CEREBRAL ARTERIES: Unremarkable. A1 and A2 segments are widely patent. Smaller distal branches unremarkable, as visualized. MIDDLE CEREBRAL ARTERIES: Unremarkable. M1 and M2 segments are widely patent. Perisylvian branches grossly symmetric. POSTERIOR CIRCULATION: Basilar Artery: Unremarkable. Distal Vertebral Arteries: Unremarkable. Posterior Cerebral Arteries: Unremarkable. Posterior Inferior Cerebellar Arteries: Unremarkable. ANEURYSM/ VASCULAR MALFORMATIONS: None. OTHER FINDINGS: The report concurs with the preliminary [facility] report IMPRESSION: Unremarkable CT Angiography of the Brain.
--- NOTE | 2018-06-19 08:41 | RAD ---
Date of service: 06/19/2018 PROCEDURE: CHEST RADIOGRAPH, 1 VIEW HISTORY: wheezing COMPARISON: 05/22/2018 FINDINGS: LUNGS: Clear. PLEURA: No pneumothorax or pleural fluid seen. CARDIOVASCULAR: No aortic atherosclerotic calcification present. Normal. OSSEOUS STRUCTURES: No significant abnormalities. VISUALIZED UPPER ABDOMEN: Normal. OTHER FINDINGS: None. IMPRESSION: No active disease.
[2018-06-19] MEDS ORDERED: ABACAVIR PO SCH (10:00)
[2018-06-19] MEDS ORDERED: LAMIVUDI PO SCH (10:00)
[2018-06-19] MEDS ORDERED: DOLUTEGRAVIR PO SCH (10:00)
[2018-06-19] MEDS ORDERED: UMECLIDINIUM BROMIDE 62.5 MCG IH SCH (10:00)
[2018-06-19] MEDS ORDERED: Tmp-Smz 400 mg-80 mg SS Tab PO SCH (10:00)
--- NOTE | 2018-06-19 10:46 | CARD ---
APPROVED REPORT Date of service: 06/19/2018 EKG Measurement Heart [id number] <Conclusion> Normal sinus rhythm with sinus arrhythmia Normal ECG
[2018-06-19 12:23] LABS: HEPATITIS B SURFACE AG Negative (NEGATIVE)
[2018-06-19 12:28] LABS: HEPATITIS A IGM NEGATIVE (NEGATIVE); HEPATITIS B CORE AB NEGATIVE (NEGATIVE)
[2018-06-19 14:12] LABS: HEPATITIS C ANTIBODY REACTIVE (NEGATIVE)
--- NOTE | 2018-06-19 16:26 | CP.PCM.DIS ---
<Oc Gray - Last Filed: 06/19/18 16:53> Provider - Provider Date of Admission: 06/19/18 02:27 Attending physician: Miri Wahl DO Consults: 06/19/18 03:46 Cardiology Consult Routine Comment: Consulting Provider: Romain Javier Consulting Physician: Romain Jaiver Reason for Consult: dizziness Neurology Consult Routine Comment: Consulting Provider: Kenton Ramírez Consulting Physician: Kenton Ramírez Reason for Consult: dizziness 06/19/18 03:48 Infectious Disease Consult Routine Comment: Consulting Provider: Eloy Olivia Consulting Physician: Eloy Olivia Reason for Consult: h/z, dizziness, HIV CD4 78 Time Spent in preparation of Discharge (in minutes): 35 Hospital Course - Lab Results Lab Results: Most Recent Lab Values WBC 7.1 10^3/uL (4.5-11.0) 06/19/18 00:17 RBC 4.49 10^6/uL (3.5-6.1) 06/19/18 00:17 Hgb 13.8 g/dL (12.0-16.0) 06/19/18 00:17 Hct 40.7 % (36.0-48.0) 06/19/18 00:17 MCV 90.6 fl (80.0-105.0) 06/19/18 00:17 MCH 30.7 pg (25.0-35.0) 06/19/18 00:17 MCHC 33.9 g/dl (31.0-37.0) 06/19/18 00:17 RDW 14.6 % (11.5-14.5) H 06/19/18 00:17 Plt Count 162 10^3/uL (120.0-450.0) 06/19/18 00:17 MPV 11.0 fl (7.0-11.0) 06/19/18 00:17 Neut % (Auto) 54.7 % (50.0-68.0) 06/19/18 00:17 Lymph % (Auto) 31.1 % (22.0-35.0) 06/19/18 00:17 [place] % (Auto) 9.9 % (1.0-6.0) H 06/19/18 00:17 Eos % (Auto) 4.2 % (1.5-5.0) 06/19/18 00:17 Baso % (Auto) 0.1 % (0.0-3.0) 06/19/18 00:17 Lymph # (Auto) 2.2 (1.2-3.4) 06/19/18 00:17 [place] # (Auto) 0.7 (0.1-0.6) H 06/19/18 00:17 Eos # (Auto) 0.3 (0.0-0.7) 06/19/18 00:17 Baso # (Auto) 0.01 K/mm3 (0.0-2.0) 06/19/18 00:17 Absolute Neuts (auto) 3.87 (1.4-6.5) 06/19/18 00:17 ESR 4 mm/hr (0.0-20.0) 06/19/18 00:17 Sodium 138 mmol/L (132-148) 06/19/18 00:17 Potassium 3.9 mmol/L (3.6-5.0) 06/19/18 00:17 Chloride 102 mmol/L (98-107) 06/19/18 00:17 Carbon Dioxide 27 mmol/L (21-33) 06/19/18 00:17 Anion Gap 13 (10-20) 06/19/18 00:17 BUN 25 mg/dL (7-21) H 06/19/18 00:17 Creatinine 1.0 mg/dl (0.7-1.2) 06/19/18 00:17 Est GFR ( Amer) > 60 06/19/18 00:17 Est GFR (Non-Af Amer) 57 06/19/18 00:17 Random Glucose 98 mg/dL (70-110) 06/19/18 00:17 Calcium 9.1 mg/dL (8.4-10.5) 06/19/18 00:17 Magnesium 2.2 mg/dL (1.7-2.2) 06/19/18 00:17 Total Bilirubin 0.4 mg/dL (0.2-1.3) 06/19/18 00:17 AST 26 U/L (14-36) 06/19/18 00:17 ALT 13 U/L (7-56) 06/19/18 00:17 Alkaline Phosphatase 67 U/L (38-126) 06/19/18 00:17 Lactate Dehydrogenase 261 U/L (333-699) L 06/19/18 00:17 Total Creatine Kinase 95 U/L (35-230) 06/19/18 00:17 Troponin I < 0.01 ng/mL 06/19/18 00:17 C-React Prot High Sens < 0.10 mg/L (1.00-3.00) L 06/19/18 00:17 Total Protein 7.4 g/dL (5.8-8.3) 06/19/18 00:17 Albumin 4.2 g/dL (3.0-4.8) 06/19/18 00:17 Globulin 3.2 gm/dL 06/19/18 00:17 Albumin/Globulin Ratio 1.3 (1.1-1.8) 06/19/18 00:17 Triglycerides 24 mg/dL (35-160) L 06/19/18 05:15 Cholesterol 99 mg/dL (130-200) L 06/19/18 05:15 LDL Cholesterol Direct < 30 mg/dL (0-129) 06/19/18 05:15 HDL Cholesterol 63 mg/dL (29-60) H 06/19/18 05:15 Procalcitonin < 0.05 NG/ML (0.19-0.49) L 06/19/18 05:15 Free T4 1.23 ng/dL (0.78-2.19) 06/19/18 05:15 TSH 3rd Generation 1.88 mIU/mL (0.46-4.68) 06/19/18 05:15 Hepatitis A IgM Ab Negative (NEGATIVE) 06/19/18 05:15 Hep Bs Antigen Negative (NEGATIVE) 06/19/18 05:15 Hep B Core IgM Ab Negative (NEGATIVE) 06/19/18 05:15 Hepatitis C Antibody Reactive (NEGATIVE) 06/19/18 05:15 - Hospital Course Hospital Course: Oc Gray DO, PGY-1 Hospitalist Discharge Summary for Dr. Brian Wahl Prior to admission: Patient is a 57 year old female with PMH of (on antiretroviral therapy), hepatitis C, breast cancer 2006 (s/p chemo/radiation and left breast lumpectomy), and COPD presented to ED with a complaint of b/l temporal MADSEN which improved after fluid in ED. She also admitted to dizziness with exertion. She was subsequently admitted for w/u of MADSEN and episodes of dizziness. Hospitalization course: Patient had CT head and CTA head and neck completed while in ED which were negative for acute, concerning process. Neurology and cardiology were consulted to see patient. Before patient could be evaluated further she signed out against medical advice. Discharge Exam - Head Exam Head Exam: NORMAL INSPECTION, NORMOCEPHALIC Additional comments: patient was seen and examined prior to her signing out AMA this AM, exam findings as below - Eye Exam Eye Exam: EOMI, Normal appearance - ENT Exam ENT Exam: Mucous Membranes Moist - Neck Exam Neck exam: Full Rom - Respiratory Exam Respiratory Exam: Clear to PA & Lateral, NORMAL BREATHING PATTERN, UNREMARKABLE. absent: Rales, Rhonchi, Wheezes - Cardiovascular Exam Cardiovascular Exam: REGULAR RHYTHM, RRR, +S1, +S2. absent: Diastolic murmur, Rubs, Systolic Murmur - GI/Abdominal Exam GI & Abdominal Exam: Normal Bowel Sounds, Unremarkable. absent: Tenderness - Extremities Exam Extremities exam: full ROM, normal inspection - Neurological Exam Neurological exam: Alert, Oriented x3 - Psychiatric Exam Psychiatric exam: Anxious - Skin Skin Exam: Dry, Intact, Warm Discharge Plan - Follow Up Plan Condition: FAIR Disposition: AGAINST MEDICAL ADVICE <Miri Wahl - Last Filed: 06/22/18 18:47> Provider - Provider Date of Admission: 06/19/18 02:27 Attending physician: Miri Wahl DO Consults: 06/19/18 03:46 Cardiology Consult Routine Comment: Consulting Provider: Romain Javier Consulting Physician: Romain Javier Reason for Consult: dizziness Neurology Consult Routine Comment: Consulting Provider: Kenton Ramírez Consulting Physician: Kenton Ramírez Reason for Consult: dizziness 06/19/18 03:48 Infectious Disease Consult Routine Comment: Consulting Provider: Eloy Olivia Consulting Physician: Eloy Olivia Reason for Consult: h/z, dizziness, HIV CD4 78 Hospital Course - Lab Results Lab Results: Most Recent Lab Values WBC 7.1 10^3/uL (4.5-11.0) 06/19/18 00:17 RBC 4.49 10^6/uL (3.5-6.1) 06/19/18 00:17 Hgb 13.8 g/dL (12.0-16.0) 06/19/18 00:17 Hct 40.7 % (36.0-48.0) 06/19/18 00:17 MCV 90.6 fl (80.0-105.0) 06/19/18 00:17 MCH 30.7 pg (25.0-35.0) 06/19/18 00:17 MCHC 33.9 g/dl (31.0-37.0) 06/19/18 00:17 RDW 14.6 % (11.5-14.5) H 06/19/18 00:17 Plt Count 162 10^3/uL (120.0-450.0) 06/19/18 00:17 MPV 11.0 fl (7.0-11.0) 06/19/18 00:17 Neut % (Auto) 54.7 % (50.0-68.0) 06/19/18 00:17 Lymph % (Auto) 31.1 % (22.0-35.0) 06/19/18 00:17 [place] % (Auto) 9.9 % (1.0-6.0) H 06/19/18 00:17 Eos % (Auto) 4.2 % (1.5-5.0) 06/19/18 00:17 Baso % (Auto) 0.1 % (0.0-3.0) 06/19/18 00:17 Lymph # (Auto) 2.2 (1.2-3.4) 06/19/18 00:17 [place] # (Auto) 0.7 (0.1-0.6) H 06/19/18 00:17 Eos # (Auto) 0.3 (0.0-0.7) 06/19/18 00:17 Baso # (Auto) 0.01 K/mm3 (0.0-2.0) 06/19/18 00:17 Absolute Neuts (auto) 3.87 (1.4-6.5) 06/19/18 00:17 ESR 4 mm/hr (0.0-20.0) 06/19/18 00:17 Sodium 138 mmol/L (132-148) 06/19/18 00:17 Potassium 3.9 mmol/L (3.6-5.0) 06/19/18 00:17 Chloride 102 mmol/L (98-107) 06/19/18 00:17 Carbon Dioxide 27 mmol/L (21-33) 06/19/18 00:17 Anion Gap 13 (10-20) 06/19/18 00:17 BUN 25 mg/dL (7-21) H 06/19/18 00:17 Creatinine 1.0 mg/dl (0.7-1.2) 06/19/18 00:17 Est GFR ( Amer) > 60 06/19/18 00:17 Est GFR (Non-Af Amer) 57 06/19/18 00:17 Random Glucose 98 mg/dL (70-110) 06/19/18 00:17 Calcium 9.1 mg/dL (8.4-10.5) 06/19/18 00:17 Magnesium 2.2 mg/dL (1.7-2.2) 06/19/18 00:17 Total Bilirubin 0.4 mg/dL (0.2-1.3) 06/19/18 00:17 AST 26 U/L (14-36) 06/19/18 00:17 ALT 13 U/L (7-56) 06/19/18 00:17 Alkaline Phosphatase 67 U/L (38-126) 06/19/18 00:17 Lactate Dehydrogenase 261 U/L (333-699) L 06/19/18 00:17 Total Creatine Kinase 95 U/L (35-230) 06/19/18 00:17 Troponin I < 0.01 ng/mL 06/19/18 00:17 C-React Prot High Sens < 0.10 mg/L (1.00-3.00) L 06/19/18 00:17 Total Protein 7.4 g/dL (5.8-8.3) 06/19/18 00:17 Albumin 4.2 g/dL (3.0-4.8) 06/19/18 00:17 Globulin 3.2 gm/dL 06/19/18 00:17 Albumin/Globulin Ratio 1.3 (1.1-1.8) 06/19/18 00:17 Triglycerides 24 mg/dL (35-160) L 06/19/18 05:15 Cholesterol 99 mg/dL (130-200) L 06/19/18 05:15 LDL Cholesterol Direct < 30 mg/dL (0-129) 06/19/18 05:15 HDL Cholesterol 63 mg/dL (29-60) H 06/19/18 05:15 Procalcitonin < 0.05 NG/ML (0.19-0.49) L 06/19/18 05:15 Free T4 1.23 ng/dL (0.78-2.19) 06/19/18 05:15 TSH 3rd Generation 1.88 mIU/mL (0.46-4.68) 06/19/18 05:15 Hepatitis A IgM Ab Negative (NEGATIVE) 06/19/18 05:15 Hep Bs Antigen Negative (NEGATIVE) 06/19/18 05:15 Hep B Core IgM Ab Negative (NEGATIVE) 06/19/18 05:15 Hepatitis C Antibody Reactive (NEGATIVE) 06/19/18 05:15 HIV-1 RNA Qnt (RT-PCR) <1.30 not detected (Not Detected) 06/19/18 05:15 Attending/Attestation - Attestation I have personally seen and examined this patient.: Yes I have fully participated in the care of the patient.: Yes I have reviewed all pertinent clinical information, including history, physical exam and plan: Yes Notes (Text): Please note this DC summary is for 06/19/18 Patient seen and examined by me with resident at approximately 8:55AM and prior to signing out AMA on 06/19/18. Case including discharge plan discussed with resident. Agree with above with following additions/corrections. Patient is a 57-year-old female with past medical history significant for HIV on antiretroviral therapy, hepatitis C, breast cancer, and COPD that presented to the emergency room with temporal headache and dizziness. Please see H&P for full details. Patient was found to dizziness with positive orthostatics. Patient was treated with IV fluids. Neurologist was consulted. Head CT per radiologist showed normal CT of the head. Head and neck CTA per radiologist's showed unremarkable CT angio graphy of the brain, normal CT angiography of the neck. MRI brain was pending. Per patient last CD4 count was 78. CD4 count and viral load was pending. Patient was continued on home Bactrim. ID was consulted. Patient was placed on nebulizer treatment and continued on home prednisone for history of COPD. Patient also with a history of hepatitis C. Hepatitis panel was pending. Further workup and treatment was pending. She is feeling better and decided to sign out AGAINST MEDICAL ADVICE. Patient requested to sign out against medical advice. This action is against my medical advice to the patient and the decision was made with informed refusal. The patient was told that further work up and treatment is necessary and a full explanation of my rationale was given. The risks for leaving were explained to the patient and include but are not limited to increased mortality and morbidity, , permanent disability, and worsening of known or unknown conditions. Patient was AAOx3 and was able to make this informed decision and understood the clinical situation and my explanation of the risks of leaving. The patient voluntarily accepted these risks and signed an AMA form. The patient was given the opportunity to ask questions and reconsider. The patient was encouraged to return to the emergency room at any time for further treatment. Physical exam: General: Awake and alert lying in bed in no acute distress, cachectic appearing. HEENT: Normocephalic, atraumatic. Extraocular muscles intact. Pupils equal and reactive, no scleral icterus. Oropharynx is pink and moist. No pharyngeal eryth karthik or exudate appreciated. Neck is supple. Cardiovascular: Normal rhythm. Normal S1 and S2. No murmurs, rubs, or gallops appreciated Pulmonary: Normal respiratory effort. Decreased breath sounds. No rhonchi, rales, or wheezing appreciated Gastrointestinal: Soft, nondistended. Nontender. Positive bowel sounds all 4 quadrants. No guarding. Musculoskeletal: Moves all extremities. No calf tenderness. No edema appreciated. Central nervous system: AAO x 3. CN 2-12 grossly intact. No focal deficits appreciated. Dermatologic: Skin warm and dry. Please see chart for full details. Time spent in signing patient out AMA including chart review, medication review, discussion with the patient, medical billing coordinator, consultants, and nursing staff was approximately 40 minutes.
--- NOTE | 2018-06-19 16:52 | CP.PCM.CON ---
History of Present Illness - History of Present Illness History of Present Illness: Infectious Disease Consultation: June 19, 2018 57 yo female with PMHx HIV (on antiretroviral therapy), hepatitis C, breast cancer 2007 (s/p chemo/radiation and left breast lumpectomy), COPD presented to ED with complaints of bilateral, 3/10, non-radiating temporal headache with associated dizziness that started yesterday afternoon starting with pain of 10 out of 10 but improving to 3 out of 10 in ER. She reports a CD4 of 78. Unclear if this is a failure of HAART or a noncompliance issue. The patient was undetectable HIV Viral load and CD4 greater than 200 in December 2017. Patient received IV fluids in hospital and is feeling better. Expressing that she wants to leave. PMHx: HIV (on antiretroviral therapy), hepatitis C, breast cancer 2007 (s/p chemo/radiation and left breast lumpectomy), COPD PSHx: left breast lumpectomy 2007, cholecystectomy Social Hx: Ex-tobacco use - was 40 pack year tobacco history Prior Marijuana use No EtOH use Allergies: NKDA Meds: Triumeq 600/50/300, TMP/SMX, albuterol, prednisone, Incres Family Hx: Mother lung cancer 59 yo. ROS: dizziness, headaches. No fevers, chills, nausea, vomiting, diarrhea, melena, hematuria, hematemesis, hematochezia, depression, anxiety Past Patient History - Infectious Disease Hx of Infectious Diseases: None - Tetanus Immunizations Tetanus Immunization: Unknown - Past Social History Smoking Status: Never Smoked - CARDIAC Hx Cardiac Disorders: No - PULMONARY Hx Respiratory Disorders: Yes Hx Asthma: Yes Hx Chronic Obstructive Pulmonary Disease (COPD): Yes Hx Emphysema: Yes - NEUROLOGICAL Hx Neurological Disorder: Yes Hx Dizziness: Yes - HEENT Hx HEENT Problems: No - RENAL Hx Chronic Kidney Disease: No - ENDOCRINE/METABOLIC Hx Endocrine Disorders: No - HEMATOLOGICAL/ONCOLOGICAL Hx Blood Disorders: Yes Hx AIDS: Yes Hx Cancer: Yes (left breast) Hx Chemotherapy: Yes Hx Hepatitis C: Yes - INTEGUMENTARY Hx Dermatological Problems: Yes Other/Comment: dry skin on feet - MUSCULOSKELETAL/RHEUMATOLOGICAL Hx Musculoskeletal Disorders: No Hx Falls: No - GASTROINTESTINAL Hx Gall Bladder Disease: Yes (cholectomy) - GENITOURINARY/GYNECOLOGICAL Hx Genitourinary Disorders: No - PSYCHIATRIC Hx Psychophysiologic Disorder: Yes Hx Anxiety: Yes Hx Depression: Yes Hx Paranoia: Yes (talks about chemicals in her apartment) - SURGICAL HISTORY Hx Surgeries: Yes Hx Cholecystectomy: Yes - ANESTHESIA Hx Anesthesia: Yes Hx Anesthesia Reactions: No Hx Malignant Hyperthermia: No Meds Allergies/Adverse Reactions: Allergies Allergy/AdvReac Type Severity Reaction Status Date / Time No Known Allergies Allergy Verified 06/01/18 03:41 Physical Exam - Constitutional Appears: Non-toxic, No Acute Distress, Chronically Ill - Head Exam Head Exam: ATRAUMATIC, NORMOCEPHALIC - Eye Exam Eye Exam: EOMI, PERRL Pupil Exam: NORMAL ACCOMODATION, PERRL - ENT Exam ENT Exam: Mucous Membranes Moist, Normal External Ear Exam, TM's Normal Bilaterally - Neck Exam Neck exam: Positive for: Full Rom, Normal Inspection - Respiratory Exam Respiratory Exam: Clear to Auscultation Bilateral, NORMAL BREATHING PATTERN. absent: Rales, Rhonchi, Wheezes - Cardiovascular Exam Cardiovascular Exam: REGULAR RHYTHM, RRR, +S1, +S2 - GI/Abdominal Exam GI & Abdominal Exam: Normal Bowel Sounds, Soft. absent: Distended, Tenderness - Extremities Exam Extremities exam: Positive for: full ROM, normal inspection - Neurological Exam Neurological exam: Alert, CN II-XII Intact, Oriented x3 - Psychiatric Exam Psychiatric exam: Normal Affect, Normal Mood - Skin Skin Exam: Intact, Normal Color Results - Vital Signs Recent Vital Signs: Last Vital Signs Temp 97.2 F L 06/18/18 21:24 Pulse 76 06/19/18 06:04 Resp 18 06/19/18 10:16 BP 110/67 06/19/18 06:04 Pulse Ox 100 06/19/18 06:04 - Labs Result Diagrams: 06/19/18 00:17 06/19/18 00:17 Labs: Laboratory Results - last 24 hr 06/19/18 06/19/18 06/19/18 00:17 00:17 00:17 WBC 7.1 RBC 4.49 Hgb 13.8 Hct 40.7 MCV 90.6 MCH 30.7 MCHC 33.9 RDW 14.6 H Plt Count 162 MPV 11.0 Neut % (Auto) 54.7 Lymph % (Auto) 31.1 [place] % (Auto) 9.9 H Eos % (Auto) 4.2 Baso % (Auto) 0.1 Lymph # (Auto) 2.2 [place] # (Auto) 0.7 H Eos # (Auto) 0.3 Baso # (Auto) 0.01 Absolute Neuts (auto) 3.87 ESR 4 Sodium 138 Potassium 3.9 Chloride 102 Carbon Dioxide 27 Anion Gap 13 BUN 25 H Creatinine 1.0 Est GFR ( Amer) > 60 Est GFR (Non-Af Amer) 57 Random Glucose 98 Calcium 9.1 Magnesium Total Bilirubin 0.4 AST 26 ALT 13 Alkaline Phosphatase 67 Lactate Dehydrogenase 261 L Total Creatine Kinase 95 Troponin I < 0.01 C-React Prot High Sens < 0.10 L Total Protein 7.4 Albumin 4.2 Globulin 3.2 Albumin/Globulin Ratio 1.3 Triglycerides Cholesterol LDL Cholesterol Direct HDL Cholesterol Procalcitonin Free T4 TSH 3rd Generation Hepatitis A IgM Ab Hep Bs Antigen Hep B Core IgM Ab Hepatitis C Antibody 06/19/18 06/19/18 06/19/18 00:17 05:15 05:15 WBC RBC Hgb Hct MCV MCH MCHC RDW Plt Count MPV Neut % (Auto) Lymph % (Auto) [place] % (Auto) Eos % (Auto) Baso % (Auto) Lymph # (Auto) [place] # (Auto) Eos # (Auto) Baso # (Auto) Absolute Neuts (auto) ESR Sodium Potassium Chloride Carbon Dioxide Anion Gap BUN Creatinine Est GFR ( Amer) Est GFR (Non-Af Amer) Random Glucose Calcium Magnesium 2.2 Total Bilirubin AST ALT Alkaline Phosphatase Lactate Dehydrogenase Total Creatine Kinase Troponin I C-React Prot High Sens Total Protein Albumin Globulin Albumin/Globulin Ratio Triglycerides Cholesterol LDL Cholesterol Direct HDL Cholesterol Procalcitonin < 0.05 L Free T4 1.23 TSH 3rd Generation 1.88 Hepatitis A IgM Ab Hep Bs Antigen Hep B Core IgM Ab Hepatitis C Antibody 06/19/18 06/19/18 05:15 05:15 WBC RBC Hgb Hct MCV MCH MCHC RDW Plt Count MPV Neut % (Auto) Lymph % (Auto) [place] % (Auto) Eos % (Auto) Baso % (Auto) Lymph # (Auto) [place] # (Auto) Eos # (Auto) Baso # (Auto) Absolute Neuts (auto) ESR Sodium Potassium Chloride Carbon Dioxide Anion Gap BUN Creatinine Est GFR ( Amer) Est GFR (Non-Af Amer) Random Glucose Calcium Magnesium Total Bilirubin AST ALT Alkaline Phosphatase Lactate Dehydrogenase Total Creatine Kinase Troponin I C-React Prot High Sens Total Protein Albumin Globulin Albumin/Globulin Ratio Triglycerides 24 L Cholesterol 99 L LDL Cholesterol Direct < 30 HDL Cholesterol 63 H Procalcitonin Free T4 TSH 3rd Generation Hepatitis A IgM Ab Negative Hep Bs Antigen Negative Hep B Core IgM Ab Negative Hepatitis C Antibody Reactive Assessment & Plan - Assessment and Plan (Free Text) Assessment: 57 yo female with HIV presenting with dizziness and headaches. The patient with recent CD4 of 78 as per her. Unclear if resistance to HAART versus noncompliance with HAART regimen as of late. Clear X-ray of chest. Procalcitonin less than <0.05. Dehydration? Any changes to HAART and further HIV testing should be done as outpatient other than HIV Viral load and CD4 count. Supportive care. Continue current HAART regimen. Thank you for allowing me to participate in the care of the patient, we will follow with you.
[2018-06-19 18:32] VITALS: PULSE 68
--- NOTE | 2018-06-20 09:25 | CON ---
DATE OF CONSULTATION: 06/19/2018 REQUESTING PHYSICIAN: Dr. Wahl. REASON FOR CONSULTATION: Near syncope. HISTORY: This is a 57-year-old woman with a complex past medical history including prior breast cancer, hepatitis C, and HIV, who presented to the emergency room with complaints of left-sided headache. She states that her oral intake has been diminished for 1-2 days. She felt extremely lightheaded. She denied any syncope. She is unaware of any palpitations. She was noted to be orthostatic in the emergency room and given IV fluids. Cardiology evaluation was requested. She has no prior history of heart disease. She has had no prior syncopal events. PAST MEDICAL HISTORY: Her past history is notable for the problems mentioned above. She does have a history of COPD, HIV positivity, breast cancer for which she underwent surgery and chemotherapy. MEDICATIONS: Her medications at home had included Triumeq, Breo Ellipta, Incruse Ellipta. ALLERGIES: NONE. SOCIAL HISTORY: She is a former smoker. She denies alcohol use. She does smoke marijuana regularly and used medical marijuana as well. FAMILY HISTORY: Her parents are from age-related illness. REVIEW OF SYSTEMS: A 12-point review of systems is notable mainly for the problems mentioned above. She does have intermittent fatigue. She denies any PND or orthopnea. PHYSICAL EXAMINATION: GENERAL: She is a middle-aged woman, who appears older than her stated age. VITAL SIGNS: Her blood pressure is 110/66 with a pulse of 76 and sinus, respirations are 16. She is afebrile. HEENT: Some temporal wasting noted. NECK: Supple. No JVD noted. CHEST: Few scattered rhonchi heard. HEART: PMI displaced laterally with systolic murmur present in the lower left sternal border. ABDOMEN: Soft, nontender, and normoactive bowel sounds. EXTREMITIES: No clubbing, cyanosis or edema. SKIN: Warm and dry. PSYCHIATRIC: Normal mood and affect. NEUROLOGIC: Alert and oriented x3. No gross motor or sensory deficits notable. DIAGNOSTIC DATA: White count is 7.1, hemoglobin and hematocrit are 13.8 and 40.7 with a platelet count of 162,000, potassium 3.9, BUN and creatinine are 25 and 1. Troponin is negative. TSH is 1.88, cholesterol 99 with an HDL of 63, and LDL of less than 30. Electrocardiogram reveals sinus rhythm with sinus arrhythmia, no other acute abnormalities noted. Chest x-ray reveals normal cardiac silhouette with clear lung pepper. IMPRESSION: 1. Near syncope appears clearly secondary to orthostasis and volume depletion. Doubt significant cardiac cause. 2. History of human immunodeficiency virus positivity. 3. History of hepatitis C. 4. History of remote breast cancer. RECOMMENDATIONS: At this time, an echocardiogram can be obtained to verify a normal LV size and function to exclude any component of HIV, cardiomyopathy, or post chemotherapy LV dysfunction. The patient has been rehydrated. She was cautioned to avoid reduction of oral fluid intake in the future. Assuming her echocardiogram is unremarkable, discharge home appears reasonable. Thank you for this consultation. Romain Javier MD [id number]
== END 2018-06-19 12:30 | disposition left against medical advice (07) ==
LOC: ED 21:24 → ERH 06-19 02:27 → 3RSO 06-19 09:06
PROVIDERS: ADMIT Hospitalist; ATTEND Hospitalist
DX: I95.1 Orthostatic hypotension (principal); E86.9 Volume depletion, unspecified; R51 Headache; Z21 Asymptomatic human immunodeficiency virus [HIV] infection status; R55 Syncope and collapse; F12.90 Cannabis use, unspecified, uncomplicated; F20.9 Schizophrenia, unspecified; J43.9 Emphysema, unspecified; Z80.1 Family history of malignant neoplasm of trachea, bronchus and lung; Z85.3 Personal history of malignant neoplasm of breast; Z87.440 Personal history of urinary (tract) infections; Z87.891 Personal history of nicotine dependence; Z90.49 Acquired absence of other specified parts of digestive tract; Z92.21 Personal history of antineoplastic chemotherapy; Z92.3 Personal history of irradiation
CPT/HCPCS: 70450; 70496; 70498; 71045; 80053; 80061; 80074; 82550; 83615; 83735; 84145; 84439; 84443; 84484; 85025; 85651; 86140; 86777; 87536; 93005; 96360; 99285; G0378; J7030; Q9967

== ENCOUNTER 2018-06-23 03:54 | Observation (INO) | payer OTHER ==
[2018-06-23 04:03] VITALS: BMI 16.7
[2018-06-23 04:04] VITALS: RESP 18
[2018-06-23] MEDS ORDERED: DiphenhydrAMINE 50 mg/ml Inj IVP STA (04:39)
--- NOTE | 2018-06-23 04:42 | ED PDOC ---
Arrival/HPI - General Chief Complaint: Headache Historian: Patient - History of Present Illness Narrative History of Present Illness (Text): 06/23/18 04:39 57 year old female, whose past medical history includes COPD, HIV on HAART, hepatitis C, breast cancer, who presents to the Emergency department complaining of headache. Patient states she has been experiencing headache since 22:00 tonight with associated dizziness and chills. Patient was recently seen in the ED on 06/19/2018 and was admitted to the hospital for further evaluation but left against medical advice. Patient also complaining of left-sided abdominal pain earlier today, which resolved prior to arrival, and a burning sensation to bilateral feet. Patient states she did not take anything for pain at home. Patient denies any fever, chest pain, nausea, vomiting, diarrhea, urinary sympt oms, back pain, or any other complaints. Symptom Onset: Gradual Symptom Course: Unchanged Activities at Onset: Light Context: Home Past Medical History - Provider Review Nursing Documentation Reviewed: Yes - Infectious Disease Hx of Infectious Diseases: None - Tetanus Immunization Tetanus Immunization: Unknown - Past Medical History Past Medical History: Unable to Obtain - Cardiac Hx Cardiac Disorders: No - Pulmonary Hx Respiratory Disorders: Yes Hx Asthma: Yes Hx Chronic Obstructive Pulmonary Disease (COPD): Yes Hx Emphysema: Yes - Neurological Hx Neurological Disorder: Yes Hx Dizziness: Yes - HEENT Hx HEENT Disorder: No - Renal Hx Renal Disorder: No - Endocrine/Metabolic Hx Endocrine Disorders: No - Hematological/Oncological Hx Blood Disorders: Yes Hx AIDS: Yes Hx Cancer: Yes (left breast) Hx Chemotherapy: Yes Hx Hepatitis C: Yes - Integumentary Hx Dermatological Disorder: Yes Other/Comment: dry skin on feet - Musculoskeletal/Rheumatological Hx Musculoskeletal Disorders: No Hx Falls: No - Gastrointestinal Hx Gall Bladder Disease: Yes (cholectomy) - Genitourinary/Gynecological Hx Genitourinary Disorders: No - Psychiatric Hx Psychophysiologic Disorder: Yes Hx Anxiety: Yes Hx Depression: Yes Hx Substance Use: No (denies) - Past Surgical History Past Surgical History: Unable to Obtain - Surgical History Hx Cholecystectomy: Yes - Anesthesia Hx Anesthesia: Yes Hx Anesthesia Reactions: No Hx Malignant Hyperthermia: No - Suicidal Assessment Feels Threatened In Home Enviroment: No Family/Social History - Physician Review Nursing Documentation Reviewed: Yes Family/Social History: Unknown Family HX Smoking Status: Never Smoked Hx Alcohol Use: No (denies) Hx Substance Use: No (denies) Substance used: marijuana Hx Substance Use Treatment: No Allergies/Home Meds Allergies/Adverse Reactions: Allergies No Known Allergies Allergy (Verified 06/01/18 03:41) Home Medications: Home Meds Medication Instructions Recorded Confirmed Abacavir/Dolutegravir/Lamivudi 1 tab PO DAILY 12/27/17 06/23/18 [Triumeq 600-50-300 mg Tablet] Acetaminophen/Butalbital/Caf 1 tab PO Q6 PRN 06/23/18 [Fioricet] Albuterol Sulfate [Ventolin Hfa] 2 puff IH Q4 PRN 06/23/18 Fluticasone/Salmeterol [Airduo 1 inh IH BID 06/23/18 Respiclick 113-14 Mcg] Sulfamethoxazole/Trimethoprim 1 tab PO DAILY 06/23/18 [Bactrim DS 800 mg-160 mg] Umeclidinium [place] [Incruse 62.5 mcg IH DAILY 06/23/18 Ellipta] Review of Systems - Physician Review All systems were reviewed & negative as marked: Yes - Review of Systems Constitutional: Other (+chills). absent: Fevers Eyes: Normal ENT: Normal Respiratory: Normal Cardiovascular: Normal. absent: Chest Pain Gastrointestinal: Abdominal Pain. absent: Diarrhea, Nausea, Vomiting Genitourinary Female: Normal. absent: Dysuria, Frequency, Hematuria, Urine Output Changes Musculoskeletal: Normal. absent: Back Pain, Neck Pain Skin: Other (+burning to feet) Neurological: Headache, Dizziness Endocrine: Normal Hemo/Lymphatic: Normal Psychiatric: Normal Physical Exam Vital Signs Reviewed: Yes Vital Signs Temp Pulse Resp BP Pulse Ox 06/23/18 04:04 97.4 F L 82 18 124/76 100 Temperature: Afebrile Blood Pressure: Hypotensive Pulse: Regular Respiratory Rate: Normal Appearance: Positive for: Well-Appearing, Non-Toxic, Comfortable Pain Distress: None Mental Status: Positive for: Alert and Oriented X 3 - Systems Exam Head: Present: Atraumatic, Normocephalic Pupils: Present: PERRL Extroacular Muscles: Present: EOMI Conjunctiva: Present: Normal Mouth: Present: Dry (Dry mucous membranes) Neck: Present: Normal Range of Motion. No: Meningeal Signs, MIDLINE TENDERNESS, Paraspinal Tenderness Respiratory/Chest: Present: Wheezes (Expiratory wheeze in bilateral anterior lung pepper). No: Respiratory Distress, Accessory Muscle Use Cardiovascular: Present: Regular Rate and Rhythm, Normal S1, S2. No: Murmurs Abdomen: No: Tenderness, Distention, Peritoneal Signs Upper Extremity: Present: Normal Inspection. No: Cyanosis, Edema Lower Extremity: Present: NORMAL PULSES, Normal ROM, Tenderness (Tenderness to palpation of plantar aspect of LLE great toe, with some erythema to the area.), Erythema, Neurovascularly Intact, Capillary Refill < 2 s. No: Edema, Cyanosis, Swelling, Deformity, Temperature Abnormalties Neurological: Present: GCS=15, CN II-XII Intact, Speech Normal Skin: Present: Warm, Dry, Normal Color. No: Rashes Psychiatric: Present: Alert, Oriented x 3, Normal Insight, Normal Concentration Medical Decision Making ED Course and Treatment: 06/23/18 04:39 Impression: 57 year old female complaining of headache, dizziness, and burning sensation to bilateral feet. Plan: -- Labs, LDH -- CXR -- Urinalysis, urine drug screen -- IV fluids -- Duoneb -- Decadron -- Benadryl -- Reglan -- Toradol -- Reassess and disposition Prior Visits: Notes and results from previous visits were reviewed. Pt seen in the ED on 06/19/2018 for headache and dizziness, had a full workup and CT Head performed, which were negative for any acute abnormalities, and was admitted to the hospital for further evaluation. Pt left against medical advice. Progress Notes: 06/23/18 05:54 As per RN, pt refusing further IV fluids and 2nd/3rd Duoneb treatments. Shared decision making with patient understanding she must stay and cooperating with medical treatment plan. She agrees to admission. Discussed case with Dr. Griffith(house staff) who accepts patient onto hospitalist service. - Lab Interpretations Lab Results: 06/23/18 04:59 06/23/18 04:59 Lab Results 06/23/18 04:59: Sodium 141, Potassium 4.9, Chloride 105, Carbon Dioxide 28, Anion Gap 13, BUN 30 H, Creatinine 1.0, Est GFR ( Amer) > 60, Est GFR (Non-Af Amer) 57, Random Glucose 106, Calcium 9.1, Total Bilirubin 0.3, AST 21, ALT 11, Alkaline Phosphatase 64, Lactate Dehydrogenase 277 L, Total Protein 7.1, Albumin 4.0, Globulin 3.2, Albumin/Globulin Ratio 1.3 06/23/18 04:59: PT 11.1, INR 0.98, APTT 31.1 06/23/18 04:59: WBC 6.7, RBC 4.35, Hgb 13.3, Hct 39.9, MCV 91.7, MCH 30.6, MCHC 33.3, RDW 14.9 H, Plt Count 144, MPV 10.2, Neut % (Auto) 68.8 H, Lymph % (Auto) 20.0 L, Fisher % (Auto) 7.7 H, Eos % (Auto) 3.2, Baso % (Auto) 0.3, Lymph # (Auto) 1.3, Fisher # (Auto) 0.5, Eos # (Auto) 0.2, Baso # (Auto) 0.02, Absolute Neuts (auto) 4.58, ESR 5 I have reviewed the lab results: Yes - RAD Interpretation Narrative RAD Interpretations (Text): CT Head from prior visit on 06/19/2018: HEMORRHAGE: No intracranial hemorrhage. BRAIN: No mass effect or edema. No atrophy or chronic microvascular ischemic changes. VENTRICLES: Unremarkable. No hydrocephalus. CALVARIUM: Unremarkable. PARANASAL SINUSES: Unremarkable as visualized. No significant inflammatory changes. MASTOID AIR CELLS: Unremarkable as visualized. No inflammatory changes. OTHER FINDINGS: The report concurs with the preliminary [facility] report IMPRESSION: Normal CT of the Head. 06/19/2018 07:57:13 Kev Ford MD Brick Carrier: Radiologist - Scribe Statement The provider has reviewed the documentation as recorded by the Lucina Singletary Provider Scribe Attestation: All medical record entries made by the Scribe were at my direction and personally dictated by me. I have reviewed the chart and agree that the record accurately reflects my personal performance of the history, physical exam, medical decision making, and the department course for this patient. I have also personally directed, reviewed, and agree with the discharge instructions and disposition. Disposition/Present on Arrival - Present on Arrival Any Indicators Present on Arrival: No History of DVT/PE: No History of Uncontrolled Diabetes: No Urinary Catheter: No History of Decub. Ulcer: No History Surgical Site Infection Following: None - Disposition Have Diagnosis and Disposition been Completed?: Yes Diagnosis: COPD (chronic obstructive pulmonary disease), Cough Disposition: HOSPITALIZED Disposition Time: 06:00 Patient Plan: Admission Condition: STABLE
[2018-06-23] MEDS ORDERED: Sodium Chloride 0.9% 1,000 ML IV STA (04:43)
[2018-06-23] MEDS: Albuterol-Ipratrop 3 mg / 0.5 (3 ml) UD IH SCH ×3 (04:59→05:34)
[2018-06-23 05:51] LABS: BASO # 0.02 K/mm3 (0.0-2.0); BASO % 0.3 % (0.0-3.0); EOS # 0.2 (0.0-0.7); EOS % 3.2 % (1.5-5.0); HEMOGLOBIN 13.3 g/dL (12.0-16.0); LYMPH # 1.3 (1.2-3.4); MEAN CELL VOLUME 91.7 fl (80.0-105.0); MEAN CORPUSCULAR HEMOGLOBIN 30.6 pg (25.0-35.0); MEAN CORPUSCULAR HGB CONC 33.3 g/dl (31.0-37.0); MEAN PLATELET VOLUME 10.2 fl (7.0-11.0); MONO # 0.5 (0.1-0.6); MONO % 7.7 % (1.0-6.0); RBC 4.35 10^6/uL (3.5-6.1); RED CELL DISTRIBUTION WIDTH 14.9 % (11.5-14.5); WHITE BLOOD COUNT 6.7 10^3/uL (4.5-11.0)
[2018-06-23 05:53] LABS: INR 0.98; PARTIAL THROMBOPLASTIN TIME 31.1 Seconds (26.9-38.3); PROTHROMBIN TIME 11.1 SECONDS (9.4-12.5)
[2018-06-23 06:49] LABS: ALB/GLOB RATIO 1.3 (1.1-1.8); ALT/SGPT 11 U/L (7-56); AST/SGOT 21 U/L (14-36); BLOOD UREA NITROGEN 30 mg/dL (7-21); CALCIUM 9.1 mg/dL (8.4-10.5); GFR NON-AFRICAN AMERICAN 57
[2018-06-23 06:51] LABS: URINE APPEARANCE CLEAR (CLEAR); URINE BILIRUBIN NEGATIVE (NEGATIVE); URINE BLOOD NEGATIVE (NEGATIVE); URINE COLOR YELLOW (YELLOW); URINE GLUCOSE (UA) NEGATIVE (NEGATIVE); URINE LEUKOCYTE ESTERASE NEGATIVE Leu/uL (NEGATIVE); URINE PROTEIN TRACE mg/dL (<30 mg/dL); URINE UROBILINOGEN 0.2 E.U./dL (<1 E.U./dL)
[2018-06-23 06:56] LABS: URINE RBC 0 - 2 /hpf (0-2); URINE WBC 0 - 2 /hpf (0-6)
[2018-06-23 07:00] LABS: BARBITURATES, UR NEGATIVE (NEGATIVE); BENZODIAZEPINES, UR NEGATIVE (NEGATIVE); OPIATES, UR NEGATIVE (NEGATIVE); PHENCYCLIDINE, UR NEGATIVE (NEGATIVE)
[2018-06-23 07:57] VITALS: BP 90/60; PULSE 81; TEMP 97.8; O2SAT 98
[2018-06-23] MEDS ORDERED: Albuterol-Ipratrop 3 mg / 0.5 (3 ml) UD IH PRN (08:15)
[2018-06-23] MEDS ORDERED: Sodium Chloride 0.9% 1,000 ML IV SCH (08:15)
--- NOTE | 2018-06-23 08:16 | CP.PCM.HP ---
<Torey Perry - Last Filed: 06/23/18 14:13> History of Present Illness - History of Present Illness History of Present Illness: H&P for Hospitalist Service Torey Perry DO, PGY-3 CC: Dizziness This is a 57 yo F with PMH of HIV (reportedly on HAART, reported last CD4 as 78), COPD, Breast Ca (s/p left lumpectomy, chemo/rads tx), and Hep C who re- presented to [facility] [place] with complaint of dizziness. Patient had recently been admitted to [facility] with similar complaint on 06/19/18 (in addition to headache), but left AMA that same day due to "feeling better" after receiving some IV fluids. As per ED, this admission, patient also complaining of abdominal pain, but improved by time of admission in the ED, and not present this AM at time of my interview/exam. Pt seen at bedside on the floors this AM. Reports dizziness, only described as feeling "whoozy," but denies room spinning, double vision, blurred vision, or worsening of dizziness with position changes. Reports dizziness is improved thi s AM, feels better but not resolved at time of exam. Admits to poor PO intake, which she described as baseline; reports eating 2-3 meals per day and drinking 2-3 bottles of water per day when pressed for further details. Denies lack of PO intake or recent changes in intake within last week. Reports compliance with HIV meds (reports PMD writes for them), and reports being on daily Bactrim for ppx since last reported CD4 was 78 (not performed here, this is as per patient). Denies fevers, chills, nausea, emesis, PO intolerance, diarrhea, dysuria, hematuria, urinary frequency. 12-system ROS reviewed and negative, except as above. Of note, as per nursing, patient started refusing IVF after receiving 1L, and refused her 2nd and 3rd scheduled duonebs tx. When asked why, patient reported not liking the sensation of IV fluids, and didn't feel like she needed the medication. PMH: as above PSH: left breast lumpectomy (2006), cholecystectomy SHx: former tobacco use (quit 2007, approx 1ppd x 40yrs), admits former intermittent marijuana (none between this and last admission), denies alcohol FH: Lung Ca (Mother, ) Meds confirmed with [facility], Home Meds/Amb Orders updated to reflect PMD: Currently Dr. Nunes in [place], previously Dr. Lucas (who is also ID) Pharmacy: [facility] ([place]) Present on Admission - Present on Admission Any Indicators Present on Admission: No History of DVT/PE: No History of Uncontrolled Diabetes: No Urinary Catheter: No Review of Systems - Review of Systems All systems: reviewed and no additional remarkable complaints except (as per HPI) Past Patient History - Infectious Disease Hx of Infectious Diseases: None - Tetanus Immunizations Tetanus Immunization: Unknown - Past Social History Smoking Status: Former Smoker - CARDIAC Hx Cardiac Disorders: No - PULMONARY Hx Respiratory Disorders: Yes Hx Asthma: Yes Hx Chronic Obstructive Pulmonary Disease (COPD): Yes Hx Emphysema: Yes - NEUROLOGICAL Hx Neurological Disorder: Yes Hx Dizziness: Yes - HEENT Hx HEENT Problems: No - RENAL Hx Chronic Kidney Disease: No - ENDOCRINE/METABOLIC Hx Endocrine Disorders: No - HEMATOLOGICAL/ONCOLOGICAL Hx Blood Disorders: Yes Hx AIDS: Yes Hx Cancer: Yes (left breast) Hx Chemotherapy: Yes Hx Hepatitis C: Yes - INTEGUMENTARY Hx Dermatological Problems: Yes Other/Comment: dry skin on feet - MUSCULOSKELETAL/RHEUMATOLOGICAL Hx Musculoskeletal Disorders: No - GASTROINTESTINAL Hx Gall Bladder Disease: Yes (cholectomy) - GENITOURINARY/GYNECOLOGICAL Hx Genitourinary Disorders: No - PSYCHIATRIC Hx Psychophysiologic Disorder: Yes Hx Anxiety: Yes Hx Depression: Yes Hx Hallucinations: Yes Hx Paranoia: Yes - SURGICAL HISTORY Hx Cholecystectomy: Yes - ANESTHESIA Hx Anesthesia: Yes Hx Anesthesia Reactions: No Hx Malignant Hyperthermia: No Meds Allergies/Adverse Reactions: Allergies Allergy/AdvReac Type Severity Reaction Status Date / Time No Known Allergies Allergy Verified 06/01/18 03:41 Physical Exam - Constitutional Appears: Non-toxic, No Acute Distress, Other (Fatigued/somnolent, requiring repeated re-arrousals) - Head Exam Head Exam: ATRAUMATIC, NORMAL INSPECTION, NORMOCEPHALIC - Eye Exam Eye Exam: EOMI, Normal appearance. absent: Conjunctival injection, Scleral icterus Pupil Exam: absent: Irregular, Unequal - ENT Exam ENT Exam: Mucous Membranes Moist. absent: Mucous Membranes Dry - Neck Exam Neck exam: Positive for: Normal Inspection. Negative for: Lymphadenopathy, Thyromegaly - Respiratory Exam Respiratory Exam: Decreased Breath Sounds (mildly decreased breath sounds in all pepper, otherwise clear to auscultation), NORMAL BREATHING PATTERN. absent: Accessory Muscle Use, Chest Wall Tenderness, Rales, Rhonchi, Wheezes, Respira tory Distress, Stridor - Cardiovascular Exam Cardiovascular Exam: REGULAR RHYTHM, RRR, +S1, +S2. absent: Bradycardia, Tachycardia, Irregular Rhythm, JVD, +S4 - GI/Abdominal Exam GI & Abdominal Exam: Normal Bowel Sounds, Soft. absent: Diminished Bowel Sounds, Distended, Firm, Hyperactive Bowel Sounds, Hypoactive Bowel Sounds, Rigid, Tenderness - Extremities Exam Extremities exam: Positive for: normal capillary refill, normal inspection, pedal pulses present. Negative for: calf tenderness, pedal edema, tenderness - Neurological Exam Additional comments: somnolent/fatigued, but easily arousable when awaked, initially awake and alert, but returns to somnolence frequently, requiring repeated arousals for history and exam when awake, oriented to self/location/year, follows all commands appropriately, moving extremities spontaneously and on command No gross motor deficit appreciated, no gross facial droop appreciated - Psychiatric Exam Psychiatric exam: Normal Affect, Normal Mood - Skin Skin Exam: Dry, Intact, Normal Color, Warm Results - Vital Signs Recent Vital Signs: Last Vital Signs Temp 97.8 F 06/23/18 07:57 Pulse 81 06/23/18 07:57 Resp 18 06/23/18 07:57 BP 90/60 L 06/23/18 07:57 Pulse Ox 98 06/23/18 07:57 - Labs Result Diagrams: 06/23/18 04:59 06/23/18 04:59 Labs: Laboratory Results - last 24 hr 06/23/18 06/23/18 06/23/18 04:59 04:59 04:59 WBC 6.7 RBC 4.35 Hgb 13.3 Hct 39.9 MCV 91.7 MCH 30.6 MCHC 33.3 RDW 14.9 H Plt Count 144 MPV 10.2 Neut % (Auto) 68.8 H Lymph % (Auto) 20.0 L Hart % (Auto) 7.7 H Eos % (Auto) 3.2 Baso % (Auto) 0.3 Lymph # (Auto) 1.3 Hart # (Auto) 0.5 Eos # (Auto) 0.2 Baso # (Auto) 0.02 Absolute Neuts (auto) 4.58 ESR 5 PT 11.1 INR 0.98 APTT 31.1 Sodium 141 Potassium 4.9 Chloride 105 Carbon Dioxide 28 Anion Gap 13 BUN 30 H Creatinine 1.0 Est GFR ( Amer) > 60 Est GFR (Non-Af Amer) 57 Random Glucose 106 Calcium 9.1 Total Bilirubin 0.3 AST 21 ALT 11 Alkaline Phosphatase 64 Lactate Dehydrogenase 277 L Total Protein 7.1 Albumin 4.0 Globulin 3.2 Albumin/Globulin Ratio 1.3 Urine Color Urine Appearance Urine pH Ur Specific Ducor Urine Protein Urine Glucose (UA) Urine Ketones Urine Blood Urine Nitrate Urine Bilirubin Urine Urobilinogen Ur Leukocyte Esterase Urine RBC Urine WBC Ur Epithelial Cells Urine Bacteria Urine Opiates Screen Urine Methadone Screen Ur Barbiturates Screen Ur Phencyclidine Scrn Ur Amphetamines Screen U Benzodiazepines Scrn U Oth Cocaine Metabols U Cannabinoids Screen 06/23/18 06/23/18 06:19 06:19 WBC RBC Hgb Hct MCV MCH MCHC RDW Plt Count MPV Neut % (Auto) Lymph % (Auto) Hart % (Auto) Eos % (Auto) Baso % (Auto) Lymph # (Auto) Hart # (Auto) Eos # (Auto) Baso # (Auto) Absolute Neuts (auto) ESR PT INR APTT Sodium Potassium Chloride Carbon Dioxide Anion Gap BUN Creatinine Est GFR ( Amer) Est GFR (Non-Af Amer) Random Glucose Calcium Total Bilirubin AST ALT Alkaline Phosphatase Lactate Dehydrogenase Total Protein Albumin Globulin Albumin/Globulin Ratio Urine Color Yellow Urine Appearance Clear Urine pH 6.0 Ur Specific Ducor >= 1.030 Urine Protein Trace H Urine Glucose (UA) Negative Urine Ketones Negative Urine Blood Negative Urine Nitrate Negative Urine Bilirubin Negative Urine Urobilinogen 0.2 Ur Leukocyte Esterase Negative Urine RBC 0 - 2 Urine WBC 0 - 2 Ur Epithelial Cells 1 - 3 Urine Bacteria None Urine Opiates Screen Negative Urine Methadone Screen Negative Ur Barbiturates Screen Negative Ur Phencyclidine Scrn Negative Ur Amphetamines Screen Negative U Benzodiazepines Scrn Negative U Oth Cocaine Metabols Negative U Cannabinoids Screen Negative Assessment & Plan - Assessment and Plan (Free Text) Assessment: This is a 57 yo F with PMH of HIV (reportedly on HAART, reported last CD4 as 78), COPD, Breast Ca (s/p left lumpectomy, chemo/rads tx), and Hep C who re- presented to [facility] with complaint of dizziness. Patient had recently been ad mitted to [facility] with similar complaint on 06/19/18 (in addition to headache), but left AMA. She is being re-admitted for headache and dizziness in setting of HIV with questionable med compliance and CD4 < 200 (reported). Plan: 1) Persistent/recurring dizziness 2) Headache - resolved as per pt 3) HIV, questionably in HAART, on bactrim ppx 4) Hep C 5) COPD 6) Hx Breast Ca s/p lumpectomy/chemo/rads -Suspect orthostatic component given similar presentation last admission, im provement then with IV fluids, reports feeling improved today after 1L IVF As per outpt Pharmacy, was given Fioricet prescription, short-term only, would avoid at this time Patient currently refusing to participate for orthostatic BPs, will obtain when pt more amenable Given HIV hx, will obtain Head CT to r/o intracranial process; CD4 78 does protect against cryptococcus, but reported value, not on file, and unsure how old -COPD meds confirmed with pharmacy, they report excessive ventolin pick-ups with excuse of "lost inhalers," but they suspect she is overusing Meds not on formulary, currently on triple therapy with LABA/LAMA/ICS, will discuss with in-house pharmacy what equivalents we have on formulary Until determined, covering with Albuterol q6 ivan and Duonebs prn -Continue home HAART tx, continue bactrim ppx; ID consulted, appreciate their recs -Heart-health diet Case reviewed and discussed with attending, Dr. Giles Addendum: After initial exam and some workup, patient suddenly elected to leave against medical advice. Risks of leaving against medical advice explained to patient, including worsening of known and unknown conditions, permanent disability, and/or ; patient expressed understanding but still insisted on leaving. AMA paperwork filled out, witnessed by nursing, and then patient left against medical advice. <Tomi Giles - Last Filed: 06/23/18 14:43> Results - Vital Signs Recent Vital Signs: Last Vital Signs Temp 97.8 F 06/23/18 07:57 Pulse 81 06/23/18 07:57 Resp 18 06/23/18 07:57 BP 90/60 L 06/23/18 07:57 Pulse Ox 98 06/23/18 07:57 - Labs Result Diagrams: 06/23/18 04:59 06/23/18 04:59 Labs: Laboratory Results - last 24 hr 06/23/18 06/23/18 06/23/18 04:59 04:59 04:59 WBC 6.7 RBC 4.35 Hgb 13.3 Hct 39.9 MCV 91.7 MCH 30.6 MCHC 33.3 RDW 14.9 H Plt Count 144 MPV 10.2 Neut % (Auto) 68.8 H Lymph % (Auto) 20.0 L Hart % (Auto) 7.7 H Eos % (Auto) 3.2 Baso % (Auto) 0.3 Lymph # (Auto) 1.3 Hart # (Auto) 0.5 Eos # (Auto) 0.2 Baso # (Auto) 0.02 Absolute Neuts (auto) 4.58 ESR 5 PT 11.1 INR 0.98 APTT 31.1 Sodium 141 Potassium 4.9 Chloride 105 Carbon Dioxide 28 Anion Gap 13 BUN 30 H Creatinine 1.0 Est GFR ( Amer) > 60 Est GFR (Non-Af Amer) 57 Random Glucose 106 Calcium 9.1 Total Bilirubin 0.3 AST 21 ALT 11 Alkaline Phosphatase 64 Lactate Dehydrogenase 277 L Total Protein 7.1 Albumin 4.0 Globulin 3.2 Albumin/Globulin Ratio 1.3 Urine Color Urine Appearance Urine pH Ur Specific Ducor Urine Protein Urine Glucose (UA) Urine Ketones Urine Blood Urine Nitrate Urine Bilirubin Urine Urobilinogen Ur Leukocyte Esterase Urine RBC Urine WBC Ur Epithelial Cells Urine Bacteria Urine Opiates Screen Urine Methadone Screen Ur Barbiturates Screen Ur Phencyclidine Scrn Ur Amphetamines Screen U Benzodiazepines Scrn U Oth Cocaine Metabols U Cannabinoids Screen 06/23/18 06/23/18 06:19 06:19 WBC RBC Hgb Hct MCV MCH MCHC RDW Plt Count MPV Neut % (Auto) Lymph % (Auto) Hart % (Auto) Eos % (Auto) Baso % (Auto) Lymph # (Auto) Hart # (Auto) Eos # (Auto) Baso # (Auto) Absolute Neuts (auto) ESR PT INR APTT Sodium Potassium Chloride Carbon Dioxide Anion Gap BUN Creatinine Est GFR ( Amer) Est GFR (Non-Af Amer) Random Glucose Calcium Total Bilirubin AST ALT Alkaline Phosphatase Lactate Dehydrogenase Total Protein Albumin Globulin Albumin/Globulin Ratio Urine Color Yellow Urine Appearance Clear Urine pH 6.0 Ur Specific Ducor >= 1.030 Urine Protein Trace H Urine Glucose (UA) Negative Urine Ketones Negative Urine Blood Negative Urine Nitrate Negative Urine Bilirubin Negative Urine Urobilinogen 0.2 Ur Leukocyte Esterase Negative Urine RBC 0 - 2 Urine WBC 0 - 2 Ur Epithelial Cells 1 - 3 Urine Bacteria None Urine Opiates Screen Negative Urine Methadone Screen Negative Ur Barbiturates Screen Negative Ur Phencyclidine Scrn Negative Ur Amphetamines Screen Negative U Benzodiazepines Scrn Negative U Oth Cocaine Metabols Negative U Cannabinoids Screen Negative Attending/Attestation - Attestation I have personally seen and examined this patient.: Yes I have fully participated in the care of the patient.: Yes I have reviewed all pertinent clinical information: Yes Notes (Text): 06/23/18 14:41 Medical record note made by the resident after discussion with my direction and input after the patient was personally seen and examined by me. I have reviewed the chart and agree that the record accurately reflects by personal performance of the history, physical exam, data review, and medical decision-making, in the course for the patient. I have also personally directed the plan of care. 57 F with a history of HIV on antiretroviral therapy non compliance with medication, hepatitis C, left breast cancer diagnosed in 2006 s/p chemo/radiation and left breast lumpectomy, COPD, was admitted with vertigo, there is no focal deficit.Patient has refused to stay in the hospital.She is alert,awake and oriented and has signed AMA. Prognosis is guarded
[2018-06-23] MEDS ORDERED: Albuterol 0.083% Inhal Sol (2.5 mg/3 mL) UD IH SCH (09:20)
[2018-06-23] MEDS ORDERED: Tmp-Smz 800 mg-160 mg DS Tab PO SCH (10:00)
[2018-06-23] MEDS ORDERED: Non Formulary Medication (Fluticasone/Vilanterol [Breo Ellipta 200-25 Mcg Inh] 1 EACH) IH SCH (10:00)
--- NOTE | 2018-06-23 10:27 | RAD ---
Date of service: 06/23/2018 HISTORY: headache COMPARISON: 06/19/2018 TECHNIQUE: 1 view obtained. FINDINGS: LUNGS: No active pulmonary disease. PLEURA: No significant pleural effusion identified, no pneumothorax apparent. CARDIOVASCULAR: No aortic atherosclerotic calcification present. Normal cardiac size. No pulmonary vascular congestion. OSSEOUS STRUCTURES: No significant abnormalities. VISUALIZED UPPER ABDOMEN: Normal. OTHER FINDINGS: None. IMPRESSION: No active disease.
--- NOTE | 2018-06-23 11:34 | CT ---
Date of service: 06/23/2018 PROCEDURE: CT HEAD WITHOUT CONTRAST. HISTORY: dizziness, HIV with CD4 < 200 and ?med compliance COMPARISON: None available. TECHNIQUE: Axial computed tomography images were obtained through the head/brain without intravenous contrast. Radiation dose: Total exam DLP = 1053.43 mGy-cm. This CT exam was performed using one or more of the following dose reduction techniques: Automated exposure control, adjustment of the mA and/or kV according to patient size, and/or use of iterative reconstruction technique. FINDINGS: HEMORRHAGE: No intracranial hemorrhage. BRAIN: No mass effect or edema. No atrophy or chronic microvascular ischemic changes. VENTRICLES: Unremarkable. No hydrocephalus. CALVARIUM: Unremarkable. PARANASAL SINUSES: Unremarkable as visualized. No significant inflammatory changes. MASTOID AIR CELLS: Unremarkable as visualized. No inflammatory changes. OTHER FINDINGS: The report concurs with the preliminary [facility] report IMPRESSION: No acute intracranial finding
[2018-06-23] MEDS ORDERED: FLUTICASONE PROPION/SALMETEROL 113-14 IH SCH (12:00)
--- NOTE | 2018-06-23 19:36 | CARD ---
APPROVED REPORT Date of service: 06/23/2018 EKG Measurement Heart [id number] <Conclusion> Normal sinus rhythm Normal ECG
== END 2018-06-23 14:38 | disposition left against medical advice (07) ==
LOC: ED 03:54 → ERH 05:45 → 3RNO 06:36
PROVIDERS: ADMIT Hospitalist; ATTEND Internal Medicine
DX: R42 Dizziness and giddiness (principal); R51 Headache; B20 Human immunodeficiency virus [HIV] disease; B19.20 Unspecified viral hepatitis C without hepatic coma; J43.9 Emphysema, unspecified; Z91.14 Patient's other noncompliance with medication regimen; Z85.3 Personal history of malignant neoplasm of breast; Z92.21 Personal history of antineoplastic chemotherapy; Z92.3 Personal history of irradiation; Z87.891 Personal history of nicotine dependence; Z80.1 Family history of malignant neoplasm of trachea, bronchus and lung
CPT/HCPCS: 36415; 70450; 71045; 80053; 80324; 80345; 80346; 80349; 80353; 80358; 80361; 81001; 83615; 83992; 85025; 85610; 85651; 85730; 93005; 96374; 96375; 99285; G0378; J1100; J1200; J1885; J2765; J7030

== ENCOUNTER 2018-06-25 21:04 | Emergency (ER) | payer OTHER ==
[2018-06-25 21:05] VITALS: BMI 16.7
[2018-06-26 00:36] VITALS: TEMP 97.7
--- NOTE | 2018-06-26 01:34 | ED PDOC ---
Arrival/HPI - General Chief Complaint: Headache Time Seen by Provider: 06/26/18 00:44 Historian: Patient - History of Present Illness Narrative History of Present Illness (Text): 06/26/18 01:22 57 year old female, whose past medical history includes COPD, HIV on HAART, hepatitis C, breast cancer, who presents to the Emergency department complaining of headache. Patient states she has been experiencing headache since 22:00 tonig ht with associated dizziness. Patient was recently seen in the ED for similar complaints and admitted to the hospital for further evaluation, but left against medical advice. Patient denies any fever, chills, chest pain, shortness of breath, nausea, vomiting, diarrhea, urinary symptoms, back pain, neck pain, or any other complaints. Symptom Onset: Gradual Context: Home Past Medical History - Provider Review Nursing Documentation Reviewed: Yes - Infectious Disease Hx of Infectious Diseases: None - Tetanus Immunization Tetanus Immunization: Unknown - Past Medical History Past Medical History: Unable to Obtain - Cardiac Hx Cardiac Disorders: No - Pulmonary Hx Respiratory Disorders: Yes Hx Asthma: Yes Hx Chronic Obstructive Pulmonary Disease (COPD): Yes Hx Emphysema: Yes - Neurological Hx Neurological Disorder: Yes Hx Dizziness: Yes - HEENT Hx HEENT Disorder: No - Renal Hx Renal Disorder: No - Endocrine/Metabolic Hx Endocrine Disorders: No - Hematological/Oncological Hx Blood Disorders: Yes Hx AIDS: Yes Hx Cancer: Yes (left breast, lumpectomy) Hx Chemotherapy: Yes Hx Hepatitis C: Yes - Integumentary Hx Dermatological Disorder: Yes Other/Comment: dry skin on feet - Musculoskeletal/Rheumatological Hx Musculoskeletal Disorders: No Hx Falls: No - Gastrointestinal Hx Gastrointestinal Disorders: Yes Hx Gall Bladder Disease: Yes (cholectomy) - Genitourinary/Gynecological Hx Genitourinary Disorders: No - Psychiatric Hx Psychophysiologic Disorder: Yes Hx Anxiety: Yes Hx Depression: Yes Hx Substance Use: Yes (denies) - Past Surgical History Past Surgical History: Unable to Obtain - Surgical History Hx Cholecystectomy: Yes - Anesthesia Hx Anesthesia: Yes Hx Anesthesia Reactions: No Hx Malignant Hyperthermia: No - Suicidal Assessment Feels Threatened In Home Enviroment: No Family/Social History - Physician Review Nursing Documentation Reviewed: Yes Family/Social History: Unknown Family HX Smoking Status: Never Smoked Hx Alcohol Use: Yes (former) Hx Substance Use: Yes (denies) Substance used: marijuana Hx Substance Use Treatment: No Allergies/Home Meds Allergies/Adverse Reactions: Allergies No Known Allergies Allergy (Verified 06/27/18 23:53) Home Medications: Home Meds Medication Instructions Recorded Confirmed Abacavir/Dolutegravir/Lamivudi 1 tab PO DAILY 12/27/17 06/23/18 [Triumeq 600-50-300 mg Tablet] Acetaminophen/Butalbital/Caf 1 tab PO Q6 PRN 06/23/18 [Fioricet] Albuterol Sulfate [Ventolin Hfa] 2 puff IH Q4 PRN 06/23/18 Fluticasone/Salmeterol [Airduo 1 inh IH BID 06/23/18 Respiclick 113-14 Mcg] Sulfamethoxazole/Trimethoprim 1 tab PO DAILY 06/23/18 [Bactrim DS 800 mg-160 mg] Umeclidinium [place] [Incruse 62.5 mcg IH DAILY 06/23/18 Ellipta] Review of Systems - Physician Review All systems were reviewed & negative as marked: Yes - Review of Systems Constitutional: Normal. absent: Fevers Eyes: Normal ENT: Normal Respiratory: Normal. absent: SOB, Cough Cardiovascular: Normal. absent: Chest Pain Gastrointestinal: Normal. absent: Abdominal Pain, Diarrhea, Nausea, Vomiting Genitourinary Female: Normal. absent: Dysuria, Frequency, Hematuria, Urine Output Changes Musculoskeletal: Normal. absent: Back Pain, Neck Pain Skin: Normal. absent: Rash Neurological: Headache, Dizziness Endocrine: Normal Hemo/Lymphatic: Normal Psychiatric: Normal Physical Exam Vital Signs Reviewed: Yes Vital Signs Temp Pulse Resp BP Pulse Ox 06/26/18 00:31 97.7 F 77 18 122/78 90 L Temperature: Afebrile Blood Pressure: Normal Pulse: Regular Respiratory Rate: Normal Appearance: Positive for: Well-Appearing, Non-Toxic, Comfortable Pain Distress: None Mental Status: Positive for: Alert and Oriented X 3 - Systems Exam Head: Present: Atraumatic, Normocephalic Pupils: Present: PERRL Extroacular Muscles: Present: EOMI Conjunctiva: Present: Normal Mouth: Present: Moist Mucous Membranes Neck: Present: Normal Range of Motion Respiratory/Chest: Present: Clear to Auscultation, Good Air Exchange. No: Respiratory Distress, Accessory Muscle Use Cardiovascular: Present: Regular Rate and Rhythm, Normal S1, S2. No: Murmurs Abdomen: No: Tenderness, Distention, Peritoneal Signs Back: Present: Normal Inspection Upper Extremity: Present: Normal Inspection. No: Cyanosis, Edema Lower Extremity: Present: Normal Inspection. No: Edema Neurological: Present: GCS=15, CN II-XII Intact, Speech Normal Skin: Present: Warm, Dry, Normal Color. No: Rashes Psychiatric: Present: Alert, Oriented x 3, Normal Insight, Normal Concentration Medical Decision Making ED Course and Treatment: 06/26/18 00:36 Impression: 57 year old female complaining of headache and dizziness. Plan: -- Tylenol -- Reassess and disposition Prior Visits: Notes and results from previous visits were reviewed. Progress Notes: - Medication Orders Current Medication Orders: Discontinued Medications Acetaminophen (Tylenol 325mg Tab) 650 mg PO STAT STA Stop: 06/26/18 01:23 - Scribe Statement The provider has reviewed the documentation as recorded by the Sundaribbreanne Singletary Provider Scribe Attestation: All medical record entries made by the Scribe were at my direction and personally dictated by me. I have reviewed the chart and agree that the record accurately reflects my personal performance of the history, physical exam, m edical decision making, and the department course for this patient. I have also personally directed, reviewed, and agree with the discharge instructions and disposition. Disposition/Present on Arrival - Present on Arrival Any Indicators Present on Arrival: No History of DVT/PE: No History of Uncontrolled Diabetes: No Urinary Catheter: No History of Decub. Ulcer: No History Surgical Site Infection Following: None - Disposition Have Diagnosis and Disposition been Completed?: Yes Diagnosis: Epistaxis, Headache Disposition: HOME/ ROUTINE Disposition Time: 06:30 Condition: GOOD Discharge Instructions (ExitCare): Nosebleeds, Headache, Adult Referrals: [facility] at [facility] [place] [Outside] - Follow up with primary Forms: [employer] (I[place]ic)
[2018-06-26 02:50] VITALS: RESP 13
[2018-06-26 04:32] VITALS: O2SAT 95
[2018-06-26 06:08] VITALS: BP 95/52; PULSE 65
== END 2018-06-26 06:32 | disposition home or self-care (01) ==
LOC: ED 21:04
DX: R51 Headache (principal); R04.0 Epistaxis

== ENCOUNTER 2018-06-26 22:19 | Emergency (ER) | payer OTHER ==
[2018-06-26 22:20] VITALS: BMI 16.7
--- NOTE | 2018-06-26 22:36 | ED PDOC ---
Arrival/HPI - General Historian: Patient - History of Present Illness Narrative History of Present Illness (Text): 06/26/18 23:33 57 year old female, whose past medical history includes COPD, HIV on HAART, hepatitis C, breast cancer, who presents to the Emergency department complaining of wheezing, for 1 day. Patient states she was helping a friend move out of a 15th floor apartment which exacerbated her COPD. Patient also informs of mild frontal headache, described as dull and constant. Patient informs she took one 20mg prednisone prior to arrival. Patient is requesting breathing treatment. Patient states she does not want an IV line inserted. Patient was recently a dmitted on 06/19 for evaluation of headache and dizziness, with a normal CT head at the time. Patient denies any fevers, chills, productive cough, vision changes, suicidal ideation, homicidal ideation, substance use, abdominal pain, chest pain, nausea, vomiting, dizziness, or any other complaint. Time/Duration: < week Symptom Onset: Gradual Symptom Course: Unchanged Activities at Onset: Significant Context: Exertion <Carlitos Cerrato - Last Filed: 06/26/18 23:33> <Jana Brito - Last Filed: 06/27/18 14:47> - General Chief Complaint: Headache Time Seen by Provider: 06/26/18 22:21 Past Medical History - Provider Review Nursing Documentation Reviewed: Yes <Carlitos Cerrato - Last Filed: 06/26/18 23:33> - Infectious Disease Hx of Infectious Diseases: None - Tetanus Immunization Tetanus Immunization: Unknown - Past Medical History Past Medical History: Unable to Obtain - Cardiac Hx Cardiac Disorders: No - Pulmonary Hx Respiratory Disorders: Yes Hx Asthma: Yes Hx Chronic Obstructive Pulmonary Disease (COPD): Yes Hx Emphysema: Yes - Neurological Hx Neurological Disorder: Yes Hx Dizziness: Yes - HEENT Hx HEENT Disorder: No - Renal Hx Renal Disorder: No - Endocrine/Metabolic Hx Endocrine Disorders: No - Hematological/Oncological Hx Blood Disorders: Yes Hx AIDS: Yes Hx Cancer: Yes (left breast, lumpectomy) Hx Chemotherapy: Yes Hx Hepatitis C: Yes - Integumentary Hx Dermatological Disorder: Yes Other/Comment: dry skin on feet - Musculoskeletal/Rheumatological Hx Musculoskeletal Disorders: No Hx Falls: No - Gastrointestinal Hx Gastrointestinal Disorders: Yes Hx Gall Bladder Disease: Yes (cholectomy) - Genitourinary/Gynecological Hx Genitourinary Disorders: No - Psychiatric Hx Psychophysiologic Disorder: Yes Hx Anxiety: Yes Hx Depression: Yes Hx Substance Use: Yes (denies) - Past Surgical History Past Surgical History: Unable to Obtain - Surgical History Hx Cholecystectomy: Yes - Anesthesia Hx Anesthesia: Yes Hx Anesthesia Reactions: No Hx Malignant Hyperthermia: No - Suicidal Assessment Feels Threatened In Home Enviroment: No <Jana Brito - Last Filed: 06/27/18 14:47> Family/Social History - Physician Review Nursing Documentation Reviewed: Yes Family/Social History: No Known Family HX <Carlitos Cerrato - Last Filed: 06/26/18 23:33> Smoking Status: Never Smoked Hx Alcohol Use: Yes (former) Hx Substance Use: Yes (denies) Substance used: marijuana Hx Substance Use Treatment: No <Jana Brito - Last Filed: 06/27/18 14:47> Allergies/Home Meds <Carlitos Cerrato - Last Filed: 06/26/18 23:33> <Jana Brito - Last Filed: 06/27/18 14:47> Allergies/Adverse Reactions: Allergies No Known Allergies Allergy (Verified 06/26/18 00:36) Home Medications: Home Meds Medication Instructions Recorded Confirmed Abacavir/Dolutegravir/Lamivudi 1 tab PO DAILY 12/27/17 06/23/18 [Triumeq 600-50-300 mg Tablet] Acetaminophen/Butalbital/Caf 1 tab PO Q6 PRN 06/23/18 [Fioricet] Albuterol Sulfate [Ventolin Hfa] 2 puff IH Q4 PRN 06/23/18 Fluticasone/Salmeterol [Airduo 1 inh IH BID 06/23/18 Respiclick 113-14 Mcg] Sulfamethoxazole/Trimethoprim 1 tab PO DAILY 06/23/18 [Bactrim DS 800 mg-160 mg] Umeclidinium [place] [Incruse 62.5 mcg IH DAILY 06/23/18 Ellipta] Review of Systems - Physician Review All systems were reviewed & negative as marked: Yes - Review of Systems Constitutional: absent: Fevers, Night Sweats Eyes: absent: Vision Changes Respiratory: SOB, Wheezing. absent: Cough Gastrointestinal: absent: Abdominal Pain, Nausea, Vomiting Neurological: Headache. absent: Dizziness Psychiatric: absent: Suicidal Ideation (or Homicidal Ideation) <Carlitos Cerrato - Last Filed: 06/26/18 23:33> - Review of Systems Constitutional: Normal Eyes: Normal ENT: Normal. absent: Sore Throat, Sinus Congestion Respiratory: SOB, Wheezing Cardiovascular: Normal. absent: Chest Pain, Palpitations, Syncope Gastrointestinal: Normal Genitourinary Female: Normal. absent: Dysuria, Frequency Musculoskeletal: Normal. absent: Back Pain, Neck Pain Skin: Normal. absent: Rash Neurological: Headache <Jana Brito - Last Filed: 06/27/18 14:47> Physical Exam Vital Signs Reviewed: Yes Vital Signs Temp Pulse Resp BP Pulse Ox 06/26/18 22:38 97.9 F 88 13 121/67 93 L Temperature: Afebrile Blood Pressure: Normal Pulse: Regular Respiratory Rate: Tachypneic Appearance: Positive for: Well-Appearing, Non-Toxic, Comfortable Pain Distress: None Mental Status: Positive for: Alert and Oriented X 3 - Systems Exam Head: Present: Atraumatic, Normocephalic Pupils: Present: PERRL Extroacular Muscles: Present: EOMI Conjunctiva: Present: Normal Mouth: Present: Moist Mucous Membranes Neck: Present: Normal Range of Motion Respiratory/Chest: Present: Wheezes (Diffuse expiratory wheezes), Decreased Breath Sounds (Bilaterally). No: Respiratory Distress Cardiovascular: Present: Regular Rate and Rhythm, Normal S1, S2. No: Murmurs Abdomen: No: Tenderness, Distention, Peritoneal Signs Back: Present: Normal Inspection Upper Extremity: Present: Normal Inspection. No: Cyanosis, Edema Lower Extremity: Present: Normal Inspection. No: Edema Neurological: Present: GCS=15, CN II-XII Intact, Speech Normal Skin: Present: Warm, Dry, Normal Color. No: Rashes Psychiatric: Present: Alert, Oriented x 3, Normal Insight, Normal Concentration <Carlitos Cerrato - Last Filed: 06/26/18 23:33> Vital Signs Reviewed: Yes Temperature: Afebrile Blood Pressure: Normal Pulse: Regular Respiratory Rate: Normal Appearance: Positive for: Well-Appearing, Non-Toxic, Comfortable Pain Distress: None Mental Status: Positive for: Alert and Oriented X 3 <Jana Brito - Last Filed: 06/27/18 14:47> Medical Decision Making ED Course and Treatment: 06/26/18 23:52 Impression: 57 year old female presents with COPD exacerbation Plan: -- Tylenol -- Prednisone -- Reassess and disposition Prior Visits: Notes and results from previous visits were reviewed. Progress Notes: - Medication Orders Current Medication Orders: Discontinued Medications Acetaminophen (Tylenol 325mg Tab) 650 mg PO STAT STA Stop: 06/26/18 22:54 Last Admin: 06/26/18 23:18 Dose: 650 mg MAR Pain/Vitals Document 06/26/18 23:18 EB (Rec[place] 06/26/18 23:18 [place] [facility] [id number] Pain Reassessment Is This A Pain ReAssessment? No Sleep Is patient sleeping during reassessment? No Presence of Pain Presence of Pain Yes Pain Scale Used Protocol: PSCALES Pain Scale Used Numeric Location Pain Location Body [employer] Building [employer] Intensity 6 Albuterol/Ipratropium (Duoneb 3 Mg/0.5 Mg (3 Ml) Ud) 3 ml IH Q15M MILENA Stop: 06/26/18 23:31 Last Admin: 06/26/18 23:18 Dose: 3 ml Prednisone (Prednisone Tab) 40 mg PO STAT STA Stop: 06/26/18 22:51 Last Admin: 06/26/18 23:17 Dose: 40 mg <Carlitos Cerrato - Last Filed: 06/26/18 23:33> ED Course and Treatment: On initial exam, patient is very well appearing in no acute distress. No tachypnea, tachycardia, or respiratory distress. Pt speaking in complete, quick sentences without difficulty. No retractions or accessory muscle use. Lung exam reveals diffuse bilateral expiratory wheezing. Neurological exam unremarkable. On repeat lung exam, patient has significantly decreased wheezing bilaterally with improvement in air exchange. States she is feeling much better. Requesting discharge home. O2 sat has improved. Prescription given for prednisone and z- pack. Advised PMD followup. Diagnostic testing results and plan of care discussed with patient. Strict instructions given regarding prescription use, importance of followup, and signs/symptoms to return to ER including chest pain, fever, chills, vision changes, dizziness, or any other new/worsening symptoms. Pt verbalized understanding of discussion. Patient is A&Ox3, ambulating with steady gait, with vital signs stable for discharge. <Jana Brito - Last Filed: 06/27/18 14:47> - Scribe Statement The provider has reviewed the documentation as recorded by the Scribe Bernard Talavera All medical record entries made by the Scribe were at my direction and personally dictated by me. I have reviewed the chart and agree that the record accurately reflects my personal performance of the history, physical exam, medical decision making, and the department course for this patient. I have also personally directed, reviewed, and agree with the discharge instructions and disposition. <Carlitos Cerrato - Last Filed: 06/26/18 23:33> Disposition/Present on Arrival <Carlitos Cerrato - Last Filed: 06/26/18 23:33> - Present on Arrival Any Indicators Present on Arrival: No History of DVT/PE: No History of Uncontrolled Diabetes: No Urinary Catheter: No History of Decub. Ulcer: No History Surgical Site Infection Following: None - Disposition Have Diagnosis and Disposition been Completed?: Yes Disposition Time: 00:00 <Jana Brito - Last Filed: 06/27/18 14:47> - Disposition Diagnosis: COPD exacerbation, Homeless Disposition: HOME/ ROUTINE Condition: IMPROVED Discharge Instructions (ExitCare): Exacerbation of COPD (DC), Risk Factors for COPD Additional Instructions: Prednisone 2 tabs daily for 4 more days Zpack as directed Continue home medications Followup with primary doctor within 2 days Return to ER with any new/worsening symptoms Prescriptions: Azithromycin [Z-Trace] 250 mg PO DAILY #6 tab predniSONE [predniSONE Tab] 40 mg PO DAILY #8 tab [place] [facility] [place] [facility] [place] - Follow up with primary Glenis Herrera MD [Medical Doctor] - Follow up with primary Forms: [employer] (Lao), WORK NOTE
[2018-06-26 22:42] VITALS: RESP 13; TEMP 97.9
[2018-06-26] MEDS: Albuterol-Ipratrop 3 mg / 0.5 (3 ml) UD IH SCH (23:18)
[2018-06-27 02:37] VITALS: BP 101/65; PULSE 84; O2SAT 96
== END 2018-06-27 02:17 | disposition home or self-care (01) ==
LOC: ED 22:19
DX: J44.1 Chronic obstructive pulmonary disease with (acute) exacerbation (principal); Z59.0 Homelessness; Z85.3 Personal history of malignant neoplasm of breast; Z21 Asymptomatic human immunodeficiency virus [HIV] infection status; B19.20 Unspecified viral hepatitis C without hepatic coma

== ENCOUNTER 2018-06-27 23:26 | Emergency (ER) | payer OTHER ==
[2018-06-27 23:26] VITALS: BMI 16.7
[2018-06-27 23:51] VITALS: BP 110/71; PULSE 77; RESP 18; TEMP 97.9; O2SAT 96
[2018-06-28] MEDS ORDERED: Albuterol-Ipratrop 3 mg / 0.5 (3 ml) UD IH STA (00:13)
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
== END 2018-06-28 01:41 | disposition home or self-care (01) ==
LOC: ED 23:26
DX: J44.9 Chronic obstructive pulmonary disease, unspecified (principal); Z85.3 Personal history of malignant neoplasm of breast; Z21 Asymptomatic human immunodeficiency virus [HIV] infection status; Z86.19 Personal history of other infectious and parasitic diseases

== ENCOUNTER 2018-07-01 16:05 | Emergency (ER) | payer OTHER ==
[2018-07-01 20:54] VITALS: BMI 17.1
== END 2018-07-01 17:47 | disposition left against medical advice (07) ==
LOC: ED 16:05
DX: Z02.89 Encounter for other administrative examinations (principal); S01.511A Laceration without foreign body of lip, initial encounter

== ENCOUNTER 2018-07-01 20:22 | Emergency (ER) | payer OTHER ==
[2018-07-01 20:54] VITALS: TEMP 98.2; BMI 17.1
--- NOTE | 2018-07-01 21:40 | ED PDOC ---
Arrival/HPI - General Chief Complaint: Abdominal Pain Time Seen by Provider: 07/01/18 20:47 Historian: Patient - History of Present Illness Narrative History of Present Illness (Text): 07/01/18 21:39 57 year old female, whose past medical history includes COPD, HIV on HAART, hepatitis C, breast cancer, who presents to the Emergency department complaining of nausea. Patient states she has been experiencing nausea with associated abdominal discomfort today after drinking tea. Patient denies any fever, chills, chest pain, shortness of breath, vomiting, diarrhea, urinary symptoms, back pain, neck pain, headache, dizziness, or any other complaints. Symptom Onset: Gradual Symptom Course: Unchanged Activities at Onset: Light Context: Home Past Medical History - Provider Review Nursing Documentation Reviewed: Yes - Infectious Disease Hx of Infectious Diseases: None - Tetanus Immunization Tetanus Immunization: Unknown - Past Medical History Past Medical History: Unable to Obtain - Cardiac Hx Cardiac Disorders: No - Pulmonary Hx Respiratory Disorders: Yes Hx Asthma: Yes Hx Chronic Obstructive Pulmonary Disease (COPD): Yes Hx Emphysema: Yes - Neurological Hx Neurological Disorder: Yes Hx Dizziness: Yes - HEENT Hx HEENT Disorder: No - Renal Hx Renal Disorder: No - Endocrine/Metabolic Hx Endocrine Disorders: No - Hematological/Oncological Hx Blood Disorders: Yes Hx AIDS: Yes Hx Cancer: Yes (left breast, lumpectomy) Hx Chemotherapy: Yes Hx Hepatitis C: Yes - Integumentary Hx Dermatological Disorder: Yes Other/Comment: dry skin on feet - Musculoskeletal/Rheumatological Hx Musculoskeletal Disorders: No Hx Falls: No - Gastrointestinal Hx Gastrointestinal Disorders: Yes Hx Gall Bladder Disease: Yes (cholectomy) - Genitourinary/Gynecological Hx Genitourinary Disorders: No - Psychiatric Hx Psychophysiologic Disorder: Yes Hx Anxiety: Yes Hx Depression: Yes Hx Substance Use: Yes (denies) - Past Surgical History Past Surgical History: Unable to Obtain - Surgical History Hx Cholecystectomy: Yes - Anesthesia Hx Anesthesia: Yes Hx Anesthesia Reactions: No Hx Malignant Hyperthermia: No - Suicidal Assessment Feels Threatened In Home Enviroment: No Family/Social History - Physician Review Nursing Documentation Reviewed: Yes Family/Social History: Unknown Family HX Smoking Status: Never Smoked Hx Alcohol Use: Yes (former) Hx Substance Use: Yes (denies) Substance used: marijuana Hx Substance Use Treatment: No Allergies/Home Meds Allergies/Adverse Reactions: Allergies No Known Allergies Allergy (Verified 06/27/18 23:53) Home Medications: Home Meds Medication Instructions Recorded Confirmed Abacavir/Dolutegravir/Lamivudi 1 tab PO DAILY 12/27/17 06/23/18 [Triumeq 600-50-300 mg Tablet] Acetaminophen/Butalbital/Caf 1 tab PO Q6 PRN 06/23/18 [Fioricet] Albuterol Sulfate [Ventolin Hfa] 2 puff IH Q4 PRN 06/23/18 Fluticasone/Salmeterol [Airduo 1 inh IH BID 06/23/18 Respiclick 113-14 Mcg] Sulfamethoxazole/Trimethoprim 1 tab PO DAILY 06/23/18 [Bactrim DS 800 mg-160 mg] Umeclidinium [place] [Incruse 62.5 mcg IH DAILY 06/23/18 Ellipta] Review of Systems - Physician Review All systems were reviewed & negative as marked: Yes - Review of Systems Constitutional: Normal. absent: Fevers Eyes: Normal ENT: Normal Respiratory: Normal. absent: SOB, Cough Cardiovascular: Normal. absent: Chest Pain Gastrointestinal: Abdominal Pain, Nausea. absent: Diarrhea, Vomiting Genitourinary Female: Normal. absent: Dysuria, Frequency, Hematuria, Urine Output Changes Musculoskeletal: Normal. absent: Back Pain, Neck Pain Skin: Normal. absent: Rash Neurological: Normal. absent: Headache, Dizziness Endocrine: Normal Hemo/Lymphatic: Normal Psychiatric: Normal Physical Exam Vital Signs Reviewed: Yes Vital Signs Temp Pulse Resp BP Pulse Ox 07/01/18 20:52 98.2 F 90 18 126/87 96 Temperature: Afebrile Blood Pressure: Normal Pulse: Regular Respiratory Rate: Normal Appearance: Positive for: Well-Appearing, Non-Toxic, Comfortable Pain Distress: None Mental Status: Positive for: Alert and Oriented X 3 - Systems Exam Head: Present: Atraumatic, Normocephalic Pupils: Present: PERRL Extroacular Muscles: Present: EOMI Conjunctiva: Present: Normal Mouth: Present: Moist Mucous Membranes Neck: Present: Normal Range of Motion Respiratory/Chest: Present: Clear to Auscultation, Good Air Exchange. No: Respiratory Distress, Accessory Muscle Use Cardiovascular: Present: Regular Rate and Rhythm, Normal S1, S2. No: Murmurs Abdomen: No: Tenderness, Distention, Peritoneal Signs Back: Present: Normal Inspection Upper Extremity: Present: Normal Inspection. No: Cyanosis, Edema Lower Extremity: Present: Normal Inspection. No: Edema Neurological: Present: GCS=15, CN II-XII Intact, Speech Normal Skin: Present: Warm, Dry, Normal Color. No: Rashes Psychiatric: Present: Alert, Oriented x 3, Normal Insight, Normal Concentration Medical Decision Making ED Course and Treatment: 07/01/18 21:39 Impression: 57 year old female complaining of nausea and abdominal discomfort. Plan: -- Labs, lipase -- UA -- Reassess and disposition Prior Visits: Notes and results from previous visits were reviewed. Progress Notes: 07/02/18 01:50 CT Head: BRAIN: No acute intraparenchymal hemorrhage. No mass lesion. No CT evidence for acute territorial infarct. No midline shift or extra-axial collections. VENTRICLES: No hydrocephalus. ORBITS: The orbits are unremarkable. SINUSES AND MASTOIDS: The paranasal sinuses and mastoid air cells are clear. BONES: No fracture. SOFT TISSUES: Unremarkable. IMPRESSION: No acute intracranial abnormality. Electronically signed on July 02, 2018 1:03:31 AM EDT by: Rigo Wilson M.D., Certified by ABR, Diagnostic Radiology - Lab Interpretations I have reviewed the lab results: Yes - RAD Interpretation Imaging Nurse: Radiologist - Scribe Statement The provider has reviewed the documentation as recorded by the Sundaribbreanne Singletary Provider Scribe Attestation: All medical record entries made by the Scribe were at my direction and persona lly dictated by me. I have reviewed the chart and agree that the record accurately reflects my personal performance of the history, physical exam, medical decision making, and the department course for this patient. I have also personally directed, reviewed, and agree with the discharge instructions and disposition. Disposition/Present on Arrival - Present on Arrival Any Indicators Present on Arrival: No History of DVT/PE: No History of Uncontrolled Diabetes: No Urinary Catheter: No History of Decub. Ulcer: No History Surgical Site Infection Following: None - Disposition Have Diagnosis and Disposition been Completed?: Yes Diagnosis: Abdominal pain Disposition: HOME/ ROUTINE Disposition Time: 06:30 Condition: GOOD Discharge Instructions (ExitCare): Viral Gastroenteritis, Adult (DC) Referrals: Paras Gaviria MD, PhD [Primary Care Provider] - Follow up with primary Forms: [employer] (French)
[2018-07-01 23:14] LABS: BASO # 0.01 K/mm3 (0.0-2.0); BASO % 0.1 % (0.0-3.0); EOS # 0.2 (0.0-0.7); EOS % 2.3 % (1.5-5.0); HEMOGLOBIN 13.5 g/dL (12.0-16.0); LYMPH # 1.1 (1.2-3.4); LYMPH % 12.6 % (22.0-35.0); MEAN CELL VOLUME 90.7 fl (80.0-105.0); MEAN CORPUSCULAR HEMOGLOBIN 30.5 pg (25.0-35.0); MEAN CORPUSCULAR HGB CONC 33.7 g/dl (31.0-37.0); MONO # 0.8 (0.1-0.6); MONO % 8.6 % (1.0-6.0); RBC 4.42 10^6/uL (3.5-6.1); RED CELL DISTRIBUTION WIDTH 14.7 % (11.5-14.5)
[2018-07-01 23:41] LABS: ALB/GLOB RATIO 1.3 (1.1-1.8); ALT/SGPT 23 U/L (7-56); AST/SGOT 29 U/L (14-36); BLOOD UREA NITROGEN 19 mg/dL (7-21); CALCIUM 9.1 mg/dL (8.4-10.5); GFR NON-AFRICAN AMERICAN > 60; LIPASE 73 U/L (23-300)
[2018-07-02 00:04] LABS: URINE APPEARANCE CLEAR (CLEAR); URINE BILIRUBIN NEGATIVE (NEGATIVE); URINE BLOOD NEGATIVE (NEGATIVE); URINE COLOR YELLOW (YELLOW); URINE GLUCOSE (UA) NEGATIVE (NEGATIVE); URINE LEUKOCYTE ESTERASE NEGATIVE Leu/uL (NEGATIVE); URINE PROTEIN NEGATIVE mg/dL (<30 mg/dL); URINE UROBILINOGEN 0.2 E.U./dL (<1 E.U./dL)
[2018-07-02 05:17] VITALS: BP 106/68; PULSE 81; RESP 12; O2SAT 96
--- NOTE | 2018-07-02 09:17 | CT ---
Date of service: 07/02/2018 PROCEDURE: CT HEAD WITHOUT CONTRAST. HISTORY: head injury COMPARISON: None available. TECHNIQUE: Axial computed tomography images were obtained through the head/brain without intravenous contrast. Radiation dose: Total exam DLP = 766.93 mGy-cm. This CT exam was performed using one or more of the following dose reduction techniques: Automated exposure control, adjustment of the mA and/or kV according to patient size, and/or use of iterative reconstruction technique. FINDINGS: HEMORRHAGE: No intracranial hemorrhage. BRAIN: No mass effect or edema. No atrophy or chronic microvascular ischemic changes. VENTRICLES: Unremarkable. No hydrocephalus. CALVARIUM: Unremarkable. PARANASAL SINUSES: Unremarkable as visualized. No significant inflammatory changes. MASTOID AIR CELLS: Unremarkable as visualized. No inflammatory changes. OTHER FINDINGS: None. IMPRESSION: Normal CT of the Head.
== END 2018-07-02 06:24 | disposition home or self-care (01) ==
LOC: ED 20:22
DX: R10.9 Unspecified abdominal pain (principal); J44.9 Chronic obstructive pulmonary disease, unspecified; Z21 Asymptomatic human immunodeficiency virus [HIV] infection status; B19.20 Unspecified viral hepatitis C without hepatic coma; Z85.3 Personal history of malignant neoplasm of breast

== ENCOUNTER 2018-07-05 01:48 | Emergency (ER) | payer OTHER ==
[2018-07-05 01:49] VITALS: BMI 16.7
[2018-07-05 04:05] VITALS: TEMP 97.5
--- NOTE | 2018-07-05 05:01 | ED PDOC ---
Arrival/HPI - General Chief Complaint: ENT Problem Time Seen by Provider: 07/05/18 04:02 Historian: Patient - History of Present Illness Narrative History of Present Illness (Text): 07/05/18 05:23 A 57 year old female whose past medical history includes COPD, HIV, Hepatitis C, Breast CA, presents to the emergency department with a complaint of sore throat discomfort and some wheezing. Patient states that her inhaler was not working. She denies fevers, chills, headache, dizziness, chest pain, shortness of breath, dyspnea on exertion, cough, abdominal pain, nausea, vomiting, diarrhea, back pain, neck pain, urinary/bowel changes, or any other complaint. Time/Duration: Other (Today) Symptom Onset: Sudden Symptom Course: Unchanged Activities at Onset: Rest, Light Context: Home Past Medical History - Provider Review Nursing Documentation Reviewed: Yes - Infectious Disease Hx of Infectious Diseases: None - Tetanus Immunization Tetanus Immunization: Unknown - Past Medical History Past Medical History: Unable to Obtain - Cardiac Hx Cardiac Disorders: No - Pulmonary Hx Respiratory Disorders: Yes Hx Asthma: Yes Hx Chronic Obstructive Pulmonary Disease (COPD): Yes Hx Emphysema: Yes - Neurological Hx Neurological Disorder: Yes Hx Dizziness: Yes - HEENT Hx HEENT Disorder: No - Renal Hx Renal Disorder: No - Endocrine/Metabolic Hx Endocrine Disorders: No - Hematological/Oncological Hx Blood Disorders: Yes Hx AIDS: Yes Hx Cancer: Yes (left breast, lumpectomy) Hx Chemotherapy: Yes Hx Hepatitis C: Yes - Integumentary Hx Dermatological Disorder: Yes Other/Comment: dry skin on feet - Musculoskeletal/Rheumatological Hx Musculoskeletal Disorders: No Hx Falls: No - Gastrointestinal Hx Gastrointestinal Disorders: Yes Hx Gall Bladder Disease: Yes (cholectomy) - Genitourinary/Gynecological Hx Genitourinary Disorders: No - Psychiatric Hx Psychophysiologic Disorder: Yes Hx Anxiety: Yes Hx Depression: Yes Hx Substance Use: Yes (denies) - Past Surgical History Past Surgical History: Unable to Obtain - Surgical History Hx Cholecystectomy: Yes - Anesthesia Hx Anesthesia: Yes Hx Anesthesia Reactions: No Hx Malignant Hyperthermia: No - Suicidal Assessment Feels Threatened In Home Enviroment: No Family/Social History - Physician Review Nursing Documentation Reviewed: Yes Family/Social History: No Known Family HX Smoking Status: Never Smoked Hx Alcohol Use: Yes (former) Hx Substance Use: Yes (denies) Substance used: marijuana Hx Substance Use Treatment: No Allergies/Home Meds Allergies/Adverse Reactions: Allergies No Known Allergies Allergy (Verified 06/27/18 23:53) Home Medications: Home Meds Medication Instructions Recorded Confirmed Abacavir/Dolutegravir/Lamivudi 1 tab PO DAILY 12/27/17 06/23/18 [Triumeq 600-50-300 mg Tablet] Acetaminophen/Butalbital/Caf 1 tab PO Q6 PRN 06/23/18 [Fioricet] Albuterol Sulfate [Ventolin Hfa] 2 puff IH Q4 PRN 06/23/18 Fluticasone/Salmeterol [Airduo 1 inh IH BID 06/23/18 Respiclick 113-14 Mcg] Sulfamethoxazole/Trimethoprim 1 tab PO DAILY 06/23/18 [Bactrim DS 800 mg-160 mg] Umeclidinium [place] [Incruse 62.5 mcg IH DAILY 06/23/18 Ellipta] Review of Systems - Physician Review All systems were reviewed & negative as marked: Yes - Review of Systems Constitutional: absent: Fevers ENT: Sore Throat Respiratory: absent: SOB, Cough Cardiovascular: absent: Chest Pain, ENRIQUEZ Gastrointestinal: absent: Abdominal Pain, Stool Changes, Diarrhea, Nausea, Vomiting Genitourinary Female: absent: Urine Output Changes Musculoskeletal: absent: Back Pain, Neck Pain Neurological: absent: Headache, Dizziness Physical Exam Vital Signs Reviewed: Yes Vital Signs Temp Pulse Resp BP Pulse Ox 07/05/18 04:04 97.5 F L 79 16 128/77 93 L Temperature: Hypothermic Blood Pressure: Normal Pulse: Regular Respiratory Rate: Normal Appearance: Positive for: Well-Appearing, Non-Toxic, Comfortable Pain Distress: None Mental Status: Positive for: Alert and Oriented X 3 - Systems Exam Head: Present: Atraumatic, Normocephalic Pupils: Present: PERRL Extroacular Muscles: Present: EOMI Conjunctiva: Present: Normal Mouth: Present: Moist Mucous Membranes Pharnyx: Present: ERYTHEMA (erythema to posterior pharynx). No: EXUDATE Neck: Present: Normal Range of Motion Respiratory/Chest: Present: Good Air Exchange, Wheezes (Faint expiratory wheeze.). No: Respiratory Distress, Accessory Muscle Use Cardiovascular: Present: Regular Rate and Rhythm, Normal S1, S2. No: Murmurs Abdomen: No: Tenderness, Distention, Peritoneal Signs Back: Present: Normal Inspection Upper Extremity: Present: Normal Inspection. No: Cyanosis, Edema Lower Extremity: Present: Normal Inspection. No: Edema Neurological: Present: GCS=15, CN II-XII Intact, Speech Normal Skin: Present: Warm, Dry, Normal Color. No: Rashes Psychiatric: Present: Alert, Oriented x 3, Normal Insight, Normal Concentration Medical Decision Making ED Course and Treatment: 07/05/18 05:19 Impression: A 57 year old female presents to the emergency department with a complaint of sore throat. Plan: -- Amoxil and Duoneb -- Reassess and disposition Prior Visits: Notes and results from previous visits were reviewed. Progress Notes: 07/05/18 05:25 - Scribe Statement The provider has reviewed the documentation as recorded by the Lucina Palumbo Provider Scribe Attestation: All medical record entries made by the Scribe were at my direction and personally dictated by me. I have reviewed the chart and agree that the record accurately reflects my personal performance of the history, physical exam, medical decision making, and the department course for this patient. I have also personally directed, reviewed, and agree with the discharge instructions and disposition. Disposition/Present on Arrival - Present on Arrival Any Indicators Present on Arrival: No History of DVT/PE: No History of Uncontrolled Diabetes: No Urinary Catheter: No History of Decub. Ulcer: No History Surgical Site Infection Following: None - Disposition Have Diagnosis and Disposition been Completed?: Yes Diagnosis: COPD (chronic obstructive pulmonary disease), Pharyngitis Disposition: HOME/ ROUTINE Disposition Time: 06:25 Patient Plan: Discharge Condition: GOOD Discharge Instructions (ExitCare): Sore Throat, Adult (DC), COPD Including Emphysema (DC) Additional Instructions: Take meds as prescribed/drink cool liquids/follow up with your doctor this week Prescriptions: Amoxicillin [Amoxil 500 mg Cap] 500 mg PO TID #21 cap predniSONE [Prednisone] 40 mg PO DAILY #10 tab Albuterol HFA [Ventolin HFA 90 mcg/actuation (8 g)] 2 puff IH [id number] PRN #1 puff PRN Reason: Wheezing Forms: [employer] (Ukrainian)
[2018-07-05] MEDS ORDERED: Albuterol-Ipratrop 3 mg / 0.5 (3 ml) UD IH STA (05:19)
[2018-07-05 06:55] VITALS: BP 100/61; PULSE 64; RESP 13; O2SAT 97
== END 2018-07-05 06:54 | disposition home or self-care (01) ==
LOC: ED 01:48
DX: J44.9 Chronic obstructive pulmonary disease, unspecified (principal); J02.9 Acute pharyngitis, unspecified

== ENCOUNTER 2018-07-06 23:10 | Observation (INO) | payer OTHER ==
[2018-07-06 23:22] VITALS: BMI 16.6
--- NOTE | 2018-07-06 23:43 | ED PDOC ---
Arrival/HPI - General Chief Complaint: GI Problem Time Seen by Provider: 07/06/18 23:13 Historian: Patient - History of Present Illness Narrative History of Present Illness (Text): 07/06/18 23:41 57 year old female, whose past medical history includes COPD, HIV on HAART, hepatitis C, breast cancer, who presents to the Emergency department complaining of abdominal pain. Patient states she has been experiencing generalized abdomi nal pain, nausea, and generalized malaise today. Patient denies any fever, chills, chest pain, shortness of breath, vomiting, diarrhea, urinary symptoms, back pain, neck pain, headache, dizziness, or any other complaints. Symptom Onset: Gradual Symptom Course: Unchanged Activities at Onset: Light Context: Home Past Medical History - Provider Review Nursing Documentation Reviewed: Yes - Infectious Disease Hx of Infectious Diseases: None - Tetanus Immunization Tetanus Immunization: Unknown - Past Medical History Past Medical History: Unable to Obtain - Cardiac Hx Cardiac Disorders: No - Pulmonary Hx Respiratory Disorders: Yes Hx Asthma: Yes Hx Chronic Obstructive Pulmonary Disease (COPD): Yes Hx Emphysema: Yes - Neurological Hx Neurological Disorder: Yes Hx Dizziness: Yes - HEENT Hx HEENT Disorder: No - Renal Hx Renal Disorder: No - Endocrine/Metabolic Hx Endocrine Disorders: No - Hematological/Oncological Hx Blood Disorders: Yes Hx AIDS: Yes Hx Cancer: Yes (left breast, lumpectomy) Hx Chemotherapy: Yes Hx Hepatitis C: Yes - Integumentary Hx Dermatological Disorder: Yes Other/Comment: dry skin on feet - Musculoskeletal/Rheumatological Hx Musculoskeletal Disorders: No Hx Falls: No - Gastrointestinal Hx Gastrointestinal Disorders: Yes Hx Gall Bladder Disease: Yes (cholectomy) - Genitourinary/Gynecological Hx Genitourinary Disorders: No - Psychiatric Hx Psychophysiologic Disorder: Yes Hx Anxiety: Yes Hx Depression: Yes Hx Substance Use: Yes (denies) - Past Surgical History Past Surgical History: Unable to Obtain - Surgical History Hx Cholecystectomy: Yes - Anesthesia Hx Anesthesia: Yes Hx Anesthesia Reactions: No Hx Malignant Hyperthermia: No - Suicidal Assessment Feels Threatened In Home Enviroment: No Family/Social History - Physician Review Nursing Documentation Reviewed: Yes Family/Social History: Unknown Family HX Smoking Status: Never Smoked Hx Alcohol Use: Yes (former) Hx Substance Use: Yes (denies) Substance used: marijuana Hx Substance Use Treatment: No Allergies/Home Meds Allergies/Adverse Reactions: Allergies No Known Allergies Allergy (Verified 07/06/18 23:22) Home Medications: Home Meds Medication Instructions Recorded Confirmed Abacavir/Dolutegravir/Lamivudi 1 tab PO DAILY 12/27/17 07/06/18 [Triumeq 600-50-300 mg Tablet] Acetaminophen/Butalbital/Caf 1 tab PO Q6 PRN 06/23/18 07/06/18 [Fioricet] Albuterol Sulfate [Ventolin Hfa] 2 puff IH Q4 PRN 06/23/18 07/06/18 Fluticasone/Salmeterol [Airduo 1 inh IH BID 06/23/18 07/06/18 Respiclick 113-14 Mcg] Sulfamethoxazole/Trimethoprim 1 tab PO DAILY 06/23/18 07/06/18 [Bactrim DS 800 mg-160 mg] Umeclidinium [place] [Incruse 62.5 mcg IH DAILY 06/23/18 07/06/18 Ellipta] Review of Systems - Physician Review All systems were reviewed & negative as marked: Yes - Review of Systems Constitutional: Other (+malaise) Eyes: Normal ENT: Normal Respiratory: Normal. absent: SOB, Cough Cardiovascular: Normal. absent: Chest Pain Gastrointestinal: Abdominal Pain, Nausea Genitourinary Female: Normal. absent: Dysuria, Frequency, Hematuria, Urine Output Changes Musculoskeletal: Normal. absent: Back Pain, Neck Pain Skin: Normal. absent: Rash Neurological: Normal. absent: Headache, Dizziness Endocrine: Normal Hemo/Lymphatic: Normal Psychiatric: Normal Physical Exam Vital Signs Reviewed: Yes Vital Signs Temp Pulse Resp BP Pulse Ox 07/06/18 23:40 98.1 F 91 H 16 94/65 L 97 Temperature: Afebrile Blood Pressure: Normal Pulse: Regular Respiratory Rate: Normal Appearance: Positive for: Well-Appearing, Non-Toxic, Comfortable Pain Distress: None Mental Status: Positive for: Alert and Oriented X 3 - Systems Exam Head: Present: Atraumatic, Normocephalic Pupils: Present: PERRL Extroacular Muscles: Present: EOMI Conjunctiva: Present: Normal Mouth: Present: Moist Mucous Membranes Neck: Present: Normal Range of Motion Respiratory/Chest: Present: Decreased Breath Sounds (Poor air entry bilaterally). No: Respiratory Distress, Accessory Muscle Use Cardiovascular: Present: Regular Rate and Rhythm, Normal S1, S2. No: Murmurs Abdomen: No: Tenderness, Distention, Peritoneal Signs Back: Present: Normal Inspection Upper Extremity: Present: Normal Inspection. No: Cyanosis, Edema Lower Extremity: Present: Normal Inspection. No: Edema Neurological: Present: GCS=15, CN II-XII Intact, Speech Normal Skin: Present: Warm, Dry, Normal Color. No: Rashes Psychiatric: Present: Alert, Oriented x 3, Normal Insight, Normal Concentration Medical Decision Making ED Course and Treatment: 07/06/18 23:41 Impression: 57 year old female complaining of generalized abdominal pain, nausea, and generalized malaise. Plan: -- EKG -- Chest X-ray -- Labs, amylase, lipase, cardiac enzymes -- IV fluids -- Pepcid -- Duoneb -- Reassess and disposition Prior Visits: Notes and results from previous visits were reviewed. Progress Notes: Reviewed EKG, NSR at [address]-segment elevations or depressions, no T-wave inversions, normal intervals. 07/07/18 00:05 Chest X-ray reviewed, shows no acute processes. 07/07/18 00:[address] Griffith, who is aware and agrees with plan. Accepts pt in to hospitalist service. [facility] will go to [facility] observation for COPD. residential living assistant notified. - Lab Interpretations I have reviewed the lab results: Yes - RAD Interpretation Strap Buckler: ED Physician - EKG Interpretation Interpreted by ED Physician: Yes Type: 12 lead EKG - Scribe Statement The provider has reviewed the documentation as recorded by the Lucina Singletary Provider Scribe Attestation: All medical record entries made by the Sundaribbreanne were at my direction and personally dictated by me. I have reviewed the chart and agree that the record accurately reflects my personal performance of the history, physical exam, medical decision making, and the department course for this patient. I have also personally directed, reviewed, and agree with the discharge instructions and disposition. Disposition/Present on Arrival - Present on Arrival Any Indicators Present on Arrival: No History of DVT/PE: No History of Uncontrolled Diabetes: No Urinary Catheter: No History of Decub. Ulcer: No History Surgical Site Infection Following: None - Disposition Have Diagnosis and Disposition been Completed?: Yes Diagnosis: COPD (chronic obstructive pulmonary disease) Disposition: HOSPITALIZED Disposition Time: 00:55 Condition: GOOD
[2018-07-06] MEDS: Albuterol-Ipratrop 3 mg / 0.5 (3 ml) UD IH SCH (23:50)
[2018-07-06] MEDS ORDERED: Sodium Chloride 0.9% 1,000 ML IV STA (23:58)
[2018-07-07] MEDS: Albuterol-Ipratrop 3 mg / 0.5 (3 ml) UD IH SCH ×2 (00:01→00:14)
[2018-07-07 00:16] LABS: BASO # 0.02 K/mm3 (0.0-2.0); BASO % 0.4 % (0.0-3.0); EOS # 0.2 (0.0-0.7); HEMOGLOBIN 12.5 g/dL (12.0-16.0); LYMPH # 1.8 (1.2-3.4); LYMPH % 31.6 % (22.0-35.0); MEAN CELL VOLUME 92.1 fl (80.0-105.0); MEAN CORPUSCULAR HEMOGLOBIN 30.7 pg (25.0-35.0); MEAN CORPUSCULAR HGB CONC 33.3 g/dl (31.0-37.0); MEAN PLATELET VOLUME 9.7 fl (7.0-11.0); MONO # 0.5 (0.1-0.6); MONO % 9.3 % (1.0-6.0); RBC 4.07 10^6/uL (3.5-6.1); WHITE BLOOD COUNT 5.7 10^3/uL (4.5-11.0)
[2018-07-07 00:34] LABS: ALB/GLOB RATIO 1.3 (1.1-1.8); ALBUMIN 3.8 g/dL (3.0-4.8); ALT/SGPT 16 U/L (7-56); AMYLASE 98 U/L (35-125); AST/SGOT 20 U/L (14-36); BLOOD UREA NITROGEN 27 mg/dL (7-21); CALCIUM 8.6 mg/dL (8.4-10.5); GFR NON-AFRICAN AMERICAN > 60; LIPASE 139 U/L (23-300)
[2018-07-07 00:38] LABS: TROPONIN I < 0.01 ng/mL
[2018-07-07] MEDS ORDERED: Potassium Chloride 20 mEq ER Tab PO STA (00:41)
--- NOTE | 2018-07-07 01:06 | CP.PCM.HP ---
<Ankit Nieto - Last Filed: 07/07/18 04:46> History of Present Illness - History of Present Illness History of Present Illness: Ankit Nieto, PGY1 H&P for Dr. Griffith cc: "abdominal pain, nausea, generalized malaise" Patient is a 57 year old female, whose PMHx includes HIV (reportedly on HAART, last reported CD4 78; last CD4 on record at [facility] [place] 234 on 12/2017), COPD, Breast Ca (s/p left lumpectomy, chemo/rads tx), Hep C, medication non-compliance who presents to the ED complaining of abdominal pain, nausea, and generalized malaise. She says abdominal pain is epigastric without radiation to back. No recent travel or sick contacts. She mentions two days ago she did have a hamburger and felt like maybe that might have caused these symptoms. She denies fever, chills, headache, cp, sob, vomiting. She says her stools are "sticky" but this has been chronic. Otherwise, no changes in bowel/bladder. Denies urinary frequency/urgency/dysuria. Last admission was on 06/23/18 for vertigo but patient signed out AMA. She has also presented to the ED recently for a variety of complaints including sore throat, nausea, headaches. During time of interview, patient was expressing thoughts of leaving AMA again. A full 12 point ROS was conducted and unremarkable except as stated above. PMD: Dr. Gaviria Pharmacy: [facility]) PMH: HIV (reportedly on HAART, last reported CD4 78; last CD4 on record at [facility] [place] 234 on 12/2017), COPD, Breast Ca (s/p left lumpectomy, chemo/rads tx), Hep C, medication non-compliance PSH: left breast lumpectomy (2006), cholecystectomy SHx: former tobacco use (quit 2007, approx 1ppd x 40yrs), admits former intermittent medical marijuana use, denies alcohol FH: Lung Ca (Mother, ) Meds: See MAR Allergies: NKDA Present on Admission - Present on Admission Any Indicators Present on Admission: No Review of Systems - Review of Systems All systems: reviewed and no additional remarkable complaints except (as per HPI) Past Patient History - Infectious Disease Hx of Infectious Diseases: None - Tetanus Immunizations Tetanus Immunization: Unknown - Past Social History Smoking Status: Never Smoked - CARDIAC Hx Cardiac Disorders: No - PULMONARY Hx Respiratory Disorders: Yes Hx Asthma: Yes Hx Chronic Obstructive Pulmonary Disease (COPD): Yes Hx Emphysema: Yes - NEUROLOGICAL Hx Neurological Disorder: Yes Hx Dizziness: Yes - HEENT Hx HEENT Problems: No - RENAL Hx Chronic Kidney Disease: No - ENDOCRINE/METABOLIC Hx Endocrine Disorders: No - HEMATOLOGICAL/ONCOLOGICAL Hx Blood Disorders: Yes Hx AIDS: Yes Hx Cancer: Yes (left breast, lumpectomy) Hx Chemotherapy: Yes Hx Hepatitis C: Yes - INTEGUMENTARY Hx Dermatological Problems: Yes Other/Comment: dry skin on feet - MUSCULOSKELETAL/RHEUMATOLOGICAL Hx Musculoskeletal Disorders: No Hx Falls: No - GASTROINTESTINAL Hx Gastrointestinal Disorders: Yes Hx Gall Bladder Disease: Yes (cholectomy) - GENITOURINARY/GYNECOLOGICAL Hx Genitourinary Disorders: No - PSYCHIATRIC Hx Psychophysiologic Disorder: Yes Hx Anxiety: Yes Hx Depression: Yes Hx Substance Use: Yes (denies) - SURGICAL HISTORY Hx Cholecystectomy: Yes - ANESTHESIA Hx Anesthesia: Yes Hx Anesthesia Reactions: No Hx Malignant Hyperthermia: No Meds Allergies/Adverse Reactions: Allergies Allergy/AdvReac Type Severity Reaction Status Date / Time No Known Allergies Allergy Verified 07/06/18 23:22 Physical Exam - Constitutional Appears: No Acute Distress, Cachectic - Head Exam Head Exam: ATRAUMATIC, NORMAL INSPECTION, NORMOCEPHALIC - Eye Exam Eye Exam: EOMI, Normal appearance Pupil Exam: NORMAL ACCOMODATION - ENT Exam ENT Exam: Mucous Membranes Moist - Respiratory Exam Respiratory Exam: Clear to Auscultation Bilateral. absent: Accessory Muscle Use, Chest Wall Tenderness, Rales, Rhonchi, Wheezes, Stridor - Cardiovascular Exam Cardiovascular Exam: RRR, +S1, +S2 - GI/Abdominal Exam GI & Abdominal Exam: Normal Bowel Sounds, Soft, Tenderness (Mild tenderness to palpation at epigastric region). absent: Firm, Guarding, Rebound, Rigid - Extremities Exam Extremities exam: Positive for: normal inspection. Negative for: normal capillary refill, pedal pulses present - Neurological Exam Neurological exam: Alert, CN II-XII Intact, Oriented x3, Reflexes Normal - Psychiatric Exam Psychiatric exam: Normal Affect, Normal Mood - Skin Skin Exam: Dry, Intact, Normal Color, Warm Results - Vital Signs Recent Vital Signs: Last Vital Signs Temp 98.1 F 07/06/18 23:40 Pulse 91 H 07/06/18 23:40 Resp 16 07/06/18 23:40 BP 94/65 L 07/06/18 23:40 Pulse Ox 97 07/06/18 23:40 - Labs Result Diagrams: 07/07/18 00:06 07/07/18 00:06 Labs: Laboratory Results - last 24 hr 07/07/18 07/07/18 00:06 00:06 WBC 5.7 D RBC 4.07 Hgb 12.5 Hct 37.5 MCV 92.1 MCH 30.7 MCHC 33.3 RDW 15.0 H Plt Count 164 MPV 9.7 Neut % (Auto) 54.7 Lymph % (Auto) 31.6 Rock % (Auto) 9.3 H Eos % (Auto) 4.0 Baso % (Auto) 0.4 Lymph # (Auto) 1.8 Rock # (Auto) 0.5 Eos # (Auto) 0.2 Baso # (Auto) 0.02 Absolute Neuts (auto) 3.12 Sodium 142 Potassium 3.3 L Chloride 106 Carbon Dioxide 27 Anion Gap 13 BUN 27 H Creatinine 0.9 Est GFR ( Amer) > 60 Est GFR (Non-Af Amer) > 60 Random Glucose 141 H Calcium 8.6 Total Bilirubin 0.3 AST 20 ALT 16 Alkaline Phosphatase 61 Lactate Dehydrogenase 221 L Total Creatine Kinase 53 Troponin I < 0.01 Total Protein 6.9 Albumin 3.8 Globulin 3.0 Albumin/Globulin Ratio 1.3 Amylase 98 Lipase 139 Assessment & Plan - Assessment and Plan (Free Text) Assessment: Patient is a 57 year old female, whose PMHx includes HIV (reportedly on HAART, last reported CD4 78; last CD4 on record at [facility] [place] 234 on 12/2017), COPD, Breast Ca (s/p left lumpectomy, chemo/rads tx), Hep C, medication non-compliance who presents to the ED complaining of abdominal pain, nausea, and generalized malaise. Plan: Epigastric Abdominal Pain 2/2 Gastritis vs Gasteroenteritis vs AIDS-related Enteropathy - Clear liquid diet; advance diet as tolerated - IVF NS @ 100 cc/hr - stool leukocytes, ova and parasites, stool cx - UA and UCx - Zofran prn for nausea/vomiting - Toradol q6 prn for pain - Potassium was 3.3 in ED; replete as needed - daily labs - UDS - Monitor for any signs of diarrhea - Resume home HAART therapy (Triumeq) including ppx meds for opportunistic infections including azithromycin, amoxicillin, and Bactrim COPD - duoneb prn - No complaints of shortness of breath at this time HIV - Last reported CD4 78 as per prior notes; last CD4 documented in [facility] [place] 234 (12/2017) - ordered CD4/CD8 count - As mentioned above, c/w HAART therapy and ppx meds ppx: - scd - ptx Diet: Liquid diet Dispo: Monitor patient on med/surg at this time. Case was discussed and reviewed with Attending Physician, Dr. Griffith <Mariela Griffith - Last Filed: 07/07/18 05:32> Results - Vital Signs Recent Vital Signs: Last Vital Signs Temp 97.5 F L 07/07/18 02:00 Pulse 70 07/07/18 02:06 Resp 18 07/07/18 02:06 BP 104/68 07/07/18 02:00 Pulse Ox 96 07/07/18 02:00 - Labs Result Diagrams: 07/07/18 00:06 07/07/18 00:06 Labs: Laboratory Results - last 24 hr 07/07/18 07/07/18 00:06 00:06 WBC 5.7 D RBC 4.07 Hgb 12.5 Hct 37.5 MCV 92.1 MCH 30.7 MCHC 33.3 RDW 15.0 H Plt Count 164 MPV 9.7 Neut % (Auto) 54.7 Lymph % (Auto) 31.6 Rock % (Auto) 9.3 H Eos % (Auto) 4.0 Baso % (Auto) 0.4 Lymph # (Auto) 1.8 Rock # (Auto) 0.5 Eos # (Auto) 0.2 Baso # (Auto) 0.02 Absolute Neuts (auto) 3.12 Sodium 142 Potassium 3.3 L Chloride 106 Carbon Dioxide 27 Anion Gap 13 BUN 27 H Creatinine 0.9 Est GFR ( Amer) > 60 Est GFR (Non-Af Amer) > 60 Random Glucose 141 H Calcium 8.6 Total Bilirubin 0.3 AST 20 ALT 16 Alkaline Phosphatase 61 Lactate Dehydrogenase 221 L Total Creatine Kinase 53 Troponin I < 0.01 Total Protein 6.9 Albumin 3.8 Globulin 3.0 Albumin/Globulin Ratio 1.3 Amylase 98 Lipase 139 Attending/Attestation - Attestation I have personally seen and examined this patient.: Yes I have fully participated in the care of the patient.: Yes I have reviewed all pertinent clinical information: Yes Notes (Text): 07/07/18 05:31 Patient was seen when she was in cubicle # 1 in the ER. Medical record was reviewed. Agree wiht history, physical examination, assessment and plan.
[2018-07-07] MEDS ORDERED: Apap-Butalbital-Caffeine 325-50-40mg Tab PO PRN (02:41)
[2018-07-07] MEDS ORDERED: Albuterol-Ipratrop 3 mg / 0.5 (3 ml) UD IH PRN (02:46)
[2018-07-07] MEDS ORDERED: Pantoprazole 40 mg EC Tab PO SCH (06:00)
[2018-07-07 07:40] VITALS: BP 104/69; PULSE 69; RESP 16; TEMP 98; O2SAT 94
[2018-07-07] MEDS ORDERED: Enoxaparin 40 mg Syringe SC SCH (10:00)
[2018-07-07] MEDS ORDERED: Tmp-Smz 800 mg-160 mg DS Tab PO SCH (10:00)
[2018-07-07] MEDS ORDERED: ABACAVIR PO SCH (10:00)
[2018-07-07] MEDS ORDERED: FLUTICASONE PROPION/SALMETEROL 113-14 IH SCH (10:00)
[2018-07-07] MEDS ORDERED: DOLUTEGRAVIR PO SCH (10:00)
[2018-07-07] MEDS ORDERED: LAMIVUDI PO SCH (10:00)
--- NOTE | 2018-07-07 10:30 | CP.PCM.DIS ---
<Del Rossi - Last Filed: 07/07/18 10:18> Provider - Provider Date of Admission: 07/07/18 00:53 Attending physician: Leyda Tate MD Time Spent in preparation of Discharge (in minutes): 25 Hospital Course - Lab Results Lab Results: Most Recent Lab Values WBC 5.7 10^3/uL (4.5-11.0) D 07/07/18 00:06 RBC 4.07 10^6/uL (3.5-6.1) 07/07/18 00:06 Hgb 12.5 g/dL (12.0-16.0) 07/07/18 00:06 Hct 37.5 % (36.0-48.0) 07/07/18 00:06 MCV 92.1 fl (80.0-105.0) 07/07/18 00:06 MCH 30.7 pg (25.0-35.0) 07/07/18 00:06 MCHC 33.3 g/dl (31.0-37.0) 07/07/18 00:06 RDW 15.0 % (11.5-14.5) H 07/07/18 00:06 Plt Count 164 10^3/uL (120.0-450.0) 07/07/18 00:06 MPV 9.7 fl (7.0-11.0) 07/07/18 00:06 Neut % (Auto) 54.7 % (50.0-68.0) 07/07/18 00:06 Lymph % (Auto) 31.6 % (22.0-35.0) 07/07/18 00:06 [place] % (Auto) 9.3 % (1.0-6.0) H 07/07/18 00:06 Eos % (Auto) 4.0 % (1.5-5.0) 07/07/18 00:06 Baso % (Auto) 0.4 % (0.0-3.0) 07/07/18 00:06 Lymph # (Auto) 1.8 (1.2-3.4) 07/07/18 00:06 [place] # (Auto) 0.5 (0.1-0.6) 07/07/18 00:06 Eos # (Auto) 0.2 (0.0-0.7) 07/07/18 00:06 Baso # (Auto) 0.02 K/mm3 (0.0-2.0) 07/07/18 00:06 Absolute Neuts (auto) 3.12 (1.4-6.5) 07/07/18 00:06 Sodium 142 mmol/L (132-148) 07/07/18 00:06 Potassium 3.3 mmol/L (3.6-5.0) L 07/07/18 00:06 Chloride 106 mmol/L (98-107) 07/07/18 00:06 Carbon Dioxide 27 mmol/L (21-33) 07/07/18 00:06 Anion Gap 13 (10-20) 07/07/18 00:06 BUN 27 mg/dL (7-21) H 07/07/18 00:06 Creatinine 0.9 mg/dl (0.7-1.2) 07/07/18 00:06 Est GFR ( Amer) > 60 07/07/18 00:06 Est GFR (Non-Af Amer) > 60 07/07/18 00:06 Random Glucose 141 mg/dL (70-110) H 07/07/18 00:06 Calcium 8.6 mg/dL (8.4-10.5) 07/07/18 00:06 Total Bilirubin 0.3 mg/dL (0.2-1.3) 07/07/18 00:06 AST 20 U/L (14-36) 07/07/18 00:06 ALT 16 U/L (7-56) 07/07/18 00:06 Alkaline Phosphatase 61 U/L (38-126) 07/07/18 00:06 Lactate Dehydrogenase 221 U/L (333-699) L 07/07/18 00:06 Total Creatine Kinase 53 U/L (35-230) 07/07/18 00:06 Troponin I < 0.01 ng/mL 07/07/18 00:06 Total Protein 6.9 g/dL (5.8-8.3) 07/07/18 00:06 Albumin 3.8 g/dL (3.0-4.8) 07/07/18 00:06 Globulin 3.0 gm/dL 07/07/18 00:06 Albumin/Globulin Ratio 1.3 (1.1-1.8) 07/07/18 00:06 Amylase 98 U/L (35-125) 07/07/18 00:06 Lipase 139 U/L (23-300) 07/07/18 00:06 - Hospital Course Hospital Course: Patient is a 57 year old female, whose PMHx includes HIV (reportedly on HAART, last reported CD4 78; last CD4 on record at [facility] [place] 234 on 12/2017), COPD, Breast Ca (s/p left lumpectomy, chemo/rads tx), Hep C, medication non-compliance who presented to ED complaining of abdominal pain, nausea and generalized malaise. Patient was evaluated in ED and admitted for intractable abdominal pain likely secondary to gastritis and COPD. Patient was transferred to medical surgical floor. Patient was on medical surgical floor for a few hours when the patient requested to sign herself out against medical advice. Patient was explained the risks and benefits of signing out against medical advice. She was instructed to follow up with her primary care physician and to return to the nearest emergency department if her symptoms return. Patient was in understanding and agreeable to conversation. Discharge Exam - Head Exam Head Exam: ATRAUMATIC, NORMAL INSPECTION, NORMOCEPHALIC - Eye Exam Eye Exam: EOMI - Neck Exam Neck exam: Full Rom - Respiratory Exam Respiratory Exam: NORMAL BREATHING PATTERN - Neurological Exam Neurological exam: Alert, Normal Gait, Oriented x3 - Psychiatric Exam Psychiatric exam: Normal Affect, Normal Mood - Skin Skin Exam: Dry, Intact - Additional Findings Additional findings: Limited exam secondary to patient cooperation Discharge Plan - Follow Up Plan Condition: GOOD Disposition: AGAINST MEDICAL ADVICE <Tomi Giles - Last Filed: 07/07/18 12:15> Provider - Provider Date of Admission: 07/07/18 00:53 Attending physician: Leyda Tate MD Hospital Course - Lab Results Lab Results: Most Recent Lab Values WBC 5.7 10^3/uL (4.5-11.0) D 07/07/18 00:06 RBC 4.07 10^6/uL (3.5-6.1) 07/07/18 00:06 Hgb 12.5 g/dL (12.0-16.0) 07/07/18 00:06 Hct 37.5 % (36.0-48.0) 07/07/18 00:06 MCV 92.1 fl (80.0-105.0) 07/07/18 00:06 MCH 30.7 pg (25.0-35.0) 07/07/18 00:06 MCHC 33.3 g/dl (31.0-37.0) 07/07/18 00:06 RDW 15.0 % (11.5-14.5) H 07/07/18 00:06 Plt Count 164 10^3/uL (120.0-450.0) 07/07/18 00:06 MPV 9.7 fl (7.0-11.0) 07/07/18 00:06 Neut % (Auto) 54.7 % (50.0-68.0) 07/07/18 00:06 Lymph % (Auto) 31.6 % (22.0-35.0) 07/07/18 00:06 [place] % (Auto) 9.3 % (1.0-6.0) H 07/07/18 00:06 Eos % (Auto) 4.0 % (1.5-5.0) 07/07/18 00:06 Baso % (Auto) 0.4 % (0.0-3.0) 07/07/18 00:06 Lymph # (Auto) 1.8 (1.2-3.4) 07/07/18 00:06 [place] # (Auto) 0.5 (0.1-0.6) 07/07/18 00:06 Eos # (Auto) 0.2 (0.0-0.7) 07/07/18 00:06 Baso # (Auto) 0.02 K/mm3 (0.0-2.0) 07/07/18 00:06 Absolute Neuts (auto) 3.12 (1.4-6.5) 07/07/18 00:06 Sodium 142 mmol/L (132-148) 07/07/18 00:06 Potassium 3.3 mmol/L (3.6-5.0) L 07/07/18 00:06 Chloride 106 mmol/L (98-107) 07/07/18 00:06 Carbon Dioxide 27 mmol/L (21-33) 07/07/18 00:06 Anion Gap 13 (10-20) 07/07/18 00:06 BUN 27 mg/dL (7-21) H 07/07/18 00:06 Creatinine 0.9 mg/dl (0.7-1.2) 07/07/18 00:06 Est GFR ( Amer) > 60 07/07/18 00:06 Est GFR (Non-Af Amer) > 60 07/07/18 00:06 Random Glucose 141 mg/dL (70-110) H 07/07/18 00:06 Calcium 8.6 mg/dL (8.4-10.5) 07/07/18 00:06 Total Bilirubin 0.3 mg/dL (0.2-1.3) 07/07/18 00:06 AST 20 U/L (14-36) 07/07/18 00:06 ALT 16 U/L (7-56) 07/07/18 00:06 Alkaline Phosphatase 61 U/L (38-126) 07/07/18 00:06 Lactate Dehydrogenase 221 U/L (333-699) L 07/07/18 00:06 Total Creatine Kinase 53 U/L (35-230) 07/07/18 00:06 Troponin I < 0.01 ng/mL 07/07/18 00:06 Total Protein 6.9 g/dL (5.8-8.3) 07/07/18 00:06 Albumin 3.8 g/dL (3.0-4.8) 07/07/18 00:06 Globulin 3.0 gm/dL 07/07/18 00:06 Albumin/Globulin Ratio 1.3 (1.1-1.8) 07/07/18 00:06 Amylase 98 U/L (35-125) 07/07/18 00:06 Lipase 139 U/L (23-300) 07/07/18 00:06 Attending/Attestation - Attestation I have personally seen and examined this patient.: No I have fully participated in the care of the patient.: Yes I have reviewed all pertinent clinical information, including history, physical exam and plan: Yes Notes (Text): 07/07/18 12:15 Patient left hospital AMA before being seen by me.
--- NOTE | 2018-07-07 10:55 | RAD ---
Date of service: 07/07/2018 HISTORY: sob COMPARISON: Chest radiograph dated 06/23/2018. TECHNIQUE: 1 view obtained. FINDINGS: LUNGS: No active pulmonary disease. PLEURA: No significant pleural effusion identified, no pneumothorax apparent. CARDIOVASCULAR: No aortic atherosclerotic calcification present. Normal cardiac size. No pulmonary vascular congestion. OSSEOUS STRUCTURES: No significant abnormalities. VISUALIZED UPPER ABDOMEN: Right upper quadrant surgical clips. OTHER FINDINGS: None. IMPRESSION: No active disease.
--- NOTE | 2018-07-07 17:24 | CARD ---
APPROVED REPORT Date of service: 07/07/2018 EKG Measurement Heart [id number] <Conclusion> Normal sinus rhythm Normal ECG
== END 2018-07-07 08:13 | disposition left against medical advice (07) ==
LOC: ED 23:10 → ERH 07-07 00:53 → 5RNO 07-07 01:55
PROVIDERS: ADMIT Internal Medicine; ATTEND Internal Medicine
DX: K29.70 Gastritis, unspecified, without bleeding (principal); J44.9 Chronic obstructive pulmonary disease, unspecified; B20 Human immunodeficiency virus [HIV] disease; B19.20 Unspecified viral hepatitis C without hepatic coma; Z85.3 Personal history of malignant neoplasm of breast; Z91.14 Patient's other noncompliance with medication regimen; Z87.891 Personal history of nicotine dependence; Z80.1 Family history of malignant neoplasm of trachea, bronchus and lung
CPT/HCPCS: 71045; 80053; 82150; 82550; 83615; 83690; 84484; 85025; 93005; 99284; G0378

== ENCOUNTER 2018-07-09 23:06 | Emergency (ER) | payer OTHER ==
[2018-07-09 23:27] VITALS: TEMP 97.5; BMI 17.2
--- NOTE | 2018-07-09 23:35 | ED PDOC ---
Arrival/HPI - General Chief Complaint: Abnormal Skin Integrity Time Seen by Provider: 07/09/18 23:08 Historian: Patient - History of Present Illness Narrative History of Present Illness (Text): 07/09/18 23:34 57 year old female, whose past medical history includes COPD, HIV on HAART, hepatitis C, breast cancer, who presents to the Emergency department complaining of a pruritic rash to her lower back/buttocks for 1.5 weeks. Patient notes the rash improved earlier this week but returned today, prompting her to come to the emergency department. Patient denies any fever, chills, chest pain, shortness of breath, nausea, vomiting, diarrhea, urinary symptoms, back pain, neck pain, headache, dizziness, or any other complaints. Symptom Onset: Gradual Symptom Course: Unchanged Activities at Onset: Light Context: Home Past Medical History - Provider Review Nursing Documentation Reviewed: Yes - Infectious Disease Hx of Infectious Diseases: None - Tetanus Immunization Tetanus Immunization: Unknown - Past Medical History Past Medical History: Unable to Obtain - Cardiac Hx Cardiac Disorders: No - Pulmonary Hx Respiratory Disorders: Yes Hx Asthma: Yes Hx Chronic Obstructive Pulmonary Disease (COPD): Yes Hx Emphysema: Yes - Neurological Hx Neurological Disorder: Yes Hx Dizziness: Yes - HEENT Hx HEENT Disorder: No - Renal Hx Renal Disorder: No - Endocrine/Metabolic Hx Endocrine Disorders: No - Hematological/Oncological Hx Blood Disorders: Yes Hx AIDS: Yes Hx Cancer: Yes (left breast, lumpectomy) Hx Chemotherapy: Yes Hx Hepatitis C: Yes - Integumentary Hx Dermatological Disorder: Yes Other/Comment: dry skin on feet - Musculoskeletal/Rheumatological Hx Musculoskeletal Disorders: No Hx Falls: No - Gastrointestinal Hx Gastrointestinal Disorders: Yes Hx Gall Bladder Disease: Yes (cholectomy) - Genitourinary/Gynecological Hx Genitourinary Disorders: No - Psychiatric Hx Psychophysiologic Disorder: Yes Hx Anxiety: Yes Hx Depression: Yes Hx Substance Use: Yes (denies) - Past Surgical History Past Surgical History: Unable to Obtain - Surgical History Hx Cholecystectomy: Yes - Anesthesia Hx Anesthesia: Yes Hx Anesthesia Reactions: No Hx Malignant Hyperthermia: No - Suicidal Assessment Feels Threatened In Home Enviroment: No Family/Social History - Physician Review Nursing Documentation Reviewed: Yes Family/Social History: Unknown Family HX Smoking Status: Never Smoked Hx Alcohol Use: Yes (former) Hx Substance Use: Yes (denies) Substance used: marijuana Hx Substance Use Treatment: No Allergies/Home Meds Allergies/Adverse Reactions: Allergies No Known Allergies Allergy (Verified 07/09/18 23:29) Home Medications: Home Meds Medication Instructions Recorded Confirmed Abacavir/Dolutegravir/Lamivudi 1 tab PO DAILY 12/27/17 07/06/18 [Triumeq 600-50-300 mg Tablet] Acetaminophen/Butalbital/Caf 1 tab PO Q6 PRN 06/23/18 07/06/18 [Fioricet] Albuterol Sulfate [Ventolin Hfa] 2 puff IH Q4 PRN 06/23/18 07/06/18 Fluticasone/Salmeterol [Airduo 1 inh IH BID 06/23/18 07/06/18 Respiclick 113-14 Mcg] Sulfamethoxazole/Trimethoprim 1 tab PO DAILY 06/23/18 07/06/18 [Bactrim DS 800 mg-160 mg] Umeclidinium [place] [Incruse 62.5 mcg IH DAILY 06/23/18 07/06/18 Ellipta] Review of Systems - Physician Review All systems were reviewed & negative as marked: Yes - Review of Systems Constitutional: Normal. absent: Fevers Eyes: Normal ENT: Normal Respiratory: Normal. absent: SOB, Cough Cardiovascular: Normal. absent: Chest Pain Gastrointestinal: Normal. absent: Abdominal Pain, Diarrhea, Nausea, Vomiting Genitourinary Female: Normal. absent: Dysuria, Frequency, Hematuria, Urine Output Changes Musculoskeletal: Normal. absent: Back Pain, Neck Pain Skin: Rash, Pruritis Neurological: Normal. absent: Headache, Dizziness Endocrine: Normal Hemo/Lymphatic: Normal Psychiatric: Normal Physical Exam Vital Signs Reviewed: Yes Vital Signs Temp Pulse Resp BP Pulse Ox 07/09/18 23:26 97.5 F L 87 17 99/70 L 100 Temperature: Afebrile Blood Pressure: Normal Pulse: Regular Respiratory Rate: Normal Appearance: Positive for: Well-Appearing, Non-Toxic, Comfortable Pain Distress: None Mental Status: Positive for: Alert and Oriented X 3 - Systems Exam Head: Present: Atraumatic, Normocephalic Pupils: Present: PERRL Extroacular Muscles: Present: EOMI Conjunctiva: Present: Normal Mouth: Present: Moist Mucous Membranes Neck: Present: Normal Range of Motion Respiratory/Chest: Present: Clear to Auscultation, Good Air Exchange. No: Respiratory Distress, Accessory Muscle Use Cardiovascular: Present: Regular Rate and Rhythm, Normal S1, S2. No: Murmurs Abdomen: No: Tenderness, Distention, Peritoneal Signs Back: Present: Normal Inspection Upper Extremity: Present: Normal Inspection. No: Cyanosis, Edema Lower Extremity: Present: Normal Inspection. No: Edema Neurological: Present: GCS=15, CN II-XII Intact, Speech Normal Skin: Present: Warm, Dry, Rashes (faint dermatitic rash with dry skin and scabbed areas), Normal Color Psychiatric: Present: Alert, Oriented x 3, Normal Insight, Normal Concentration Medical Decision Making ED Course and Treatment: 07/09/18 23:34 Impression: 57 year old female complaining of a pruritic rash to lower back/buttocks. Plan: -- Benadryl -- Motrin -- Reassess and disposition Prior Visits: Notes and results from previous visits were reviewed. Progress Notes: - Scribe Statement The provider has reviewed the documentation as recorded by the Lucina Singletary Provider Scribe Attestation: All medical record entries made by the Scribe were at my direction and personally dictated by me. I have reviewed the chart and agree that the record accurately reflects my personal performance of the history, physical exam, [facility] decision making, and the department course for this patient. I have also personally directed, reviewed, and agree with the discharge instructions and disposition. Disposition/Present on Arrival - Present on Arrival Any Indicators Present on Arrival: No History of DVT/PE: No History of Uncontrolled Diabetes: No Urinary Catheter: No History of Decub. Ulcer: No History Surgical Site Infection Following: None - Disposition Have Diagnosis and Disposition been Completed?: Yes Diagnosis: Dermatitis Disposition: HOME/ ROUTINE Disposition Time: 23:38 Patient Plan: Discharge Condition: GOOD Discharge Instructions (ExitCare): Eczema (Atopic Dermatitis) (DC) Additional Instructions: Use medication as prescribed/follow up with your doctor this week Prescriptions: Hydrocortisone 2.5% 1 applic TOP BID PRN #30 gm PRN Reason: Rash Forms: [employer] (Slovak)
[2018-07-09] MEDS ORDERED: DiphenhydrAMINE 12.5 mg/5 ml LIQ UD (5 ml) PO STA (23:45)
[2018-07-10 04:33] VITALS: PULSE 80; O2SAT 95
[2018-07-10 05:50] VITALS: BP 111/64; RESP 18
== END 2018-07-10 05:59 | disposition home or self-care (01) ==
LOC: ED 23:06
DX: L30.9 Dermatitis, unspecified (principal)

== ENCOUNTER 2018-07-11 00:17 | Emergency (ER) | payer OTHER ==
[2018-07-11 00:19] VITALS: BMI 17.2
[2018-07-11 03:01] VITALS: TEMP 97.9
--- NOTE | 2018-07-11 03:30 | ED PDOC ---
Arrival/HPI - General Chief Complaint: Medical Clearance Historian: Patient - History of Present Illness Narrative History of Present Illness (Text): 07/11/18 03:28 57 year old female, whose past medical history includes COPD, HIV on HAART, hepatitis C, breast cancer, presents to the Emergency department for homelessness. Patient denies any medical or psychiatric complaints. Patient requests a place to sleep for the night. Patient denies any fevers, chills, headache, dizziness, chest pain, shortness of breath, dyspnea on exertion, cough, abdominal pain, nausea, vomiting, diarrhea, back pain, neck pain, or any other complaints. Time/Duration: Prior to Arrival Symptom Onset: Gradual Symptom Course: Unchanged Activities at Onset: Light Context: Street Past Medical History - Provider Review Nursing Documentation Reviewed: Yes - Infectious Disease Hx of Infectious Diseases: None - Tetanus Immunization Tetanus Immunization: Unknown - Past Medical History Past Medical History: Unable to Obtain - Cardiac Hx Cardiac Disorders: No - Pulmonary Hx Respiratory Disorders: Yes Hx Asthma: Yes Hx Chronic Obstructive Pulmonary Disease (COPD): Yes Hx Emphysema: Yes - Neurological Hx Neurological Disorder: Yes Hx Dizziness: Yes - HEENT Hx HEENT Disorder: No - Renal Hx Renal Disorder: No - Endocrine/Metabolic Hx Endocrine Disorders: No - Hematological/Oncological Hx Blood Disorders: Yes Hx AIDS: Yes Hx Cancer: Yes (left breast, lumpectomy) Hx Chemotherapy: Yes Hx Hepatitis C: Yes - Integumentary Hx Dermatological Disorder: Yes Other/Comment: dry skin on feet - Musculoskeletal/Rheumatological Hx Musculoskeletal Disorders: No Hx Falls: No - Gastrointestinal Hx Gastrointestinal Disorders: Yes Hx Gall Bladder Disease: Yes (cholectomy) - Genitourinary/Gynecological Hx Genitourinary Disorders: No - Psychiatric Hx Psychophysiologic Disorder: Yes Hx Anxiety: Yes Hx Depression: Yes Hx Substance Use: Yes (denies) - Past Surgical History Past Surgical History: Unable to Obtain - Surgical History Hx Cholecystectomy: Yes - Anesthesia Hx Anesthesia: Yes Hx Anesthesia Reactions: No Hx Malignant Hyperthermia: No - Suicidal Assessment Feels Threatened In Home Enviroment: No Family/Social History - Physician Review Nursing Documentation Reviewed: Yes Family/Social History: No Known Family HX Smoking Status: Never Smoked Hx Alcohol Use: Yes (former) Hx Substance Use: Yes (denies) Substance used: marijuana Hx Substance Use Treatment: No Allergies/Home Meds Allergies/Adverse Reactions: Allergies No Known Allergies Allergy (Verified 07/09/18 23:29) Home Medications: Home Meds Medication Instructions Recorded Confirmed Abacavir/Dolutegravir/Lamivudi 1 tab PO DAILY 12/27/17 07/06/18 [Triumeq 600-50-300 mg Tablet] Acetaminophen/Butalbital/Caf 1 tab PO Q6 PRN 06/23/18 07/06/18 [Fioricet] Albuterol Sulfate [Ventolin Hfa] 2 puff IH Q4 PRN 06/23/18 07/06/18 Fluticasone/Salmeterol [Airduo 1 inh IH BID 06/23/18 07/06/18 Respiclick 113-14 Mcg] Sulfamethoxazole/Trimethoprim 1 tab PO DAILY 06/23/18 07/06/18 [Bactrim DS 800 mg-160 mg] Umeclidinium [place] [Incruse 62.5 mcg IH DAILY 06/23/18 07/06/18 Ellipta] Review of Systems - Physician Review All systems were reviewed & negative as marked: Yes - Review of Systems Constitutional: absent: Fevers, Night Sweats Respiratory: absent: SOB, Cough Cardiovascular: absent: Chest Pain, ENRIQUEZ Gastrointestinal: absent: Abdominal Pain, Diarrhea, Nausea, Vomiting Musculoskeletal: absent: Back Pain, Neck Pain Neurological: absent: Headache, Dizziness Physical Exam Vital Signs Reviewed: Yes Vital Signs Temp Pulse Resp BP Pulse Ox 07/11/18 00:50 97.9 F 74 15 121/74 98 Temperature: Afebrile Blood Pressure: Normal Pulse: Regular Respiratory Rate: Normal Appearance: Positive for: Well-Appearing, Non-Toxic, Comfortable Pain Distress: None Mental Status: Positive for: Alert and Oriented X 3 - Systems Exam Head: Present: Atraumatic, Normocephalic Pupils: Present: PERRL Extroacular Muscles: Present: EOMI Conjunctiva: Present: Normal Mouth: Present: Moist Mucous Membranes Neck: Present: Normal Range of Motion Respiratory/Chest: Present: Clear to Auscultation, Good Air Exchange. No: Respiratory Distress, Accessory Muscle Use Cardiovascular: Present: Regular Rate and Rhythm, Normal S1, S2. No: Murmurs Abdomen: No: Tenderness, Distention, Peritoneal Signs Back: Present: Normal Inspection Upper Extremity: Present: Normal Inspection. No: Cyanosis, Edema Lower Extremity: Present: Normal Inspection. No: Edema Neurological: Present: Speech Normal Skin: Present: Warm, Dry, Normal Color. No: Rashes Psychiatric: Present: Alert, Oriented x 3, Normal Insight, Normal Concentration - Scribe Statement The provider has reviewed the documentation as recorded by the Scribe Bernard Talavera All medical record entries made by the Scribe were at my direction and personally dictated by me. I have reviewed the chart and agree that the record accurately reflects my personal performance of the history, physical exam, medical decision making, and the department course for this patient. I have also personally directed, reviewed, and agree with the discharge instructions and disposition. Disposition/Present on Arrival - Present on Arrival Any Indicators Present on Arrival: No History of DVT/PE: No History of Uncontrolled Diabetes: No Urinary Catheter: No History of Decub. Ulcer: No History Surgical Site Infection Following: None - Disposition Have Diagnosis and Disposition been Completed?: Yes Diagnosis: Homeless Disposition: HOME/ ROUTINE Disposition Time: 03:00 Patient Problems: Current Active Problems Problem Status Onset Homeless Chronic Condition: GOOD Additional Instructions: TRUONG GEE, thank you for letting us take care of you today. The emergency medical care you received today was directed at your acute symptoms. If you were prescribed any medication, please fill it and take as directed. It may take several days for your symptoms to resolve. Return to the Emergency Department if your symptoms worsen, do not improve, or if you have any other problems. Please contact your doctor or call one of the physicians/clinics you have been referred to that are listed on the Patient Visit Information form that is included in your discharge packet. Bring any paperwork you were given at discharge with you along with any medications you are taking to your follow up visit. Our treatment cannot replace ongoing medical care by a primary care provider outside of the emergency department. Thank you for allowing the [facility] team to be part of your care today. Follow up with our clinic for outpatient care. Referrals: [facility] [Outside] - Follow up with primary Glenis Herrera MD [Medical Doctor] - Follow up with primary Forms: [employer] (Japanese)
[2018-07-11 06:01] VITALS: BP 123/70; PULSE 70; RESP 16; O2SAT 99
== END 2018-07-11 05:50 | disposition home or self-care (01) ==
LOC: ED 00:17
DX: Z59.0 Homelessness (principal); Z85.3 Personal history of malignant neoplasm of breast; J44.9 Chronic obstructive pulmonary disease, unspecified; Z21 Asymptomatic human immunodeficiency virus [HIV] infection status

== ENCOUNTER 2018-07-14 00:30 | Emergency (ER) | payer OTHER ==
[2018-07-14 00:40] VITALS: BMI 16.9
--- NOTE | 2018-07-14 00:47 | ED PDOC ---
Arrival/HPI - General Time Seen by Provider: 07/14/18 00:36 Historian: Patient - History of Present Illness Narrative History of Present Illness (Text): 07/14/18 00:45 57 year old female, whose past medical history includes COPD, HIV on HAART, hepatitis C, breast cancer, who presents to the Emergency department complaining of foot discomfort. Patient states she has been experiencing discomfort to the plantar aspect of bilateral feet sincve yesterday. Patient well known to ER staff from multiple previous visits. Patient denies any fever, chills, chest pain, shortness of breath, nausea, vomiting, diarrhea, urinary symptoms, back pain, neck pain, headache, dizziness, or any other complaints. Symptom Onset: Gradual Symptom Course: Unchanged Activities at Onset: Light Context: Home Past Medical History - Provider Review Nursing Documentation Reviewed: Yes - Infectious Disease Hx of Infectious Diseases: None - Tetanus Immunization Tetanus Immunization: Unknown - Past Medical History Past Medical History: Unable to Obtain - Cardiac Hx Cardiac Disorders: No - Pulmonary Hx Respiratory Disorders: Yes Hx Asthma: Yes Hx Chronic Obstructive Pulmonary Disease (COPD): Yes Hx Emphysema: Yes - Neurological Hx Neurological Disorder: Yes Hx Dizziness: Yes - HEENT Hx HEENT Disorder: No - Renal Hx Renal Disorder: No - Endocrine/Metabolic Hx Endocrine Disorders: No - Hematological/Oncological Hx Blood Disorders: Yes Hx AIDS: Yes Hx Cancer: Yes (left breast, lumpectomy) Hx Chemotherapy: Yes Hx Hepatitis C: Yes - Integumentary Hx Dermatological Disorder: Yes Other/Comment: dry skin on feet - Musculoskeletal/Rheumatological Hx Musculoskeletal Disorders: No Hx Falls: No - Gastrointestinal Hx Gastrointestinal Disorders: Yes Hx Gall Bladder Disease: Yes (cholectomy) - Genitourinary/Gynecological Hx Genitourinary Disorders: No - Psychiatric Hx Psychophysiologic Disorder: Yes Hx Anxiety: Yes Hx Depression: Yes Hx Substance Use: Yes (denies) - Past Surgical History Past Surgical History: Unable to Obtain - Surgical History Hx Cholecystectomy: Yes - Anesthesia Hx Anesthesia: Yes Hx Anesthesia Reactions: No Hx Malignant Hyperthermia: No - Suicidal Assessment Feels Threatened In Home Enviroment: No Family/Social History - Physician Review Nursing Documentation Reviewed: Yes Family/Social History: Unknown Family HX Smoking Status: Never Smoked Hx Alcohol Use: Yes (former) Hx Substance Use: Yes (denies) Substance used: marijuana Hx Substance Use Treatment: No Allergies/Home Meds Allergies/Adverse Reactions: Allergies No Known Allergies Allergy (Verified 07/14/18 00:40) Home Medications: Home Meds Medication Instructions Recorded Confirmed Abacavir/Dolutegravir/Lamivudi 1 tab PO DAILY 12/27/17 07/06/18 [Triumeq 600-50-300 mg Tablet] Acetaminophen/Butalbital/Caf 1 tab PO Q6 PRN 06/23/18 07/06/18 [Fioricet] Albuterol Sulfate [Ventolin Hfa] 2 puff IH Q4 PRN 06/23/18 07/06/18 Fluticasone/Salmeterol [Airduo 1 inh IH BID 06/23/18 07/06/18 Respiclick 113-14 Mcg] Sulfamethoxazole/Trimethoprim 1 tab PO DAILY 06/23/18 07/06/18 [Bactrim DS 800 mg-160 mg] Umeclidinium [place] [Incruse 62.5 mcg IH DAILY 06/23/18 07/06/18 Ellipta] Review of Systems - Physician Review All systems were reviewed & negative as marked: Yes - Review of Systems Constitutional: Normal. absent: Fevers Eyes: Normal ENT: Normal Respiratory: Normal. absent: SOB, Cough Cardiovascular: Normal. absent: Chest Pain Gastrointestinal: Normal. absent: Abdominal Pain, Diarrhea, Nausea, Vomiting Genitourinary Female: Normal. absent: Dysuria, Frequency, Hematuria, Urine Output Changes Musculoskeletal: Other (+discomfort to plantar aspect of feet). absent: Back Pain, Neck Pain Skin: Normal. absent: Rash Neurological: Normal. absent: Headache, Dizziness Endocrine: Normal Hemo/Lymphatic: Normal Psychiatric: Normal Physical Exam Vital Signs Reviewed: Yes Vital Signs Temp Pulse Resp BP Pulse Ox 07/14/18 00:39 97.7 F 89 16 118/71 95 Temperature: Afebrile Blood Pressure: Normal Pulse: Regular Respiratory Rate: Normal Appearance: Positive for: Well-Appearing, Non-Toxic, Comfortable Pain Distress: None Mental Status: Positive for: Alert and Oriented X 3 - Systems Exam Head: Present: Atraumatic, Normocephalic Pupils: Present: PERRL Extroacular Muscles: Present: EOMI Conjunctiva: Present: Normal Mouth: Present: Moist Mucous Membranes Neck: Present: Normal Range of Motion Respiratory/Chest: Present: Clear to Auscultation, Good Air Exchange. No: Respiratory Distress, Accessory Muscle Use Cardiovascular: Present: Regular Rate and Rhythm, Normal S1, S2. No: Murmurs Abdomen: No: Tenderness, Distention, Peritoneal Signs Back: Present: Normal Inspection Upper Extremity: Present: Normal Inspection. No: Cyanosis, Edema Lower Extremity: Present: Normal Inspection, NORMAL PULSES, Normal ROM, Neurovascularly Intact. No: Edema, CALF TENDERNESS, Jere's Sign, Tenderness, Swelling, Erythema, Deformity Neurological: Present: GCS=15, CN II-XII Intact, Speech Normal, Motor Func Grossly Intact, Normal Sensory Function Skin: Present: Warm, Dry, Normal Color. No: Rashes Psychiatric: Present: Alert, Oriented x 3, Normal Insight, Normal Concentration Medical Decision Making ED Course and Treatment: 07/14/18 00:45 Impression: 57 year old female complaining of discomfort to plantar aspect of bilateral feet. Plan: -- XR Left Foot -- XR Right Foot -- Reassess and disposition Prior Visits: Notes and results from previous visits were reviewed. Progress Notes: 07/14/18 01:58 Reviewed radiology, XR Left Foot shows no acute processes. XR Right Foot shows no acute processes. - RAD Interpretation Electrolysis Engineer: ED Physician, Radiologist - Scribe Statement The provider has reviewed the documentation as recorded by the Lucina Singletary Provider Scribe Attestation: All medical record entries made by the Scribe were at my direction and personally dictated by me. I have reviewed the chart and agree that the record accurately reflects my personal performance of the history, physical exam, medical decision making, and the department course for this patient. I have also personally directed, reviewed, and agree with the discharge instructions and disposition. Disposition/Present on Arrival - Present on Arrival Any Indicators Present on Arrival: No History of DVT/PE: No History of Uncontrolled Diabetes: No Urinary Catheter: No History Surgical Site Infection Following: None - Disposition Have Diagnosis and Disposition been Completed?: Yes Diagnosis: Plantar fasciitis Disposition: HOME/ ROUTINE Disposition Time: 02:03 Patient Plan: Discharge Patient Problems: Current Active Problems Problem Status Onset Plantar fasciitis Acute Condition: GOOD Discharge Instructions (ExitCare): Plantar Fasciitis Exercises Additional Instructions: Avoid prolonges standing/use shoes with proper arch support/Advil as directe d/follow up with your doctor this week
[2018-07-14 02:13] VITALS: BP 122/68; PULSE 81; RESP 18; TEMP 97.8; O2SAT 97
--- NOTE | 2018-07-14 11:14 | RAD ---
Date of service: 07/14/2018 PROCEDURE: Bilateral Feet Radiographs. HISTORY: pain plantar region COMPARISON: None. TECHNIQUE: 6 views obtained. FINDINGS: BONES: Right Foot: Normal. No fracture. Bone alignment is normal. There is periarticular bone demineralization Left Foot: There are 2 metallic screws and changes of osteotomy in the distal 1st metatarsal. No fracture. Bone alignment is normal. JOINTS: Right Foot: Normal. No osteoarthritis. Left Foot: Normal. No osteoarthritis. SOFT TISSUES: Right Foot: Normal. Left Foot: Normal. OTHER FINDINGS: None. IMPRESSION: No acute displaced fracture or dislocation.
== END 2018-07-14 02:13 | disposition home or self-care (01) ==
LOC: ED 00:30
DX: M72.2 Plantar fascial fibromatosis (principal); J44.9 Chronic obstructive pulmonary disease, unspecified; Z21 Asymptomatic human immunodeficiency virus [HIV] infection status; Z85.3 Personal history of malignant neoplasm of breast; B19.20 Unspecified viral hepatitis C without hepatic coma